=== PATIENT | male | born 1945 | race Caucasian/White ===

== ENCOUNTER → 2023-12-28 08:02 | Outpatient (REF) | payer MEDICARE, OTHER, SELFPAY ==
--- NOTE | 2023-12-28 08:52 | PTCARENOTE ---
Pt here for Echo/Bubble study. Bubble Study completed per protocol with aseptic technique. Right antecubital IV site utilized, inserted first attempt, rapid blood return. Pt tolerated procedure well, offers no complaints. IV D/C ed [id number], site
clear, no redness, no edema. No change in status.
== END ==
LOC: RCS 08:02
PROVIDERS: ATTENDING PHYSICIAN Internal Medicine Cardiovascular Disease; FAMILY PHYSICIAN Family Medicine
DX: I48.19 Other persistent atrial fibrillation (principal); I50.30 Unspecified diastolic (congestive) heart failure
CPT/HCPCS: 93308; 93321; 93325

== ENCOUNTER 2024-01-15 07:15 | Day surgery (SDC) | payer MEDICARE, OTHER, SELFPAY ==
--- NOTE | 2024-01-22 11:44 | ITS.CL.CARDI ---
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
Cardioversion
Procedure Report:
Date of Procedure: 01/15/24
Procedure: JOSE- guided Cardioversion
Indication: Symptomatic atrial fibrillation
Performing Physician: Keli Mandel DO [facility]
Technique: The patient was brought to the holding area. Signed informed consent was obtained. A time out was called and performed. The patient was anesthetized by the anesthesia service. Anticoagulation status was reviewed and appropriate.
Transesophageal echocardiogram performed without complication; no left atrial appendage thrombus. R2 pads were placed anteriorly and posteriorly. A 200 J synchronized biphasic shock restored normal sinus rhythm without significant bradycardia. There
were no complications.
Conclusion: Uncomplicated cardioversion from atrial fibrillation to sinus rhythm.
Recommendation: Routine post cardioversion care. 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
== END 2024-01-15 09:26 | disposition home or self-care (01) ==
LOC: CATH 07:15
PROVIDERS: ATTENDING PHYSICIAN Internal Medicine Cardiovascular Disease; FAMILY PHYSICIAN Family Medicine; OTHER PHYSICIAN Internal Medicine Cardiovascular Disease
DX: I48.19 Other persistent atrial fibrillation (principal); I11.0 Hypertensive heart disease with heart failure; Z79.01 Long term (current) use of anticoagulants; I50.30 Unspecified diastolic (congestive) heart failure; I34.0 Nonrheumatic mitral (valve) insufficiency; I45.10 Unspecified right bundle-branch block
CPT/HCPCS: 93312; 93320; 93325; 92960; 93005

== ENCOUNTER → 2024-06-20 08:50 | Outpatient (REF) | payer MEDICARE, OTHER, SELFPAY ==
[2024-06-20 10:32] LABS: Hematocrit 39.1 % (39.0-52.0); Hemoglobin 14.3 g/dL (13.0-18.0); Mean Corp Hgb Conc. 36.6 g/dL (33.0-37.0); Mean Corpuscular Volume 95.8 fL (80.0-94.0); Mean Platelet Volume 12.5 fL (7.4-10.4); Platelet Count 151 10^3/uL (130-400); Red Blood Cell Count 4.08 10^6/uL (4.70-6.10); Red Cell Dist. Width 11.4 % (11.5-14.5); White Blood Cell Count 6.3 10^3/uL (4.8-10.8)
[2024-06-20 11:28] LABS: Blood Urea Nitrogen 14 mg/dl (9-20); Carbon Dioxide 29 mmol/L (22-30); Chloride 93 mmol/L (98-107); Glucose 90 mg/dl (70-99); Potassium 4.8 mmol/L (3.5-5.1); Sodium 127 mmol/L (135-145); eGFR > 60.00
== END ==
LOC: SDSPAT 08:50
PROVIDERS: ATTENDING PHYSICIAN Surgery; FAMILY PHYSICIAN Family Medicine; OTHER PHYSICIAN Internal Medicine Cardiovascular Disease
DX: Z01.818 Encounter for other preprocedural examination (principal)
CPT/HCPCS: 36415; 80048; 85027

== ENCOUNTER → 2024-06-29 06:27 | Day surgery (SDC) | payer MEDICARE, OTHER, SELFPAY ==
--- NOTE | 2024-06-23 14:16 | PTCARENOTE ---
Patients 06/20 pretty Monk @ Dr. Simon office and Dr. Argueta notified- no additional interventions indicated
[2024-06-29] MEDS: TYLENOL 1000 MG PO (14:14)
[2024-06-29] MEDS: NORMOSOL-R 1000 IV (14:14)
[2024-06-29] MEDS: ZESTRIL 20 MG PO (14:36)
[2024-06-29] MEDS: DILAUDID 0.25 MG IV (19:03)
== END | disposition home or self-care (01) ==
LOC: SDS 06:27
PROVIDERS: ATTENDING PHYSICIAN Surgery; FAMILY PHYSICIAN Family Medicine
DX: K40.90 Unilateral inguinal hernia, without obstruction or gangrene, not specified as recurrent (principal)
CPT/HCPCS: 49650; C1781

== ENCOUNTER → 2024-07-13 15:05 | Outpatient (REF) | payer MEDICARE, OTHER, SELFPAY ==
[2024-07-13 16:44] LABS: NT-proBNP 2580 pg/ml
[2024-07-13 16:52] LABS: ALT (SGPT) 16 U/L (0-50); AST (SGOT) 28 U/L (17-59); Albumin 3.9 g/dl (3.5-5.0); Alkaline Phosphatase 71 U/L (38-126); Blood Urea Nitrogen 13 mg/dl (9-20); Calcium 8.9 mg/dl (8.4-10.2); Carbon Dioxide 30 mmol/L (22-30); Chloride 93 mmol/L (98-107); Glucose 87 mg/dl (70-99); Potassium 4.6 mmol/L (3.5-5.1); Sodium 132 mmol/L (135-145); Total Bilirubin 0.7 mg/dl (0.2-1.3); Total Protein 6.3 g/dl (6.3-8.2); eGFR > 60.00
[2024-07-13 17:00] LABS: Free T4 0.71 ng/dl (0.78-2.19)
[2024-07-13 17:15] LABS: TSH 2.01 uIU/ml (0.47-4.68)
== END ==
LOC: REG 15:05
PROVIDERS: ATTENDING PHYSICIAN Internal Medicine Cardiovascular Disease; FAMILY PHYSICIAN Family Medicine
DX: I48.19 Other persistent atrial fibrillation (principal); I50.30 Unspecified diastolic (congestive) heart failure
CPT/HCPCS: 36415; 80053; 83880; 84439; 84443

== ENCOUNTER 2024-07-18 03:28 | Emergency (ER) | payer MEDICARE, OTHER, SELFPAY ==
[2024-07-18 03:30] VITALS: BP 170/116
[2024-07-18 03:56] LABS: Urine Albumin 3+ (Neg - Trace); Urine Bilirubin Negative (Negative); Urine Character Bloody (Clear); Urine Color Red; Urine Glucose Negative (Negative); Urine Ketone Negative (Negative); Urine Leukocyte 2+ (Negative); Urine Nitrite Negative (Negative); Urine Occult Blood 4+ (Negative); Urine Urobilinogen Negative (Neg - 1+)
[2024-07-18 04:05] LABS: Urine Red Blood Cell >100 /HPF (0-2)
--- NOTE | 2024-07-18 04:27 | ED.GENMED ---
Addendum entered and electronically signed by Melody Craven PA-C 07/21/24 09:27:
07/21/24: Patient discharged on doxycycline. Urine culture growing >100,000 E.coli that is resistant to tetracycline. Patient called and notified of result. Script for cefdinir sent to pharmacy based on sensitivities.
Original Note:
History of Present Illness
General
Chief Complaint: Male Genito-Urinary Symptoms
Source: patient and previous hospital records (Recent left inguinal hernia repair June 29, 2024)
Exam Limitations: none
Time Seen by Provider: 07/18/24 04:11
Nursing documentation reviewed up to this point in time: agreed with
History of Present Illness
History of Present Illness:
This is a 79-year-old gentleman who has history of PAF chronically maintained on Eliquis, history of BPH, prior history of UTIs with last occurring perhaps 6 months ago.
He underwent laparoscopic left inguinal hernia repair June 29. Has been feeling well postoperatively although did note moderate periumbilical lower abdominal wall ecchymosis postoperatively which has been slowly resolving/improving.
This evening however he developed UTI symptoms, urinary frequency, urgency, dysuria that has progressed throughout the evening with onset of gross hematuria earlier this morning prompting ED visit.
He states if it was not for the hematuria he would have waited until the morning and contacted his PCP Dr. Brown but with worsening symptoms and onset of hematuria he came to the ED.
Current symptoms feel very similar to previous UTI symptoms that occurred perhaps 6 months ago.
He denies abdominal pain, no difficulty voiding nor hesitancy. He denies back pain or flank pain, no fever no chills, no nausea nor vomiting, no diarrhea or constipation.
Currently wearing a Holter monitor due to intermittent A-fib. He denies palpitations, no dizziness nor lightheadedness, no chest pain or shortness of breath.
Past History
Past History
ED Past Medical History: Arrthythmia (PAF), GERD, HTN, Psychiatric and Other (BPH, UTIs)
ED Past Surgical History: Orthopedic (Right knee arthroscopy) and Other (Hernia repair)
Social History
Tobacco: Non-smoker
Alcohol: Occasional
Personal:
Living: with family
Employment: Retired
Family History
Family History: Negative Diabetes
Phy Exam
Physical Exam
Physical Exam:
GENERAL: Alert , in no apparent distress. 79-year-old gentleman appears his stated age, bright and alert, pleasant, appears in no acute distress.
EYE: anicteric
NECK: Supple, nontender, no meningismus, no significant adenopathy.
ENT: oral mucosa is moist. No rhinorrhea.
CARDIAC: Irregularly irregular at a rate of 60-70, no murmur.
LUNGS: Clear breath sounds bilaterally, no acute respiratory distress, no wheezes/rales/rhonchi
ABDOMEN: Soft, nondistended, without focal tenderness, no r/g, no cvat. normoactive BS. There is a large dark purple ecchymotic patch across the lower abdomen. No palpable tenderness. Bladder is not palpably distended.
NEUROLOGICAL: Alert and oriented x3, no focal neuro deficits. Gait is steady.
SKIN: Warm and dry, normal color, skin intact. No rash.
MUSCULOSKELETAL: No C/C/E. peripheral pulses are full and equal b/l. No palpable tenderness.
PSYCH: Normal and appropriate interaction.
Course
Orders/Labs/Results
Orders:
Orders
07/18/24 03:47
Urinalysis Reflex To Culture Urgent
Date Specimen was Collected: 07/18/24
Time Specimen was Collected: 03:42
Urine Microscopic Reflex Cult Urgent
Urine Culture Urgent
MARA Source: U
Specimen Description:
Date Specimen was Collected: 07/18/24
Time Specimen was Collected: 03:42
07/18/24 03:59
Bladder Scan- Treatment ONCE
07/18/24 04:26
Doxycycline [Vibramycin] 100 mg PO NOW STA
Phenazopyridine HCl [Pyridium] 200 mg PO NOW STA
Abnormal Lab Results
07/18/24
03:47
Ur Occult Blood Reflex 4+ A
(Negative)
Leukocyte Esterase Rfl 2+ A
(Negative)
Urine RBC >100 A /HPF
(0-2)
Urine Albumin (Reflex) 3+ A
(Neg - Trace)
Vital Signs
Initial and Last Documented VS:
Initial Vital Signs
Temp Pulse Resp BP Pulse Ox
98.7 F 74 24 170/116 98
07/18/24 03:30 07/18/24 03:30 07/18/24 03:30 07/18/24 03:30 07/18/24 03:30
Last Documented Vital Signs
Temp Pulse Resp BP Pulse Ox
98.7 F 76 21 170/116 98
07/18/24 03:30 07/18/24 04:15 07/18/24 04:15 07/18/24 03:30 07/18/24 03:30
MDM/Problems Addressed
Differential Diagnosis Includes:
Patient presents with UTI symptoms, gross hematuria concerning for acute hemorrhagic cystitis.
No associated back pain or flank pain to suggest ureteric stone/hydronephrosis.
Abdomen is soft and nontender, nothing to suggest bladder outlet obstruction but will check bladder scan for completeness sake.
Patient has history of PAF, has Holter monitor in place and monitor does show A-fib with controlled ventricular response. He remains asymptomatic.
Noted to have dark purple resolving ecchymotic patch anterior lower abdomen with well-healed laparoscopic surgical sites.
He is hemodynamically stable, has had no symptoms of acute blood loss anemia.
Significant hypertension noted however significant hypertension noted during most recent visit June 29 for hernia repair. And similarly elevated blood pressures noted June 2023.
I suspect an element of white-coat syndrome. Patient states his blood pressure is much better controlled at home.
Will treat with a course of doxycycline for UTI and add a short course of Pyridium for UTI symptom control.
Discussed importance of remaining well-hydrated on a daily basis.
Prompt follow-up with primary care physician for recheck.
Return precautions discussed.
Chronic conditions affecting care: Arrhythmia (PAF-chronically maintained on Eliquis) and Previous abdomnial surgery
*Pulse Oximetry
Patient hypoxic: no
*Log Buyer Interpretation
Rate: normal
Interpretation: abnormal
Rhythm: a-fib
*Critical Care Note
Total Time (30-74mins, 75-104mins- exclusive of procedures): Not Applicable
ED Attending Note
-
Portions of this chart may have been created with voice recognition software.� Occasional wrong word or��sound alike� substitutions may have occurred due to the inherent limitations of voice recognition software.
Discharge Plan
Departure
Patient Disposition: Home (Routine Discharge)
Date of Disposition: 07/18/24
Time of Disposition: 04:34
Patient with high blood pressure during this ER visit?: No
Discharge Problem:
Acute hemorrhagic cystitis, White coat syndrome with diagnosis of hypertension
Instructions: Urinary Tract Infection - Men
Prescriptions:
New
doxycycline monohydrate 100 mg capsule
100 mg PO BID Qty: 20 1RF
phenazopyridine [Pyridium] 200 mg tablet
200 mg PO TID PRN (Reason: UTI symptoms) 3 Days Qty: 9 0RF
No Action
esomeprazole magnesium [Nexium] 40 MG capsule,delayed release(DR/EC)
20 mg PO DAILY
lisinopril 20 mg Tablet
20 mg PO DAILY
sildenafil 100 mg Tablet
50 - 100 mg PO DAILY PRN (Reason: ED)
jcploegtkpih-tbfsmqsu-kqtvti Tablet
1 tab PO DAILY
glucosamine EDq-hyi-hpngaxukzq 375-250-300 mg Tablet
1 tab PO DAILY
carvedilol 6.25 mg Tablet
6.25 mg PO BID
alprazolam 0.25 mg Tablet
0.25 mg PO HS PRN (Reason: anxiety)
furosemide [Lasix] 20 mg Tablet
20 mg PO DAILY
Eliquis 5 mg Tablet
5 mg PO BID
acetaminophen 325 mg tablet
650 mg PO Q4HPRN PRN (Reason: mild pain) Qty: 1 0RF
ibuprofen 200 mg tablet
400 - 600 mg PO Q6HPRN PRN (Reason: moderate pain) Qty: 1 0RF
oxycodone 5 mg tablet
5 mg PO Q4HPRN PRN (Reason: breakthrough/severe pain) Qty: 10 0RF
Referrals:
Vincenzo Parra MD [Family Provider] - Call in 1-3 days for appt
Interventions
Interventions:
*Risk Screen - Suicide Last Done: 07/18/24 03:30
*General Assessment Last Done: 07/18/24 04:20
*Neglect/Abuse Screening Last Done: 07/18/24 03:30
ED- Fall Risk Assessment Last Done: 07/18/24 04:20
ED-Male Genitourinary Assessment Last Done: 07/18/24 04:20
Discharge Date and Time
Print Language: SERBIAN
[2024-07-18 04:36] VITALS: BP 157/110
[2024-07-18 04:50] VITALS: BP 157/110
[2024-07-18] MEDS: Pyridium 200 MG PO (04:51)
[2024-07-18] MEDS: VIBRAMYCIN 100 MG PO (04:51)
== END 2024-07-18 05:01 | disposition home or self-care (01) ==
LOC: EMR 03:28
PROVIDERS: EMERGENCY PHYSICIAN Emergency Medicine; FAMILY PHYSICIAN Family Medicine
DX: N30.01 Acute cystitis with hematuria (principal); I10 Essential (primary) hypertension; I48.0 Paroxysmal atrial fibrillation; N40.0 Benign prostatic hyperplasia without lower urinary tract symptoms; Z79.01 Long term (current) use of anticoagulants
CPT/HCPCS: 99283; 81003; 81015; 87086; 87088; 87186

== ENCOUNTER → 2024-07-25 09:37 | Outpatient (REF) | payer MEDICARE, OTHER, SELFPAY ==
[2024-07-25 11:03] LABS: Blood Urea Nitrogen 14 mg/dl (9-20); Calcium 9.5 mg/dl (8.4-10.2); Carbon Dioxide 30 mmol/L (22-30); Chloride 95 mmol/L (98-107); Glucose 95 mg/dl (70-99); Potassium 4.9 mmol/L (3.5-5.1); Sodium 136 mmol/L (135-145); eGFR > 60.00
[2024-07-25 11:10] LABS: NT-proBNP 1940 pg/ml
== END ==
LOC: REG 09:37
PROVIDERS: ATTENDING PHYSICIAN Internal Medicine Cardiovascular Disease; FAMILY PHYSICIAN Family Medicine; REFERRING PHYSICIAN Internal Medicine Cardiovascular Disease
DX: I10 Essential (primary) hypertension (principal); I48.91 Unspecified atrial fibrillation; I50.30 Unspecified diastolic (congestive) heart failure
CPT/HCPCS: 36415; 80048; 83880

== ENCOUNTER 2024-09-05 09:53 | Day surgery (SDC) | payer MEDICARE, OTHER, SELFPAY ==
[2024-08-30 12:41] VITALS: BMI 31.3
[2024-09-05] VITALS (14 sets, daily range): BP systolic 100–199; BP diastolic 67–112
[2024-09-05 13:46] LABS: ACT-LR - POC 380 Seconds (116-155)
[2024-09-05 14:02] LABS: ACT-LR - POC 353 Seconds (116-155)
--- NOTE | 2024-09-05 15:51 | ITS.CL.ABL ---
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
Ablation
Procedure Report:
ELECTROPHYSIOLOGIC STUDY AND POSSIBLE ABLATION
DATE: September 05, 2024
Primary Care Provider: Dr. Vincenzo Brown
Primary Vp Mobile Products: Dr Judit Potter
INDICATION:
Symptomatic Atrial Fibrillation.
Persistent
HISTORY: See H and P.
Symptomatic AF, poorly controlled with attempted medical therapy.
He has been referred from Dr Judit Potter for electrophysiologic consultation regarding recurrent symptomatic atrial arrhythmias, both atrial fibrillation as well as atrial tachycardia/atypical atrial flutter associated with heart failure with
preserved ejection fraction.
Of note, he is also known to have moderate to severe mitral regurgitation with severely enlarged left atrium.
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
[id number] score of 4 (CHF, HTN, Age) and maintained on Eliquis.
HAS-BLED: 1
Age
CHADSVASc:
CHF, NYHA Class 2, HFpEF
HTN
Age
PRESENTING RHYTHM: AF
HISTORY: See H and P.
Symptomatic AF, poorly controlled with attempted medical therapy.
ANTICOAGULATION: apixaban
'TIME-OUT': called and confirmed.
SEDATION/ANESTHESIA: provided via the anesthesia department using general anesthesia.
PROCEDURE:
Ultrasound Guidance performed by dc was utilized for femoral venous Vascular Access b/l.
A decapolar CS catheter was placed within the CS for mapping and pacing.
The intracardiac ultrasound catheter was positioned in the RA for continuous intracardiac ultrasound imaging.
Heparin bolus and infusion to target ACT at 300 -350 seconds was administered. Transseptal puncture was performed. This entailed advancing a sheath with dilator into the superior vena cava and withdrawing both (monitoring intracardiac ultrasound,
fluoroscopy and tip pressure) with the tip oriented toward the atrial septum. The fossa ovalis was engaged (indicated by sudden displacement of the sheath tip as well as tenting of the fossa seen on intracardiac ultrasound).
The My[employer] transseptal system was used. Left atrial catheter position was confirmed by echocardiographic imaging and fluoroscopy followed by RF delivery using the SinglePlatform system resulting in successful LA access with pressure monitoring
demonstrating LA pressure waveforms (LA mean pressure 14 mm Hg). The sheath was advanced over the dilator and positioned in the left atrium.
The Martin Grid multipolar mapping catheter was initially positioned through the transseptal sheath for high density mapping.
Geometry and voltage mapping was performed using the Martin multipolar grid catheter. Ensite-X was utilized for three-dimensional electroanatomical mapping.
A 3-D map was created using Ensite-X in Voxel mode. A 3-D reconstructed CT image was compared to the 3-D Navex map to assist in anatomic evaluation, mapping and ablation.
The Tiinkk catheter and system was used for cardiac ablation. Catheter positioning was guided and confirmed using both I.C.E. and fluoroscopy. There is marked patchy high-frequency fractionation of the posterior wall of the left atrium.
PV isolation approach was used to electrically isolate each PV ostia (LSPV, LIPV, RSPV, RIPV).
Additional energy applications/additional ablation set was required to accomplish wide area circumferential ablation around each of the pulmonary vein sets and additionally ablation to accomplish LA posterior wall ablation.
Remapping with the Martin multipolar grid catheter found that all PVPs were eliminated at each vein demonstrating entrance block. Also pacing from the multipolar mapping catheter around the the circumference of the ostia was performed at 10 ma and
2.0 msec output to assess for exit block. This demonstrated electrical isolation at each of the pulmonary vein ostia (LSPV, LIPV, RSPV, RIPV). There is also entrance and exit block at the LA posterior wall.
Programmed electrostimulation failed to induce any sustained arrhythmias.
I.C.E. :
Pre-Ablation Post-Ablation
LVEF: 55 % 55 %
WMA: none none
Pericardial effusion: trace posterior trace posterior
COMPLICATIONS:
none
SUMMARY:
- Mapping and ablation to isolate the PVs
- Additional AF ablation set after PVI (WACA and LA posterior wall ablation).
- 3-D Electroanatomical Mapping
- Intracardiac Ultrasound
Post ablation, I discussed today's findings and results with the patient's , Liz.
RECOMMENDATIONS:
- Observe in monitored bed.
- Maintain oral anticoagulation.
- Continue current diuretic dosing
- Office visit with me in 3 months.
- Continue cardiovascular care with Dr Judit Potter
Copy to:
Dr. Vincenzo Brown
Dr Judit Potter
[2024-09-05] MEDS: TYLENOL 650 MG PO (16:44)
[2024-09-05] MEDS: ANESTHETIC LOZENGE 1 LOZENGE PO (16:44)
--- NOTE | 2024-09-05 18:34 | W.PN.UPDATE ---
Update Note
Progress Note Update
Pt seen post PFA. Right groin without ht/bleeding, oob ambulating, urinating without difficulty. Post EKG NSR w/1st deg AVB, RBBB 50-70s, no acute changes. Resume eliquis tonight, continue other meds as before. Followup at [facility] as scheduled. Home
today if groin site/tele remain stable.
== END 2024-09-05 19:05 | disposition home or self-care (01) ==
LOC: CATH 09:53
PROVIDERS: ATTENDING PHYSICIAN Internal Medicine Cardiovascular Disease; FAMILY PHYSICIAN Family Medicine; OTHER PHYSICIAN Internal Medicine Cardiovascular Disease
DX: I48.0 Paroxysmal atrial fibrillation (principal); I11.0 Hypertensive heart disease with heart failure; R53.83 Other fatigue; I47.19 Other supraventricular tachycardia; I50.32 Chronic diastolic (congestive) heart failure; N40.0 Benign prostatic hyperplasia without lower urinary tract symptoms; F41.9 Anxiety disorder, unspecified; I27.20 Pulmonary hypertension, unspecified; M19.90 Unspecified osteoarthritis, unspecified site; I45.10 Unspecified right bundle-branch block; K21.9 Gastro-esophageal reflux disease without esophagitis; Z79.899 Other long term (current) drug therapy; Z79.01 Long term (current) use of anticoagulants; I48.4 Atypical atrial flutter; I34.0 Nonrheumatic mitral (valve) insufficiency
CPT/HCPCS: C1732; C1759; C1892; C1894; 85347; 86900; 86901; 93005; 93656; 93657; C1730; C1733; C1766

== ENCOUNTER → 2024-10-05 10:54 | Outpatient (REF) | payer MEDICARE, OTHER, SELFPAY ==
[2024-10-05 11:31] LABS: Urine Albumin Negative (Neg - Trace); Urine Bilirubin Negative (Negative); Urine Character Clear (Clear); Urine Color Yellow; Urine Glucose Negative (Negative); Urine Ketone Negative (Negative); Urine Leukocyte Negative (Negative); Urine Nitrite Negative (Negative); Urine Occult Blood Negative (Negative); Urine Urobilinogen Negative (Neg - 1+)
== END ==
LOC: RAD 10:54
PROVIDERS: ATTENDING PHYSICIAN Specialist; FAMILY PHYSICIAN Family Medicine
DX: N30.20 Other chronic cystitis without hematuria (principal)
CPT/HCPCS: 74176; 81003; 87086

== ENCOUNTER 2024-10-28 09:35 | Emergency (ER) | payer MEDICARE, OTHER, SELFPAY ==
[2024-10-28 09:37] VITALS: BP 166/98
[2024-10-28 10:05] VITALS: BMI 29.4
--- NOTE | 2024-10-28 10:51 | ED.GENMED ---
History of Present Illness
<Tana Dennis MD, Resident - Last Filed: 10/28/24 14:23>
General
Chief Complaint: Musculo-Skeletal Complaint
Source: patient
Time Seen by Provider: 10/28/24 09:55
History of Present Illness
History of Present Illness:
This is a 79 year old male patient with Afib on Eliquis, GERD and HTN who presented to the ED with concerns of back pain. He states that he started to have right sided lower back pain since last that progressively started to get worse. He
describes it as a dull ache that radiates down to right thigh. He is not able to properly bear weight without pain in leg. He denies any history of falls or trauma. He states that he went to his orthopedic and has an MRI back pending at the end of
this month but was unable to tolerate the pain which had prompted him to arrive to the ER. His orthopedic had started him on a medrol dose shannen and his PCP had given him tramal. He had started the steroids on Thursday and the Tramadol yesterday and
today (only 2 doses), both of which had not provided him any relief.
Past History
<Tana Dennis MD, Resident - Last Filed: 10/28/24 14:23>
Past History
ED Past Medical History: Arrthythmia (PAF), GERD, HTN, Psychiatric and Other (BPH, UTIs)
ED Past Surgical History: Orthopedic (Right knee arthroscopy) and Other (Hernia repair)
Social History
Tobacco: Non-smoker
Alcohol: Occasional
Personal:
Living: with family
Employment: Retired
Family History
Family History: Negative Diabetes
Review of Systems
<Tana Dennis MD, Resident - Last Filed: 10/28/24 14:23>
Review of Systems
Constitutional: Denies fever or chills
Cardiac: Denies chest pain
ABD/GI: Denies abdominal pain
Musculoskeletal: Reports back pain
Neurological: Denies headache
Phy Exam
<Tana Dennis MD, Resident - Last Filed: 10/28/24 14:23>
General Physical Exam
General Presentation: well appearing and no apparent distress
Cardiovascular Exam
Cardiovascular Exam: regular rate/rhythm and no murmur
Heart Sounds: normal
Pulmonary Exam
Pulmonary Exam: lungs clear, no respiratory distress and no crackles
Gastrointestinal Exam
Gastrointestinal Exam: non tender, soft and non distended
Neurological Exam
Neurological Exam: oriented x3
Musculoskeletal Exam
Musculoskeletal Exam: other (positive right straight leg test)
Skin Exam
Skin Exam: warm/dry
Psychiatric Exam
Psychiatric Exam: normal mood/affect
Course
<Tana Dennis MD, Resident - Last Filed: 10/28/24 14:23>
Orders/Labs/Results
Orders:
Orders
10/28/24 11:02
Oxycodone [Roxicodone] 10 mg PO NOW STA
10/28/24 11:03
Acetaminophen [Tylenol] 1,000 mg PO NOW STA
Vital Signs
Initial and Last Documented VS:
Initial Vital Signs
Temp Pulse Resp BP Pulse Ox
98.3 F 62 16 166/98 98
10/28/24 09:37 10/28/24 09:37 10/28/24 09:37 10/28/24 09:37 10/28/24 09:37
Last Documented Vital Signs
Temp Pulse Resp BP Pulse Ox
98.3 F 62 16 159/106 97
10/28/24 09:37 10/28/24 09:37 10/28/24 09:37 10/28/24 11:31 10/28/24 11:45
<Mila Braswell MD - Last Filed: 10/28/24 12:57>
Orders/Labs/Results
Orders:
Orders
10/28/24 11:02
Oxycodone [Roxicodone] 10 mg PO NOW STA
10/28/24 11:03
Acetaminophen [Tylenol] 1,000 mg PO NOW STA
Vital Signs
Initial and Last Documented VS:
Initial Vital Signs
Temp Pulse Resp BP Pulse Ox
98.3 F 62 16 166/98 98
10/28/24 09:37 10/28/24 09:37 10/28/24 09:37 10/28/24 09:37 10/28/24 09:37
Last Documented Vital Signs
Temp Pulse Resp BP Pulse Ox
98.3 F 62 16 159/106 97
10/28/24 09:37 10/28/24 09:37 10/28/24 09:37 10/28/24 11:31 10/28/24 11:45
<Tana Dennis MD, Resident - Last Filed: 10/28/24 14:23>
*Critical Care Note
Total Time (30-74mins, 75-104mins- exclusive of procedures): Not Applicable
<Tana Dennis MD, Resident - Last Filed: 10/28/24 14:23>
Update Note
Update Note:
Patient afebrile with stables vitals on exam. Positive right straight leg test. Pain control with oxycodone and patient started to feel improvement with pain. He is stable and can be discharged with pain medication to allow him to get MRI back at
the end of month and follow up with orthopedics for further care (he has already seen for this issue).
ED Attending Note
<Tana Dennis MD, Resident - Last Filed: 10/28/24 14:23>
-
Portions of this chart may have been created with voice recognition software.� Occasional wrong word or��sound alike� substitutions may have occurred due to the inherent limitations of voice recognition software.
<Mila Braswell MD - Last Filed: 10/28/24 12:57>
ED Attending Note
Patient seen and examined by attending physician: Yes
I performed a history and physical exam of patient and discussed management with resident, I reviewed resident's note and agree with documented findings and plan of care.: Yes
ED Attending Note:
Patient shows no sign of cauda equina. He is neurovascularly intact. Patient appears nontoxic.
Discharge Plan
Departure
Patient Disposition: Home (Routine Discharge)
Date of Disposition: 10/28/24
Time of Disposition: 12:54
Patient with high blood pressure during this ER visit?: Yes
Condition: Good
Covid-19: Not Applicable
Discharge Problem:
Low back pain radiating to right leg
Prescriptions:
New
oxycodone 5 mg tablet
5 - 10 mg PO Q8H PRN (Reason: Pain) Qty: 10 0RF
No Action
esomeprazole magnesium [Nexium] 40 MG capsule,delayed release(DR/EC)
20 mg PO DAILY
sildenafil 100 mg Tablet
50 - 100 mg PO DAILY PRN (Reason: ED)
eryqokeevsbn-awkvnoln-jjkarp Tablet
1 tab PO DAILY
carvedilol 6.25 mg Tablet
6.25 mg PO BID
alprazolam 0.25 mg Tablet
0.25 mg PO HS PRN (Reason: anxiety)
furosemide [Lasix] 20 mg Tablet
20 mg PO SUTUTHSA
Eliquis 5 mg Tablet
5 mg PO BID
acetaminophen 325 mg tablet
650 mg PO Q4HPRN PRN (Reason: mild pain) Qty: 1 0RF
ibuprofen 200 mg tablet
400 - 600 mg PO Q6HPRN PRN (Reason: moderate pain) Qty: 1 0RF
oxycodone 5 mg tablet
5 mg PO Q4HPRN PRN (Reason: breakthrough/severe pain) Qty: 10 0RF
lisinopril 40 mg Tablet
40 mg PO DAILY
[facility] 750 mg-100 mg- 1.65 mg-108 mg Tablet
1 tab PO DAILY
furosemide [Lasix] 40 mg Tablet
40 mg PO MOWEFR
Referrals:
Ravi Craft MD [Family Provider] -
Activity Restrictions/Additional Instructions:
If experiencing any symptoms such as worsening lower back pain, weakness or numbness in lower extremities please return to the ER. Follow up with orthopedics and pending MRI back outpatient. Do not take the tramadol within 8 hours of taking the
oxycodone!!!
Interventions
Interventions:
*Risk Screen - Suicide Last Done: 10/28/24 09:37
*General Assessment Last Done: 10/28/24 09:37
*Neglect/Abuse Screening Last Done: 10/28/24 09:37
ED- Fall Risk Assessment Last Done: 10/28/24 10:05
*ED COVID-19 Vaccine History Last Done: 10/28/24 10:05
*Nursing Disposition Last Done: 10/28/24 13:43
ED-Musculoskeletal Assessment Last Done: 10/28/24 10:13
Discharge Date and Time
Discharge Date/Time: 10/28/24 13:44
Print Language: [email or web address]
[2024-10-28] MEDS: TYLENOL 1000 MG PO (11:29)
[2024-10-28] MEDS: ROXICODONE 10 MG PO (11:29)
[2024-10-28 11:31] VITALS: BP 159/106
== END 2024-10-28 13:44 | disposition home or self-care (01) ==
LOC: EMR 09:35
PROVIDERS: EMERGENCY PHYSICIAN Emergency Medicine; FAMILY PHYSICIAN Psychiatry & Neurology Neurology
DX: M54.50 Low back pain, unspecified (principal); I10 Essential (primary) hypertension; I48.0 Paroxysmal atrial fibrillation; K21.9 Gastro-esophageal reflux disease without esophagitis; Z79.01 Long term (current) use of anticoagulants; N40.0 Benign prostatic hyperplasia without lower urinary tract symptoms
CPT/HCPCS: 99283

== ENCOUNTER → 2024-11-01 08:55 | Outpatient (REF) | payer MEDICARE, OTHER, SELFPAY ==
[2024-11-01 10:05] LABS: % Basophils 0.3 % (0-2); % Eosinophils 1.9 % (0-6); % Immature Granulocytes 0.5 % (0-0.5); % Lymphocytes 19.1 % (20.5-51.1); % Monocytes 9.4 % (1.7-9.3); % Neutrophils 68.8 % (42.2-75.2); Absolute Eosinophils 0.2 10^3/uL (0-0.7); Absolute Lymphocytes 1.7 10^3/uL (1.2-3.4); Absolute Monocytes 0.8 10^3/uL (0.1-0.6); Absolute Neutrophils 6.1 10^3/uL (1.4-6.5); Hematocrit 43.3 % (39.0-52.0); Hemoglobin 15.3 g/dL (13.0-18.0); Mean Corp Hgb Conc. 35.3 g/dL (33.0-37.0); Mean Corpuscular Hgb 34.1 pg (27.0-31.0); Mean Corpuscular Volume 96.4 fL (80.0-94.0); Mean Platelet Volume 12.1 fL (7.4-10.4); Nucleated Red Blood Cells % 0 % (-); Platelet Count 198 10^3/uL (130-400); Red Blood Cell Count 4.49 10^6/uL (4.70-6.10); Red Cell Dist. Width 11.9 % (11.5-14.5); White Blood Cell Count 8.8 10^3/uL (4.8-10.8)
[2024-11-01 13:24] LABS: ALT (SGPT) 20 U/L (0-50); AST (SGOT) 25 U/L (17-59); Albumin 4.3 g/dl (3.5-5.0); Alkaline Phosphatase 66 U/L (38-126); Blood Urea Nitrogen 19 mg/dl (9-20); Calcium 9.2 mg/dl (8.4-10.2); Carbon Dioxide 32 mmol/L (22-30); Chloride 92 mmol/L (98-107); Glucose 97 mg/dl (70-99); HDL Cholesterol 54 mg/dl; LDL Cholesterol, Calculated 124 mg/dl; Sodium 132 mmol/L (135-145); Total Bilirubin 0.9 mg/dl (0.2-1.3); Total Cholesterol 207 mg/dl (50-199); Total Protein 7.1 g/dl (6.3-8.2); Triglyceride 146 mg/dl (10-149); Very Low Density Lipoprotein 29 mg/dl (0-30); eGFR > 60.00
== END ==
LOC: REG 08:55
PROVIDERS: ATTENDING PHYSICIAN Family Medicine
DX: C44.90 Unspecified malignant neoplasm of skin, unspecified (principal); Z98.890 Other specified postprocedural states; Z87.19 Personal history of other diseases of the digestive system; I10 Essential (primary) hypertension; I48.91 Unspecified atrial fibrillation
CPT/HCPCS: 36415; 80053; 80061; 85025

== ENCOUNTER → 2025-02-28 11:22 | Outpatient (REF) | payer MEDICARE, OTHER, SELFPAY ==
[2025-02-28 12:11] LABS: % Basophils 0.4 % (0-2); % Eosinophils 1.2 % (0-6); % Immature Granulocytes 0.2 % (0-0.5); % Lymphocytes 23.3 % (20.5-51.1); % Neutrophils 63.9 % (42.2-75.2); Absolute Eosinophils 0.1 10^3/uL (0-0.7); Absolute Lymphocytes 1.9 10^3/uL (1.2-3.4); Absolute Monocytes 0.9 10^3/uL (0.1-0.6); Absolute Neutrophils 5.3 10^3/uL (1.4-6.5); Hematocrit 42.5 % (39.0-52.0); Mean Corp Hgb Conc. 35.3 g/dL (33.0-37.0); Mean Corpuscular Hgb 34.6 pg (27.0-31.0); Mean Corpuscular Volume 98.2 fL (80.0-94.0); Mean Platelet Volume 11.6 fL (7.4-10.4); Nucleated Red Blood Cells % 0 % (-); Platelet Count 179 10^3/uL (130-400); Red Blood Cell Count 4.33 10^6/uL (4.70-6.10); Red Cell Dist. Width 11.7 % (11.5-14.5); White Blood Cell Count 8.3 10^3/uL (4.8-10.8)
[2025-02-28 14:05] LABS: Blood Urea Nitrogen 21 mg/dl (9-20); Calcium 9.4 mg/dl (8.4-10.2); Carbon Dioxide 28 mmol/L (22-30); Chloride 101 mmol/L (98-107); Glucose 73 mg/dl (70-99); Potassium 5.4 mmol/L (3.5-5.1); Sodium 138 mmol/L (135-145); eGFR > 60.00
== END ==
LOC: REG 11:22
PROVIDERS: ATTENDING PHYSICIAN Orthopaedic Surgery; FAMILY PHYSICIAN Family Medicine
DX: Z01.818 Encounter for other preprocedural examination (principal)
CPT/HCPCS: 36415; 80048; 85025

== ENCOUNTER → 2025-03-07 11:09 | Outpatient (REF) | payer MEDICARE, OTHER, SELFPAY ==
[2025-03-07 18:38] LABS: Urine Albumin Negative (Neg - Trace); Urine Bilirubin Negative (Negative); Urine Character Clear (Clear); Urine Color Yellow; Urine Glucose Negative (Negative); Urine Ketone Negative (Negative); Urine Leukocyte Negative (Negative); Urine Nitrite Negative (Negative); Urine Occult Blood Negative (Negative); Urine Specific Gravity 1.015 (<1.030); Urine Urobilinogen Negative (Neg - 1+)
== END ==
LOC: CLAB 11:09
PROVIDERS: ATTENDING PHYSICIAN Specialist
DX: N30.21 Other chronic cystitis with hematuria (principal)
CPT/HCPCS: 81003; 87086

== ENCOUNTER 2025-03-31 08:16 | Outpatient (RCR) | payer MEDICARE, OTHER, SELFPAY | END 2025-04-05 07:34 | disposition home or self-care (01) | LOC: RPT 08:16 | PROVIDERS: ATTENDING PHYSICIAN Orthopaedic Surgery; FAMILY PHYSICIAN Family Medicine | DX: Z47.1 Aftercare following joint replacement surgery (principal); M17.12 Unilateral primary osteoarthritis, left knee; Z73.6 Limitation of activities due to disability; R26.89 Other abnormalities of gait and mobility; G89.29 Other chronic pain; Z96.652 Presence of left artificial knee joint | CPT/HCPCS: 97110; 97161; 97535 ==

== ENCOUNTER 2025-04-01 06:08 | Inpatient (IN) | payer MEDICARE, OTHER, SELFPAY ==
[2025-03-31 23:18] VITALS: BP 135/79
[2025-04-01] VITALS (14 sets, daily range): BP systolic 106–155; BP diastolic 64–127; BMI 30.7
[2025-04-01 00:11] LABS: % Basophils 0.1 % (0-2); % Immature Granulocytes 0.5 % (0-0.5); % Neutrophils 79.4 % (42.2-75.2); Absolute Immature Granulocytes 0.1 10^3/uL (0-0.05); Absolute Lymphocytes 1.2 10^3/uL (1.2-3.4); Absolute Monocytes 1.4 10^3/uL (0.1-0.6); Absolute Neutrophils 10.3 10^3/uL (1.4-6.5); Hematocrit 30.9 % (39.0-52.0); Mean Corp Hgb Conc. 35.6 g/dL (33.0-37.0); Mean Corpuscular Hgb 33.8 pg (27.0-31.0); Mean Corpuscular Volume 95.1 fL (80.0-94.0); Mean Platelet Volume 12.5 fL (7.4-10.4); Nucleated Red Blood Cells % 0 % (-); Platelet Count 161 10^3/uL (130-400); Red Blood Cell Count 3.25 10^6/uL (4.70-6.10); Red Cell Dist. Width 11.9 % (11.5-14.5)
[2025-04-01 00:37] LABS: ALT (SGPT) 22 U/L (0-50); AST (SGOT) 26 U/L (17-59); Alkaline Phosphatase 52 U/L (38-126); Blood Urea Nitrogen 33 mg/dl (9-20); Calcium 8.8 mg/dl (8.4-10.2); Carbon Dioxide 24 mmol/L (22-30); Chloride 99 mmol/L (98-107); Estimated Creatinine Clearance 66 ml/min; Glucose 109 mg/dl (70-99); Potassium 4.8 mmol/L (3.5-5.1); Sodium 130 mmol/L (135-145); Total Bilirubin 0.9 mg/dl (0.2-1.3); Total Protein 6.4 g/dl (6.3-8.2); eGFR > 60.00
[2025-04-01 00:38] LABS: Troponin I < 0.012 ng/ml
[2025-04-01 03:28] LABS: NT-proBNP 1730 pg/ml; Troponin I 0.037 ng/ml
--- NOTE | 2025-04-01 03:43 | ED.GENMED ---
History of Present Illness
General
Chief Complaint: Chest Pain
Source: patient and spouse
Time Seen by Provider: 04/01/25 03:42
History of Present Illness
History of Present Illness:
This patient is a 80-year-old male presents emergency department status post knee replacement performed here at [place] on Thursday. He has been recovering well. Tonight he was going upstairs to go to bed and he developed an episode of dyspnea
associated with chest 'tightness' described as 'pain whenever I would breathe'. He still had symptoms on his way to the emergency department but upon arrival he has been symptom-free. He denies fever, chills, nausea, vomiting, diaphoresis,
dizziness. Of note, patient typically takes Eliquis given his history of A-fib. He discontinued it prior to surgery, took a half dose on Thursday, and a full dose on and Thursday. Patient denies history of DVT.
Past History
Past History
ED Past Medical History: Arrthythmia (PAF), GERD, HTN, Psychiatric and Other (BPH, UTIs)
ED Past Surgical History: Orthopedic (Right knee arthroscopy) and Other (Hernia repair)
Social History
Tobacco: Non-smoker
Alcohol: Occasional
Drug: None
Personal:
Living: with family
Employment: Retired
Family History
Family History: Negative Diabetes
Phy Exam
Physical Exam
Physical Exam:
GENERAL: Alert , in no apparent distress, nontoxic, extremely well-appearing
EYE: pupils equal and reactive
NECK: Supple, no significant adenopathy.
ENT: o/p clr, mmm.
CARDIAC: Regular rate and rhythm .
LUNGS: Clear breath sounds bilaterally, no acute respiratory distress, no wheezes/rales/rhonchi
ABDOMEN: Soft, without focal tenderness, no r/g, no cvat
NEUROLOGICAL: Alert and oriented, no focal neuro deficits
SKIN: Warm and dry, skin intact.
MUSCULOSKELETAL: Slight bilateral lower extremity edema, well perfused. Left knee with limited range of motion given postoperative, dressing clean and dry
PSYCH: Normal and appropriate interaction.
Scores
Heart Score for Chest Pain Patients
STEMI patient?: Not applicable
Course
Orders/Labs/Results
Orders:
Orders
03/31/25 23:12
EKG [Electrocardiogram (*1)] Urgent
Reason for Study: Chest Pain
EKG- Treatment ONCE
03/31/25 23:31
Electrocardiogram (*1) Urgent
Reason for Study: Chest Pain
Cardiac Monitoring- Treatment ONCE
EKG- Treatment ONCE
IV Insert/Care/Rem.- Treatment PRN
O2 Therapy [RESP] Urgent
Titrate/Wean O2 to maintain O2 sat greater than (%): 90
Special Instructions: Maintain sats >/=90%
Pulse Ox/spot Check [RESP] Urgent
Quantity: 1
Special Instructions: ON ROOM AIR
03/31/25 23:58
Complete Blood Count/With Diff Urgent
Comprehensive Metabolic Panel Urgent
Troponin I Urgent
04/01/25 01:29
CXR2 [CR Chest - 2 Views ] Urgent
Comment:
Reason For Exam: cp
04/01/25 02:49
EKG [Electrocardiogram (*1)] Urgent
Reason for Study: Chest Pain
EKG- Treatment ONCE
04/01/25 02:54
NT-proBNP Urgent
Troponin I Urgent
04/01/25 03:49
CT Chest PE Study Urgent
Comment: episode of sob and chest pain at home
Reason For Exam: hx total knee replacement,
04/01/25 04:55
Aspirin 325 mg PO NOW STA
04/01/25 05:48
Admit/Transfer Patient As Directed
Co-Sign Provider:
Level of Care: Inpatient admission
Assign to:: Telemetry
Physician / Group: Fredo
Diagnosis: ACS
Reason for Telemetry: Chest Pain syndromes
Date to Stop Telemetry: 04/03/25
Time to Stop Telemetry: 11:00
Reason for Hospitalization: ACS
Expected length of stay greater than two midnights?: Yes
ELOS- Estimated Length of Stay in days: 2
I certify the patient meets the requirements for IP care: Yes
PRN Pain Medication Management As Directed
May give lesser potent ordered pain med per pt: Yes
preference::
Protocol:: Medication orders for pain may be administered in a
manner that supports deferring to patient preference
when the pt is:
- Requesting an ordered lesser potent pain medication.
Least to most potent pain medications are defined
as: acetaminophen < NSAID < tramadol < opioids
(morphine, oxycodone, hydromorphone).
- Requesting a lesser dose of the same medication IF
ORDERED.
- Requesting a less intrusive route of administration
if both routes are prescribed by the provider (PO <
IV).
04/01/25 05:49
Code Status As Directed
Resuscitation Status: Full Code
04/01/25 06:53
Acetaminophen [Tylenol] 650 mg PO Q4HPRN PRN
Alprazolam [Xanax] 0.25 mg PO HS PRN
Morphine Sulfate 2 mg IV Q4HPRN PRN
04/01/25 06:53
CARDIOLOGY CONSULT Routine
Consulting Provider: Stas Oconnor
Was physician already notified: No
Reason for consult: Chest Pain
Consult Notification Routine
Specialty to Notify: Cardiology
Date consulting provider notified: 04/01/25
Time consulting provider notified: 08:09
Notified:: Provider
Comment: Sche[place]
Activity As Directed
Activity Level: Ambulate
With Assistance
EKG with chest pain [ECG as needed] As Directed
ECG as needed for:: Chest Pain
I/O [Intake/ Output] As Directed
Frequency: Per unit guidelines
Vital Signs As Directed
Frequency: Per unit guidelines
Weight As Directed
Frequency: Daily
Oxygen Therapy [O2 Therapy] [RESP] Routine
Titrate/Wean O2 to maintain O2 sat greater than (%): 94
PT Consult [Pt Eval And Treat] Routine
Activity Level: Ambulate
With Assistance
04/01/25 07:22
Tramadol HCl [Ultram] 25 mg PO Q6H PRN
04/01/25 08:00
Apixaban [Eliquis] 5 mg PO BID
Carvedilol [Coreg] 6.25 mg PO BID
Furosemide [Lasix] 20 mg PO DAILY
Lisinopril [Zestril] 40 mg PO DAILY
Pantoprazole [Protonix] 40 mg PO DAILY
Tamsulosin [Flomax] 0.4 mg PO DAILY
04/01/25 09:49
Troponin I Q6H
04/01/25 17:36
Troponin I Q6H
04/02/25 06:00
EKG [Electrocardiogram (*1)] IN AM
Reason for Study: Chest Pain
Basic Metabolic Panel IN AM
Cardiovascular Evaluation IN AM
Complete Blood Count/No Diff IN AM
04/02/25 08:00
Aspirin Chewable [Low Strength Aspirin] 81 mg PO DAILY
04/03/25 11:00
DC Protocol for Telemetry ONCE
Abnormal Lab Results
03/31/25 04/01/25
23:58 02:54
WBC 13.0 H 10^3/uL
(4.8-10.8)
RBC 3.25 L 10^6/uL
(4.70-6.10)
Hgb 11.0 L g/dL
(13.0-18.0)
Hct 30.9 L %
(39.0-52.0)
MCV 95.1 H fL
(80.0-94.0)
MCH 33.8 H pg
(27.0-31.0)
MPV 12.5 H fL
(7.4-10.4)
Abs Immat Gran (auto) 0.1 H 10^3/uL
(0-0.05)
Absolute Neuts (auto) 10.3 H 10^3/uL
(1.4-6.5)
Absolute Monos (auto) 1.4 H 10^3/uL
(0.1-0.6)
Neutrophils % 79.4 H %
(42.2-75.2)
Lymphocytes % 9.0 L %
(20.5-51.1)
Monocytes % 11.0 H %
(1.7-9.3)
Sodium 130 L mmol/L
(135-145)
BUN 33 H mg/dl
(9-20)
Glucose 109 H mg/dl
(70-99)
Troponin I 0.037 H* D ng/ml
03/31/25 23:58
03/31/25 23:58
Vital Signs
Initial and Last Documented VS:
Initial Vital Signs
Temp Pulse Resp BP Pulse Ox
97.9 F 73 24 135/79 98
03/31/25 23:18 03/31/25 23:18 03/31/25 23:18 03/31/25 23:18 03/31/25 23:18
Last Documented Vital Signs
Temp Pulse Resp BP Pulse Ox
97.4 F 71 18 130/85 99
04/01/25 15:42 04/01/25 15:42 04/01/25 15:42 04/01/25 15:42 04/01/25 15:42
*Critical Care Note
Total Time (30-74mins, 75-104mins- exclusive of procedures): Not Applicable
Update Note
Update Note:
Patient presents to the Emergency Department with ___chest pain and shortness of breath
Number and Complexity of Problems Addressed at the Encounter
� Chronic conditions affecting care:
� Acute Exacerbation and/or Progression of Chronic Illness:
� Differential Diagnosis includes: But not limited to deconditioning, PE, ACS, pneumothorax, pleurisy, etc. etc.
Amount and/or Complexity of Data to be Reviewed and Analyzed
� I performed an independent evaluation of and my interpretation is:
EKG: Read by me, normal sinus rhythm with occasional PVCs, nonspecific T wave flattening
CT: Vision no pulmonary is embolism no definitive aortic dissection or aneurysm mild cardiomegaly and CAD. Lungs clear aside from dependent atelectasis. Benign liver cyst small hiatal hernia
Xrays:
Laboratory Studies: Mild leukocytosis, mild anemia, hyponatremia which is similar to 2023
Other:
� Review of other/old records reveals:
� Clinical information was obtained by an independent historian:
� Prescriptions/Medications Considered but not given:
� Further testing considered but not performed:
Risk of Complications and/or Morbidity or Mortality of Patient Management
� Social determinants of health affecting care:
� Discussion with other providers (PCP, Hospitalists, Consultants, etc):
� Escalation of care including admission/observation vs risk of discharge considered: Initial troponin normal, repeat troponin elevated at 0.037. Patient without chest pain or other symptoms, and repeat ECG without acute
ischemic changes at this time. PE is high on the differential, CAT scan pending.
4:54 AM fortunately no PE noted. However, patient noted to have a abnormal troponin on second draw. He will be admitted for further testing and monitoring. Patient already on anticoagulation. No chest pain at this time. TT to Dr Stevens for
admission.
ED Attending Note
-
Portions of this chart may have been created with voice recognition software.� Occasional wrong word or��sound alike� substitutions may have occurred due to the inherent limitations of voice recognition software.
Discharge Plan
Departure
Patient Disposition: Admit
Date of Disposition: 04/01/25
Time of Disposition: 04:55
Admit to: Telemetry
Admit to doctor: fredo
Presentation/result/management discussed w/ accepting MD/DO: Hospitalist
Discharge Problem:
Chest pain
Interventions
Interventions:
*Risk Screen - Suicide Last Done: 03/31/25 23:18
*General Assessment Last Done: 03/31/25 23:18
*Neglect/Abuse Screening Last Done: 03/31/25 23:18
*ED- Fall Risk Assessment Last Done: 04/01/25 00:14
*ED COVID-19 Vaccine History Last Done: 04/01/25 00:14
*Nursing Disposition Last Done: 04/01/25 08:06
ED- Cardiac Assessment Last Done: 04/01/25 03:15
Discharge Date and Time
Discharge Date/Time: 04/01/25 07:50
[2025-04-01] MEDS: ASPIRIN 325 MG PO (05:18)
--- NOTE | 2025-04-01 05:51 | HPS.HSE ---
Family Physician
-
Family Physician: Vincenzo Parra
Chief Complaint
-
Chest Pain
History of Present Illness
Patient is a 80y M with PMH significant for A-Fib, hypertension and recent L TKA who presents to ED complaining of chest pain. Patient states that he was climbing the stairs to bed this evening when he developed substernal chest pain / pressure.
He lie down in bed to rest; however, his symptoms did not improve / resolve. He denies any associated diaphoresis, SOB, N/V, etc. He denies any prior history of similar pain / symptoms.
Patient presented to the ED for further evaluation.
Patient states that his pain fully resolved about 15 minutes after arrival in the ED. He has remained pain-free since that time.
Patient is s/p L TKA on Thursday. He has been doing very well in regards to pain control / mobility at home.
No complaints of significant knee pain, bleeding, etc.
Medical History
Past Medical History
Past Medical History: Reports Other
Additional Past Medical History:
Hypertension
Paroxysmal A-Fib / Flutter
GERD
BPH
Past Surgical History: Reports Other
Additional Past Surgical History:
Left TKA (03/28/25)
T&A
Bilateral Inguinal Hernia Repairs
Left Shoulder Surgery
PVI Ablation
Social History
Tobacco: Non-smoker
Alcohol: Occasional
Drug: None
Family History
Family History: Other (Mother: ALS)
Allergies / Home Medications
Allergies reflects when Allergies were last updated in [facility].
Home Medications with original date entered in [facility]
Allergy/Medication List:
Allergies
Allergy/AdvReac Type Severity Reaction Status Date / Time
No Known Allergies Allergy Verified 04/01/25 00:13
Home Medications
esomeprazole magnesium 40 mg capsule,delayed release (Nexium) 20 mg PO DAILY 10/03/12
mghormqlftho-vjjkskhd-mnlvhs tablet 1 tab PO DAILY 07/07/23
sildenafil 100 mg tablet 50 - 100 mg PO DAILY PRN ED 07/07/23
alprazolam 0.25 mg tablet 0.25 mg PO HS PRN anxiety 01/15/24
apixaban 5 mg tablet (Eliquis) 5 mg PO BID 01/15/24
carvedilol 6.25 mg tablet 6.25 mg PO BID 01/15/24
furosemide 20 mg tablet (Lasix) 20 mg PO DAILY 01/15/24
acetaminophen 325 mg tablet 650 mg (2 x 325 mg) PO Q4HPRN PRN mild pain #1 tab 06/29/24
lisinopril 40 mg tablet 40 mg PO DAILY 08/25/24
methenamine hippurate 1 gram tablet 1 g PO BID 04/01/25
tamsulosin 0.4 mg capsule 0.4 mg PO DAILY 04/01/25
tramadol 25 mg tablet 25 mg PO Q6H PRN pain 04/01/25
Review of Systems
-
History Source: Patient
A 12 point ROS was completed and negative except as noted: Yes
Constitutional: Denies Fever or Chills
Respiratory: Denies Cough or Trouble Breathing
Cardiac: Reports Chest Pain; Denies Palpitations
Abdomen/GI: Denies Abdominal Pain, Nausea, Vomiting or Diarrhea
: Denies Dysuria or Frequency
Musculoskeletal: Reports Joint Pain; Denies Edema
Neurological: Denies Dizzy or Headache
Psych: Denies Depression or Anxiety
Physical Exam
Vital Signs
Vital Signs
Temp Pulse Resp BP Pulse Ox
97.9 F 75 18 127/91 99
03/31/25 23:18 04/01/25 05:20 04/01/25 00:11 04/01/25 05:00 04/01/25 05:20
Physical Exam
General: Other (80y M in no acute distress.)
HEENT: Moist mucous membranes
Respiratory: Clear; No Wheezes, Rales or Rhonchi
Cardiac: S1/S2 and Regular Rhythm; No Murmur
GI: Soft, Non Tender, Non Distended and Normal Bowel Sounds
Musculoskeletal: No Clubbing, No Cyanosis and Other (L knee dressing in place. Surrounding ecchymosis / mild edema - expected post-op appearance. No erythema, increased warmth, etc.)
Neuro: AO x 3
Laboratory Results
-
03/31/25 23:58
03/31/25 23:58
Laboratory Results
Total Bilirubin 0.9 mg/dl (0.2-1.3) 03/31/25 23:58
AST 26 U/L (17-59) 03/31/25 23:58
ALT 22 U/L (0-50) 03/31/25 23:58
Alkaline Phosphatase 52 U/L (38-126) 03/31/25 23:58
Troponin I 0.037 ng/ml H* D 04/01/25 02:54
Impression/Plan
-
A/P: Patient is a 80y M with PMH significant for hypertension and paroxysmal A-Fib who presented to ED complaining of chest pain this evening.
Chest Pain / ACS
- Admit for further evaluation and treatment.
- EKG without evident ischemia. Non-specific T wave changes in lateral leads actually appear improved from prior.
- Initial troponin undetectable; however, second set elevated to 0.037.
- Pain free at present.
- Continue home Eliquis for now. ASA added.
- Continue to follow troponin to peak.
- Continue ASA daily.
- Cardiology evaluation for additional recommendations.
- Monitor for any new / recurrent pain.
Paroxysmal A-Fib / Flutter
- s/p prior ablation.
- Monitor on telemetry.
- Continue Eliquis for stroke risk reduction.
s/p L TKA 03/28/25
- Stable. Pain well-controlled. Good mobility s/p surgery.
- Continue pain control as needed.
- Continue ROM exercises / PT during acute stay.
Benign Hypertension
- Stable. Continue usual outpatient medications.
BPH
- Stable. Continue tamsulosin.
- Bladder scan protocol.
DVT Prophylaxis: On Eliquis
Code Status: Full
[2025-04-01] MEDS: ELIQUIS 5 MG PO (08:46)
[2025-04-01] MEDS: COREG 6.25 MG PO ×2 (08:46→20:21)
[2025-04-01] MEDS: LASIX 20 MG PO (08:47)
[2025-04-01] MEDS: ZESTRIL 40 MG PO (08:47)
[2025-04-01] MEDS: PROTONIX 40 MG PO (08:47)
[2025-04-01] MEDS: FLOMAX 0.4 MG PO (08:47)
--- NOTE | 2025-04-01 08:54 | CON.CAR ---
Addendum entered and electronically signed by Keli Mandel DO 04/02/25 00:30:
I saw and examined the patient.
The Supervisor Molding's note was reviewed and I agree with the note.
Comment: Patient was seen and examined with cardiac nurse practitioner and agree with note and plan as outlined. Patient's at bedside. 79-year-old male with history of atrial fibrillation/atypical flutter and PAT on chronic Eliquis
anticoagulation status post PVI 09/05/2024, heart failure preserved EF, moderate to severe mitral regurgitation hypertension and BPH with no known coronary artery disease. He follows with Dr. Waldemar Potter with plan for watchman for excessive
bleeding when he cuts himself (No history of GI bleed or transfusion dependent anemia; no prior hematologic workup) and remapping and ablation for his symptomatic atrial arrhythmias which are scheduled concomitantly for May 2025. He recently
underwent left total knee arthroplasty on 03/28/2025. He presented to the ED early this morning 04/01/2025 due to substernal chest pain/tightness that developed after he walked SLOWLY up a flight of steps. There was no radiation of the pain and no
associated symptoms. He laid down to rest and symptoms did not improve. He presented to the ED for further evaluation. Pain resolved 15 minutes after arriving to ED;He denies chest pain recurrence. No recent ischemic evaluation
ED workup:
Troponin less than 0.012��0.037
EKG: Atrial flutter 3-1 conduction, right bundle branch block
proBNP 1730
Hemoglobin 11.0 (was 15 02/28/2025), BUN/creatinine 33/1.0, NA 130, K4.8
Chest x-ray: Mild cardiomegaly lungs clear
Chest CT: No evidence of PE, no acute findings, mild cardiomegaly
Plan:
CP/Elevated troponin consistent with non-STEMI
-Currently chest pain-free and hemodynamically stable
-CTA noting moderate coronary calcification; Negative for PE
-Peak troponin 0.068
-Started on aspirin
-Stop Eliquis and start IV heparin without a bolus
-Check lipid profile; Will start atorvastatin 20 mg daily
-Discussed ischemic evaluation with a coronary angiogram. Procedure details, risks of benefits reviewed. He is agreeable to proceed. Will plan for left heart catheterization on Thursday
History of atypical atrial flutter/atrial tachycardia/A-fib currently in rate controlled atrial flutter
-Heart rates controlled on carvedilol 6.25 mg twice daily
-Will hold Eliquis for anticipated left heart catheterization 04/03/2025
History of mitral regurgitation
- JOSE 01/2024 showed moderate MR, normal LV/RV size and function
- Clinically no signs of heart failure
- Repeat echo on 04/03/2025
Status post recent left total knee replacement 03/28/2025
-Continue postop supportive care
-Anemia admission secondary to postop blood loss. No active bleeding
Original Note:
Consultation
Consultation Request
Date/Time Consultation Requested: 04/01/2025, 0653
Date/Time Consultation Performed: 04/01/2025, 0855
Requesting Provider: Dr. Stevens
Performing Provider: YAZ Flores for Dr. Mandel
Reason for Consultation: Chest pain
Medical History
-
Chief Complaint: Chest pain
History of Present Illness:
79-year-old male with history of atrial fibrillation, status post PVI 09/05/2024, atrial tachycardia, atypical atrial flutter, heart failure preserved EF, moderate to severe mitral regurgitation, right bundle branch block, and most recently left
total knee arthroplasty on 03/28/2025. He presented to the ED early this morning 04/01/2025 due to substernal chest pain/tightness that developed after he walked up a flight of steps. There was no radiation of the pain and no associated symptoms.
He laid down to rest and symptoms did not improve. He presented to the ED for further evaluation. Pain resolved 15 minutes after arriving to ED and has not reoccurred.
ED workup:
Troponin less than 0.012��0.037
EKG: Atrial flutter 3-1 conduction, right bundle branch block
proBNP 1730
Hemoglobin 11.0 (was 15 02/28/2025), BUN/creatinine 33/1.0, NA 130, K4.8
Chest x-ray: Mild cardiomegaly lungs clear
Chest CT: No evidence of PE, no acute findings, mild cardiomegaly
He was seen by Dr. Waldemar Potter on 03/16/2025 and was in recurrent atrial tachycardia/atypical atrial flutter with symptoms of fatigue. At that time also reported excessive bleeding from frequent cuts, scrapes on his skin and requested watchman
implantation. It was decided to proceed with watchman and remapping and ablation for his symptomatic atrial arrhythmias which are scheduled concomitantly for May 2025.
Past medical history:
Atypical atrial flutter
Atrial tachycardia
Atrial fibrillation
-Status post JOSE cardioversion 01/2024
- Status post PVI 09/05/2024
-Noted to have recurrent atypical atrial flutter/atrial tachycardia at office visit 03/16/2025 and is scheduled for repeat ablation and Watchman in May [address] Potter
Frequent bleeding-cuts, scrapes on oral anticoagulation
Right bundle branch block
Left total knee replacement 03/28/2025
GERD
BPH
Basal cell eyelid cancer
Tinnitus
Colon polyps
Actinic keratosis
Past Medical History
Past Medical History: Other (As above)
Past Surgical History: Appendectomy and Other (Right knee arthroscopy and meniscus repair, left total knee replacement 03/28/2025, robotic left inguinal hernia repair with mesh 06/2024, right eyelid surgery 12/2023, right L4-L5 procedure, 10/2024)
Social History
Tobacco: Non-Smoker
Family History
Family History: Reviewed & Not Pertinent
Allergies / Home Medications
Allergy/AdvReac Type Severity Reaction Status Date / Time
No Known Allergies Allergy Verified 04/01/25 00:13
�Medication �Instructions �Recorded �Confirmed �Type
esomeprazole magnesium 40 mg 20 mg PO DAILY 10/03/12 04/01/25 History
capsule,delayed release (Nexium)
xfnqqzlhepdh-xicyabun-mqsppy tablet 1 tab PO DAILY 07/07/23 04/01/25 History
sildenafil 100 mg tablet 50 - 100 mg PO DAILY PRN ED 07/07/23 04/01/25 History
alprazolam 0.25 mg tablet 0.25 mg PO HS PRN anxiety 01/15/24 04/01/25 History
apixaban 5 mg tablet (Eliquis) 5 mg PO BID 01/15/24 04/01/25 History
carvedilol 6.25 mg tablet 6.25 mg PO BID 01/15/24 04/01/25 History
furosemide 20 mg tablet (Lasix) 20 mg PO DAILY 01/15/24 04/01/25 History
acetaminophen 325 mg tablet 650 mg (2 x 325 mg) PO Q4HPRN PRN 06/29/24 04/01/25 Rx
mild pain #1 tab
lisinopril 40 mg tablet 40 mg PO DAILY 08/25/24 04/01/25 History
methenamine hippurate 1 gram tablet 1 g PO BID 04/01/25 04/01/25 History
tamsulosin 0.4 mg capsule 0.4 mg PO DAILY 04/01/25 04/01/25 History
tramadol 25 mg tablet 25 mg PO Q6H PRN pain 04/01/25 04/01/25 History
Review of Systems
-
History Source: Patient
All other systems: Negative unless noted
Physical Exam
Vital Signs
Temp Pulse Resp BP Pulse Ox
97.5 F 72 18 155/96 98
04/01/25 08:09 04/01/25 08:09 04/01/25 08:09 04/01/25 08:09 04/01/25 08:09
Lab Results
03/31/25 23:58
03/31/25 23:58
Troponin I 0.037 ng/ml H* D 04/01/25 02:54
Hef-J-Inguceutzvt Pept 1730 pg/ml 04/01/25 02:54
GEN: No distress, awake, Ox3
HEENT: supple, anicteric, mmm
LUNGS: CTA, no wheezes/rales
CV: Reg, S1/S2, 2/6 syst murmur apex
ABD: soft, BS+, NT/ND
EXT: L knee incision covered with dressing, no edema
NEURO: Gross non-focal
SKIN: No rash
Impression / Plan
-
PCP: Vincenzo Parra
Primary varnish melter: Malcolm potter MD
Impression:
Chest pain
Mildly elevated troponin
Atrial flutter
Atrial tachycardia
Atrial fibrillation
- Status post PVI 09/05/2024
-Noted to have recurrent atypical atrial flutter/atrial tachycardia at office visit 03/16/2025 and is scheduled for repeat ablation and Watchman in May [address] Potter
Frequent bleeding-cuts, scrapes on oral anticoagulation
Right bundle branch block
Left total knee replacement 03/28/2025
Previous cardiovascular testing:
Echocardiogram 12/28/2023: Normal LV size and function, LVEF 60 to 65%, moderate to severe MR, mild TR, PAP 35 to 40 mmHg, mild PI, negative bubble study
JOSE 01/15/2024: Normal LV/RV size and function, LVEF 55%, mitral annular dilatation with severe LA dilatation, moderate MR, no COLEEN a thrombus, mild TR
Plan:
79-year-old male with history of atrial fibrillation, status post PVI 09/05/2024, atrial tachycardia, atypical atrial flutter, heart failure preserved EF, moderate to severe mitral regurgitation, right bundle branch block, and most recently left
total knee arthroplasty on 03/28/2025. He presented to the ED early this morning 04/01/2025 due to substernal chest pain/tightness that developed after he walked up a flight of steps. Pain resolved 15 minutes after arriving to ED and has not
reoccurred. CTA negative for PE. Troponin mildly elevated and trending up current peak 0.037. EKG with atrial flutter and right bundle branch block, similar to last office EKG 03/16/2025
Chest pain/elevated troponin:
- Trend to peak
-Patient currently asymptomatic
-Started on aspirin
-CTA negative for PE
-I do not see that he has had an ischemic workup in past
- If recurrent symptoms start heparin drip and plan for cath on Thursday
-If troponin downtrending and no recurrent symptoms consider outpatient nuclear stress test
-Check echo
History of atypical atrial flutter/atrial tachycardia/A-fib
-Had PVI 08/2024 for A-fib.
-Found to be in atrial tachycardia at 03/16/2025 office visit and is scheduled for repeat ablation as well as Watchman for May [address] Potter
-EKG today 04/01/2025: Atrial flutter 3-1 conduction with right bundle branch block, heart rate 69 bpm
-Heart rates controlled on carvedilol 6.25 mg twice daily
- Continue Eliquis 5 mg twice daily. Med was held for 2 days prior to knee surgery then restarted for 2 days at half dose and now back on usual dose of 5 mg twice daily
History of mitral regurgitation
- JOSE 01/2024 showed moderate MR, normal LV/RV size and function
- Repeat echo
Data Reviewed
-
EKG: Tracing Personally Visualized and interpreted
Labs: Labs Reviewed by me
[2025-04-01 10:28] LABS: Troponin I 0.068 ng/ml
--- NOTE | 2025-04-01 13:16 | CM ---
CM met w/ patient and spouse bedside, initial assessment completed. Patient is a 80y M with PMH significant for A-Fib, hypertension and recent L TKA who presents to ED complaining of chest pain.
Patient resides w/ spouse in a 2ST[facility]- 1 step to enter. Patient prev independent, recent knee surgery, currently using RW for support. Independent w/ ADLs. No SNF hx reported. Recent w/ [facility], not current. Due to start OP therapy at [facility] on Thursday.
Address, point of contact and insurance verified
PCP: Vincenzo Par[facility] ordered, attempted to see today, will re-attempt
Plan: CM will cont to follow for d/c planning
[2025-04-01 18:12] LABS: Troponin I 0.044 ng/ml
[2025-04-01 20:36] LABS: Hematocrit 30.9 % (39.0-52.0); Hemoglobin 11.2 g/dL (13.0-18.0); Mean Corp Hgb Conc. 36.2 g/dL (33.0-37.0); Mean Corpuscular Volume 93.9 fL (80.0-94.0); Mean Platelet Volume 12.2 fL (7.4-10.4); Platelet Count 173 10^3/uL (130-400); Red Blood Cell Count 3.29 10^6/uL (4.70-6.10); White Blood Cell Count 14.4 10^3/uL (4.8-10.8)
[2025-04-01 20:47] LABS: APTT 29.3 Sec (23.4-35.0)
[2025-04-01] MEDS: HEPARIN 25000 UNITS/250 ML IV (21:08)
[2025-04-02] VITALS (7 sets, daily range): BP systolic 102–149; BP diastolic 63–95; PULSE 50–64; O2SAT 97
[2025-04-02] MEDS: MORPHINE SULFATE 2 MG IV ×2 (00:14→04:32)
[2025-04-02] MEDS: ULTRAM 25 MG PO (02:57)
[2025-04-02 03:20] LABS: Hematocrit 31.7 % (39.0-52.0); Hemoglobin 11.5 g/dL (13.0-18.0); Mean Corp Hgb Conc. 36.3 g/dL (33.0-37.0); Mean Corpuscular Hgb 34.6 pg (27.0-31.0); Mean Corpuscular Volume 95.5 fL (80.0-94.0); Mean Platelet Volume 12.6 fL (7.4-10.4); Platelet Count 168 10^3/uL (130-400); Red Blood Cell Count 3.32 10^6/uL (4.70-6.10); White Blood Cell Count 13.5 10^3/uL (4.8-10.8)
[2025-04-02 03:29] LABS: APTT 68.2 Sec (23.4-35.0)
[2025-04-02 04:10] LABS: Blood Urea Nitrogen 29 mg/dl (9-20); Calcium 8.5 mg/dl (8.4-10.2); Carbon Dioxide 26 mmol/L (22-30); Chloride 101 mmol/L (98-107); Estimated Creatinine Clearance 82 ml/min; Glucose 97 mg/dl (70-99); HDL Cholesterol 47 mg/dl; LDL Cholesterol, Calculated 78 mg/dl; Potassium 4.4 mmol/L (3.5-5.1); Sodium 130 mmol/L (135-145); Total Cholesterol 146 mg/dl (50-199); Triglyceride 109 mg/dl (10-149); Very Low Density Lipoprotein 21 mg/dl (0-30); eGFR > 60.00
[2025-04-02] MEDS: COREG 6.25 MG PO (08:43)
[2025-04-02] MEDS: FLOMAX 0.4 MG PO (08:43)
[2025-04-02] MEDS: LOW STRENGTH ASPIRIN 81 MG PO (08:43)
[2025-04-02] MEDS: PROTONIX 40 MG PO (08:43)
[2025-04-02] MEDS: ZESTRIL 40 MG PO (08:43)
[2025-04-02] MEDS: LASIX 20 MG PO (08:43)
[2025-04-02] MEDS: TYLENOL 650 MG PO (08:46)
[2025-04-02 09:41] LABS: APTT 39.8 Sec (23.4-35.0)
[2025-04-02] MEDS: ROXICODONE 5 MG PO (10:51)
[2025-04-02] MEDS: MIRALAX 17 GRAMS PO (10:51)
--- NOTE | 2025-04-02 11:12 | PTCARENOTE ---
Patient HR decreased to 30's while resting. patient asymptomatic. MD Crawford and MD Mandel notified. new orders placed. will continue to monitor.
--- NOTE | 2025-04-02 12:16 | W.PN.HOSP.TC ---
Today's Communication/Plan
-
for [facility] tomorrow
maintain on heparin drip
increas pain med
Assessment / Plan
Assessment / Plan
Chest Pain
Troponin elevation
R/o new ACS
- EKG without evident ischemia. Non-specific T wave changes in lateral leads actually appear improved from prior.
- Troponin remains marginally elevated, max of 0.068
- Patient has been started on heparin drip, Eliquis on hold
- cardiology planning to take patient to left heart catheterization tomorrow
Paroxysmal A-Fib / Flutter
- s/p prior ablation.
- Monitor on telemetry.
- Continue Eliquis for stroke risk reduction.
s/p L TKA 03/28/25
- Stable. Pain well-controlled. Good mobility s/p surgery.
- Patient has significant ecchymosis/swelling of left lower extremity. Low concern for clot as patient compliant to DOAC
- Increasing pain medication as patient having worsening pain
Benign Hypertension
- Stable. Continue usual outpatient medications.
BPH
- Stable. Continue tamsulosin.
- Bladder scan protocol.
Hyponatremia
- Secondary to pain related to increased ADH
- continue monitoring
DVT Prophylaxis: Heparin drip
Code Status: Full
Total time spent ; 51 mins
Anticipated Discharge: 24 - 48 hours
Subjective/Interval History
-
Date of Service: April 02, 2025
Denies having any chest pain
Have left knee joint pain
Significant left leg swelling and ecchymosis visible
Objective Data
-
Labs:
Laboratory Results
04/02/25 04/02/25 04/02/25
02:59 03:07 09:21
WBC 13.5 H
Hgb 11.5 L
Hct 31.7 L
Plt Count 168
APTT 68.2 H 39.8 H
Sodium 130 L
Potassium 4.4
Chloride 101
Carbon Dioxide 26
BUN 29 H
Creatinine 0.8
Glucose 97
Calcium 8.5
04/02/25
16:00
WBC
Hgb
Hct
Plt Count
APTT Pending
Sodium
Potassium
Chloride
Carbon Dioxide
BUN
Creatinine
Glucose
Calcium
Vital Signs:
Vital Signs
Temp Pulse Resp BP Pulse Ox
97.4 F 47 18 102/63 96
04/02/25 11:00 04/02/25 11:00 04/02/25 11:00 04/02/25 11:00 04/02/25 11:00
I&O
04/01/25 04/02/25 04/03/25
06:59 06:59 06:59
Intake Total 824 / 824
Balance 824 / 824
Review of Systems
-
Respiratory: Reports No Symptoms
Cardiac: Reports No Symptoms
Abdomen/GI: Reports No Symptoms
Physical Exam
-
General: No Apparent Distress and Comfortable
HEENT: Negative Oxygen
Respiratory: Clear to Auscultation
Cardiac: Regular Rhythm and S1/S2; Negative Murmur or Rub
GI: Soft, Nontender, Nondistended and Normal Bowel Sounds
Musculoskeletal: Edema, Left Lower Extrem and Other (Left knee dressing in place , left leg echymosis)
Neuro: Awake, Alert, Oriented, No Motor Deficits and Nonfocal/Grossly Intact
Psych: Calm
--- NOTE | 2025-04-02 15:55 | W.PN.CARDCBS ---
Today's Communication / Plan
-
Plan for left heart catheterization 04/03/2025
Repeat echocardiogram
Impression / Plan
-
PCP: Vincenzo Parra
Primary security researcher: Malcolm sethi MD
Impression:
Chest pain
Mildly elevated troponin
Atrial flutter
Atrial tachycardia
Atrial fibrillation
- Status post PVI 09/05/2024
-Noted to have recurrent atypical atrial flutter/atrial tachycardia at office visit 03/16/2025 and is scheduled for repeat ablation and Watchman in May [address] Sethi
Frequent bleeding-cuts, scrapes on oral anticoagulation
Right bundle branch block
Left total knee replacement 03/28/2025
Previous cardiovascular testing:
Echocardiogram 12/28/2023: Normal LV size and function, LVEF 60 to 65%, moderate to severe MR, mild TR, PAP 35 to 40 mmHg, mild PI, negative bubble study
JOSE 01/15/2024: Normal LV/RV size and function, LVEF 55%, mitral annular dilatation with severe LA dilatation, moderate MR, no COLEEN a thrombus, mild TR
Plan:
CP/Elevated troponin consistent with non-STEMI
-Patient had recurrent chest pain to a lesser extent while walking with PT in the [place] earlier today
-Currently chest pain-free
-CTA noting moderate coronary calcification; Negative for PE
-Peak troponin 0.068
-Started on aspirin
-Eliquis discontinued 04/01/2025 after a.m. dose
-Some increased bruising without hematoma of left leg status post recent total knee replacement. Hemoglobin is stable. Will stop IV heparin unless symptoms recur.
-Lipid profile 04/02/2025: Total cholesterol 146, triglycerides 109, LDL 78, HDL 47
-Patient started on atorvastatin 20 mg this admission
-Discussed ischemic evaluation with a coronary angiogram. Procedure details, risks of benefits reviewed. He is agreeable to proceed. Will plan for left heart catheterization on Thursday
History of atypical atrial flutter/atrial tachycardia/A-fib currently in rate controlled atrial flutter
-Lower blood pressure trends and some bradycardia noted on telemetry. Will reduce carvedilol to 3.125 mg twice daily
-Will hold Eliquis for anticipated left heart catheterization 04/03/2025
-scheduled for repeat ablation and Watchman in May [address] Sethi
History of mitral regurgitation
- JOSE 01/2024 showed moderate MR, normal LV/RV size and function
- Clinically no signs of heart failure
- Repeat echo on 04/03/2025
Status post recent left total knee replacement 03/28/2025
-Continue postop supportive care
-Anemia admission secondary to postop blood loss. Hemoglobin stable on IV heparin; No active bleeding
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
Subjective
Date of Service: April 02, 2025
Patient seen and examined. States he had an episode of chest pain which was less severe than admission while working with physical therapy. Will hold off any further physical therapy pending cardiac catheterization planned tomorrow. Currently
chest pain-free.
Objective
Labs:
04/02/25 03:07
04/02/25 03:07
Labs
Hgb 11.5 g/dL (13.0-18.0) L 04/02/25 03:07
Hct 31.7 % (39.0-52.0) L 04/02/25 03:07
Plt Count 168 10^3/uL (130-400) 04/02/25 03:07
APTT 39.8 Sec (23.4-35.0) H 04/02/25 09:21
Sodium 130 mmol/L (135-145) L 04/02/25 03:07
Potassium 4.4 mmol/L (3.5-5.1) 04/02/25 03:07
BUN 29 mg/dl (9-20) H 04/02/25 03:07
Creatinine 0.8 mg/dL (0.7-1.3) 04/02/25 03:07
Glucose 97 mg/dl (70-99) 04/02/25 03:07
Troponins
03/31/25 04/01/25 04/01/25
23:58 02:54 09:49
Troponin I < 0.012 0.037 H* D 0.068 H* D
04/01/25
17:36
Troponin I 0.044 H* D
Vital Signs and I&O:
Vital Signs
Temp Pulse Resp BP Pulse Ox
97.4 F 47 18 102/63 96
04/02/25 11:00 04/02/25 11:00 04/02/25 11:00 04/02/25 11:00 04/02/25 11:00
Vital Signs
Temp Pulse Resp BP Pulse Ox
97.4 F 47 18 102/63 96
04/02/25 11:00 04/02/25 11:00 04/02/25 11:00 04/02/25 11:00 04/02/25 11:00
Intake & Output
03/31/25 04/01/25 04/02/25 04/03/25
06:59 06:59 06:59 06:59
Intake Total 824 / 824
Balance 824 / 824
Physical Exam
Physical Exam
GEN: No distress, awake, Ox3
HEENT: supple, anicteric, mmm
LUNGS: CTA, no wheezes/rales
CV: Reg, S1/S2, 2/6 syst murmur apex
ABD: soft, BS+, NT/ND
EXT: Status post left total knee replacement with soft bruising along thigh and calf. ++ Edema.
NEURO: Gross non-focal
[2025-04-02] MEDS: DULCOLAX 10 MG PO (16:36)
[2025-04-02] MEDS: ROXICODONE 10 MG PO ×2 (16:36→23:44)
[2025-04-02] MEDS: COREG 3.125 MG PO (20:24)
[2025-04-02] MEDS: MELATONIN 5 MG PO (22:32)
[2025-04-03] VITALS (13 sets, daily range): BP systolic 92–133; BP diastolic 57–84; BMI 29.2
[2025-04-03] MEDS: ROXICODONE 5 MG PO (06:18)
[2025-04-03] MEDS: PROTONIX 40 MG PO (07:50)
[2025-04-03] MEDS: LOW STRENGTH ASPIRIN 81 MG PO (07:51)
[2025-04-03] MEDS: FLOMAX 0.4 MG PO (07:51)
[2025-04-03] MEDS: COREG 3.125 MG PO ×2 (07:51→20:17)
[2025-04-03] MEDS: LASIX 20 MG PO (07:52)
[2025-04-03] MEDS: ZESTRIL 40 MG PO (07:52)
[2025-04-03] MEDS: MIRALAX PO (07:53)
--- NOTE | 2025-04-03 08:37 | W.PN.HOSP.TC ---
Today's Communication/Plan
-
Cardiac cath. Orthopedic eval
Assessment / Plan
Assessment / Plan
Physical exam:
General: Acutely ill
HEENT: Normocephalic, Atraumatic and Moist Mucous Membranes
Respiratory: Clear to Auscultation; Negative Wheezes, Rales or Rhonchi
Cardiac: Regular Rhythm and S1/S2, systolic murmur
GI: Soft, Nontender and Nondistended
Musculoskeletal: Incision left knee. Edema present. Small amount of bleeding on the left knee incision and ecchymosis. No Clubbing, No Cyanosis.
Neuro: Awake, Alert and Oriented
Psych: Calm
A/P:
NSTEMI:
-Heparin drip on hold
-Eliquis on hold
-Plan for cardiac cath today
-On aspirin, beta-blockers, and statin.
-Discussed with at bedside
Left total knee replacement with bleeding at the surgical site (L TKA on 03/28):
-Orthopedic consult for evaluation of surgical site-discussed with Ortho today
-Anticoagulation on hold but will need to be resumed after procedures are done.
-Continue to monitor hemoglobin
-Continue pain control and bowel regimen
Acute blood loss anemia
- Hemoglobin 9.8 from 11.5 yesterday
- Continue to monitor hemoglobin
Leukocytosis
- Likely reactive
Hyperlipidemia
- Started on atorvastatin 20 mg p.o. every evening during this hospital stay
- LDL 78
Chronic HFpEF
-Continue diuresis, Lasix 20 mg p.o. daily
-Continue JEANETTE inhibitor and beta-blockers
Paroxysmal A-Fib / Flutter
- s/p prior ablation.
- Monitor on telemetry.
- Will resume Eliquis for stroke risk reduction when feasible.
Benign Hypertension
- On lisinopril 40 mg p.o. daily and carvedilol 3.125 mg twice a day
BPH
- On tamsulosin 0.4 mg daily.
- Bladder scan protocol.
Hyponatremia
-Worsening today, 127- from 130 yesterday
- [place] to be secondary to pain related to increased ADH
- continue monitoring
- Check urine osmolarity and urine sodium
DVT Prophylaxis: SCDs
Code Status: Full
Total time spent on today's encounter was 52 minutes which included time spent in counseling the patient/family regarding diagnosis and treatment plan as listed above, goals of care, and symptom management. Case was discussed with nursing staff,
specialists, and care coordinators/case management. All labs and imaging personally reviewed by me. Remainder the time spent in detailed review of previous records, lab data, imaging, and other medical provider documentation.
Anticipated Discharge: 24 - 48 hours
Subjective/Interval History
-
Date of Service: April 03, 2025
Patient still having chest discomfort on and off especially on minimal exertion even walking to the bathroom. Patient also having some bleeding from left total knee replacement surgical site and he hit the knee with the toilet today.
Objective Data
-
Labs:
Laboratory Results
04/02/25 04/03/25
16:00 07:38
WBC Pending
Hgb Pending
Hct Pending
Plt Count Pending
APTT Cancelled
Sodium Pending
Potassium Pending
Chloride Pending
Carbon Dioxide Pending
BUN Pending
Creatinine Pending
Glucose Pending
Calcium Pending
Vital Signs:
Vital Signs
Temp Pulse Resp BP Pulse Ox
97.8 F 71 16 131/80 98
04/03/25 08:00 04/03/25 08:00 04/03/25 08:00 04/03/25 08:00 04/03/25 08:00
I&O
04/02/25 04/03/25 04/04/25
06:59 06:59 06:59
Intake Total 824 / 824 1200 / 1200
Balance 824 / 824 1200 / 1200
[2025-04-03 09:21] LABS: Hematocrit 27.6 % (39.0-52.0); Hemoglobin 9.8 g/dL (13.0-18.0); Mean Corp Hgb Conc. 35.5 g/dL (33.0-37.0); Mean Corpuscular Hgb 34.3 pg (27.0-31.0); Mean Corpuscular Volume 96.5 fL (80.0-94.0); Mean Platelet Volume 12.4 fL (7.4-10.4); Platelet Count 150 10^3/uL (130-400); Red Blood Cell Count 2.86 10^6/uL (4.70-6.10); Red Cell Dist. Width 11.9 % (11.5-14.5); White Blood Cell Count 11.3 10^3/uL (4.8-10.8)
[2025-04-03 09:36] LABS: Blood Urea Nitrogen 23 mg/dl (9-20); Calcium 8.4 mg/dl (8.4-10.2); Carbon Dioxide 28 mmol/L (22-30); Chloride 95 mmol/L (98-107); Estimated Creatinine Clearance 64 ml/min; Glucose 93 mg/dl (70-99); Potassium 4.9 mmol/L (3.5-5.1); Sodium 127 mmol/L (135-145); eGFR > 60.00
--- NOTE | 2025-04-03 11:24 | PTCARENOTE ---
Patient ambulated to bathroom and hit his L knee on the toilet. Incision to L knee bleeding through original dressing. pressure applied. MD Kapoor notified of change. MD will assess pt at bedside. will continue to monitor.
--- NOTE | 2025-04-03 12:45 | W.PN.UPDATE ---
Addendum entered and electronically signed by Edd Lerma MD 04/03/25 19:43:
Patient seen and examined. In good spirits. Agree with below.
Original Note:
Update Note
Progress Note Update
Mr. Turner underwent a left total knee arthroplasty last week with Dr. Lerma. Unfortunately, he developed chest pain a few days ago which prompted him to present to ED. He is scheduled for a cardiac cath today. He has been on heparin since
being admitted to the hospital. He reports after he was started on heparin, he noticed increased bruising and swelling throughout his left leg. He then developed bleeding out of his surgical dressing. His dressing was removed today. There was an
area of broken blistering just superolateral to the proximal aspect of his incision. There was some clotted blood about this area. His incision looks fantastic and is well approximated with juan diego. His incision is clean and dry. The blistered area
was cleaned with sterile saline, and his incision was cleaned with betadine. I applied a tegaderm to the blistered area, and ABDs to his incision and covered everything with an JEANETTE wrap. This may be changed or reinforced as needed. Please reach out
with any additional orthopedic questions or concerns.
--- NOTE | 2025-04-03 13:55 | CM ---
Chart reviewed. Care ongoing at this time.
Left heart catheterization today
Therapy rec HH at d/c
Plan: Home when stable. Will discuss home care w/ patient prior to d/c
[2025-04-03 15:18] LABS: Osmolality Urine 430 mOsm/kg (300-900)
[2025-04-03 15:35] LABS: Urine Sodium 77 mmol/L (30-90)
--- NOTE | 2025-04-03 17:05 | CONSULT.CT ---
Consultation
-
Date/Time Consultation Requested: 04/03 1642
Date/Time Consultation Performed: 04/03 1800
Requesting Provider: Zahida MUKHERJEE
Performing Provider: Eligio MUKHERJEE
Reason for Consultation: CABG eval
Patient History
Physicians
Family Physician: Vincenzo Parra
Outpatient Conference Assistant: Malcolm Potter MD
Inpatient Conference Assistant: Malcolm Potter MD
History of Present Illness
79-year-old male with history of atrial fibrillation, status post PVI 09/05/2024, atrial tachycardia, atypical atrial flutter, heart failure preserved EF, moderate to severe mitral regurgitation, right bundle branch block, and most recently left
total knee arthroplasty on 03/28/2025. He presented to the [facility] ER on 04/01/2025 due to substernal chest pain/tightness that developed after he walked up a flight of steps. He was found to have elevated troponins and was started a heparin infusion.
[facility] reveal MVD and CT surgery was consulted for surgical evaluation.
Of note, patient was scheduled for a PVI and watchman for excessive bleeding in May of 2025.
Past Medical History
Past Medical History: Other
Hypertension
Paroxysmal A-Fib / Flutter on eliquis
GERD
BPH
Past Surgical History
Past Surgical History: Other
(Right knee arthroscopy and meniscus repair, left total knee replacement 03/28/2025, robotic left inguinal hernia repair with mesh 06/2024, right eyelid surgery 12/2023, right L4-L5 procedure, 10/2024)
Dental History
Last visit 2 months ago
Family History
Mother: Cause of (ALS)
Father: Cause of (PNA)
Family Medical History: Other (Son- HOCM)
Social History
Alcohol: Occasional
Drug: None
Tobacco: Non-Smoker
Personal:
Living: With Family
Allergies
Allergy/AdvReac Type Severity Reaction Status Date / Time
No Known Allergies Allergy Verified 04/01/25 00:13
Home Medications
�Medication �Instructions �Recorded �Confirmed �Type
esomeprazole magnesium 40 mg 20 mg PO DAILY GERD 10/03/12 04/01/25 History
capsule,delayed release (Nexium)
puymzeufrmqa-enaxtubs-sakshh tablet 1 tab PO DAILY Supplement 07/07/23 04/01/25 History
sildenafil 100 mg tablet 50 - 100 mg PO DAILY PRN ED 07/07/23 04/01/25 History
alprazolam 0.25 mg tablet 0.25 mg PO HS PRN anxiety 01/15/24 04/01/25 History
apixaban 5 mg tablet (Eliquis) 5 mg PO BID Blood Clot 01/15/24 04/01/25 History
Prevention/Tx
carvedilol 6.25 mg tablet 6.25 mg PO BID Blood Pressure 01/15/24 04/01/25 History
furosemide 20 mg tablet (Lasix) 20 mg PO DAILY Fluid 01/15/24 04/01/25 History
Retention/Swelling
acetaminophen 325 mg tablet 650 mg (2 x 325 mg) PO Q4HPRN PRN 06/29/24 04/01/25 Rx
mild pain #1 tab
lisinopril 40 mg tablet 40 mg PO DAILY Blood Pressure 08/25/24 04/01/25 History
methenamine hippurate 1 gram tablet 1 g PO BID ANTI INFECTIVE 04/01/25 04/01/25 History
tamsulosin 0.4 mg capsule 0.4 mg PO DAILY Urinary Issue 04/01/25 04/01/25 History
tramadol 25 mg tablet 25 mg PO Q6H PRN pain 04/01/25 04/01/25 History
Review of Systems
-
History Source: Patient
General: Reports No Symptoms
HEENT: Reports No Symptoms
Respiratory: Reports SOB
Cardiac: Reports Chest Pain and Known Vascular Disease
Abdomen/GI: Reports Reflux
: Reports No Symptoms
Musculoskeletal: Reports No Symptoms
Skin: Reports No Symptoms
Neurological: Reports No Symptoms
Vascular: Reports No Symptoms
Physical Exam
Vital Signs
Temp 97.6 F 04/03/25 15:00
Temp route: Oral 04/03/25 15:00
Pulse 69 04/03/25 15:00
Rhythm: Normal sinus rhythm 04/03/25 08:00
With- Atrial flutter 04/03/25 08:00
Resp Rate 16 04/03/25 15:00
Blood pressure 133/76 04/03/25 15:00
Blood pressure extremity used: Right upper arm 04/03/25 15:00
Position: Lying 04/03/25 15:00
MAP (cuff-Berta Monitor) 113 04/01/25 06:00
SaO2 99 04/03/25 15:00
Oxygen Mode of Delivery Room air 04/03/25 15:00
Pulse Ox at Rest 97 04/02/25 10:47
Can the patient verbally communicate their pain? Yes 04/03/25 08:00
Pain scale rating: Asleep 04/03/25 07:18
Actual Weight 87.09 kg 04/03/25 06:00
Body Mass Index (BMI) 29.2 04/03/25 06:00
Supine- Blood Pressure 122/73 04/02/25 10:47
Supine- Pulse 64 04/02/25 10:47
Standing- Pulse 50 04/02/25 10:47
Heart rate after activity 69 04/02/25 10:47
Blood pressure after activity 117/95 04/02/25 10:47
Oxygen Saturation with Activity 98 04/02/25 10:47
Labs
04/03/25 07:38
04/03/25 07:38
APTT Cancelled 04/02/25 16:00
Troponin I 0.044 ng/ml H* D 04/01/25 17:36
Hom-B-Gpuugpnvvre Pept 1730 pg/ml 04/01/25 02:54
Exam
General: Well Developed, Well Nourished and No Apparent Distress
HEENT: Normocephalic
Respiratory: Clear
Cardiac: S1/S2, Irregular Rhythm and Murmur
GI: Soft, Non Tender and Non Distended
Rectal: Deferred by Provider
Skin: Warm and Dry
Neuro: AO x 3
Extremities: Pulses (+2)
Lymph: No Lymphadenopathy
Psych: Calm
Assessment / Plan
-
80 y/o male with PMHx listed above presented with CP and LHC for MVD. CT surgery was consulted for surgical evaluation.
#CAD
#Mitral regurgitation
#Afib
-Patient's case will be discussed with attending physician. Further details regarding surgical timing intervention will be determined after attending physicians full evaluation
-Routine preoperative cardiothoracic surgery orders will be initiated.
-STS risk stratification score will be calculated after preoperative testing is complete
-Continue heparin gtt per cardiology
- Last dose eliquis on 04/01
- Repeat TTE tomorrow
--- NOTE | 2025-04-03 17:13 | ITS.CL.CATH ---
Extra Gang Supervisor - Catheterization
Cardiac Catheterization
Procedure Report:
LEFT HEART CATHETERIZATION
Date of Procedure: April 03, 2025
Referring: Dr. Keli Mandel
PROCEDURES:
1. Left heart catheterization with coronary and single-plane left ventriculography
INDICATION: This is a 79-year-old gentleman with a prior history of atrial fibrillation and atypical flutter on chronic Eliquis therapy. He has a history of pulmonary vein isolation in August 2024. He also has a history of moderate to severe
mitral regurgitation and hypertension. He had elective left total knee replacement on 03/28/2025. He presented to [facility] emergency department on 04/01/2025 for evaluation of substernal chest pressure that developed after he slowly
walked up a flight of stairs. There was no radiation of the pain. His symptoms resolved approximately 15 minutes after arriving to the emergency department and his troponin became mildly elevated at 0.068 ng/mL. He is now referred for coronary
angiography.
Of note, the patient was scheduled for repeat PVI and possible Watchman in the next several weeks.
ACCESS: Right radial artery, 6 Armenian sheath
HEMODYNAMICS : (mmHg)
AO (s/d) : 100/58
LV (s/d) : 103/5
LVEDP : 10
CORONARY FINDINGS
DOMINANCE: Right
LEFT MAIN: Short and unobstructed
LEFT ANTERIOR DESCENDING: The LAD arises normally from the left main and has a hazy ostial 60% stenosis. There is a 95% stenosis in the mid LAD just beyond the first diagonal branch/first septal school custodian and a 60% mid LAD. The mid to distal LAD
has minor irregularities but no focal obstructive stenosis. The apical LAD has a smooth 60% stenosis. The LAD gives rise to a single diagonal branch that has a 50% ostial stenosis and 80% stenosis in the mid vessel which bifurcates just beyond the
segment into 2 small daughter branches.
CIRCUMFLEX: The circumflex is a moderate caliber nondominant vessel with a 90% proximal stenosis and a long 80% mid stenosis extending into the only sizable obtuse marginal branch
RIGHT CORONARY ARTERY: The right coronary artery is a dominant vessel with diffuse minor luminal irregularities to 30% over its course but no focal obstructive stenosis. The PDA is patent. The posterolateral branch is patent.
VENTRICULOGRAPHY: Left ventriculography is performed in VALERIO projection. The digital single-plane left ventricular ejection fraction is visually estimated at 50-55% with anterolateral hypokinesis. There is +2 mitral regurgitation.
SEDATION: 32 minutes of procedural sedation was utilized. An independent medical reception specialist was present to assist with and help manage the patient's level of consciousness and physiologic status.
RADIATION SUMMARY: Fluoro Time (min): 3.4, Dose (mGy): 541, DAP (Gy.cm2) : 39 point
Closure Device: TR band
CONCLUSIONS
1. Multivessel coronary artery disease including hazy stenosis in the proximal LAD with 95% mid LAD stenosis and multisegment high-grade atherosclerotic disease in the mid circumflex
2. Preserved LV systolic function with an estimated ejection fraction of 50-55% with anterolateral hypokinesis. There is 2+ mitral regurgitation.
3. Recent left total knee arthroplasty
RECOMMENDATIONS
1. Will consult CT surgery given the extent of coronary disease in the LAD and circumflex. Would consider maze and left atrial appendage closure at the time of bypass surgery if appropriate.
2. Resume heparin
Copy to: Dr. Malcolm Potter
[2025-04-03] MEDS: LIPITOR 80 MG PO (17:51)
[2025-04-03] MEDS: DULCOLAX 10 MG PO (19:12)
[2025-04-03] MEDS: MIRALAX 17 GRAMS PO (19:12)
[2025-04-03] MEDS: MELATONIN 5 MG PO (21:42)
[2025-04-03 22:27] LABS: Glucose - Point of Care 128 mg/dl (70-99)
--- NOTE | 2025-04-03 22:33 | W.PN.UPDATE ---
Addendum entered and electronically signed by YAZ Anaya 04/04/25 06:27:
around 4 am patient is symptomatic hypotension/ positive orthostatic vital while moving from lying to sitting position. Laying bp 107/88 hr 78, sitting is 75/52 and started to be lightheaded and dizzy as earlier. Bs 126. Denies sob or chest pain,
will give another 250cc of NSS at low rate as was effective earlier with the symptoms.
Original Note:
Update Note
Progress Note Update
BULK STATION AGENT
Patient is leaning in the bathroom and not answering the staff. Patient was taken back to bed and start to respond again once was taken to bed
BP is 97/57, hr in 80s afebrile and spo2 90s% RA. BS 128. Denies sob, chest pain, dizziness, blurred vision. EKG and stat labs done.
Per chart review bp dropped after patient received carvedilol dose.
will give one time IVF NSS 250cc rate 60cc/hr, continue tele services and will add orthostatic vital signs q shift.
[2025-04-03 22:53] LABS: Hematocrit 27.2 % (39.0-52.0); Hemoglobin 10.2 g/dL (13.0-18.0); Mean Corp Hgb Conc. 37.5 g/dL (33.0-37.0); Mean Corpuscular Hgb 34.6 pg (27.0-31.0); Mean Corpuscular Volume 92.2 fL (80.0-94.0); Mean Platelet Volume 12.1 fL (7.4-10.4); Platelet Count 185 10^3/uL (130-400); Red Blood Cell Count 2.95 10^6/uL (4.70-6.10); Red Cell Dist. Width 11.9 % (11.5-14.5); White Blood Cell Count 14.2 10^3/uL (4.8-10.8)
[2025-04-03] MEDS: NSS 250 IV (22:58)
[2025-04-03 23:02] LABS: APTT 32.3 Sec (23.4-35.0); INR 1.12
[2025-04-03 23:14] LABS: Troponin I 0.031 ng/ml
[2025-04-03 23:40] LABS: Blood Urea Nitrogen 25 mg/dl (9-20); Calcium 8.4 mg/dl (8.4-10.2); Carbon Dioxide 29 mmol/L (22-30); Chloride 93 mmol/L (98-107); Estimated Creatinine Clearance 53 ml/min; Glucose 117 mg/dl (70-99); Magnesium 1.8 mg/dl (1.6-2.3); Potassium 4.1 mmol/L (3.5-5.1); Sodium 124 mmol/L (135-145); eGFR > 60.00
[2025-04-04] VITALS (9 sets, daily range): BP systolic 67–139; BP diastolic 43–88; PULSE 71–78
--- NOTE | 2025-04-04 00:06 | PTCARENOTE ---
Rapid called on patient due to patient leaning in bathroom. Patient awake but not responding to questions and staring. Rapid response called. Patient assist in the bed where patient became responsive again. Labs assessed and 250 NSS ordered and
given. Bed alarm applied to bed and patient reminded to ring for assist.
--- NOTE | 2025-04-04 00:09 | PTCARENOTE ---
While caring for patient, plastic container containing 3 and 1/2 white pills was found on table at bedside. Patient states they are xanax. Patient states last time he took one was 04/02. Medication counted with patient and patient and RN signed med
list both verifying that 3 1/2 tabs were being sent to pharmacy. Medication walked to pharmacy and hand delivered to pharmacist by RN.
[2025-04-04] MEDS: HEPARIN 25000 UNITS/250 ML IV ×2 (01:42→22:30)
[2025-04-04 04:25] LABS: Glucose - Point of Care 126 mg/dl (70-99)
[2025-04-04] MEDS: NSS 250 IV (04:31)
[2025-04-04 07:46] LABS: Hematocrit 26.7 % (39.0-52.0); Hemoglobin 9.8 g/dL (13.0-18.0); Mean Corp Hgb Conc. 36.7 g/dL (33.0-37.0); Mean Corpuscular Hgb 34.6 pg (27.0-31.0); Mean Corpuscular Volume 94.3 fL (80.0-94.0); Platelet Count 176 10^3/uL (130-400); Red Blood Cell Count 2.83 10^6/uL (4.70-6.10); Red Cell Dist. Width 11.9 % (11.5-14.5); White Blood Cell Count 14.3 10^3/uL (4.8-10.8)
[2025-04-04 07:50] LABS: APTT 81.1 Sec (23.4-35.0); INR 1.25; PT 16.3 Sec (11.4-14.6)
[2025-04-04 07:52] LABS: APTT 81.2 Sec (23.4-35.0)
[2025-04-04] MEDS: FLOMAX 0.4 MG PO (08:16)
[2025-04-04] MEDS: PROTONIX 40 MG PO (08:16)
[2025-04-04] MEDS: COREG 3.125 MG PO ×2 (08:17→20:46)
[2025-04-04] MEDS: LOW STRENGTH ASPIRIN 81 MG PO (08:17)
[2025-04-04] MEDS: ZESTRIL 40 MG PO (08:17)
[2025-04-04] MEDS: MIRALAX PO (08:17)
[2025-04-04] MEDS: LASIX 20 MG PO (08:17)
[2025-04-04 08:56] LABS: ALT (SGPT) 22 U/L (0-50); AST (SGOT) 20 U/L (17-59); Albumin 3.5 g/dl (3.5-5.0); Alkaline Phosphatase 58 U/L (38-126); Blood Urea Nitrogen 24 mg/dl (9-20); Calcium 8.4 mg/dl (8.4-10.2); Carbon Dioxide 29 mmol/L (22-30); Chloride 95 mmol/L (98-107); Direct Bilirubin 0.4 mg/dl (0.0-0.4); Estimated Creatinine Clearance 64 ml/min; Glucose 111 mg/dl (70-99); Potassium 4.3 mmol/L (3.5-5.1); Sodium 127 mmol/L (135-145); Total Bilirubin 2.1 mg/dl (0.2-1.3); Total Protein 5.9 g/dl (6.3-8.2); eGFR > 60.00
[2025-04-04 09:07] LABS: Glycohemoglobin (HgbA1c) 5.3 % (4.0-5.6)
--- NOTE | 2025-04-04 09:20 | PN.CDI ---
CDI
- -
CDI:
Physician Documentation Request
Admit Date: 04/01/25 06:08
Dear Doctor Emelia,
Please review the following and provide your response in the progress notes.
Clinical Indicators:
PN, 04/03
#Hyponatremia
#...-Worsening today, 127- from 130 yesterday
#...- [place] to be secondary to pain related to increased ADH
Laboratory Tests
03/31/25 04/02/25 04/03/25
23:58 03:07 07:38
Sodium 130 L 130 L 127 L
04/03/25 04/04/25
23:11 07:23
Sodium 124 L 127 L
Based on the above and your clinical assessment, please clarify in the progress notes, the appropriate diagnosis, if significant, that supports the above abnormalities and additional evaluation, monitoring and/or treatment rendered:
Inappropriate secretion of ADH secondary to pain
Hyponatremia only
Other(please specify)
Use of terms such as suspected, likely, concern for, or probable (associated with a specific diagnosis that is being evaluated, monitored, or treated as if it exists) are acceptable and can be coded in the inpatient setting, when documented at the
time of discharge.
Thank you,
Sandra Diego RN BSN CCDS
CDI Specialist
Please contact via tiger text
Please use your independent medical judgment in providing your response.
--- NOTE | 2025-04-04 09:29 | PN.CDI ---
CDI
- -
CDI:
Physician Documentation Request
Admit Date: 04/01/25 06:08
Dear Doctor Emelia,
Please review the following and provide your response in the progress notes.
Clinical Indicators:
Laboratory Tests
03/31/25 04/04/25
23:58 07:23
Total Bilirubin 0.9 2.1 H
Based on the above and your clinical assessment, please clarify in the progress notes, the appropriate diagnosis, if significant, that supports the above abnormalities and additional evaluation, monitoring and/or treatment rendered:
Elevated total bilirubin
Abnormal lab value, clinically insignificant
Other(please specify)
Use of terms such as suspected, likely, concern for, or probable (associated with a specific diagnosis that is being evaluated, monitored, or treated as if it exists) are acceptable and can be coded in the inpatient setting, when documented at the
time of discharge.
Thank you,
Sandra Diego RN BSN CCDS
CDI Specialist
Please contact via tiger text
Please use your independent medical judgment in providing your response.
--- NOTE | 2025-04-04 10:41 | W.PN.CARDCBS ---
Addendum entered and electronically signed by Brian Hdz MD 04/04/25 12:04:
I saw and examined the patient.
The [employer] DEPARTMENT or PA's note was reviewed and I agree with the note.
Comment: General: Well developed, well nourished in NAD.
Neck: Supple, no JVD, HJR, carotids +2 B/L, no bruits bilaterally.
Heart: Non displaced PMI, RRR, no murmurs, No S3, S4, no rubs.
Lungs: Clear to auscultation bilaterally, no wheeze, rhonchi, rubs bilaterally,
normal expiratory phase.
Extremities: No clubbing, cyanosis or edema bilaterally.
Neuro: Grossly nonfocal, awake, alert and oriented x3.
Await CT surgery consultation for CABG. Ejection fraction normal on echocardiogram. MR appears moderate and has improved compared to echocardiogram in December 2023 which was moderate to severe MR. Continue IV heparin.
Original Note:
Today's Communication / Plan
-
CT surgery consultation for CABG, possible maze and left atrial clip
Continue IV heparin
Now on high intensity statin
Impression / Plan
-
PCP: Vincenzo Parra
Primary manager convention: Malcolm potter MD
Impression:
Chest pain
Mildly elevated troponin
Atrial flutter
Atrial tachycardia
Atrial fibrillation
- Status post PVI 09/05/2024
-Noted to have recurrent atypical atrial flutter/atrial tachycardia at office visit 03/16/2025 and is scheduled for repeat ablation and Watchman in May [address] Potter
Frequent bleeding-cuts, scrapes on oral anticoagulation
Right bundle branch block
Left total knee replacement 03/28/2025
Previous cardiovascular testing:
Echocardiogram 12/28/2023: Normal LV size and function, LVEF 60 to 65%, moderate to severe MR, mild TR, PAP 35 to 40 mmHg, mild PI, negative bubble study
JOSE 01/15/2024: Normal LV/RV size and function, LVEF 55%, mitral annular dilatation with severe LA dilatation, moderate MR, no COLEEN a thrombus, mild TR
Echo 04/03/2025: Pending
Cardiac catheterization 04/03/2025: LM. Patent. LAD: Hazy ostial 60% stenosis, 95% mid stenosis just beyond first diagonal followed by additional 60% mid stenosis. Apical 60% stenosis. Diagonal 50% ostial stenosis and 80% mid stenosis. Left
circumflex. Proximal 90% stenosis, long 80% mid stenosis. RCA: Diffuse minor LI up to 30% throughout vessel. PDA and posterior lateral branch are patent. LVG 50 to 55% with anterolateral hypokinesis. +2 MR.
Plan:
CP/Elevated troponin consistent with non-STEMI
-Peak troponin 0.068
-Cardiac cath 04/03/2025 demonstrated multivessel coronary artery disease including hazy stenosis in the proximal LAD with 95% mid LAD stenosis and multisegment high-grade atherosclerotic disease in the mid circumflex. Preserved LV systolic function
with EF 50-55% with anterolateral hypokinesis. There is 2+ mitral regurgitation.
-CT surgery consult has been placed. Consider CABG plus maze and left atrial appendage closure if appropriate
-Continue aspirin.
-Continue IV heparin with discontinuation of Eliquis last dose 04/01/2025 in am as patient currently undergoing evaluation for CABG
-Some increased bruising without hematoma of left leg status post recent total knee replacement. Hemoglobin relatively stable at 9.8. Was 11.0 on admission
-Lipid profile prestatin 04/02/2025: Total cholesterol 146, triglycerides 109, LDL 78, HDL 47. Started on high intensity atorvastatin 80 mg this admission
History of atypical atrial flutter/atrial tachycardia/A-fib currently in rate controlled atrial flutter
-Lower blood pressure trends and some bradycardia noted on telemetry. Carvedilol reduced to 3.125 mg twice a day 04/02/2025 with improvement of heart rate and blood pressure
-Consider maze and left atrial appendage closure at time of CABG
History of mitral regurgitation
- JOSE 01/2024 showed moderate MR, normal LV/RV size and function.
-+2 MR noted on left ventriculogram at time of catheterization
-Echo 04/03/2025 pending
- Clinically no signs of heart failure
Status post recent left total knee replacement 03/28/2025
-Continue postop supportive care
-Anemia this admission secondary to postop blood loss. Hemoglobin stable on IV heparin; No active bleeding
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
Subjective
Date of Service: April 04, 2025
Patient seen and examined. Resting comfortably in bed. Denies further chest pain or SOB
Objective
Labs:
04/04/25 07:23
04/04/25 07:23
Labs
Hgb 9.8 g/dL (13.0-18.0) L 04/04/25 07:23
Hct 26.7 % (39.0-52.0) L 04/04/25 07:23
Plt Count 176 10^3/uL (130-400) 04/04/25 07:23
PT 16.3 Sec (11.4-14.6) H 04/04/25 07:23
INR 1.25 04/04/25 07:23
APTT 81.1 Sec (23.4-35.0) H 04/04/25 07:23
APTT 81.2 Sec (23.4-35.0) H 04/04/25 07:23
Sodium 127 mmol/L (135-145) L 04/04/25 07:23
Potassium 4.3 mmol/L (3.5-5.1) 04/04/25 07:23
BUN 24 mg/dl (9-20) H 04/04/25 07:23
Creatinine 0.9 mg/dL (0.7-1.3) 04/04/25 07:23
Glucose 111 mg/dl (70-99) H 04/04/25 07:23
Troponins
04/01/25 04/03/25
17:36 22:35
Troponin I 0.044 H* D 0.031
Vital Signs and I&O:
Vital Signs
Temp Pulse Resp BP Pulse Ox
97.8 F 71 18 120/67 93
04/04/25 07:00 04/04/25 07:00 04/04/25 07:00 04/04/25 07:00 04/04/25 07:00
Vital Signs
Temp Pulse Resp BP Pulse Ox
97.8 F 71 18 120/67 93
04/04/25 07:00 04/04/25 07:00 04/04/25 07:00 04/04/25 07:00 04/04/25 07:00
Intake & Output
04/02/25 04/03/25 04/04/25 04/05/25
06:59 06:59 06:59 06:59
Intake Total 824 / 824 1200 / 1200 1395 / 1395
Output Total 200 / 200
Balance 824 / 824 1200 / 1200 1195 / 1195
Physical Exam
Physical Exam
GEN: No distress, awake, Ox3.
HEENT: supple, anicteric, mmm
LUNGS: CTA, no wheezes/rales
CV: Reg, S1/S2, 1/6 apical murmur, no rub or gallop
ABD: soft, BS+, NT/ND
EXT: No edema, clubbing or cyanosis on right. Left leg with moderate ecchymosis from thigh to calf. Slight ooze from incision from knee replacement, trace RLE edema
Right radial cath site C/D/I with slight ecchymosis, no hematoma. +2 radial/ulnar pulse
NEURO: Gross non-focal
SKIN: No rash, warm, dry, pink
--- NOTE | 2025-04-04 12:58 | W.PN.HOSP.TC ---
Addendum entered and electronically signed by Anish Kapoor MD 04/04/25 13:53:
Elevated total bilirubin, clinically insignificant
Hyponatremia-Syndrome of inappropriate ADH exacerbated by pain
Original Note:
Today's Communication/Plan
-
Continue heparin drip. Cardiothoracic surgery evaluation.
Assessment / Plan
Assessment / Plan
Physical exam:
General: Acutely ill
HEENT: Normocephalic, Atraumatic and Moist Mucous Membranes
Respiratory: Clear to Auscultation; Negative Wheezes, Rales or Rhonchi
Cardiac: Regular Rhythm and S1/S2, systolic murmur
GI: Soft, Nontender and Nondistended
Musculoskeletal: Incision left knee. Edema present. Small amount of bleeding on the left knee incision and ecchymosis. No Clubbing, No Cyanosis.
Neuro: Awake, Alert and Oriented
Psych: Calm
Echocardiogram:
Normal left ventricular chamber size. Normal left ventricular systolic
function. Left ventricular ejection fraction is 55-60% by visual/volumetric
assessment. Normal regional wall motion. Mild concentric left ventricular
hypertrophy. Normal diastolic function.
Posterior mitral annular calcification. Mitral valve opens normally. Moderate
mitral regurgitation.
Indexed LA volume is severely abnormal (> 48 mL/m2).
Since echocardiogram 12/28/2023 which was reviewed, MR has improved from
moderate-severe to moderate.
Cardiac cath:
1. Multivessel coronary artery disease including hazy stenosis in the proximal LAD with 95% mid LAD stenosis and multisegment high-grade atherosclerotic disease in the mid circumflex
2. Preserved LV systolic function with an estimated ejection fraction of 50-55% with anterolateral hypokinesis. There is 2+ mitral regurgitation.
3. Recent left total knee arthroplasty
A/P:
NSTEMI:
-Heparin drip restarted
-Eliquis on hold
- Status post cardiac cath on 04/03.
-Plan for CT surgery eval for CABG
-On aspirin, beta-blockers, and statin.
-Discussed with at bedside yesterday
Left total knee replacement with bleeding at the surgical site (L TKA on 03/28):
-Orthopedic consult appreciated
-Continue pain control and bowel regimen
Acute blood loss anemia
- Hemoglobin 9.8 today
- Continue to monitor hemoglobin
Leukocytosis
- Likely reactive
Hyperlipidemia
- Started on atorvastatin 20 mg p.o. every evening during this hospital stay and then increased to 80 mg p.o. daily
- LDL 78
Chronic HFpEF
-Continue diuresis, Lasix 20 mg p.o. daily
-Continue JEANETTE inhibitor and beta-blockers
Paroxysmal A-Fib / Flutter
- s/p prior ablation.
- Monitor on telemetry.
- On heparin drip
- On beta-maddy
Benign Hypertension
- On lisinopril 40 mg p.o. daily and carvedilol 3.125 mg twice a day
BPH
- On tamsulosin 0.4 mg daily.
- Bladder scan protocol.
Hyponatremia
- Sodium 127 today
-Continue fluid restriction
-Urine sodium and urine osmolarity elevated both consistent with SIADH physiology.
- continue monitoring
DVT Prophylaxis: SCDs
Code Status: Full
Total time spent on today's encounter was 52 minutes which included time spent in counseling the patient/family regarding diagnosis and treatment plan as listed above, goals of care, and symptom management. Case was discussed with nursing staff,
specialists, and care coordinators/case management. All labs and imaging personally reviewed by me. Remainder the time spent in detailed review of previous records, lab data, imaging, and other medical provider documentation.
Anticipated Discharge: > 48 hours
Subjective/Interval History
-
Date of Service: April 04, 2025
Notice events overnight with orthostasis. Patient feels better today. No chest pain or shortness of breath at rest.
Objective Data
-
Labs:
Laboratory Results
04/04/25 04/04/25 04/04/25
07:23 07:23 16:00
WBC 14.3 H
Hgb 9.8 L
Hct 26.7 L
Plt Count 176
PT 16.3 H
INR 1.25
APTT 81.2 H 81.1 H Pending
Sodium 127 L
Potassium 4.3
Chloride 95 L
Carbon Dioxide 29
BUN 24 H
Creatinine 0.9
Glucose 111 H
Calcium 8.4
Total Bilirubin 2.1 H
AST 20
ALT 22
Alkaline Phosphatase 58
Vital Signs:
Vital Signs
Temp Pulse Resp BP Pulse Ox
98.2 F 72 18 103/64 99
04/04/25 11:00 04/04/25 11:00 04/04/25 11:00 04/04/25 11:00 04/04/25 11:00
I&O
04/03/25 04/04/25 04/05/25
06:59 06:59 06:59
Intake Total 1200 / 1200 1395 / 1395
Output Total 200 / 200
Balance 1200 / 1200 1195 / 1195
[2025-04-04 16:29] LABS: APTT 93.5 Sec (23.4-35.0)
[2025-04-04] MEDS: LIPITOR 80 MG PO (16:55)
--- NOTE | 2025-04-04 18:07 | PTCARENOTE ---
Received patient from , scheduled for CVOR later this week. Patient transferred to the bed and placed on telemetry, remains in SR with 1st degree HB. IV heparin infusing at 1000 units/hr, patient denies any chest pain or sob. Patient feels like he
needs to move his bowels, has been orthostatic when standing and was placed on the bedpan. in visiting, call russo in reach.
[2025-04-04] MEDS: MELATONIN 5 MG PO (22:29)
[2025-04-04] MEDS: TYLENOL 650 MG PO (23:42)
[2025-04-05] VITALS (10 sets, daily range): BP systolic 96–123; BP diastolic 55–84; PULSE 67–80; O2SAT 98; BMI 28.7
--- NOTE | 2025-04-05 00:46 | PTCARENOTE ---
Assumed care of the pt @ 1900. Pt is AAOx3 SR with 1st degree AVB and PVC's VSS denies cp Heparin gtt infusing @ 1000 unit/ HR. Call russo within reach. Bedrest tonight using urinal Lucila color. Tylenol given for left knee pain.
[2025-04-05] MEDS: TYLENOL 650 MG PO ×2 (03:57→09:18)
[2025-04-05 04:33] LABS: Hematocrit 24.3 % (39.0-52.0); Mean Corpuscular Volume 94.6 fL (80.0-94.0); Mean Platelet Volume 11.7 fL (7.4-10.4); Platelet Count 179 10^3/uL (130-400); Red Blood Cell Count 2.57 10^6/uL (4.70-6.10); Red Cell Dist. Width 12.2 % (11.5-14.5)
[2025-04-05 04:45] LABS: APTT 122.6 Sec (23.4-35.0)
[2025-04-05 05:05] LABS: Blood Urea Nitrogen 23 mg/dl (9-20); Calcium 8.1 mg/dl (8.4-10.2); Carbon Dioxide 27 mmol/L (22-30); Chloride 96 mmol/L (98-107); Estimated Creatinine Clearance 64 ml/min; Glucose 106 mg/dl (70-99); Potassium 4.4 mmol/L (3.5-5.1); Sodium 126 mmol/L (135-145); eGFR > 60.00
--- NOTE | 2025-04-05 08:03 | W.PN.HOSP.TC ---
Addendum entered and electronically signed by Anish Kapoor MD 04/05/25 15:10:
Also check cortisol and TSH in a.m.
Original Note:
Today's Communication/Plan
-
Heparin drip. Adjust antihypertensives. CT surgery eval.
Assessment / Plan
Assessment / Plan
Physical exam:
General: Acutely ill
HEENT: Normocephalic, Atraumatic and Moist Mucous Membranes
Respiratory: Clear to Auscultation; Negative Wheezes, Rales or Rhonchi
Cardiac: Regular Rhythm and S1/S2, systolic murmur
GI: Soft, Nontender and Nondistended
Musculoskeletal: Postop findings of left total knee replacement. No Clubbing, No Cyanosis.
Neuro: Awake, Alert and Oriented, no gross neurological deficit
Psych: Calm
Echocardiogram:
Normal left ventricular chamber size. Normal left ventricular systolic
function. Left ventricular ejection fraction is 55-60% by visual/volumetric
assessment. Normal regional wall motion. Mild concentric left ventricular
hypertrophy. Normal diastolic function.
Posterior mitral annular calcification. Mitral valve opens normally. Moderate
mitral regurgitation.
Indexed LA volume is severely abnormal (> 48 mL/m2).
Since echocardiogram 12/28/2023 which was reviewed, MR has improved from
moderate-severe to moderate.
Cardiac cath:
1. Multivessel coronary artery disease including hazy stenosis in the proximal LAD with 95% mid LAD stenosis and multisegment high-grade atherosclerotic disease in the mid circumflex
2. Preserved LV systolic function with an estimated ejection fraction of 50-55% with anterolateral hypokinesis. There is 2+ mitral regurgitation.
3. Recent left total knee arthroplasty
A/P:
Acute NSTEMI:
On heparin drip
On aspirin, beta-blockers, and statin
Cardiology consult and follow-up appreciated
CT surgery evaluation pending for evaluation for CABG in light of multivessel coronary artery disease
Discussed with at bedside today
Orthostatic hypotension:
Holding all antihypertensives and diuretics by cardiology
Continue to monitor orthostatic
Might need to consider midodrine if not improvement
Hyponatremia-Syndrome of inappropriate ADH exacerbated by pain and probable hypervolemia component:
Sodium 126 today
Continue fluid restriction-50 ounces a day
Add salt tablets 1 g twice a day
Urine sodium and urine osmolarity elevated both consistent with SIADH physiology.
Continue monitoring
Left total knee replacement with bleeding at the surgical site (L TKA on 03/28):
Orthopedic consult appreciated
Continue pain control and bowel regimen
Acute blood loss anemia:
Hemoglobin 9 today
Continue to monitor hemoglobin
Leukocytosis:
Likely reactive
Hyperlipidemia:
Started on atorvastatin 20 mg p.o. every evening during this hospital stay and then increased to 80 mg p.o. daily
LDL 78
Chronic HFpEF:
Diuresis currently on hold
GDMT on hold including EJANETTE inhibitor and beta-blockers
Paroxysmal A-Fib / Flutter:
S/P prior ablation.
Monitor on telemetry.
On heparin drip
Beta-maddy on hold
Benign Hypertension:
All antihypertensives on hold due to orthostatic hypotension
BPH:
Will hold tamsulosin 0.4 mg due to orthostatic hypotension
Continue bladder scan protocol.
Anxiety:
On benzodiazepines as needed
Elevated total bilirubin, clinically insignificant
DVT Prophylaxis:
On heparin drip
Code Status:
Full code
Total time spent on today's encounter was 52 minutes which included time spent in counseling the patient/family regarding diagnosis and treatment plan as listed above, goals of care, and symptom management. Case was discussed with nursing staff,
specialists, and care coordinators/case management. All labs and imaging personally reviewed by me. Remainder the time spent in detailed review of previous records, lab data, imaging, and other medical provider documentation.
Anticipated Discharge: > 48 hours
Subjective/Interval History
-
Date of Service: April 05, 2025
Patient denies any chest pain or shortness of breath at rest. Patient orthostatic with minimal exertion. Afebrile
Objective Data
-
Labs:
Laboratory Results
04/05/25 04/05/25
04:18 12:00
WBC 12.0 H
Hgb 9.0 L
Hct 24.3 L
Plt Count 179
APTT 122.6 H Pending
Sodium 126 L
Potassium 4.4
Chloride 96 L
Carbon Dioxide 27
BUN 23 H
Creatinine 0.9
Glucose 106 H
Calcium 8.1 L
Vital Signs:
Vital Signs
Temp Pulse Resp BP Pulse Ox
98.7 F 75 16 96/63 100
04/05/25 04:20 04/05/25 07:30 04/05/25 04:20 04/05/25 04:28 04/05/25 04:25
I&O
04/04/25 04/05/25 04/06/25
06:59 06:59 06:59
Intake Total 1395 / 1395 2720 / 2720
Output Total 200 / 200 770 / 770
Balance 1195 / 1195 1950 / 1950
[2025-04-05] MEDS: MIRALAX 17 GRAMS PO (09:18)
[2025-04-05] MEDS: ZESTRIL 40 MG PO (09:18)
[2025-04-05] MEDS: LOW STRENGTH ASPIRIN 81 MG PO (09:18)
[2025-04-05] MEDS: PROTONIX 40 MG PO (09:18)
[2025-04-05] MEDS: COREG 3.125 MG PO (09:19)
[2025-04-05] MEDS: FLOMAX 0.4 MG PO (09:19)
[2025-04-05] MEDS: LASIX 20 MG PO (09:19)
--- NOTE | 2025-04-05 09:23 | W.PN.CARDCBS ---
Addendum entered and electronically signed by Judit Sethi MD 04/05/25 10:53:
I saw and examined the patient.
The Network Developer's note was reviewed and I agree with the note.
Comment: General: Well developed, well nourished in NAD.
Heart: Irregularly irregular with 2/6 apical holosystolic murmur
Lungs: Decreased breath sounds at bases
Neuro: Grossly nonfocal, awake, alert and oriented x3.
Patient well-known to me with atrial fibrillation and history of heart failure with preserved ejection fraction in the setting of atrial fibrillation. Status post PVI 09/05/2024 with recurrent left atrial tachycardia and recent sensitivity to
Eliquis for which she was undergoing watchman assessment. He has had no symptoms of angina until recent orthopedic surgery and starting to ambulate up stairs at home. At this time he developed substernal chest discomfort that was not remitting and
he came to the emergency department. Non-Q wave myocardial infarction peak troponin 0.068. EKG was not acute. He underwent cardiac catheterization which revealed multivessel coronary disease. Left ventricular ejection fraction is normal however
moderate mitral regurgitation with history of moderate to severe mitral regurgitation noted. His blood pressure has also been low since orthopedic surgery.And has been having some issues with orthostatic symptoms.
I did discuss surgical planning with CT surgery.
Plan at this time:
- Multivessel coronary artery disease CT surgery evaluating for CABG. He does have moderate, at times moderate to severe mitral regurgitation they will also assess.
- Outpatient sensitivity to anticoagulation with frequent bleeding, cuts and scrapes and was being assessed for watchman. At the time CT surgery if able would recommend left atrial appendage clip.
- Risk factor modification for coronary artery disease. Guideline directed medical therapy post non-Q wave myocardial infarction.
- Continue rate control of left atrial tachycardia. Status post PVI noted. Anticoagulation with heparin for now.
- Orthostatic hypotension noted. Hold lisinopril. Hold carvedilol unless needed for rate control. Caution with changing position. PT to see patient.
- Continue to follow with orthopedic surgery status post total knee replacement.
I reviewed echocardiogram. I reviewed labs. I did review telemetry in addition with rate controlled atrial tachycardia.
Echocardiogram 04/04/2025: Normal left ventricular chamber size. LVEF 55-60%. Mild LVH. Posterior mitral annular calcification. Mitral valve opens normally. Moderate
mitral regurgitation.
Original Note:
Today's Communication / Plan
-
CT surgical evaluation underway - ? consideration for intervention of mitral valve
Chest pain-free on aspirin, IV heparin, Lipitor, Coreg
Continue p.o. Lasix
Likely hold lisinopril in a.m.
Eventual restart DOAC postsurgically
Impression / Plan
-
PCP: Vincenzo Parra
Primary threat analyst: Malcolm sethi MD
Impression:
Chest pain
NSTEMI
Multivessel CAD
Atrial flutter
Atrial tachycardia
Atrial fibrillation
- Status post PVI 09/05/2024
-Noted to have recurrent atypical atrial flutter/atrial tachycardia at office visit 03/16/2025 and is scheduled for repeat ablation and Watchman in May [address] Sethi
Frequent bleeding-cuts, scrapes on oral anticoagulation
Right bundle branch block
Left total knee replacement 03/28/2025
Previous cardiovascular testing:
Echocardiogram 12/28/2023: Normal LV size and function, LVEF 60 to 65%, moderate to severe MR, mild TR, PAP 35 to 40 mmHg, mild PI, negative bubble study
JOSE 01/15/2024: Normal LV/RV size and function, LVEF 55%, mitral annular dilatation with severe LA dilatation, moderate MR, no COLEEN a thrombus, mild TR
Echo 04/03/2025: Pending
Cardiac catheterization 04/03/2025: LM. Patent. LAD: Hazy ostial 60% stenosis, 95% mid stenosis just beyond first diagonal followed by additional 60% mid stenosis. Apical 60% stenosis. Diagonal 50% ostial stenosis and 80% mid stenosis. Left
circumflex. Proximal 90% stenosis, long 80% mid stenosis. RCA: Diffuse minor LI up to 30% throughout vessel. PDA and posterior lateral branch are patent. LVG 50 to 55% with anterolateral hypokinesis. +2 MR.
Plan:
- He presented with chest pain and ruled in for NSTEMI
- Peak troponin 0.068
- Cardiac cath 04/03 with MV CAD including hazy stenosis in the proximal LAD with 95% mid LAD stenosis and multisegment high-grade atherosclerotic disease in the mid circumflex. Preserved LV systolic function with EF 50-55% with anterolateral
hypokinesis. There is 2+ mitral regurgitation. MR by echo is felt to be moderate�moderate to severe. JOSE 01/2024 showed moderate MR
- CT surgery eval underway. will need to evaluate MR to determine if intervention will be required at time of CABG/clip/MAZE
- chest pain free
- Continue aspirin, IV heparin. last dose of eliquis was 04/01. he was being considered for watchman as OP so should have COLEEN clip.
- Some increased bruising without hematoma of left leg status post recent total knee replacement. Hemoglobin is downtrending, 9.0 on 04/05.
- Lipid profile prestatin 04/02/2025: Total cholesterol 146, triglycerides 109, LDL 78, HDL 47. Started on high intensity atorvastatin 80 mg this admission
- currently in rate controlled aflutter with occasional PVCs on review of tele overnight. continue coreg 3.125mg BID
- LVEDP by cath was 10. continue po lasix 20mg daily. Cr stable at 0.9.
- continue supportive post op care s/p L TKA 03/28.
- d/w CT surgery
Progress Note - Mild Disabilities Teacher
Subjective
Date of Service: April 05, 2025
No issues overnight
Objective
Labs:
04/05/25 04:18
04/05/25 04:18
Labs
Hgb 9.0 g/dL (13.0-18.0) L 04/05/25 04:18
Hct 24.3 % (39.0-52.0) L 04/05/25 04:18
Plt Count 179 10^3/uL (130-400) 04/05/25 04:18
PT 16.3 Sec (11.4-14.6) H 04/04/25 07:23
INR 1.25 04/04/25 07:23
APTT 122.6 Sec (23.4-35.0) H 04/05/25 04:18
Sodium 126 mmol/L (135-145) L 04/05/25 04:18
Potassium 4.4 mmol/L (3.5-5.1) 04/05/25 04:18
BUN 23 mg/dl (9-20) H 04/05/25 04:18
Creatinine 0.9 mg/dL (0.7-1.3) 04/05/25 04:18
Glucose 106 mg/dl (70-99) H 04/05/25 04:18
Troponins
04/03/25
22:35
Troponin I 0.031
Vital Signs and I&O:
Vital Signs
Temp Pulse Resp BP Pulse Ox
97.7 F 77 16 102/55 98
04/05/25 08:06 04/05/25 09:18 04/05/25 08:06 04/05/25 09:18 04/05/25 08:06
Vital Signs
Temp Pulse Resp BP Pulse Ox
97.7 F 77 16 102/55 98
04/05/25 08:06 04/05/25 09:18 04/05/25 08:06 04/05/25 09:18 04/05/25 08:06
Intake & Output
04/03/25 04/04/25 04/05/25 04/06/25
07:59 07:59 07:59 07:59
Intake Total 1200 / 1200 1395 / 1395 2720 / 2720
Output Total 200 / 200 770 / 770
Balance 1200 / 1200 1195 / 1195 1950 / 1950
Physical Exam
Physical Exam
GEN: No distress, awake, alert, oriented x3
HEENT: supple, anicteric, mmm, EOMI
LUNGS: CTA bilaterally, no wheezes/rales
CV: Irreg, S1/S2, 1/6 murmur
ABD: soft, BS+, NT/ND
EXT: No cyanosis, clubbing. trace edema of bilateral lower extremity
NEURO: Gross non-focal
SKIN: Warm, pink, dry. No rash
--- NOTE | 2025-04-05 11:12 | PTCARENOTE ---
Pt is AOx3, complains of pain in left knee, given PRN tylenol as ordered. Pt on bedrest, will work with PT later today. Heparin gtt infusing per protocol. SR w/ HB on tele monitor, VSS. Call russo within reach.
--- NOTE | 2025-04-05 13:42 | CM ---
CM following for DC planning needs.
Met w/ patient and spouse at bedside.
Reviewed initial assessment w/ patient/ spouse. Pt. resides w/ spouse in a private, 2 ST w/ 1 [place]. Functionally, prior to knee surgery on 03/28, patient was indep. w/ ADLs, mobility without the use of any assisted device. [facility] but had already graduated to outpatient PT [facility] . Pt. was ambulating with SPC, RW post surgery.
Pt. is hopeful to undergo CT Surgery while hospitalized.
We discussed role of CM and I agreed to follow up with patient w/ pre-admission teaching + DC planning needs.
Will follow.
[2025-04-05 14:31] LABS: APTT 85.8 Sec (23.4-35.0)
[2025-04-05] MEDS: SODIUM CHLORIDE 1 GRAM PO ×2 (15:20→20:05)
[2025-04-05] MEDS: LIPITOR 80 MG PO (17:16)
--- NOTE | 2025-04-05 18:17 | W.PN.UPDATE ---
Addendum entered and electronically signed by Osman Stokes MD 04/07/25 06:11:
CARDIAC SURGERY ATTENDING:
It was my pleasure to meet with Mr. Buster Palmer and his family at bedside yesterday afternoon. I have reviewed his medical history and all available preoperative studies. I believe the patient will benefit from surgical coronary
revascularization with planned JEFFREY to LAD and greater saphenous vein to the OM. I will offer concurrent repeat ablation and exclusion of his left atrial appendage. In terms of the patient's mitral valve pathology, there is some question of the
severity of this disease. 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 Further assessment with intraoperative JOSE will be required to determine if mitral valve intervention is warranted. As noted below, the
addition of mitral valve intervention will have to be carefully considered given the escalated mortality risk associated. I also have some minor concerns about his postoperative recovery given his ambulatory issues stemming from his recent left
knee procedure. Will have to be very mindful of PT post this procedure.
I had a greater than 60-minute conversation with Mr. Palmer and his family. We reviewed his pathology, discussed the proposed operative inventions, reviewed the periprocedural risks (including, but not limited to, , stroke, [place], arrhythmia,
PPM requirement, RICKY/F, PNA, bleeding, and infection), discussed expected in-hospital postprocedural course, and reviewed the expected outpatient recovery. All questions were answered to the best of my abilities. The patient is agreeable to
proceed. We will plan for operative intervention on 04/07/2025.
Thank you.
Osman Stokes MD
[phone]
Addendum entered and electronically signed by YAZ King 04/06/25 08:09:
Procedure Type:�Isolated CABG
Perioperative Outcome Estimate %
Operative Mortality 3.7%
Morbidity & Mortality 12.8%
Stroke 0.915%
Renal Failure 3.19%
Reoperation 3.1%
Prolonged Ventilation 6.97%
Deep Sternal Wound Infection 0.151%
Long Hospital Stay (>14 days) 10.2%
Short Hospital Stay (<6 days)* 19%
Clinical Summary
Planned Surgery: Isolated CABG, Urgent, First cardiovascular surgery
Demographics: 80 year old, White, male, 87kg, 173cm, BMI: 29.1 kg/m�
Lab Values: Creatinine: 0.9 mg/dL, Hematocrit: 24%, WBC Count: 11 10�/�L, Platelet Count: 222192 cells/�L
Substance Abuse: Never smoker, Alcohol use: <=1 drink/week
Risk Factors / Comorbidities: Hypertension
Cardiac Status: Ejection Fraction = 55%
Coronary Artery Disease: 3 vessels diseased, Proximal LAD Stenosis >=70%, Non-ST Elevation KY, [place]: 1 to 7 Days
Valve Disease: Trivial/Trace AR, Moderate MR, Trivial/Trace TR
Arrhythmia: Recent A-fib, Paroxysmal
Original Note:
Update Note
Progress Note Update
Patient tentatively planned for Cardiac Surgery with Dr. Stokes on Thursday04/06/25. Ongoing pre-operative work-up being obtained.
STS Risk:
Procedure Type:�CABG + MVr
Perioperative Outcome Estimate %
Operative Mortality 8.68%
Morbidity & Mortality 28%
Stroke 2.83%
Renal Failure 8.13%
Reoperation 6.7%
Prolonged Ventilation 16.6%
Deep Sternal Wound Infection 0.282%
Long Hospital Stay (>14 days) 18.5%
Short Hospital Stay (<6 days)* 7.84%
Clinical Summary
Planned Surgery: CABG + MVr, Urgent, First cardiovascular surgery
Demographics: 80 year old, male, 85.6kg, 173cm, BMI: 28.6 kg/m�
Lab Values: Creatinine: 0.9 mg/dL, Hematocrit: 26.7%, WBC Count: 14.3 10�/�L, Platelet Count: 986602 cells/�L
Substance Abuse: Never smoker, Alcohol use: <=1 drink/week
Risk Factors / Comorbidities: Hypertension
Cardiac Status: Ejection Fraction = 55%
Coronary Artery Disease: 3 vessels diseased, Non-ST Elevation [place], [place]: 1 to 7 Days
Valve Disease: Moderate MR, Mild TR
Arrhythmia: Recent A-fib, Paroxysmal
[2025-04-05] MEDS: DULCOLAX 10 MG PO (20:05)
[2025-04-05 21:52] LABS: APTT 80.7 Sec (23.4-35.0)
[2025-04-05] MEDS: XANAX 0.25 MG PO (22:12)
[2025-04-05] MEDS: MELATONIN 5 MG PO (22:12)
--- NOTE | 2025-04-05 23:56 | PTCARENOTE ---
Assumed care of the pt @ 1900. Pt is AAOx3 at bedside. SR with 1st degree on the monitor Hep gtt infusing @ 900 units/HR. Denies CP. POC discussed with pt and including pre op instructions. Pt verbalized understanding. Call russo within
reach.
[2025-04-06] VITALS (12 sets, daily range): BP systolic 73–138; BP diastolic 51–90; PULSE 68–79; BMI 29.1
[2025-04-06] MEDS: HEPARIN 25000 UNITS/250 ML IV (01:05)
[2025-04-06] MEDS: TYLENOL 650 MG PO ×3 (03:03→19:44)
[2025-04-06 04:22] LABS: Hemoglobin 8.8 g/dL (13.0-18.0); Mean Corp Hgb Conc. 36.7 g/dL (33.0-37.0); Mean Corpuscular Hgb 35.3 pg (27.0-31.0); Mean Corpuscular Volume 96.4 fL (80.0-94.0); Mean Platelet Volume 11.7 fL (7.4-10.4); Platelet Count 182 10^3/uL (130-400); Red Blood Cell Count 2.49 10^6/uL (4.70-6.10); Red Cell Dist. Width 12.7 % (11.5-14.5)
[2025-04-06 04:31] LABS: APTT 74.5 Sec (23.4-35.0)
[2025-04-06 04:38] LABS: Blood Urea Nitrogen 20 mg/dl (9-20); Calcium 8.3 mg/dl (8.4-10.2); Carbon Dioxide 26 mmol/L (22-30); Chloride 97 mmol/L (98-107); Estimated Creatinine Clearance 64 ml/min; Glucose 111 mg/dl (70-99); Potassium 4.2 mmol/L (3.5-5.1); Sodium 126 mmol/L (135-145); eGFR > 60.00
[2025-04-06 05:07] LABS: Cortisol, Random 14.7 ug/dl
--- NOTE | 2025-04-06 08:49 | W.PN.HOSP.TC ---
Today's Communication/Plan
-
3% saline
Assessment / Plan
Assessment / Plan
Physical exam:
General: Acutely ill
HEENT: Normocephalic, Atraumatic and Moist Mucous Membranes
Respiratory: Clear to Auscultation; Negative Wheezes, Rales or Rhonchi
Cardiac: Regular Rhythm and S1/S2, systolic murmur
GI: Soft, Nontender and Nondistended
Musculoskeletal: Postop findings of left total knee replacement. No Clubbing, No Cyanosis.
Neuro: Awake, Alert and Oriented, no gross neurological deficit
Psych: Calm
Echocardiogram:
Normal left ventricular chamber size. Normal left ventricular systolic
function. Left ventricular ejection fraction is 55-60% by visual/volumetric
assessment. Normal regional wall motion. Mild concentric left ventricular
hypertrophy. Normal diastolic function.
Posterior mitral annular calcification. Mitral valve opens normally. Moderate
mitral regurgitation.
Indexed LA volume is severely abnormal (> 48 mL/m2).
Since echocardiogram 12/28/2023 which was reviewed, MR has improved from
moderate-severe to moderate.
Cardiac cath:
1. Multivessel coronary artery disease including hazy stenosis in the proximal LAD with 95% mid LAD stenosis and multisegment high-grade atherosclerotic disease in the mid circumflex
2. Preserved LV systolic function with an estimated ejection fraction of 50-55% with anterolateral hypokinesis. There is 2+ mitral regurgitation.
3. Recent left total knee arthroplasty
A/P:
Acute NSTEMI:
On heparin drip
On aspirin, beta-blockers, and statin
Cardiology consult and follow-up appreciated
CT surgery evaluation pending for evaluation for CABG in light of multivessel coronary artery disease
Discussed with at bedside today
Orthostatic hypotension:
Holding all antihypertensives and diuretics by cardiology
Continue to monitor orthostatic
Might need to consider midodrine if not improvement
Hyponatremia-Syndrome of inappropriate ADH exacerbated by pain and probable hypervolemia component:
Sodium 126 today
Continue fluid restriction-50 ounces a day
Continue salt tablets 1 g twice a day
Urine sodium and urine osmolarity elevated both consistent with SIADH physiology.
Continue monitoring
Cardiology consulted nephrology today
Planning possible 3% saline and continue with fluid restriction and salt tablets
Left total knee replacement with bleeding at the surgical site (L TKA on 03/28):
Orthopedic consult appreciated
Continue pain control and bowel regimen
Acute blood loss anemia:
Hemoglobin 9 today
Continue to monitor hemoglobin
Leukocytosis:
Likely reactive
Hyperlipidemia:
Started on atorvastatin 20 mg p.o. every evening during this hospital stay and then increased to 80 mg p.o. daily
LDL 78
Chronic HFpEF:
Diuresis currently on hold
GDMT on hold including JEANETET inhibitor and beta-blockers
Paroxysmal A-Fib / Flutter:
S/P prior ablation.
Monitor on telemetry.
On heparin drip
Beta-maddy on hold
Benign Hypertension:
All antihypertensives on hold due to orthostatic hypotension
BPH:
Will hold tamsulosin 0.4 mg due to orthostatic hypotension
Continue bladder scan protocol.
Anxiety:
On benzodiazepines as needed
Elevated total bilirubin, clinically insignificant
DVT Prophylaxis:
On heparin drip
Code Status:
Full code
Total time spent on today's encounter was 52 minutes which included time spent in counseling the patient/family regarding diagnosis and treatment plan as listed above, goals of care, and symptom management. Case was discussed with nursing staff,
specialists, and care coordinators/case management. All labs and imaging personally reviewed by me. Remainder the time spent in detailed review of previous records, lab data, imaging, and other medical provider documentation.
Anticipated Discharge: 24 - 48 hours
Subjective/Interval History
-
Date of Service: April 06, 2025
Patient denies chest pain or shortness of breath at rest. Afebrile
Objective Data
-
Labs:
Laboratory Results
04/05/25 04/06/25
21:31 04:09
WBC 11.0 H
Hgb 8.8 L
Hct 24.0 L
Plt Count 182
APTT 80.7 H 74.5 H
Sodium 126 L
Potassium 4.2
Chloride 97 L
Carbon Dioxide 26
BUN 20
Creatinine 0.9
Glucose 111 H
Calcium 8.3 L
Vital Signs:
Vital Signs
Temp Pulse Resp BP Pulse Ox
97.7 F 74 20 124/90 94
04/06/25 07:04 04/06/25 08:15 04/06/25 07:04 04/06/25 07:03 04/06/25 07:04
I&O
04/05/25 04/06/25 04/07/25
06:59 06:59 06:59
Intake Total 2720 / 2720 120 / 120
Output Total 770 / 770 700 / 700
Balance 1950 / 1950 -580 / -580
[2025-04-06] MEDS: LOW STRENGTH ASPIRIN 81 MG PO (09:11)
[2025-04-06] MEDS: PROTONIX 40 MG PO (09:11)
[2025-04-06] MEDS: SODIUM CHLORIDE 1 GRAM PO ×2 (09:11→19:30)
[2025-04-06] MEDS: MIRALAX 17 GRAMS PO (09:12)
--- NOTE | 2025-04-06 09:51 | W.PN.CARDCBS ---
Addendum entered and electronically signed by Tremaine Nolan DO 04/06/25 16:25:
I saw and examined the patient.
The [employer]'s note was reviewed and I agree with the note.
Comment:
Plan:
Continue IV heparin anticoagulation
Reviewed his cardiac catheterization. CT surgical evaluation ongoing. Patient is for CABG plus or minus mitral valve surgery tomorrow.
Continue aspirin
Nephrology consulted for evaluation of hyponatremia.
Started on high intensity statin therapy this admission LDL 78 with goal less than 70.
Appreciate orthopedic input. Patient will need PT postoperatively status post left knee surgery March 28
Original Note:
Today's Communication / Plan
-
nephrology evaluation for hypoNa
holding lasix
follow ortho VS
CABG +/- MVR in AM
continue asa, IV heparin
Impression / Plan
-
PCP: Vincenzo Parra
Primary whizzer operator: Malcolm Potter MD
Impression:
Chest pain
NSTEMI
Multivessel CAD
Atrial flutter
Atrial tachycardia
Atrial fibrillation
- Status post PVI 09/05/2024
-Noted to have recurrent atypical atrial flutter/atrial tachycardia at office visit 03/16/2025 and is scheduled for repeat ablation and Watchman in May [address] Potter
Frequent bleeding-cuts, scrapes on oral anticoagulation
Right bundle branch block
Left total knee replacement 03/28/2025
Previous cardiovascular testing:
Echocardiogram 12/28/2023: Normal LV size and function, LVEF 60 to 65%, moderate to severe MR, mild TR, PAP 35 to 40 mmHg, mild PI, negative bubble study
JOSE 01/15/2024: Normal LV/RV size and function, LVEF 55%, mitral annular dilatation with severe LA dilatation, moderate MR, no COLEEN a thrombus, mild TR
Echo 04/03/2025: Pending
Cardiac catheterization 04/03/2025: LM. Patent. LAD: Hazy ostial 60% stenosis, 95% mid stenosis just beyond first diagonal followed by additional 60% mid stenosis. Apical 60% stenosis. Diagonal 50% ostial stenosis and 80% mid stenosis. Left
circumflex. Proximal 90% stenosis, long 80% mid stenosis. RCA: Diffuse minor LI up to 30% throughout vessel. PDA and posterior lateral branch are patent. LVG 50 to 55% with anterolateral hypokinesis. +2 MR.
Plan:
- He presented with chest pain and ruled in for NSTEMI
- Peak troponin 0.068
- Cardiac cath 04/03 with MV CAD including hazy stenosis in the proximal LAD with 95% mid LAD stenosis and multisegment high-grade atherosclerotic disease in the mid circumflex. Preserved LV systolic function with EF 50-55% with anterolateral
hypokinesis. There is 2+ mitral regurgitation. MR by echo is felt to be moderate�moderate to severe. JOSE 01/2024 showed moderate MR
- CT surgery eval underway. will need to evaluate MR to determine if intervention will be required at time of CABG/clip/MAZE
- remains chest pain free
- Continue aspirin, IV heparin. last dose of eliquis was 04/01. he was being considered for watchman as OP so should have COLEEN clip.
- Some increased bruising without hematoma of left leg status post recent total knee replacement. Hemoglobin is downtrending, 8.8 on 04/06. was seen by ortho this admission and incision felt to be stable.
- Lipid profile prestatin 04/02/2025: Total cholesterol 146, triglycerides 109, LDL 78, HDL 47. Started on high intensity atorvastatin 80 mg this admission
- currently in rate controlled aflutter with occasional PVCs on review of tele overnight. continue coreg 3.125mg BID
- he is noted to be orthostatic with drop in SBP into 70s with standing this AM. LVEDP by cath was 10 on 04/03. holding lasix at this time. compression stocking to RLE. didi wrap already in place to L knee.
- sodium low at 126. nephrology consulted for optimization preoperatively
- continue supportive post op care s/p L TKA 03/28.
- will need PT post op
- d/w CT surgery. d/w nursing
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
Subjective
Date of Service: April 06, 2025
denies CP, SOB, palpitations. reports lightheadedness, dizziness with standing
Objective
Labs:
04/06/25 04:09
04/06/25 04:09
Labs
Hgb 8.8 g/dL (13.0-18.0) L 04/06/25 04:09
Hct 24.0 % (39.0-52.0) L 04/06/25 04:09
Plt Count 182 10^3/uL (130-400) 04/06/25 04:09
PT 16.3 Sec (11.4-14.6) H 04/04/25 07:23
INR 1.25 04/04/25 07:23
APTT 74.5 Sec (23.4-35.0) H 04/06/25 04:09
Sodium 126 mmol/L (135-145) L 04/06/25 04:09
Potassium 4.2 mmol/L (3.5-5.1) 04/06/25 04:09
BUN 20 mg/dl (9-20) 04/06/25 04:09
Creatinine 0.9 mg/dL (0.7-1.3) 04/06/25 04:09
Glucose 111 mg/dl (70-99) H 04/06/25 04:09
Troponins
04/03/25
22:35
Troponin I 0.031
Vital Signs and I&O:
Vital Signs
Temp Pulse Resp BP Pulse Ox
97.7 F 74 20 124/90 94
04/06/25 07:04 04/06/25 08:15 04/06/25 07:04 04/06/25 07:03 04/06/25 09:06
Vital Signs
Temp Pulse Resp BP Pulse Ox
97.7 F 74 20 124/90 94
04/06/25 07:04 04/06/25 08:15 04/06/25 07:04 04/06/25 07:03 04/06/25 09:06
Intake & Output
04/04/25 04/05/25 04/06/25 04/07/25
07:59 07:59 07:59 07:59
Intake Total 1395 / 1395 2720 / 2720 120 / 120
Output Total 200 / 200 770 / 770 700 / 700 175 / 175
Balance 1195 / 1195 1950 / 1950 -580 / -580 -175 / -175
Physical Exam
Physical Exam
GEN: No distress, awake, alert, oriented x3
HEENT: supple, anicteric, mmm, EOMI
LUNGS: CTA bilaterally, no wheezes/rales
CV: Irreg, S1/S2, 1/6 murmur
ABD: soft, BS+, NT/ND
EXT: No cyanosis, clubbing. trace edema of bilateral lower extremity
NEURO: Gross non-focal
SKIN: Warm, pink, dry. No rash
--- NOTE | 2025-04-06 10:23 | W.CON.NEPH ---
Consultation
-
Date/Time Consultation Requested: 04/06/25 9 AM
Date/Time Consultation Performed: 04/06/25 10 AM
Requesting Provider: Dr. Nolan
Performing Provider: Dr. Vivas
Reason for Consultation: Hyponatremia
Medical History
-
Chief Complaint: Chest pain
History of Present Illness:
This is a 80-year-old gentleman who has atrial fibrillation on Eliquis therapy, hypertension on a multidrug regimen which is typically well-controlled, BPH on Flomax therapy also well-controlled. He had undergone left knee replacement on March 28,
2024 at an outpatient surgical facility. He states that he had no issues with the surgery and had postoperative pain which was controlled with tramadol. He had done well until the Thursday after surgery when he developed chest pain after walking up
steps. The pain persisted and he came to the emergency room for evaluation. During his hospitalization he underwent cardiac catheterization which had shown multivessel disease as well as his known moderate severe mitral digitation. He was
evaluated by CT surgery and the plan was for bypass grafting tomorrow. Of note his sodium at the time of admission had dropped as low as 124 and is now 126. It appears that just prior to his knee replacement therapy his sodium level was 138, but
towards the end of 2023 there were slightly lower readings in the low 130s. He denies any excessive pain, use of NSAIDs, nor does he have any history of anxiety or depression being treated. In the last several days he has noted to be orthostatic.
Past Medical History
Atypical atrial flutter
Atrial tachycardia
Atrial fibrillation
Status post JOSE cardioversion 01/2024
Status post PVI 09/05/2024
Noted to have recurrent atypical atrial flutter/atrial tachycardia at office visit 03/16/2025 and is scheduled for repeat ablation and Watchman in May [address] Potter
Right bundle branch block
Left total knee replacement 03/28/2025
GERD
BPH
Basal cell eyelid cancer
Tinnitus
Colon polyps
Actinic keratosis
Social History
Tobacco: Non-Smoker
Alcohol: Occasional
Family History
Family History: Not Pertinent
Allergies / Home Medications
Allergy/AdvReac Type Severity Reaction Status Date / Time
No Known Allergies Allergy Verified 04/01/25 00:13
�Medication �Instructions �Recorded �Confirmed �Type
esomeprazole magnesium 40 mg 20 mg PO DAILY GERD 10/03/12 04/01/25 History
capsule,delayed release (Nexium)
meiplyzyodis-ynkydzpj-pjiedz tablet 1 tab PO DAILY Supplement 07/07/23 04/01/25 History
sildenafil 100 mg tablet 50 - 100 mg PO DAILY PRN ED 07/07/23 04/01/25 History
alprazolam 0.25 mg tablet 0.25 mg PO HS PRN anxiety 01/15/24 04/01/25 History
apixaban 5 mg tablet (Eliquis) 5 mg PO BID Blood Clot 01/15/24 04/01/25 History
Prevention/Tx
carvedilol 6.25 mg tablet 6.25 mg PO BID Blood Pressure 01/15/24 04/01/25 History
furosemide 20 mg tablet (Lasix) 20 mg PO DAILY Fluid 01/15/24 04/01/25 History
Retention/Swelling
acetaminophen 325 mg tablet 650 mg (2 x 325 mg) PO Q4HPRN PRN 06/29/24 04/01/25 Rx
mild pain #1 tab
lisinopril 40 mg tablet 40 mg PO DAILY Blood Pressure 08/25/24 04/01/25 History
methenamine hippurate 1 gram tablet 1 g PO BID ANTI INFECTIVE 04/01/25 04/01/25 History
tamsulosin 0.4 mg capsule 0.4 mg PO DAILY Urinary Issue 04/01/25 04/01/25 History
tramadol 25 mg tablet 25 mg PO Q6H PRN pain 04/01/25 04/01/25 History
Review of Systems
-
No chest pain or shortness of breath, +orthostasis
All other systems: Negative unless noted
Physical Exam
Vital Signs
Vital Signs
Temp Pulse Resp BP Pulse Ox
97.7 F 74 20 124/90 94
04/06/25 07:04 04/06/25 08:15 04/06/25 07:04 04/06/25 07:03 04/06/25 09:06
Lab Results
WBC 11.0 10^3/uL (4.8-10.8) H 04/06/25 04:09
RBC 2.49 10^6/uL (4.70-6.10) L 04/06/25 04:09
Hgb 8.8 g/dL (13.0-18.0) L 04/06/25 04:09
Hct 24.0 % (39.0-52.0) L 04/06/25 04:09
Plt Count 182 10^3/uL (130-400) 04/06/25 04:09
Sodium 126 mmol/L (135-145) L 04/06/25 04:09
Potassium 4.2 mmol/L (3.5-5.1) 04/06/25 04:09
Chloride 97 mmol/L (98-107) L 04/06/25 04:09
Carbon Dioxide 26 mmol/L (22-30) 04/06/25 04:09
BUN 20 mg/dl (9-20) 04/06/25 04:09
Creatinine 0.9 mg/dL (0.7-1.3) 04/06/25 04:09
eGFR > 60.00 04/06/25 04:09
Glucose 111 mg/dl (70-99) H 04/06/25 04:09
Calcium 8.3 mg/dl (8.4-10.2) L 04/06/25 04:09
Sod-G-Jtufpfvzazo Pept 1730 pg/ml 04/01/25 02:54
Albumin 3.5 g/dl (3.5-5.0) 04/04/25 07:23
Laboratory Tests
11/01/24 02/28/25 04/03/25
09:19 11:45 15:01
Sodium 132 L 138
TSH (Reflex)
Random Cortisol
Urine Osmolality 430
Urine Sodium 77
04/03/25 04/06/25
23:11 04:09
Sodium 124 L
TSH (Reflex) 2.70
Random Cortisol 14.7
Urine Osmolality
Urine Sodium
CT chest PE protocol 04/01/2025
IMPRESSION:
1. No evidence of pulmonary embolism.
2. No acute findings in the chest.
3. Mild cardiomegaly.
Cardiac catheterization 04/03/2025 multivessel coronary disease, EF 50%, 2+ mitral digitation
Physical Exam
Patient is awake alert oriented and in no distress. Mood and affect were pleasant, insight and judgment were good. Pupils are equal round and reactive to light, extraocular movements are intact, sclera were anicteric. Hearing was normal, ears and
nose are intact. Oropharynx was clear. Neck was supple with trachea midline and no thyromegaly. Heart was regular rate and rhythm without rubs. Lower extremities without edema. Lungs were clear to auscultation bilaterally and with normal
excursion. Abdomen was soft, nontender, with normal active bowel sounds, and no hepatosplenomegaly. Skin was without rash and with normal turgor.
Data Reviewed
-
Medical Tests (Nuc Med, Echo etc): Report Reviewed by me (Echocardiogram 04/04/2025 ejection fraction 55% concentric LVH, moderate MR)
Labs: Labs Reviewed by me
Old Records: Reviewed
Assessment/Plan
-
Assessment
Multivessel coronary disease
Non-ST elevation MA
Atrial fibrillation
Right bundle branch block
Left knee replacement 03/28/2025
Hyponatremia new
Orthostatic hypotension
Plan
Thyroid and cortisol levels were acceptable
Hypertonic saline
May continue salt tablets
Serial BMP
Holding BP meds
Holding Lasix
Reduce fluid restriction to 40 ounces
[2025-04-06] MEDS: SODIUM CHLORIDE 3% 250 IV (11:45)
--- NOTE | 2025-04-06 11:50 | CM ---
CM following for DC planning needs.
Met w/ patient, spouse at bedside to complete pre-op teaching.
Reviewed initial assessment. Pt. resides w/ spouse in a private, 2STH w/ 1 CYNTHIA. Functionally, patient is indep. w/ ADLs, mobility without the use of any assisted device.
Of note, patient had recent L TKA. He was participating in therapy @ outpatient PT on [address].
Reviewed pre and post op routines.
Reviewed post op MD appointments, Cardiac Rehab + visit from CT Transitional Care RN.
Reviewed post op restrictions to include lifting, driving, flying and sternal precautions.
Goal is to return to home w/ CT Transitional Care RN. We did discuss alternative plan for rehab but patient wants home if able.
Concern is that patient was receiving outpatient PT for knee; can he return to this soon after? Encouraged him to speak with CT Team.
CM to follow.
[2025-04-06 17:01] LABS: Blood Urea Nitrogen 17 mg/dl (9-20); Calcium 8.2 mg/dl (8.4-10.2); Carbon Dioxide 24 mmol/L (22-30); Glucose 100 mg/dl (70-99); Potassium 4.4 mmol/L (3.5-5.1); Sodium 129 mmol/L (135-145)
[2025-04-06 17:09] LABS: Estimated Creatinine Clearance 72 ml/min; eGFR > 60.00
[2025-04-06 17:18] LABS: Chloride 100 mmol/L (98-107)
[2025-04-06] MEDS: LIPITOR 80 MG PO (18:31)
--- NOTE | 2025-04-06 19:45 | PTCARENOTE ---
Pt on bedrest today due to orthostatic vital signs. Pt given tylenol once for left knee discomfort as well as ice packs with good relief. Pt remains on heparin infusion which is therapeutic, 3% saline infusion also infusing without problem.
Telemetry shows sinus rhythm with first degree AV block and occasional PVC's. Plan for CVOR prep tonight, NPO after mn.
[2025-04-06] MEDS: MELATONIN 5 MG PO (22:13)
[2025-04-06] MEDS: XANAX 0.25 MG PO (22:13)
--- NOTE | 2025-04-06 23:42 | PTCARENOTE ---
Assumed care of pt at 23:00. Pt AAO*3, VSS, and SR on TELE monitor. Pt reports mild L knee discomfort but denies any pain medication or ice at current time. 1st CVOR prep complete(CHG bath, Bed change, chest/groin/leg hair clipped). Heparin
infusing as ordered. TAISHA Stapleton notified. See MAR and flowchart for full pt care and assessment.
[2025-04-07] VITALS (20 sets, daily range): BP systolic 84–142; BP diastolic 64–96; BMI 28.9
[2025-04-07] MEDS: TYLENOL 650 MG PO (01:27)
[2025-04-07 04:20] LABS: Hematocrit 25.4 % (39.0-52.0); Hemoglobin 9.1 g/dL (13.0-18.0); Mean Corp Hgb Conc. 35.8 g/dL (33.0-37.0); Mean Corpuscular Hgb 34.9 pg (27.0-31.0); Mean Corpuscular Volume 97.3 fL (80.0-94.0); Mean Platelet Volume 11.4 fL (7.4-10.4); Platelet Count 187 10^3/uL (130-400); Red Blood Cell Count 2.61 10^6/uL (4.70-6.10); Red Cell Dist. Width 13.3 % (11.5-14.5); White Blood Cell Count 10.1 10^3/uL (4.8-10.8)
[2025-04-07 04:26] LABS: APTT 65.1 Sec (23.4-35.0)
[2025-04-07 04:34] LABS: Blood Urea Nitrogen 16 mg/dl (9-20); Calcium 8.6 mg/dl (8.4-10.2); Carbon Dioxide 26 mmol/L (22-30); Chloride 102 mmol/L (98-107); Estimated Creatinine Clearance 72 ml/min; Glucose 107 mg/dl (70-99); Potassium 4.4 mmol/L (3.5-5.1); Sodium 131 mmol/L (135-145); eGFR > 60.00
[2025-04-07] MEDS: MAGNESIUM OXIDE 500 MG PO (05:58)
[2025-04-07] MEDS: BACTROBAN 2% OINTMENT 1 APPLIC NASAL ×2 (05:58→19:34)
[2025-04-07] MEDS: PROTONIX 40 MG PO (05:58)
[2025-04-07] MEDS: LOPRESSOR 25 MG PO (05:58)
--- NOTE | 2025-04-07 06:11 | PTCARENOTE ---
2nd CHG bath complete. CHP wipes complete after. New bed and linens. Pt remains NPO however rec'd 6AM meds as ordered. Plan of care ongoing.
--- NOTE | 2025-04-07 06:11 | W.CVOR.SURPR ---
CVOR Surgeon Immed Pre Op
-
I have examined this patient prior to performance of the scheduled procedure.
The patient's condition is unchanged from the time of the dictated/written History and
Physical and the patient is able to undergo the scheduled procedure.
[2025-04-07 07:36] LABS: ACT+ - POC 129 Seconds (82-134)
[2025-04-07 07:43] LABS: Urine Albumin 1+ (Neg - Trace); Urine Bilirubin Negative (Negative); Urine Character Clear (Clear); Urine Color Yellow; Urine Glucose Negative (Negative); Urine Ketone Negative (Negative); Urine Leukocyte Negative (Negative); Urine Nitrite Negative (Negative); Urine Occult Blood Negative (Negative); Urine Urobilinogen 3+ (Neg - 1+)
[2025-04-07 08:59] LABS: Urine Urothelial Cell 0-2 /LPF (FEW)
[2025-04-07 09:00] LABS: Urine Bacteria Few (Negative); Urine White Cell 0-2 /HPF (0-5)
[2025-04-07 09:24] LABS: ACT+ - POC 465 Seconds (82-134)
--- NOTE | 2025-04-07 09:25 | CM ---
CM following for DC planning needs.
Pt. in OR today for CT Surgery. Pt. resides w/ spouse in a private 2 STH w/ 1 CYNTHIA. Pt. is functionally indep. at baseline w/ ADLs, mobility without the use of any assisted device.
DC plan is anticipated for home w/ CT Transitional Care RN.
CM to follow.
[2025-04-07 09:28] LABS: B.E. - POC 0.7 mmol/L; Glucose - POC 102 mg/dl (70-99); HCO3 - POC 25 mmol/L (21-28); Hematocrit - POC 21 % PCV (42-52); Hemodilution- POC No; Hemoglobin Calculated - POC 7.2; Ionized Calcium - POC 1.16 mmol/L (1.15-1.33); Lactate - POC 0.48 mmol/L (0.36-0.75); O2 Saturation %Calculated-POC 99.9 % (94-98); PCO2 - POC 40 mmHg (35-48); PO2 - POC 266 mmHg (83-108); Potassium - POC 3.7 mmol/L (3.5-5.1); Sodium - POC 132 mmol/L (136-145); Specimen Type - POC Arterial; pH - POC 7.41 (7.35-7.45)
[2025-04-07 09:34] LABS: ACT+ - POC 543 Seconds (82-134)
[2025-04-07 09:53] LABS: B.E. - POC -3.2 mmol/L; Glucose - POC 126 mg/dl (70-99); HCO3 - POC 22 mmol/L (21-28); Hematocrit - POC 19 % PCV (42-52); Hemodilution- POC No; Hemoglobin Calculated - POC 6.4; Ionized Calcium - POC 1.03 mmol/L (1.15-1.33); Lactate - POC 0.35 mmol/L (0.36-0.75); O2 Saturation %Calculated-POC 99.9 % (94-98); PCO2 - POC 36 mmHg (35-48); PO2 - POC 306 mmHg (83-108); Potassium - POC 3.9 mmol/L (3.5-5.1); Sodium - POC 133 mmol/L (136-145); Specimen Type - POC Arterial; pH - POC 7.39 (7.35-7.45)
[2025-04-07 10:03] LABS: ACT+ - POC 560 Seconds (82-134)
[2025-04-07 10:38] LABS: ACT+ - POC 546 Seconds (82-134)
[2025-04-07 10:53] LABS: B.E. - POC 2.2 mmol/L; Glucose - POC 138 mg/dl (70-99); HCO3 - POC 27 mmol/L (21-28); Hematocrit - POC 25 % PCV (42-52); Hemodilution- POC Yes; Hemoglobin Calculated - POC 8.5; Ionized Calcium - POC 1.05 mmol/L (1.15-1.33); Lactate - POC < 0.30 mmol/L (0.36-0.75); PCO2 - POC 41 mmHg (35-48); PO2 - POC 461 mmHg (83-108); Sodium - POC 134 mmol/L (136-145); Specimen Type - POC Arterial; pH - POC 7.43 (7.35-7.45)
[2025-04-07 11:04] LABS: ACT+ - POC 489 Seconds (82-134)
[2025-04-07] MEDS: MIRALAX PO (11:08)
[2025-04-07] MEDS: LOW STRENGTH ASPIRIN PO (11:08)
[2025-04-07] MEDS: PROTONIX PO (11:09)
[2025-04-07] MEDS: SODIUM CHLORIDE PO (11:09)
[2025-04-07 11:37] LABS: ACT+ - POC 526 Seconds (82-134)
[2025-04-07 12:14] LABS: ACT+ - POC 493 Seconds (82-134)
[2025-04-07 13:00] LABS: B.E. - POC 3.3 mmol/L; Glucose - POC 134 mg/dl (70-99); HCO3 - POC 30 mmol/L (21-28); Hematocrit - POC 23 % PCV (42-52); Hemodilution- POC Yes; Hemoglobin Calculated - POC 7.9; Ionized Calcium - POC 1.08 mmol/L (1.15-1.33); Lactate - POC < 0.30 mmol/L (0.36-0.75); O2 Saturation %Calculated-POC 99.9 % (94-98); PCO2 - POC 58 mmHg (35-48); PO2 - POC 383 mmHg (83-108); Potassium - POC 4.8 mmol/L (3.5-5.1); Sodium - POC 135 mmol/L (136-145); Specimen Type - POC Arterial; pH - POC 7.32 (7.35-7.45)
[2025-04-07 13:00] LABS: B.E. - POC 2.2 mmol/L; Glucose - POC 148 mg/dl (70-99); HCO3 - POC 30 mmol/L (21-28); Hematocrit - POC 24 % PCV (42-52); Hemodilution- POC Yes; Ionized Calcium - POC 1.11 mmol/L (1.15-1.33); Lactate - POC < 0.30 mmol/L (0.36-0.75); O2 Saturation %Calculated-POC 99.9 % (94-98); PCO2 - POC 66 mmHg (35-48); PO2 - POC 317 mmHg (83-108); Potassium - POC 5.2 mmol/L (3.5-5.1); Sodium - POC 136 mmol/L (136-145); Specimen Type - POC Arterial; pH - POC 7.27 (7.35-7.45)
[2025-04-07 13:11] LABS: ACT+ - POC 173 Seconds (82-134)
[2025-04-07 13:23] LABS: ACT+ - POC 148 Seconds (82-134)
[2025-04-07 13:37] LABS: ACT+ - POC 129 Seconds (82-134)
--- NOTE | 2025-04-07 13:54 | CON.INTV ---
Consultation
Consultation Request
Date/Time Consultation Requested: 04/07/2025
Date/Time Consultation Performed: 04/07/2025
Requesting Provider: Osman Stokes
Performing Provider: Casimiro Melo
Reason for Consultation: CABG
Medical History
-
Chief Complaint: Chest pain
History of Present Illness:
Patient is a 80-year-old gentleman with history of A-fib on anticoagulation with Eliquis as well as recent left knee replacement in early January 2025 who presented to the hospital with chest pain. Patient had a CT PE protocol performed in the
emergency room and it was negative for any pulmonary embolism. Patient was noted to have elevated troponin and was diagnosed with non-ST elevation OK he was admitted to the hospitalist service and cardiology evaluated the patient. Subsequently
echo was unremarkable however cardiac catheterization showed multivessel disease. CT surgery was then consulted and patient was taken to coronary artery bypass graft today. Postsurgery, he was admitted to CVICU and director child abuse therapy service was
consulted for further input. 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
Past Medical History
Past Medical History: Reports Other
Additional Past Medical History:
Hypertension
Paroxysmal A-Fib / Flutter
GERD
BPH
Past Surgical History: Reports Other
Additional Past Surgical History:
Left TKA (03/28/25)
T&A
Bilateral Inguinal Hernia Repairs
Left Shoulder Surgery
PVI Ablation
Social History
Tobacco: Non-smoker
Alcohol: Occasional
Drug: None
Family History
Family History: Other (Mother: ALS)
Allergies / Home Medications
Allergies
Allergy/AdvReac Type Severity Reaction Status Date / Time
No Known Allergies Allergy Verified 04/01/25 00:13
Home Medications
�Medication �Instructions �Recorded �Confirmed �Last Taken �Type
esomeprazole magnesium 40 mg 20 mg PO DAILY GERD 10/03/12 04/01/25 09/05/24 08:30 History
capsule,delayed release (Nexium)
lvvlccddwibn-atrrajmw-rqtjug tablet 1 tab PO DAILY Supplement 07/07/23 04/01/25 09/05/24 08:30 History
sildenafil 100 mg tablet 50 - 100 mg PO DAILY PRN ED 07/07/23 04/01/25 09/02/24 22:30 History
alprazolam 0.25 mg tablet 0.25 mg PO HS PRN anxiety 01/15/24 04/01/25 09/03/24 20:00 History
apixaban 5 mg tablet (Eliquis) 5 mg PO BID Blood Clot 01/15/24 04/01/25 09/04/24 17:00 History
Prevention/Tx
carvedilol 6.25 mg tablet 6.25 mg PO BID Blood Pressure 01/15/24 04/01/25 09/04/24 17:00 History
furosemide 20 mg tablet (Lasix) 20 mg PO DAILY Fluid 01/15/24 04/01/25 09/05/24 08:30 History
Retention/Swelling
acetaminophen 325 mg tablet 650 mg (2 x 325 mg) PO Q4HPRN PRN 06/29/24 04/01/25 Unknown Rx
mild pain #1 tab
lisinopril 40 mg tablet 40 mg PO DAILY Blood Pressure 08/25/24 04/01/25 09/04/24 08:30 History
methenamine hippurate 1 gram tablet 1 g PO BID ANTI INFECTIVE 04/01/25 04/01/25 Unknown History
tamsulosin 0.4 mg capsule 0.4 mg PO DAILY Urinary Issue 04/01/25 04/01/25 Unknown History
tramadol 25 mg tablet 25 mg PO Q6H PRN pain 04/01/25 04/01/25 Unknown History
Review of Systems
-
Unable to Obtain full review of systems at this time due to: Patient Intubation
Vitals / Labs / Diagnostic Testing
Vital Signs
Temp Pulse Resp BP Pulse Ox
98.1 F 72 16 142/87 99
04/07/25 03:54 04/07/25 06:00 04/07/25 03:54 04/07/25 06:00 04/07/25 03:54
Laboratory Results
04/07/25
03:52
APTT 65.1 H
Diagnostic Testing:
Physical Exam
-
HEENT: Normocephalic
Cardiovascular: S1/S2
Respiratory: Non-Labored Respirations
GI: Non Distended
Neurology: Other (Sedated and intubated)
Skin: Warm
General: Comfortable
Assessment
-
S/p CABG x 2, left atrial appendage exclusion, mitral valve repair, POD #0
Titrate off pressors per protocol, on Levophed @4, Milrinone @ 0.25. MAP 69. PA 28/13 (20), CVP 9
ECHO reviewed with normal function
Management of chest tubes per primary service
Intubated/sedated, initiate SAT when able. Precedex @ 0.5
Pain control
RASS goal of 0 to -1
Intubated for procedure, SBT trial when patient able to spontaneously breath
Current vent settings: SIMV 550/14/40%/5
ABG(s) reviewed: 7.42, 34, 178
CXR with no obvious opacities/infiltrates, low lung volumes, ETT in good position, lines/tubes in place
Extubate per protocol
Maintain supplement oxygen as needed
No prior history of pulmonary disease
Can add nebulizers if needed
Aspiration precautions
Encouraged incentive spirometry, OOB/ambulation/early mobility
Advance diet as tolerated following extubation
GI prophylaxis if indicated for mechanical ventilation >48 hours
Monitor critical I/O's
Blancas/chest tube output
Received PRBC intra-op as well as Platelets
Trend CBC for now
Can transfuse if indicated for Hb <7, plt <50 in surgical patients
DVT prophylaxis including SCDs
Insulin protocol initiated and ongoing
Transition to SQ/off as indicated per team
Critical Care time 62 mins -- The patient is admitted for acute critical illness for the treatment of vital organ failure and/or prevention of further life-threatening conditions. Total care includes time spent in review of history, physical exam,
medications, hemodynamic/ventilator parameters, laboratory data, imaging and discussion with house staff, pharmacy, respiratory therapy, route vending machine servicer, and nursing.
Data:
ECHO 03/2025: Normal left ventricular chamber size. Normal left ventricular systolic
function. Left ventricular ejection fraction is 55-60% by visual/volumetric
assessment. Normal regional wall motion. Mild concentric left ventricular
hypertrophy. Normal diastolic function.
Posterior mitral annular calcification. Mitral valve opens normally. Moderate
mitral regurgitation.
Indexed LA volume is severely abnormal (> 48 mL/m2).
Since echocardiogram 12/28/2023 which was reviewed, MR has improved from
moderate-severe to moderate.
Cardiac Cath 03/2025: 1. Multivessel coronary artery disease including hazy stenosis in the proximal LAD with 95% mid LAD stenosis and multisegment high-grade atherosclerotic disease in the mid circumflex
2. Preserved LV systolic function with an estimated ejection fraction of 50-55% with anterolateral hypokinesis. There is 2+ mitral regurgitation.
3. Recent left total knee arthroplasty
CT Chest 03/2025: 1. No evidence of pulmonary embolism.
2. No acute findings in the chest.
3. Mild cardiomegaly.
Cardioversion 01/2024. A fib > NSR
Ablation for A Fib 08/2024
--- NOTE | 2025-04-07 13:57 | W.IMMPOSTOP ---
Addendum entered and electronically signed by Osman Stokes MD 04/07/25 15:23:
[id number]
Original Note:
Surgical Immed Post Op Note
-
CARDIAC SURGERY OPERATIVE NOTE:
Preoperative Dx:
2V CAD w/ mild NSTEMI
Atrial flutter/tachycardia s/p prior PVI 09/05/24
Scheduled for repeat ablation & watchman in May 2025
RBBB
Hx of frequent bleeding on oral anticoagulation
L TKA 03/28/2025
Preoperative anemia (Hgb 7.2)
Postoperative Dx:
Same
Procedures:
1) Median sternotomy
2) Takedown of JEFFREY (narrow pedicle)
3) Endoscopic harvest/prep of RLE GSV
4) Encompass MAZE procedure
5) CABG x 2 (JEFFREY to LAD, GSV to OM)
6) ELAA (50mm AtriClip)
7) MVRp (30mm Rodríguez 5200 Annuloplasty Ring)
Surgeon:
Osman Stokes M.D.
Stretcher Leveler Operator:
Alfonzo MckenzieARadha
Anesthesia:
Meir Renae M.D. and Maren Elizalde C.R.N.A.
Perfusion:
Chery Cortes C.C.P.; CPB: 150min, XC: 130min
Findings:
JEFFREY was healthy conduit w/ very brisk blood flow; ELD 3.5mm
GSV was healthy conduit w/ ELD 2.5mm
LAD was visible on the epicardial surface, it was profoundly calcified throughout the majority of its length. Anastomosis performed in distal 1/3 'apical' segment. ELD 2.5mm
OM was visible on the epicardial surface, scattered calcifications, fragile swan. ELD 2.5mm
COLEEN was of windsock morphology w/ large base - good visual result of exclusion at base w/ 50mm AtriClip - confirmed w/ JOSE
MV was normal in appearance w/ dilated LA and MV annulus c/w secondary MR. On preoperative JOSE assessment MR was graded as omlydmmc-bq-ufztva under GA. MV repaired w/ Rodríguez Physio II ring secured w/ 14 sutures/CorKnots
Pt. w/ pulmonary HTN and systemic hypotension transiently after separation from CPB - responsive to pharmacologic therapy w/o need for reinstitution of CPB - pulmonary HTN resolved, BP improved.
Post-JOSE: LVEF 45-50%, RV normal, lroty-ao-pzjf TR, well-seated MV ring, trace MR, mean gradient 2mmHg
Implants:
Rodrí[employer], M30 Model 5200 Physio II ring; SN: [id number]
AtriCure AtriClip [id number], Lot: [id number]
Epicardial bi-polar wire x 1 (sutured)
CT x 4 (B/L pleural, inferior mediastinal, superior mediastinal)
Sternal wires x 10
Transfusions:
3U PRBC
1pk PLTs
Complications:
Transient pulmonary HTN/systemic hypotension of unclear etiology shortly after separation from CPB - responsive to pharmacologic resuscitation w/o need for return to CPB - resolved
Minor medical coagulopathy
Condition:
89 A-fib; 101/69; 36/20; CVP 14; 97%
GTTS: levophed 8, milrinone 0.25, dobutamine 2, precedex 0.5, insulin 1
Stable/guarded to CVICU
CT placed to suction at 1350hrs = scant output since (<10mL in each) @ 1420hrs
[2025-04-07 14:00] LABS: B.E. - POC 0.1 mmol/L; Glucose - POC 150 mg/dl (70-99); HCO3 - POC 25 mmol/L (21-28); Hematocrit - POC 23 % PCV (42-52); Hemodilution- POC Yes; Hemoglobin Calculated - POC 7.9; Ionized Calcium - POC 1.16 mmol/L (1.15-1.33); Lactate - POC < 0.30 mmol/L (0.36-0.75); PCO2 - POC 43 mmHg (35-48); PO2 - POC 556 mmHg (83-108); Potassium - POC 4.4 mmol/L (3.5-5.1); Sodium - POC 136 mmol/L (136-145); Specimen Type - POC Arterial; pH - POC 7.38 (7.35-7.45)
[2025-04-07 14:00] LABS: B.E. - POC 0.9 mmol/L; Glucose - POC 137 mg/dl (70-99); HCO3 - POC 26 mmol/L (21-28); Hematocrit - POC 23 % PCV (42-52); Hemodilution- POC Yes; Hemoglobin Calculated - POC 7.7; Ionized Calcium - POC 1.03 mmol/L (1.15-1.33); Lactate - POC < 0.30 mmol/L (0.36-0.75); PCO2 - POC 44 mmHg (35-48); PO2 - POC 480 mmHg (83-108); Potassium - POC 5.2 mmol/L (3.5-5.1); Sodium - POC 137 mmol/L (136-145); Specimen Type - POC Arterial; pH - POC 7.38 (7.35-7.45)
--- NOTE | 2025-04-07 14:20 | PTCARENOTE ---
Received patient from OR at 1420. Pt intubated and sedated. POX 100% on SIMV 40% 14 550 5. Pt not breathing over the vent. 8.0 ETT 24cm at the lip. Bilateral anterior lungs audible. RAAS -5. PERRLA 3mm brisk. Afib on tele with PACs and PVCs with
rates 100s-120s. BP supported with levophed gtt. CI 2.45 PA pressures 30s/10s. CVP 14. Bilateral radial pulses palpable. Bilateral DP pulses present via doppler. +1 edema to left lower extremity. Epicardial v-wire to back up . Unable to test
stimulation threshold due to high HR. Mediastinal chest tubes x2 y-sited to 1 atrium to -20cm suction draining red fluid. Right & Left pleural chest tubes y-sited to 1 atrium to -20cm suction draining red fluid. No air leaks, tidaling, crepitus
noted. Abdomen soft, round, obese. Hypoactive BS. Blancas catheter intact draining adequate amounts of clear yellow urine. Sternal incision covered with Antibacterial dressing, drainage, CT MARKETING BUSINESS ANALYST aware. CT covered, CDI. Right groin puncture site
approximated with skin glue, FRANCISCO. Right SVG harvest site approximated with skin glue, JEANETTE intact. Left leg wrapped with JEANETTE. Right IJ cordis intact with swan floated to 45cm. Left radial sailaja intact. All lines flushed, leveled, zeroed. Right
forearm 22g PIV intact. Gtts on arrival: Levo @8mcg/min, Milrinone 0.25mcg/kg/min, Dobutamine 2mcg/kg/min, Precedex 0.5mcg/kg/hr, KVO, insulin per critical care glycemic protocol. Post op EKG, labs, and CXR completed. See MAR for medication
administration. See worklist for complete nursing assessment.
--- NOTE | 2025-04-07 14:30 | PTCARENOTE ---
1unit Platelet infusing. See [place] sheet.
[2025-04-07 14:35] LABS: Glucose - Point of Care 161 mg/dl (70-99)
[2025-04-07 14:43] LABS: B.E. -2.1 mmol/L; HCO3 22.1 mmol/L (21-28); O2 Saturation % 99.6 % (94-98); PCO2 34 mmHg (35-48); PO2 178 mmHg (83-108); Potassium 4.5 mMOL/L (3.5-5.1); Sodium 130 mMOL/L (136-145); pH 7.42 (7.35-7.45)
[2025-04-07 14:53] LABS: Hematocrit 20.6 % (39.0-52.0); Hemoglobin 7.5 g/dL (13.0-18.0); Platelet Count 151 10^3/uL (130-400)
[2025-04-07 15:02] LABS: Blood Urea Nitrogen 14 mg/dl (9-20); Estimated Creatinine Clearance 83 ml/min; Glucose 144 mg/dl (70-99); Magnesium 2.7 mg/dl (1.6-2.3)
[2025-04-07] MEDS: ANCEF 10 IV ×2 (15:05)
[2025-04-07 15:06] LABS: APTT 38.5 Sec (23.4-35.0)
[2025-04-07] MEDS: CALCIUM GLUCONATE 100 IV (15:06)
[2025-04-07] MEDS: TYLENOL PO (15:06)
[2025-04-07] MEDS: PACERONE PO ×2 (15:06→23:17)
[2025-04-07] MEDS: NSS 500 IV (15:06)
[2025-04-07] MEDS: NEURONTIN PO (15:06)
--- NOTE | 2025-04-07 15:14 | W.PN.CARDCBS ---
Addendum entered and electronically signed by Edwin Mcintyre MD 04/07/25 16:08:
Attending addendum: Patient seen and examined. PA note reviewed and findings independently confirmed by me. Post OP CABG JJ-LAD, SVG-OM nad MV repair with ring as well as COLEEN clip. He remains intubated. Hgb low planning additional
transfusion. Remains in AT. Will continue to follow
Original Note:
Today's Communication / Plan
-
continue post op care
follow hgb
follow rhythm, appears to be in atach. consider for IV amiodarone
wean pressors as able
Impression / Plan
-
PCP: Vincenzo Parra
Primary bolt man: Malcolm Potter MD
Impression:
Chest pain
NSTEMI
Multivessel CAD s/p CABG x2 JEFFREY to LAD, GSV to OM, MV repair with Rodríguez annuloplasty ring, MAZE, COLEEN clip 04/07/25
Atrial flutter
Atrial tachycardia
Atrial fibrillation
- Status post PVI 09/05/2024
-Noted to have recurrent atypical atrial flutter/atrial tachycardia at office visit 03/16/2025 and is scheduled for repeat ablation and Watchman in May [address] Potter
Frequent bleeding-cuts, scrapes on oral anticoagulation
Right bundle branch block
Left total knee replacement 03/28/2025
Echocardiogram 12/28/2023: Normal LV size and function, LVEF 60 to 65%, moderate to severe MR, mild TR, PAP 35 to 40 mmHg, mild PI, negative bubble study
JOSE 01/15/2024: Normal LV/RV size and function, LVEF 55%, mitral annular dilatation with severe LA dilatation, moderate MR, no COLEEN a thrombus, mild TR
Echo 04/04/2025: EF 55 to 60%, normal regional wall motion, mild concentric LVH, posterior MAC, moderate MR
Cardiac catheterization 04/03/2025: LM. Patent. LAD: Hazy ostial 60% stenosis, 95% mid stenosis just beyond first diagonal followed by additional 60% mid stenosis. Apical 60% stenosis. Diagonal 50% ostial stenosis and 80% mid stenosis. Left
circumflex. Proximal 90% stenosis, long 80% mid stenosis. RCA: Diffuse minor LI up to 30% throughout vessel. PDA and posterior lateral branch are patent. LVG 50 to 55% with anterolateral hypokinesis. +2 MR.
Plan:
- He presented with chest pain and ruled in for NSTEMI. Peak troponin 0.068. Cardiac cath 04/03 with MV CAD including hazy stenosis in the proximal LAD with 95% mid LAD stenosis and multisegment high-grade atherosclerotic disease in the mid
circumflex. Preserved LV systolic function with EF 50-55% with anterolateral hypokinesis. There is 2+ mitral regurgitation. MR by echo is felt to be moderate�moderate to severe. JOSE 01/2024 showed moderate MR
-s/p CABG x2 JEFFREY to LAD, GSV to OM, MV repair with Rodríguez annuloplasty ring, MAZE, COLEEN clip 04/07/25
-by post op JOSE EF 45-50% with trivial residual MR
-intubated, sedated
-on levo@5, dobut@2, milrinone @0.25, insulin@3.5. wean as able. CI 2.45.
-received 3 U PRBCs, 2 plts. follow H&H, plts, hgb at 14:26 7.5, repeating in 30 minutes.
-appears to be in atrial tachycardia by review of post op EKG. follow rhythm. was in aflutter preop and has history of afib as well. consider for IV amiodarone. eventual resume OAC when ok per surgery (was on eliquis preop)
-continue lipitor
-he is s/p L TKA 03/28/25. continue post op care. will need PT post op
-preop he was noted to have some orthostasis, follow postoperatively
-hyponatremia being managed per nephrology
-d/w nursing
Progress Note - Shop Mechanic
Subjective
Date of Service: April 07, 2025
Intubated, sedated
Objective
Labs:
04/07/25 14:26
Labs
Hgb 7.5 g/dL (13.0-18.0) L 04/07/25 14:26
Hct 20.6 % (39.0-52.0) L* 04/07/25 14:26
Plt Count 151 10^3/uL (130-400) 04/07/25 14:26
PT 21.0 Sec (11.4-14.6) H 04/07/25 14:26
INR 1.80 04/07/25 14:26
APTT 38.5 Sec (23.4-35.0) H 04/07/25 14:26
Sodium 131 mmol/L (135-145) L 04/07/25 03:52
Potassium 4.4 mmol/L (3.5-5.1) 04/07/25 03:52
BUN 14 mg/dl (9-20) 04/07/25 14:26
Creatinine 0.7 mg/dL (0.7-1.3) 04/07/25 14:26
Glucose 144 mg/dl (70-99) H 04/07/25 14:26
Vital Signs and I&O:
Vital Signs
Temp Pulse Resp BP Pulse Ox
95.4 F L 106 14 107/66 100
04/07/25 15:00 04/07/25 15:05 04/07/25 15:00 04/07/25 15:00 04/07/25 15:05
Vital Signs
Temp Pulse Resp BP Pulse Ox
95.4 F L 106 14 107/66 100
04/07/25 15:00 04/07/25 15:05 04/07/25 15:00 04/07/25 15:00 04/07/25 15:05
Intake & Output
04/05/25 04/06/25 04/07/25 04/08/25
07:59 07:59 07:59 07:59
Intake Total 2720 / 2720 120 / 120 348 / 348 170.8 / 170.8
Output Total 770 / 770 700 / 700 675 / 675 220 / 220
Balance 1950 / 1949 -580 / -580 -327 / -327 -49.2 / -49.2
Physical Exam
Physical Exam
GEN: No distress, intubated, sedated. on castillo hugger
HEENT: supple, anicteric, mmm
LUNGS: CTA B/L, no wheezes/rales
CV: Irreg, S1/S2, no murmur
ABD: soft, NT/ND
EXT: No cyanosis, clubbing, edema. L toes cold
NEURO: sedated
SKIN: Warm, pink, dry. No rash. Sternotomy dressing intact, small amount of blood on dressing. CTs in place
[2025-04-07] MEDS: ZOFRAN 4 MG IV (15:20)
[2025-04-07] MEDS: DILAUDID 0.5 MG IV (15:22)
--- NOTE | 2025-04-07 15:30 | PTCARENOTE ---
Pt awakens spontaneously. Opens eyes, shakes head yes/no, squeezes hands, wiggles toes on command. Shook head 'yes' to pain and nausea, see MAR.
[2025-04-07 15:54] LABS: Glucose - Point of Care 171 mg/dl (70-99)
--- NOTE | 2025-04-07 16:00 | PTCARENOTE ---
CT PE TEACHER notified of Critical Hematocrit and CI 1.97. Orders for 1u PRBC, infusing with blood warmer.
[2025-04-07 16:09] LABS: Hematocrit 19.9 % (39.0-52.0); Hemoglobin 7.3 g/dL (13.0-18.0); Platelet Count 162 10^3/uL (130-400)
--- NOTE | 2025-04-07 16:48 | W.PN.UPDATE ---
Update Note
Progress Note Update
U.O.:� 700 mL
Blood:� 3u pRBC's, 1 Plt
Wires:�v-wires
Inotropes:� Milrinone (0.25), Dobutamine (2)
Pressors:� Levophed (8)
Sedatives:� Precedex (0.5)
�
NEURO: sedate don XXX, pupils +Xmm B/L
RESP: #8OT @XXcm> 500/60%/14/5. Lungs clear B/L. 2 mediastinal (XXcc on arrival) and R/L pleural (XXcc on arrival) chest tubes to -20cm suction. Sanguineous drainage
CV: RRR +S1, S2, no S3, no�rub, no murmur. Aquacel Ag to median sternotomy. RIJ w/[place] locked @ 45 cm. PA 35/18; CVP 14; C.O 5.28/CI 2.64
ABD: round, soft, no BS
EXT: trace edema, +1/4 DP pulses B/L, no femoral bruit, RLE JEANETTE wrap intact; L radial A-line intact; LLE jeanette wrap intact - ecchymotic
: Blancas with clear yellow urine
�
A/P: POD #0 s/p CAB x 2 (JJ - LAD, SVG - OM) with MVr, MAZE, and COLEEN clip
JOSE: EF�55-60%, mild LVH, severely dilated LA
#NSTEMI
- wean vent and extubate
- insulin infusion for 24-hours (A1C 5.3%)
- resume ASA/Plavix
�
# acute surgical blood loss anemia-expected
- 3 upRBC's and 1-pack platelet intra-op
- 1 u pRBC's and 1-pack plt post-op
- con't trend CBC
�
A-Flutter/A-Fib:
- s/p PVI 08/2024
- A-tach post-operative
- eventual resumption of DOAC when appropriate
�# Hyponatremia
- Nephrology consulted, rec's appreciated.
- Fluid restriction of 40 oz daily.
- Salt tablets pre-op, holding.
- Hypertonic Saline pre-op, now discontinued.
- Goal Na 130, Na 131 post-op.
#s/p L TKR (03/28/25)
- PT consulted
# Hyperlipidemia
- resume�statin
--- NOTE | 2025-04-07 17:05 | PTCARENOTE ---
CT FRUIT SHIPPER notified of CI.
[2025-04-07 17:15] LABS: Glucose - Point of Care 132 mg/dl (70-99)
--- NOTE | 2025-04-07 17:25 | PTCARENOTE ---
Pt drowsy, but will awaken to voice, initiates breaths over vent. RT at bedside to place pt on cpap trial. POX 99%. Pt tolerating.
--- NOTE | 2025-04-07 17:45 | PTCARENOTE ---
Pt bathed with CHG wipes. Turned from side to side and repositioned in bed. No significant dumps from chest tubes, pt tolerated.
[2025-04-07] MEDS: LIPITOR PO (18:00)
[2025-04-07 18:11] LABS: Glucose - Point of Care 139 mg/dl (70-99)
[2025-04-07 18:14] LABS: B.E. -1.8 mmol/L; HCO3 23.1 mmol/L (21-28); Ionized Calcium 1.23 mMOL/L (1.15-1.33); O2 Saturation % 99.6 % (94-98); PCO2 39 mmHg (35-48); PO2 142 mmHg (83-108); Potassium 4.3 mMOL/L (3.5-5.1); pH 7.38 (7.35-7.45)
[2025-04-07 18:15] LABS: O2 Therapy cpap 40%
[2025-04-07 18:18] LABS: Hematocrit 24.3 % (39.0-52.0); Platelet Count 167 10^3/uL (130-400)
--- NOTE | 2025-04-07 18:20 | PTCARENOTE ---
Pt extubated to 6L NC. Pt tolerated. Oriented x4. POX 99%. Resting at this time. Family notified.
[2025-04-07] MEDS: LEVOPHED 250 IV (18:22)
[2025-04-07 19:19] LABS: Glucose - Point of Care 116 mg/dl (70-99)
--- NOTE | 2025-04-07 19:30 | PTCARENOTE ---
assumed care of pt from previous RN. pt A&Ox4, bedrest s/p CVOR. R IJ cordis w/ swan floated to 45cm. L radial a-line. all lines leveled, zeroed, flushed. A fib on tele-monitor. temp epicardial v-wires connected to pulse generator w/ backup settings
VVI 50/19/2. CTx4 (mediastinal x2, R & L pleural) to -20cm wall suction, draining sanguineous drainage. abd s/n, hypoactive BS. no c/o N/V. lanier catheter draining zoila colored urine. all surgical sites stable. PIV intact. see worklist for
complete nursing assessment, interventions, gtt titrations, VS, and I&Os.
[2025-04-07] MEDS: ANCEF 5 IV (19:34)
[2025-04-07] MEDS: LOW STRENGTH ASPIRIN 81 MG PO (19:35)
[2025-04-07] MEDS: SENOKOT-S PO (19:35)
[2025-04-07 21:15] LABS: Glucose - Point of Care 119 mg/dl (70-99)
--- NOTE | 2025-04-07 22:18 | PTCARENOTE ---
1 U PRBCs infusing as ordered. see pink sheet for details.
[2025-04-07 23:09] LABS: Glucose - Point of Care 122 mg/dl (70-99)
[2025-04-07] MEDS: TYLENOL 1000 MG PO (23:17)
[2025-04-07] MEDS: NEURONTIN 100 MG PO (23:17)
[2025-04-08] VITALS (29 sets, daily range): BP systolic 84–124; BP diastolic 52–70; PULSE 93; BMI 30.2
--- NOTE | 2025-04-08 00:12 | W.PN.CT ---
Addendum entered and electronically signed by Osman Stokes MD 04/08/25 09:42:
I saw and examined the patient.
The PA's note was reviewed and I agree with the note.
Comment:
Weaned off levophed. Milrinone @ 0.125, Dobutamine 2.5.
AF
Maintain CTs today
Wean dobutamine to OFF today - maintain milrinone today - plan to hopefully wean tomorrow
Maintain SGC, lanier
Diuresis
OOB/IS
Hgb 8.8 - follow
Creat 0.8
Original Note:
Today's Communication / Plan
-
Plan:
-No major issues overnight. Hemodynamically and neurologically intact
-Successfully extubated @ 1820 on 04/07/25
-Weaned off Levophed off this AM @ 0100. Dobutamine @ 2.5 mcg/kg/min, Milrinone decreased to 0.125 last night, and on insulin gtt per protocol
-Rhythm is NSR with PVC's @ 70-80 bpm. Has temporary V wire at backup of 45 bpm MA 10
-Last CI 2.36, MVO2 68.3%, PAP 36/12, u/o since OR 630 mL
-Monitor chest tube output: 2med 130/340. R/L pleurals 125/285. CXR this AM looks good without ptx, small left atelectasis/effusion on my review, f/u official report
-Placed Amiodarone and BB on hold on both Milrinone and Dobutamine gtts
-Will eventually resume Eliquis for a-fib/flutter hx S/P MAZE
-Cont. current meds (ASA, Lipitor, Flomax, Protonix)
-Will d/c insulin gtt later today per protocol
-Keep swan and a-line while on Dobutamine and Milrinone
-Will keep lanier another day for accurate I/O's
-Maintain temporary V wire, will cut before d/c home
-Will wean inotropes as tolerated
-Encourage use of IS
-Wean off of O2 as tolerated
-OOB into chair
Assessment / Plan
-
Assessment:
-S/P Median sternotomy/ CABG x 2 (JEFFREY to LAD, GSV to OM)/ Endoscopic harvest/prep of RLE GSV/ MV Repair (30mm Rodríguez 5200 Annuloplasty Ring)/ [facility] MAZE procedure/ELAA (50mm AtriClip), by Dr. Stokes, 04/07/24, pod#1
-2V CAD w/ mild NSTEMI
-[place]
-Atrial flutter/tachycardia s/p prior PVI 09/05/24 (on Eliquis @ home)
-LVEF 55-60% preop; 45-50% postop
-Chronic diastolic CHF
-Scheduled for repeat ablation & watchman in May 2025
-RBBB
-Hx of frequent bleeding on oral anticoagulation
-Preoperative anemia (Hgb 7.2)
-Preoperative hyponatremia
-HTN
-HLD
-BPH
-GERD
-L TKA 03/28/2025
-S/P R knee arthroscopy and meniscus repair
-S/P lumbar laminectomy (L4/L5), 10/2024
-S/p Left inguinal herniorrhaphy, 06/2024
-S/P S/p right eyelid surgery, 12/2023
-Acute postop blood loss anemia on preop anemia (received 2u PRBC's intraop and 2u postop)
-Acute intraop coagulopathy (received 1 {5pk) plts intraop and 1 {5pk} plts postop)
-Acute postop atelectasis
-Acute intraop pulmonary hypertension
-Acute postop cardiogenic shock
-Acute postop hypovolemia with subsequent hypervolemia
-Acute postop hyponatremia, 134
Discussed patient care with: Cardiology, Nursing, Respiratory Therapy, Pharmacy and Care Team
Subjective
Procedure
S/P Median sternotomy/ CABG x 2 (JEFFREY to LAD, GSV to OM)/ Endoscopic harvest/prep of RLE GSV/ MV Repair (30mm Rodríguez 5200 Annuloplasty Ring)/ [facility] MAZE procedure/ELAA (50mm AtriClip), by Dr. Stokes, 04/07/24
-
Date of Service: April 08, 2025
Pt c/o incisional pain, otherwise feels well
Objective Data
-
PT 21.0 Sec (11.4-14.6) H 04/07/25 14:26
INR 1.80 04/07/25 14:26
APTT 38.5 Sec (23.4-35.0) H 04/07/25 14:26
Vital Signs
Vital Signs
Temp Pulse Resp BP Pulse Ox
98 F 78 11 98/65 100
04/08/25 00:00 04/08/25 00:10 04/08/25 00:10 04/08/25 00:00 04/08/25 00:10
CT Intake/Output/Weight
04/07/25 04/07/25 04/08/25
06:59 18:59 06:59
Intake Total 1280.5 / 1951.325 670.825 / 1951.325
Output Total 300 / 675 620 / 980 360 / 980
Balance -300 / -327 660.5 / 971.325 310.825 / 971.325
SaO2: 99 (2L)
Physical Exam
-
General: Awake, Oriented and AOx3
Cardiovascular: Regular rate & rhythm, No Murmurs and Rub
Respiratory: Decreased Breath Sounds (at bases, otherwise clear)
Sternum: Stable
Incision: Clean, Dry, Intact and Dressing Intact
Extremities: Other (+trace edema)
Data Reviewed
-
Lab Results: Results Reviewed
Medications: Active Meds Reviewed
Chest X-Ray: Report Reviewed and Image Reviewed
ECG: Report Reviewed and Image Reviewed
[2025-04-08 00:14] LABS: Glucose - Point of Care 101 mg/dl (70-99)
--- NOTE | 2025-04-08 00:15 | PTCARENOTE ---
assessment remains unchanged. CT output WNL. temp epicardial pacer settings tested due to inappropriate pacing. rate set per CT TAISHA Morrison.
[2025-04-08] MEDS: CALCIUM GLUCONATE 130 MG IV (00:18)
[2025-04-08 01:08] LABS: Glucose - Point of Care 90 mg/dl (70-99)
[2025-04-08 02:07] LABS: Glucose - Point of Care 90 mg/dl (70-99)
[2025-04-08] MEDS: ROXICODONE 5 MG PO ×2 (02:16→21:31)
[2025-04-08 03:13] LABS: Glucose - Point of Care 95 mg/dl (70-99)
[2025-04-08 03:25] LABS: Mixed Venous O2 Saturation 68.3 %
[2025-04-08 03:28] LABS: Hematocrit 23.7 % (39.0-52.0); Hemoglobin 8.8 g/dL (13.0-18.0); Mean Corp Hgb Conc. 37.1 g/dL (33.0-37.0); Mean Corpuscular Hgb 33.5 pg (27.0-31.0); Mean Corpuscular Volume 90.1 fL (80.0-94.0); Platelet Count 139 10^3/uL (130-400); Red Blood Cell Count 2.63 10^6/uL (4.70-6.10); Red Cell Dist. Width 14.8 % (11.5-14.5)
[2025-04-08 03:34] LABS: Blood Urea Nitrogen 16 mg/dl (9-20); Calcium 8.9 mg/dl (8.4-10.2); Carbon Dioxide 24 mmol/L (22-30); Chloride 106 mmol/L (98-107); Estimated Creatinine Clearance 72 ml/min; Glucose 91 mg/dl (70-99); Magnesium 2.3 mg/dl (1.6-2.3); Potassium 4.5 mmol/L (3.5-5.1); Sodium 133 mmol/L (135-145); eGFR > 60.00
[2025-04-08 03:35] LABS: INR 1.42; PT 17.6 Sec (11.4-14.6)
--- NOTE | 2025-04-08 04:00 | PTCARENOTE ---
no acute changes. VSS. AM labs collected and sent. CT drainage WNL.
[2025-04-08] MEDS: ANCEF 5 IV ×2 (04:54→11:28)
[2025-04-08] MEDS: FLEXERIL 5 MG PO ×2 (04:54→18:13)
[2025-04-08] MEDS: ROXICODONE 2.5 MG PO ×2 (04:55→09:59)
[2025-04-08 05:02] LABS: Glucose - Point of Care 93 mg/dl (70-99)
[2025-04-08] MEDS: PRIMACOR 20 MG 100 IV (05:04)
[2025-04-08] MEDS: TYLENOL 1000 MG PO ×3 (05:59→21:25)
[2025-04-08 07:07] LABS: Glucose - Point of Care 94 mg/dl (70-99)
--- NOTE | 2025-04-08 07:48 | W.PN.ANS.POP ---
Anesthesia Post Operative
- Anesthesia Post Op Note
Vital Signs Stable-See Nursing Note: Yes
Airway Patent: Yes
Adequate Pain Control: Yes
Change in Mental Status: No
Current Postoperative Nausea & Vomiting: No
Anesthesia Complications: No
General Anesthetic Recall: No
Unplanned Admission: No
Post Op Hydration Adequate: Yes
--- NOTE | 2025-04-08 08:06 | W.PN.CARDCBS ---
Today's Communication / Plan
-
Continue postop care
Impression / Plan
-
.
PCP: Vincenzo Parra
Primary boot and saddle repair person: Malcolm Potter MD
Impression:
Chest pain
NSTEMI
Multivessel CAD s/p CABG x2 JEFFREY to LAD, GSV to OM, MV repair with Rodríguez annuloplasty ring, MAZE, COLEEN clip 04/07/25
Atrial flutter
Atrial tachycardia
Atrial fibrillation
- Status post PVI 09/05/2024
-Noted to have recurrent atypical atrial flutter/atrial tachycardia at office visit 03/16/2025 and is scheduled for repeat ablation and Watchman in May [address] Potter
Frequent bleeding-cuts, scrapes on oral anticoagulation
Right bundle branch block
Left total knee replacement 03/28/2025
Echocardiogram 12/28/2023: Normal LV size and function, LVEF 60 to 65%, moderate to severe MR, mild TR, PAP 35 to 40 mmHg, mild PI, negative bubble study
JOSE 01/15/2024: Normal LV/RV size and function, LVEF 55%, mitral annular dilatation with severe LA dilatation, moderate MR, no COLEEN a thrombus, mild TR
Echo 04/04/2025: EF 55 to 60%, normal regional wall motion, mild concentric LVH, posterior MAC, moderate MR
Cardiac catheterization 04/03/2025: LM. Patent. LAD: Hazy ostial 60% stenosis, 95% mid stenosis just beyond first diagonal followed by additional 60% mid stenosis. Apical 60% stenosis. Diagonal 50% ostial stenosis and 80% mid stenosis. Left
circumflex. Proximal 90% stenosis, long 80% mid stenosis. RCA: Diffuse minor LI up to 30% throughout vessel. PDA and posterior lateral branch are patent. LVG 50 to 55% with anterolateral hypokinesis. +2 MR.
Plan:
HPI: He presented with chest pain and ruled in for NSTEMI. Peak troponin 0.068. Cardiac cath 04/03 with MV CAD including hazy stenosis in the proximal LAD with 95% mid LAD stenosis and multisegment high-grade atherosclerotic disease in the mid
circumflex. Preserved LV systolic function with EF 50-55% with anterolateral hypokinesis. There is 2+ mitral regurgitation. MR by echo is felt to be moderate�moderate to severe. JOSE 01/2024 showed moderate MR
-s/p CABG x2 JEFFREY to LAD, GSV to OM, MV repair with Rodríguez annuloplasty ring, MAZE, COLEEN clip 04/07/25
Post op JOSE EF 45-50% with trivial residual MR
Continue postop care. CT care per CT surgery.
Off Levophed, continue to wean drips as able.
Received 3 U PRBCs, 2 plts, H/H remains stable, hemoglobin 8.8 on April 08, 2025.
EKG April 08, 2025 showed sinus rhythm with PACs, right bundle-branch block. Some atrial tachycardia postop. He has a history of a flutter/A-fib.
Consider amiodarone. Eventual resume anticoagulation once okay with surgery. He was on Eliquis preop.
Continue Lipitor for hyperlipidemia.
He is status post left TKA March 28, 2025. Continue postop care. Will need PT postop and close Ortho follow-up
Hyponatremia management as per nephrology.
Progress Note - Barrel Bridge Assembler
Subjective
Date of Service: April 08, 2025
Patient seen and examined. No chest pain or shortness of breath
Objective
Labs:
04/08/25 03:07
04/08/25 03:07
Labs
Hgb 8.8 g/dL (13.0-18.0) L 04/08/25 03:07
Hct 23.7 % (39.0-52.0) L 04/08/25 03:07
Plt Count 139 10^3/uL (130-400) 04/08/25 03:07
PT 17.6 Sec (11.4-14.6) H 04/08/25 03:07
INR 1.42 04/08/25 03:07
APTT 38.5 Sec (23.4-35.0) H 04/07/25 14:26
Sodium 133 mmol/L (135-145) L 04/08/25 03:07
Potassium 4.5 mmol/L (3.5-5.1) 04/08/25 03:07
BUN 16 mg/dl (9-20) 04/08/25 03:07
Creatinine 0.8 mg/dL (0.7-1.3) 04/08/25 03:07
Glucose 91 mg/dl (70-99) 04/08/25 03:07
Vital Signs and I&O:
Vital Signs
Temp Pulse Resp BP Pulse Ox
97.8 F 72 15 101/61 96
04/08/25 07:00 04/08/25 07:00 04/08/25 07:00 04/08/25 07:00 04/08/25 07:00
Vital Signs
Temp Pulse Resp BP Pulse Ox
97.8 F 72 15 101/61 96
04/08/25 07:00 04/08/25 07:00 04/08/25 07:00 04/08/25 07:00 04/08/25 07:00
Intake & Output
04/06/25 04/07/25 04/08/25 04/09/25
06:59 06:59 06:59 06:59
Intake Total 120 / 120 348 / 348 2198.325 / 2229.025 30.7 / 30.7
Output Total 700 / 700 675 / 675 1255 / 1275
Balance -580 / -580 -327 / -327 943.325 / 954.025 10.7 / 10.7
Physical Exam
Physical Exam
General: No acute distress, AAOX3
Neck: Negative JVD
Heart: Regular, Negative S3 positive S1/S2, Negative S4, No murmur
Lungs: CTA b/l, negative wheezes/rales/rhonchi
Thorax: Chest tubes in place
Abd: Positive BS, NT/ND, neg rebound/rigidity/guarding
Ext: Negative cyanosis/clubbing/edema
Neuro: nonfocal
[2025-04-08] MEDS: BACTROBAN 2% OINTMENT 1 APPLIC NASAL ×2 (08:38→19:47)
[2025-04-08] MEDS: PLAVIX 75 MG PO (08:38)
[2025-04-08] MEDS: MIRALAX 17 GRAMS PO (08:38)
[2025-04-08] MEDS: LASIX 40 MG IV (08:38)
[2025-04-08] MEDS: MAGNESIUM OXIDE 500 MG PO ×2 (08:39→19:48)
[2025-04-08] MEDS: LOW STRENGTH ASPIRIN 81 MG PO (08:39)
[2025-04-08] MEDS: NEURONTIN 100 MG PO ×3 (08:39→21:25)
[2025-04-08] MEDS: FLOMAX 0.4 MG PO (08:39)
[2025-04-08] MEDS: PROTONIX 40 MG PO (08:39)
[2025-04-08] MEDS: FEOSOL 325 MG PO (08:40)
[2025-04-08] MEDS: SENOKOT-S 1 TABLET PO ×2 (08:40→19:48)
[2025-04-08] MEDS: VITAMIN C 500 MG PO (08:40)
[2025-04-08 08:57] LABS: Glucose - Point of Care 94 mg/dl (70-99)
--- NOTE | 2025-04-08 08:58 | PTCARENOTE ---
Patient received from loading machine operator resting in bed, sleepy but arousable and appropriate, states pain controlled at this time. Hemodynamics stable. RIJ Cordis/[place] catheter, L radial arterial lines - leveled, flushed, and calibrated w/good
waveforms returned. Epicardial V-wire to pulse generator set to back up rate w/no spikes noted. Blancas catheter to gravity. Mediastinal chest tubes x 2, L and R pleural chest tubes, to separate pleurevacs set to -20cm suction, no air leaks or
crepitus. All procedural sites stable. Patient updated to plan of care for the day, in agreement. See work list for full assessment, interventions performed, and intravenous infusion rates and titrations.
[2025-04-08] MEDS: NSS 500 IV (10:00)
[2025-04-08 10:08] LABS: Glucose - Point of Care 87 mg/dl (70-99)
[2025-04-08 11:13] LABS: Glucose - Point of Care 81 mg/dl (70-99)
--- NOTE | 2025-04-08 12:08 | PTCARENOTE ---
VS reassessed, stable. Patient remains oob in chair, perusing menu for lunch. Family at bedside.
[2025-04-08 12:18] LABS: Mixed Venous O2 Saturation 52.7 %
--- NOTE | 2025-04-08 12:28 | W.PN.INTV ---
Today's Communication / Plan
Recommendations
- Wean Milrinone as tolerated
- Incentive spirometry
- Lasix as blood pressure allows
Assessment
-
Patient is a 80-year-old gentleman with history of A-fib on anticoagulation with Eliquis as well as recent left knee replacement in early January 2025 who presented to the hospital with chest pain. Patient had a CT PE protocol performed in the
emergency room and it was negative for any pulmonary embolism. Patient was noted to have elevated troponin and was diagnosed with non-ST elevation [place] he was admitted to the hospitalist service and cardiology evaluated the patient. Subsequently
echo was unremarkable however cardiac catheterization showed multivessel disease. CT surgery was then consulted and patient was taken to coronary artery bypass graft today. Postsurgery, he was admitted to CVICU and bean snapper service was
consulted for further input. 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
S/p CABG x 2, left atrial appendage exclusion, mitral valve repair, POD #1
Titrate off pressors per protocol, off Levophed now, Milrinone @ 0.125. MAP 64. PA 42/18 (25), CVP 11
ECHO reviewed with normal function
Management of chest tubes per primary service
Extubated 91% on RA now
CXR with no obvious opacities/infiltrates, low lung volumes, ETT in good position, lines/tubes in place
Maintain supplement oxygen as needed
No prior history of pulmonary disease
Can add nebulizers if needed
Aspiration precautions
Encouraged incentive spirometry, OOB/ambulation/early mobility
Advance diet as tolerated following extubation
GI prophylaxis if indicated for mechanical ventilation >48 hours
Monitor critical I/O's
Blancas/chest tube output
Received PRBC intra-op as well as Platelets
Trend CBC for now
Can transfuse if indicated for Hb <7, plt <50 in surgical patients
DVT prophylaxis including SCDs
Insulin protocol initiated and ongoing
Transition to SQ/off as indicated per team
Critical Care time 42 mins -- The patient is admitted for acute critical illness for the treatment of vital organ failure and/or prevention of further life-threatening conditions. Total care includes time spent in review of history, physical exam,
medications, hemodynamic/ventilator parameters, laboratory data, imaging and discussion with house staff, pharmacy, respiratory therapy, senior principal architect, and nursing.
Data:
ECHO 03/2025: Normal left ventricular chamber size. Normal left ventricular systolic
function. Left ventricular ejection fraction is 55-60% by visual/volumetric
assessment. Normal regional wall motion. Mild concentric left ventricular
hypertrophy. Normal diastolic function.
Posterior mitral annular calcification. Mitral valve opens normally. Moderate
mitral regurgitation.
Indexed LA volume is severely abnormal (> 48 mL/m2).
Since echocardiogram 12/28/2023 which was reviewed, MR has improved from
moderate-severe to moderate.
Cardiac Cath 03/2025: 1. Multivessel coronary artery disease including hazy stenosis in the proximal LAD with 95% mid LAD stenosis and multisegment high-grade atherosclerotic disease in the mid circumflex
2. Preserved LV systolic function with an estimated ejection fraction of 50-55% with anterolateral hypokinesis. There is 2+ mitral regurgitation.
3. Recent left total knee arthroplasty
CT Chest 03/2025: 1. No evidence of pulmonary embolism.
2. No acute findings in the chest.
3. Mild cardiomegaly.
Cardioversion 01/2024. A fib > NSR
Ablation for A Fib 08/2024
Subjective Dataa
Subjective Data
Date of Service:
Date of Service: April 08, 2025
Subjective:
Comfortably sitting in chair, no acute distress.
Review of Systems
Genitourinary: Other (No new symptoms reported. )
Objective Data
Data Reviewed
Vital Signs / I&O / Oxygen:
Vital Signs
Temp Pulse Resp BP Pulse Ox
98.2 F 75 20 88/58 97
04/08/25 12:00 04/08/25 12:00 04/08/25 12:00 04/08/25 12:00 04/08/25 12:00
Intake and Output
04/07/25 04/08/25 04/09/25
06:59 06:59 06:59
Intake Total 348 / 348 2198.325 / 2229.025 401.8 / 401.8
Output Total 675 / 675 1255 / 1275 650 / 650
Balance -327 / -327 943.325 / 954.025 -248.2 / -248.2
SaO2 [CPAP/PSV] 99
SaO2 [SIMV] 100
SaO2 97
Nasal Cannula flow liters per 2
minute
Physical Exam
General: Comfortable
HEENT: Normocephalic
Cardiovascular: S1-S2 and Peripheral Edema
Respiratory: Clear and Non-Labored Respirations
GI: Soft and Non Distended
Neurology: Awake, Alert and Oriented
Skin: Warm and Dry
Labs/Micro/Reports
Lab Data
04/08/25 03:07
04/08/25 03:07
Laboratory Results
04/07/25 04/07/25 04/08/25
14:26 18:08 03:07
PT 21.0 H 17.6 H
INR 1.80 1.42
APTT 38.5 H
pH 7.42 7.38
pCO2 34 L 39
pO2 178 H 142 H
HCO3 22.1 23.1
O2 Delivery Level cpap 40%
--- NOTE | 2025-04-08 14:01 | W.PN.NEPH.PH ---
Addendum entered and electronically signed by Katerine Ch MD 04/08/25 14:15:
maintain off salt tab
Original Note:
Today's Communication / Plan
-
follow labs
Assessment/Plan
-
Assessment
Multivessel coronary disease
Non-ST elevation [place]
Atrial fibrillation
Right bundle branch block
Left knee replacement 03/28/2025
Hyponatremia new
Orthostatic hypotension
Plan
s/p CABGx2 and MV repair on 04/07
sodium better at 133
encourage solute intake
If sodium decreases further may need FR , cont lasix
high ADH state -multifactorial
Thyroid and cortisol levels were acceptable
const post op supportive care per surg
will s/o, call with ?s
-
-
Date of Service: April 08, 2025
CC / HPI / ROS
-
Chief Complaint:
hyponatremia
History of Present Illness:
sodium better at 133,
s/p CABG and MV repair on 04/07
on pressors currently , dobutamine
s/p PRBC pos top, hb 8.8
Review of Systems:
pain controlled
no sob at rest
CT in place
Labs
-
Labs:
WBC 22.0 10^3/uL (4.8-10.8) H 04/08/25 03:07
RBC 2.63 10^6/uL (4.70-6.10) L 04/08/25 03:07
Hgb 8.8 g/dL (13.0-18.0) L 04/08/25 03:07
Hct 23.7 % (39.0-52.0) L 04/08/25 03:07
Plt Count 139 10^3/uL (130-400) 04/08/25 03:07
Sodium 133 mmol/L (135-145) L 04/08/25 03:07
Potassium 4.5 mmol/L (3.5-5.1) 04/08/25 03:07
Chloride 106 mmol/L (98-107) 04/08/25 03:07
Carbon Dioxide 24 mmol/L (22-30) 04/08/25 03:07
BUN 16 mg/dl (9-20) 04/08/25 03:07
Creatinine 0.8 mg/dL (0.7-1.3) 04/08/25 03:07
eGFR > 60.00 04/08/25 03:07
Glucose 91 mg/dl (70-99) 04/08/25 03:07
Calcium 8.9 mg/dl (8.4-10.2) 04/08/25 03:07
Rpr-V-Ronazzvhqqa Pept 1730 pg/ml 04/01/25 02:54
Albumin 3.5 g/dl (3.5-5.0) 04/04/25 07:23
Physical Exam
-
Vital Signs:
Vital Signs
Temp Pulse Resp BP Pulse Ox
97.9 F 86 12 90/60 97
04/08/25 13:00 04/08/25 13:15 04/08/25 13:15 04/08/25 13:03 04/08/25 12:00
Cardiovascular:: Regular rate and rhythm
Lung Excursion:: Normal (decreased)
Abdomen:: Nontender and Soft
Extremity Edema:: +2: Right: and +3: Left:
Blancas Catheter: Yes
[2025-04-08 14:19] LABS: Glucose - Point of Care 78 mg/dl (70-99)
[2025-04-08 14:19] LABS: Glucose - Point of Care 110 mg/dl (70-99)
[2025-04-08 14:19] LABS: Glucose - Point of Care 106 mg/dl (70-99)
[2025-04-08] MEDS: LIPITOR 80 MG PO (17:59)
--- NOTE | 2025-04-08 20:00 | PTCARENOTE ---
assumed care of pt from previous RN. pt A&Ox4, resting in chair at time of assessment. SR w/ 1st degree AVB w/ frequent PACs and PVCs. temp epicardial v-wires insulated. POX 93% on RA. CTx4 (mediastinal x2, R & L pleural) to -20cm wall suction,
draining sanguineous drainage. abd s/n, hypoactive BS. pt confirms passing gas. lanier catheter draining zoila colored urine. all surgical sites stable, CDI. R IJ cordis w/ swan floated to 45cm. L radial a-line. all lines leveled, zeroed, flushed.
PIV intact. pt assisted back to bed by 3 RNs. pt placed on 2 L NC, POX 98% on 2 L O2. see worklist for complete nursing assessment, interventions, gtt titrations, VS, and I&Os.
[2025-04-09] VITALS (35 sets, daily range): BP systolic 85–130; BP diastolic 53–85; PULSE 65; O2SAT 97; BMI 31.0
--- NOTE | 2025-04-09 | PTCARENOTE ---
assessment remains unchanged. VSS. CT drainage WNL. U/O <0.5ml/kg/h. CT PA aware. pt c/o anxiety, CT PA to order xanax.
[2025-04-09] MEDS: XANAX 0.25 MG PO ×2 (00:16→21:55)
--- NOTE | 2025-04-09 03:45 | W.PN.CT ---
Addendum entered and electronically signed by Osman Stokes MD 04/09/25 09:14:
I saw and examined the patient.
The PA's note was reviewed and I agree with the note.
Comment:
Wean dobutamine today
Remove CTs
OOB/IS/ambulate
D/C SGC and A-line once stable OFF dobutamine
Original Note:
Today's Communication / Plan
-
Plan:
-No major issues overnight. Hemodynamically and neurologically intact
-On Dobutamine @ 2 mcg/kg/min, Milrinone was weaned off yesterday 04/08
-Rhythm appears to be fluctuating between rate controlled a-fib and NSR with 1st deg HB with PAC's. Has temporary V wire at backup of 45 bpm MA 10
-Last CI 2.10, MVO2 57.7 %, PAP 43/12. 24hdrs u/o 900 mL
-Monitor chest tube output: 2med 30/30. R/L pleurals 55/55. CXR this AM looks good without ptx, small left atelectasis/effusion on my review, f/u official report
-Placed Amiodarone and BB while on Dobutamine gtt
-Will eventually resume Eliquis for a-fib/flutter hx S/P MAZE
-Cont. current meds (ASA, Lipitor, Flomax, Protonix)
-Keep swan and a-line while on Dobutamine
-Will keep lanier another day for accurate I/O's
-Monitor hyponatremia, 127, was 133 yesterday. Cont. diuresis, fluid restriction
-Monitor h/h 8.2/23.4. Left knee noted to be ecchymotic with some swelling
-Maintain temporary V wire (will cut before d/c home)
-Will wean inotropes as tolerated
-Encourage use of IS
-Wean off of O2 as tolerated
-OOB into chair/PT-OT
Assessment / Plan
-
Assessment:
-S/P Median sternotomy/ CABG x 2 (JEFFREY to LAD, GSV to OM)/ Endoscopic harvest/prep of RLE GSV/ MV Repair (30mm Rodríguez 5200 Annuloplasty Ring)/ [facility] MAZE procedure/ELAA (50mm AtriClip), by Dr. Stokes, 04/07/24, pod#2
-2V CAD w/ mild NSTEMI
-[place]
-Atrial flutter/tachycardia s/p prior PVI 09/05/24 (on Eliquis @ home)
-LVEF 55-60% preop; 45-50% postop
-Chronic diastolic CHF
-Scheduled for repeat ablation & watchman in May 2025
-RBBB
-Hx of frequent bleeding on oral anticoagulation
-Preoperative anemia (Hgb 7.2)
-Preoperative hyponatremia
-HTN
-HLD
-BPH
-GERD
-L TKA 03/28/2025
-S/P R knee arthroscopy and meniscus repair
-S/P lumbar laminectomy (L4/L5), 10/2024
-S/p Left inguinal herniorrhaphy, 06/2024
-S/P S/p right eyelid surgery, 12/2023
-Acute postop blood loss anemia on preop anemia (received 2u PRBC's intraop and 2u postop)
-Acute intraop coagulopathy (received 1 {5pk) plts intraop and 1 {5pk} plts postop)
-Acute postop atelectasis
-Acute intraop pulmonary hypertension
-Acute postop cardiogenic shock
-Acute postop hypovolemia with subsequent hypervolemia
-Acute postop hyponatremia, 127
Discussed patient care with: Cardiology, Nursing, Respiratory Therapy, Pharmacy and Care Team
Subjective
Procedure
S/P Median sternotomy/ CABG x 2 (JEFFREY to LAD, GSV to OM)/ Endoscopic harvest/prep of RLE GSV/ MV Repair (30mm Rodríguez 5200 Annuloplasty Ring)/ [facility] MAZE procedure/ELAA (50mm AtriClip), by Dr. Stokes, 04/07/24
-
Date of Service: April 09, 2025
Pt c/o mild incisional pain, otherwise feels well
Objective Data
-
PT 17.6 Sec (11.4-14.6) H 04/08/25 03:07
INR 1.42 04/08/25 03:07
APTT 38.5 Sec (23.4-35.0) H 04/07/25 14:26
Vital Signs
Vital Signs
Temp Pulse Resp BP Pulse Ox
98 F 66 18 102/66 99
04/09/25 02:00 04/09/25 02:00 04/09/25 02:00 04/09/25 02:00 04/09/25 02:00
CT Intake/Output/Weight
04/08/25 04/08/25 04/09/25
06:59 18:59 06:59
Intake Total 917.825 / 2229.025 604.6 / 811.0 206.4 / 811.0
Output Total 635 / 1275 915 / 1180 265 / 1180
Balance 282.825 / 954.025 -310.4 / -369.0 -58.6 / -369.0
SaO2: 99 (2L)
Physical Exam
-
General: Awake, Oriented and AOx3
Cardiovascular: Irregular rate & rhythm, No Murmurs and No Gallop
Respiratory: Decreased Breath Sounds
Sternum: Stable
Incision: Clean, Dry, Intact and Dressing Intact
Extremities: No Edema
Data Reviewed
-
Lab Results: Results Reviewed
Medications: Active Meds Reviewed
Chest X-Ray: Report Reviewed and Image Reviewed
ECG: Report Reviewed and Image Reviewed
[2025-04-09] MEDS: DOBUTREX 500 MG 250 IV (04:22)
[2025-04-09] MEDS: TYLENOL 1000 MG PO ×3 (04:23→21:55)
--- NOTE | 2025-04-09 04:30 | PTCARENOTE ---
no acute changes. AM labs collected and sent.
[2025-04-09 04:39] LABS: Mixed Venous O2 Saturation 57.7 %
[2025-04-09 04:42] LABS: Ionized Calcium 1.18 mMOL/L (1.15-1.33)
[2025-04-09 04:54] LABS: Hematocrit 23.4 % (39.0-52.0); Hemoglobin 8.2 g/dL (13.0-18.0); Mean Corpuscular Hgb 32.5 pg (27.0-31.0); Mean Corpuscular Volume 92.9 fL (80.0-94.0); Mean Platelet Volume 11.5 fL (7.4-10.4); Platelet Count 120 10^3/uL (130-400); Red Blood Cell Count 2.52 10^6/uL (4.70-6.10); Red Cell Dist. Width 15.6 % (11.5-14.5); White Blood Cell Count 20.4 10^3/uL (4.8-10.8)
[2025-04-09 05:15] LABS: Blood Urea Nitrogen 23 mg/dl (9-20); Calcium 8.1 mg/dl (8.4-10.2); Carbon Dioxide 24 mmol/L (22-30); Chloride 101 mmol/L (98-107); Estimated Creatinine Clearance 82 ml/min; Glucose 115 mg/dl (70-99); Magnesium 2.1 mg/dl (1.6-2.3); Potassium 4.6 mmol/L (3.5-5.1); Sodium 127 mmol/L (135-145); eGFR > 60.00
--- NOTE | 2025-04-09 08:46 | PTCARENOTE ---
Patient received from shift supervisor in bed. Assisted oob to chair, VSS. RIJ Cordis/Afton-Karlos catheter, L radial arterial lines present - leveled, flushed, and calibrated w/good waveforms returned. Epicardial V-wire, insulated to chest. L and R pleural
chest tubes, mediastinal chest tubes x 2 - both sets Y-connected to separate atriums, to -20cm suction, no air leaks or crepitus noted. Blancas catheter to gravity. All procedural sites stable. L leg +1 edema, ecchymotic d/t recent TKR. Dobutamine
infusing as ordered, see intervention for rates and titrations. See work list for full assessment and interventions performed.
[2025-04-09] MEDS: VITAMIN C 500 MG PO (08:58)
[2025-04-09] MEDS: FEOSOL 325 MG PO (08:58)
[2025-04-09] MEDS: NEURONTIN 100 MG PO ×3 (08:58→21:55)
[2025-04-09] MEDS: LOW STRENGTH ASPIRIN 81 MG PO (08:58)
[2025-04-09] MEDS: MAGNESIUM OXIDE 500 MG PO ×2 (08:59→19:53)
[2025-04-09] MEDS: PROTONIX 40 MG PO (08:59)
[2025-04-09] MEDS: FLOMAX 0.4 MG PO (08:59)
[2025-04-09] MEDS: SENOKOT-S 1 TABLET PO ×2 (08:59→19:53)
[2025-04-09] MEDS: PLAVIX 75 MG PO (08:59)
[2025-04-09] MEDS: BACTROBAN 2% OINTMENT 1 APPLIC NASAL ×2 (09:00→19:53)
[2025-04-09] MEDS: FLEXERIL 5 MG PO (09:34)
[2025-04-09] MEDS: MIRALAX PO (09:55)
--- NOTE | 2025-04-09 10:12 | W.PN.CARDCBS ---
Today's Communication / Plan
-
Continue postop care. CT care per CT surgery; to be removed April 09
Dobutamine being weaned off.
H/H stable. Hb 8.2 on April 09
Received 3 U PRBCs, 2 plts, H/H remains stable, hemoglobin 8.8 on April 08
Cont DAPT with NSTEMI
Back in aFib.
Would resume amiodarone.
He has a history of a flutter/A-fib.
Eventual resume anticoagulation once okay with surgery. He was on Eliquis preop. Currently on DAPT
Continue Lipitor for hyperlipidemia.
He is status post left TKA March 28, 2025. Continue postop care. Will need PT postop and close Ortho follow-up
Impression / Plan
-
.
PCP: Vincenzo Parra
Primary arch pad cementer: Malcolm Potter MD
Impression:
Chest pain
NSTEMI
Multivessel CAD s/p CABG x2 JEFFREY to LAD, GSV to OM, MV repair with Rodríguez annuloplasty ring, MAZE, COLEEN clip 04/07/25
Atrial flutter
Atrial tachycardia
Atrial fibrillation
- Status post PVI 09/05/2024
-Noted to have recurrent atypical atrial flutter/atrial tachycardia at office visit 03/16/2025 and is scheduled for repeat ablation and Watchman in May [address] Potter
Frequent bleeding-cuts, scrapes on oral anticoagulation
Right bundle branch block
Left total knee replacement 03/28/2025
Echocardiogram 12/28/2023: Normal LV size and function, LVEF 60 to 65%, moderate to severe MR, mild TR, PAP 35 to 40 mmHg, mild PI, negative bubble study
JOSE 01/15/2024: Normal LV/RV size and function, LVEF 55%, mitral annular dilatation with severe LA dilatation, moderate MR, no COLEEN a thrombus, mild TR
Echo 04/04/2025: EF 55 to 60%, normal regional wall motion, mild concentric LVH, posterior MAC, moderate MR
Cardiac catheterization 04/03/2025: LM. Patent. LAD: Hazy ostial 60% stenosis, 95% mid stenosis just beyond first diagonal followed by additional 60% mid stenosis. Apical 60% stenosis. Diagonal 50% ostial stenosis and 80% mid stenosis. Left
circumflex. Proximal 90% stenosis, long 80% mid stenosis. RCA: Diffuse minor LI up to 30% throughout vessel. PDA and posterior lateral branch are patent. LVG 50 to 55% with anterolateral hypokinesis. +2 MR.
Plan:
HPI: He presented with chest pain and ruled in for NSTEMI. Peak troponin 0.068. Cardiac cath 04/03 with MV CAD including hazy stenosis in the proximal LAD with 95% mid LAD stenosis and multisegment high-grade atherosclerotic disease in the mid
circumflex. Preserved LV systolic function with EF 50-55% with anterolateral hypokinesis. There is 2+ mitral regurgitation. MR by echo is felt to be moderate�moderate to severe. JOSE 01/2024 showed moderate MR
-s/p CABG x2 JEFFREY to LAD, GSV to OM, MV repair with Rodríguez annuloplasty ring, MAZE, COLEEN clip 04/07/25
Post op JOSE EF 45-50% with trivial residual MR
Continue postop care. CT care per CT surgery; to be removed April 09
Dobutamine being weaned off.
H/H stable. Hb 8.2 on April 09
Received 3 U PRBCs, 2 plts, H/H remains stable, hemoglobin 8.8 on April 08
Cont DAPT with NSTEMI
Back in aFib.
Would resume amiodarone.
He has a history of a flutter/A-fib.
Eventual resume anticoagulation once okay with surgery. He was on Eliquis preop. Currently on DAPT
Continue Lipitor for hyperlipidemia.
He is status post left TKA March 28, 2025. Continue postop care. Will need PT postop and close Ortho follow-up
Hyponatremia management as per nephrology.
Discussed with nursing
Progress Note - Director Client Services
Subjective
Date of Service: April 09, 2025
Pt seen and examined. Complaints of fatigue. No chest pain or shortness of breath.
Objective
Labs:
04/09/25 04:30
04/09/25 04:30
Labs
Hgb 8.2 g/dL (13.0-18.0) L 04/09/25 04:30
Hct 23.4 % (39.0-52.0) L 04/09/25 04:30
Plt Count 120 10^3/uL (130-400) L 04/09/25 04:30
PT 17.6 Sec (11.4-14.6) H 04/08/25 03:07
INR 1.42 04/08/25 03:07
APTT 38.5 Sec (23.4-35.0) H 04/07/25 14:26
Sodium 127 mmol/L (135-145) L 04/09/25 04:30
Potassium 4.6 mmol/L (3.5-5.1) 04/09/25 04:30
BUN 23 mg/dl (9-20) H 04/09/25 04:30
Creatinine 0.8 mg/dL (0.7-1.3) 04/09/25 04:30
Glucose 115 mg/dl (70-99) H 04/09/25 04:30
Vital Signs and I&O:
Vital Signs
Temp Pulse Resp BP Pulse Ox
98 F 78 20 107/69 97
04/09/25 08:00 04/09/25 09:30 04/09/25 09:30 04/09/25 09:00 04/09/25 08:10
Vital Signs
Temp Pulse Resp BP Pulse Ox
98 F 78 20 107/69 97
04/09/25 08:00 04/09/25 09:30 04/09/25 09:30 04/09/25 09:00 04/09/25 08:10
Intake & Output
04/07/25 04/08/25 04/09/25 04/10/25
06:59 06:59 06:59 06:59
Intake Total 348 / 348 2198.325 / 2229.025 941.8 / 967.0 335.6 / 335.6
Output Total 675 / 675 1255 / 1275 1295 / 1400 170 / 170
Balance -327 / -327 943.325 / 954.025 -353.2 / -433.0 165.6 / 165.6
Physical Exam
Physical Exam
General: No acute distress, AAOX3
Neck: Negative JVD
Heart: irregularly irregular, Negative S3 positive S1/S2, Negative S4, No murmur
Lungs: CTA b/l, negative wheezes/rales/rhonchi
Abd: Positive BS, NT/ND, neg rebound/rigidity/guarding
Ext: Negative cyanosis/clubbing/edema
Neuro: nonfocal
--- NOTE | 2025-04-09 11:16 | PTCARENOTE ---
Patient assisted back to bed. Chest tubes x 4 d/c'd as ordered by this RN and RN assist. Patient tolerated well, resting comfortably.
[2025-04-09] MEDS: LASIX 40 MG IV (11:51)
[2025-04-09] MEDS: NSS 500 IV (11:52)
[2025-04-09] MEDS: ANESTHETIC LOZENGE 1 LOZENGE PO (12:01)
--- NOTE | 2025-04-09 12:09 | PTCARENOTE ---
VS obtained, assessment stable. Patient resting comfortably.
--- NOTE | 2025-04-09 12:45 | W.PN.INTV ---
Today's Communication / Plan
Recommendations
- Monitor off pressors
- Diurese as tolerated
- Archeology Faculty Member service will sign off once transferred out of ICU
Assessment
-
Patient is a 80-year-old gentleman with history of A-fib on anticoagulation with Eliquis as well as recent left knee replacement in early January 2025 who presented to the hospital with chest pain. Patient had a CT PE protocol performed in the
emergency room and it was negative for any pulmonary embolism. Patient was noted to have elevated troponin and was diagnosed with non-ST elevation [place] he was admitted to the hospitalist service and cardiology evaluated the patient. Subsequently
echo was unremarkable however cardiac catheterization showed multivessel disease. CT surgery was then consulted and patient was taken to coronary artery bypass graft today. Postsurgery, he was admitted to CVICU and substation supervisor service was
consulted for further input. 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
S/p CABG x 2, left atrial appendage exclusion, mitral valve repair, POD #2
Titrate off pressors per protocol, off all infusions. MAP 83. PA 59/23 (32), CVP 15
ECHO reviewed with normal function
Management of chest tubes per primary service
Extubated 95% on RA now
CXR with no obvious opacities/infiltrates, low lung volumes, ETT in good position, lines/tubes in place
Maintain supplement oxygen as needed
No prior history of pulmonary disease
Can add nebulizers if needed
Aspiration precautions
Encouraged incentive spirometry, OOB/ambulation/early mobility
Advance diet as tolerated following extubation
GI prophylaxis if indicated for mechanical ventilation >48 hours
Monitor critical I/O's
Blancas/chest tube output
Received PRBC intra-op as well as Platelets
Trend CBC for now
Can transfuse if indicated for Hb <7, plt <50 in surgical patients
DVT prophylaxis including SCDs
Insulin protocol initiated and ongoing
Transition to SQ/off as indicated per team
Critical Care time 38 mins -- The patient is admitted for acute critical illness for the treatment of vital organ failure and/or prevention of further life-threatening conditions. Total care includes time spent in review of history, physical exam,
medications, hemodynamic/ventilator parameters, laboratory data, imaging and discussion with house staff, pharmacy, respiratory therapy, portfolio administrator, and nursing.
Data:
ECHO 03/2025: Normal left ventricular chamber size. Normal left ventricular systolic
function. Left ventricular ejection fraction is 55-60% by visual/volumetric
assessment. Normal regional wall motion. Mild concentric left ventricular
hypertrophy. Normal diastolic function.
Posterior mitral annular calcification. Mitral valve opens normally. Moderate
mitral regurgitation.
Indexed LA volume is severely abnormal (> 48 mL/m2).
Since echocardiogram 12/28/2023 which was reviewed, MR has improved from
moderate-severe to moderate.
Cardiac Cath 03/2025: 1. Multivessel coronary artery disease including hazy stenosis in the proximal LAD with 95% mid LAD stenosis and multisegment high-grade atherosclerotic disease in the mid circumflex
2. Preserved LV systolic function with an estimated ejection fraction of 50-55% with anterolateral hypokinesis. There is 2+ mitral regurgitation.
3. Recent left total knee arthroplasty
CT Chest 03/2025: 1. No evidence of pulmonary embolism.
2. No acute findings in the chest.
3. Mild cardiomegaly.
Cardioversion 01/2024. A fib > NSR
Ablation for A Fib 08/2024
Subjective Dataa
Subjective Data
Date of Service:
Date of Service: April 09, 2025
Subjective:
Patient comfortably sitting in bed, no acute distress
Review of Systems
Genitourinary: Other (No new complaints reported)
Objective Data
Data Reviewed
Vital Signs / I&O / Oxygen:
Vital Signs
Temp Pulse Resp BP Pulse Ox
98.6 F 59 19 107/65 99
04/09/25 12:00 04/09/25 12:00 04/09/25 12:00 04/09/25 12:00 04/09/25 12:00
Intake and Output
04/08/25 04/09/25 04/10/25
06:59 06:59 06:59
Intake Total 2198.325 / 2229.025 941.8 / 967.0 400.8 / 400.8
Output Total 1255 / 1275 1295 / 1400 205 / 205
Balance 943.325 / 954.025 -353.2 / -433.0 195.8 / 195.8
SaO2 [CPAP/PSV] 99
SaO2 [SIMV] 100
SaO2 99
Nasal Cannula flow liters per 2
minute
Physical Exam
General: Comfortable
HEENT: Normocephalic
Cardiovascular: S1-S2 and Peripheral Edema
Respiratory: Clear and Non-Labored Respirations
GI: Soft and Non Distended
Neurology: Awake, Alert and Oriented
Skin: Warm and Dry
Labs/Micro/Reports
Lab Data
04/09/25 04:30
04/09/25 04:30
[2025-04-09 15:19] LABS: Mixed Venous O2 Saturation 49.4 %
--- NOTE | 2025-04-09 17:47 | W.PN.UPDATE ---
Update Note
Progress Note Update
Dobutamine weaned off approximately 1100, repeat CI 1.88/MVO2 49% @ 1515 (off Dobutamine). Dr. Stokes notified and Dobutamine resumed @ 1mcg. CI improved to 2.17.
[2025-04-09] MEDS: LIPITOR 80 MG PO (18:01)
--- NOTE | 2025-04-09 20:00 | PTCARENOTE ---
assumed care of pt from previous RN. pt A&Ox4, resting in chair at time of assessment. R IJ cordis w/ swan floated to 45cm. all lines leveled, zeroed, flushed. SR w/ 1st degree AVB, frequent PACs and PVCs. temp epicardial v-wires insulated. POX 95%
on RA. abd s/n, +BS. lanier catheter draining clear, yellow colored urine. all surgical sites stable, CDI. PIV intact. pt assisted back to bed after assessment by 3 RNs. see worklist for complete nursing assessment, interventions, VS, and I&Os.
[2025-04-09] MEDS: CALCIUM GLUCONATE 130 MG IV (20:35)
[2025-04-10] VITALS (39 sets, daily range): BP systolic 105–146; BP diastolic 62–98; PULSE 63–80; BMI 31.2
--- NOTE | 2025-04-10 00:15 | PTCARENOTE ---
assessment remains unchanged. VSS. U/O <0.5ml/kg/h. CT PA aware.
--- NOTE | 2025-04-10 03:35 | PTCARENOTE ---
no acute changes. VSS. U/O <0.5ml/kg/h. CT PA aware.
[2025-04-10 03:40] LABS: Mixed Venous O2 Saturation 53.8 %
--- NOTE | 2025-04-10 03:41 | W.PN.CT ---
Addendum entered and electronically signed by Osman Stokes MD 04/10/25 09:19:
I saw and examined the patient.
The PA's note was reviewed and I agree with the note.
Comment:
Wean dobutamine to 0.5 and hold
D/C SGC
D/C A-line
Transfuse 1U PRBC for Hgb 8.2
Creat 0.7 - D/C lanier
OOB/IS/ambulate
Original Note:
Today's Communication / Plan
-
Plan:
-No major issues overnight. Hemodynamically and neurologically intact
-Dobutamine wean from 2 mcg/kg/min to 1 mcg/kg/min. Milrinone was weaned off on 04/08
-Rhythm appears to be fluctuating between rate controlled a-fib and NSR with 1st deg HB with PAC's/PVC's. Has temporary V wire at backup of 45 bpm MA 10
-Last CI 2.25, MVO2 53.8 %, PAP 59/19. 24hdrs u/o 1190 mL
-Placed Amiodarone and BB while on Dobutamine gtt
-Will eventually resume Eliquis for a-fib/flutter hx S/P MAZE
-Cont. current meds (ASA, Lipitor, Flomax, Protonix)
-Keep swan and a-line while on Dobutamine
-Will keep lanier another day for accurate I/O's
-Monitor hyponatremia, 127, was 133 yesterday. Cont. diuresis, fluid restriction
-Monitor h/h 8.2/23.2, plts 107. Left knee noted to be ecchymotic with some swelling. Consider 1u PRBC with Lasix (c/o lightheadedness/dizziness)
-Will wean Dobutamine as tolerated, 1u PRBC should help with weaning off Dobutamine
-Maintain temporary V wire (will cut before d/c home)
-Encourage use of IS
-OOB into chair/PT-OT
Assessment / Plan
-
Assessment:
-S/P Median sternotomy/ CABG x 2 (JEFFREY to LAD, GSV to OM)/ Endoscopic harvest/prep of RLE GSV/ MV Repair (30mm Rodríguez 5200 Annuloplasty Ring)/ [facility] MAZE procedure/ELAA (50mm AtriClip), by Dr. Stokes, 04/07/24, pod#3
-2V CAD w/ mild NSTEMI
-USA
-Atrial flutter/tachycardia s/p prior PVI 09/05/24 (on Eliquis @ home)
-LVEF 55-60% preop; 45-50% postop
-Chronic diastolic CHF
-Scheduled for repeat ablation & watchman in May 2025
-RBBB
-Hx of frequent bleeding on oral anticoagulation
-Preoperative anemia (Hgb 7.2)
-Preoperative hyponatremia
-HTN
-HLD
-BPH
-GERD
-S/P L TKA 03/28/2025
-S/P R knee arthroscopy and meniscus repair
-S/P lumbar laminectomy (L4/L5), 10/2024
-S/p Left inguinal herniorrhaphy, 06/2024
-S/P S/p right eyelid surgery, 12/2023
-Acute postop blood loss anemia on preop anemia (received 2u PRBC's intraop and 2u postop)
-Acute intraop coagulopathy (received 1 {5pk) plts intraop and 1 {5pk} plts postop)
-Acute postop atelectasis
-Acute intraop pulmonary hypertension
-Acute postop cardiogenic shock
-Acute postop hypovolemia with subsequent hypervolemia
-Acute postop hyponatremia, 127
Discussed patient care with: Cardiology, Nursing, Respiratory Therapy, Pharmacy and Care Team
Subjective
Procedure
S/P Median sternotomy/ CABG x 2 (JEFFREY to LAD, GSV to OM)/ Endoscopic harvest/prep of RLE GSV/ MV Repair (30mm Rodríguez 5200 Annuloplasty Ring)/ [facility] MAZE procedure/ELAA (50mm AtriClip), by Dr. Stokes, 04/07/24
-
Date of Service: April 10, 2025
c/o mild incisional pain and some lightheadedness/dizziness
Objective Data
-
PT 17.6 Sec (11.4-14.6) H 04/08/25 03:07
INR 1.42 04/08/25 03:07
APTT 38.5 Sec (23.4-35.0) H 04/07/25 14:26
Vital Signs
Vital Signs
Temp Pulse Resp BP Pulse Ox
98.1 F 64 18 123/82 94
04/10/25 03:00 04/10/25 03:35 04/10/25 03:35 04/10/25 03:00 04/10/25 03:00
CT Intake/Output/Weight
04/09/25 04/09/25 04/10/25
06:59 18:59 06:59
Intake Total 337.2 / 967.0 848.6 / 1272.0 423.4 / 1272.0
Output Total 380 / 1400 925 / 1205 280 / 1205
Balance -42.8 / -433.0 -76.4 / 67.0 143.4 / 67.0
SaO2: 94 (RA)
Physical Exam
-
General: Awake, Oriented and AOx3
Cardiovascular: Irregular rate & rhythm, No Murmurs, No Rub and No Gallop
Respiratory: Decreased Breath Sounds (at bases, otherwise clear )
Sternum: Stable
Incision: Clean, Dry, Intact and Dressing Intact
Extremities: Other (Left knee is edematous with ecchymosis )
Data Reviewed
-
Lab Results: Results Reviewed
Medications: Active Meds Reviewed
Chest X-Ray: Report Reviewed and Image Reviewed
ECG: Report Reviewed and Image Reviewed
[2025-04-10 03:50] LABS: Hematocrit 23.2 % (39.0-52.0); Hemoglobin 8.2 g/dL (13.0-18.0); Mean Corp Hgb Conc. 35.3 g/dL (33.0-37.0); Mean Corpuscular Hgb 33.5 pg (27.0-31.0); Mean Corpuscular Volume 94.7 fL (80.0-94.0); Mean Platelet Volume 11.2 fL (7.4-10.4); Platelet Count 107 10^3/uL (130-400); Red Blood Cell Count 2.45 10^6/uL (4.70-6.10); White Blood Cell Count 17.4 10^3/uL (4.8-10.8)
[2025-04-10 04:07] LABS: Blood Urea Nitrogen 21 mg/dl (9-20); Calcium 7.9 mg/dl (8.4-10.2); Carbon Dioxide 25 mmol/L (22-30); Chloride 101 mmol/L (98-107); Estimated Creatinine Clearance 94 ml/min; Glucose 122 mg/dl (70-99); Magnesium 1.9 mg/dl (1.6-2.3); Potassium 4.3 mmol/L (3.5-5.1); Sodium 126 mmol/L (135-145); eGFR > 60.00
[2025-04-10] MEDS: TYLENOL 1000 MG PO ×3 (05:59→22:01)
[2025-04-10] MEDS: BACTROBAN 2% OINTMENT 1 APPLIC NASAL ×2 (09:00→19:44)
[2025-04-10] MEDS: PROTONIX 40 MG PO (09:00)
[2025-04-10] MEDS: LOW STRENGTH ASPIRIN 81 MG PO (09:00)
[2025-04-10] MEDS: NEURONTIN 100 MG PO ×3 (09:00→22:01)
[2025-04-10] MEDS: MAGNESIUM OXIDE 500 MG PO ×2 (09:00→19:44)
[2025-04-10] MEDS: SENOKOT-S 1 TABLET PO ×2 (09:00→19:44)
[2025-04-10] MEDS: VITAMIN C 500 MG PO (09:00)
[2025-04-10] MEDS: FEOSOL 325 MG PO (09:00)
[2025-04-10] MEDS: PLAVIX 75 MG PO (09:00)
--- NOTE | 2025-04-10 09:00 | PTCARENOTE ---
Patient received from shift superintendent resting oob in chair, dozing but arousable and appropriate. Afib via cm, SaO2 @ 98% on RA. RIJ Cordis/Trinity-Karlos catheter present - leveled, flushed, and calibrated w/good waveforms returned. Epicardial V-wire,
insulated. Blancas catheter to gravity. All procedural sites stable. Dobutamine infusing as ordered. See work list for full assessment and interventions performed.
[2025-04-10] MEDS: LASIX 40 MG IV (09:01)
[2025-04-10] MEDS: MIRALAX 17 GRAMS PO (09:01)
[2025-04-10] MEDS: FLOMAX 0.4 MG PO (09:06)
--- NOTE | 2025-04-10 11:46 | W.PN.NEPH.PH ---
Today's Communication / Plan
-
samsca, cont lasix
Assessment/Plan
-
Assessment
Multivessel coronary disease
Non-ST elevation [place]
Atrial fibrillation
Right bundle branch block
Left knee replacement 03/28/2025
Hyponatremia new
Orthostatic hypotension
Plan
s/p CABGx2 and MV repair on 04/07
sodium down to 126
cont lasix and FR
high ADH state -multifactorial , will give samsca today
Thyroid and cortisol levels were acceptable
cont supportive care per primary
-
-
Date of Service: April 10, 2025
CC / HPI / ROS
-
Chief Complaint:
hyponatremia
History of Present Illness:
sodium down to 126
s/p CABG and MV repair on 04/07
Bp stable off pressors
hb stable at 8.2
wt is up
Review of Systems:
pain controlled
no sob at rest
no fever
Labs
-
Labs:
WBC 17.4 10^3/uL (4.8-10.8) H 04/10/25 03:30
RBC 2.45 10^6/uL (4.70-6.10) L 04/10/25 03:30
Hgb 8.2 g/dL (13.0-18.0) L 04/10/25 03:30
Hct 23.2 % (39.0-52.0) L 04/10/25 03:30
Plt Count 107 10^3/uL (130-400) L 04/10/25 03:30
Sodium 126 mmol/L (135-145) L 04/10/25 03:30
Potassium 4.3 mmol/L (3.5-5.1) 04/10/25 03:30
Chloride 101 mmol/L (98-107) 04/10/25 03:30
Carbon Dioxide 25 mmol/L (22-30) 04/10/25 03:30
BUN 21 mg/dl (9-20) H 04/10/25 03:30
Creatinine 0.7 mg/dL (0.7-1.3) 04/10/25 03:30
eGFR > 60.00 04/10/25 03:30
Glucose 122 mg/dl (70-99) H 04/10/25 03:30
Calcium 7.9 mg/dl (8.4-10.2) L 04/10/25 03:30
Cdp-T-Ievqzednedx Pept 1730 pg/ml 04/01/25 02:54
Albumin 3.5 g/dl (3.5-5.0) 04/04/25 07:23
Physical Exam
-
Vital Signs:
Vital Signs
Temp Pulse Resp BP Pulse Ox
98.5 F 66 16 113/75 98
04/10/25 10:00 04/10/25 11:00 04/10/25 11:00 04/10/25 11:00 04/10/25 09:26
Cardiovascular:: Regular rate and rhythm
Lung Excursion:: Normal (decreased BS)
Abdomen:: Nontender and Soft
Extremity Edema:: +2: Left: and None: Right:
Blancas Catheter: Yes
--- NOTE | 2025-04-10 12:30 | PTCARENOTE ---
VS obtained, assessment stable. Blancas catheter d/c'd as ordered, patient tolerated well. at bedside for visit. Assisted back oob to chair w/utilization of rolling walker.
[2025-04-10] MEDS: NSS IV (12:46)
--- NOTE | 2025-04-10 13:08 | W.PN.INTV ---
Today's Communication / Plan
Recommendations
- Continue to wean dobutamine as tolerated
- Continue diuresis, labs in a.m.
Assessment
-
Patient is a 80-year-old gentleman with history of A-fib on anticoagulation with Eliquis as well as recent left knee replacement in early January 2025 who presented to the hospital with chest pain. Patient had a CT PE protocol performed in the
emergency room and it was negative for any pulmonary embolism. Patient was noted to have elevated troponin and was diagnosed with non-ST elevation [place] he was admitted to the hospitalist service and cardiology evaluated the patient. Subsequently
echo was unremarkable however cardiac catheterization showed multivessel disease. CT surgery was then consulted and patient was taken to coronary artery bypass graft today. Postsurgery, he was admitted to CVICU and talent acquisition coordinator service was
consulted for further input. 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
S/p CABG x 2, left atrial appendage exclusion, mitral valve repair, POD #3
Titrate off pressors per protocol, currently on dobutamine at 0.5. MAP is 78, PA pressure 45 x 13 with a mean of 23. Saturating mid 90s on room air.
ECHO reviewed with normal function
Management of chest tubes per primary service
Extubated 95% on RA now
CXR with no obvious opacities/infiltrates, low lung volumes, ETT in good position, lines/tubes in place
Maintain supplement oxygen as needed
No prior history of pulmonary disease
Can add nebulizers if needed
Aspiration precautions
Encouraged incentive spirometry, OOB/ambulation/early mobility
Advance diet as tolerated following extubation
GI prophylaxis if indicated for mechanical ventilation >48 hours
Monitor critical I/O's
Mild hyponatremia, related to volume overload, continue diuresis as tolerated. Nephrology service on case.
Blancas/chest tube output
Received PRBC intra-op as well as Platelets
Trend CBC for now
Can transfuse if indicated for Hb <7, plt <50 in surgical patients
DVT prophylaxis including SCDs
Insulin infusion completed, off insulin drip now.
Other medical diagnoses:
- Paroxysmal A Fib. PO Amiodarone. Metoprolol on hold
- HLD. Statins
- CAD s/p CABG, aspirin, Plavix, Lipitor. Metoprolol is on hold considering patient is on dobutamine.
Critical Care time 38 mins -- The patient is admitted for acute critical illness for the treatment of vital organ failure and/or prevention of further life-threatening conditions. Total care includes time spent in review of history, physical exam,
medications, hemodynamic/ventilator parameters, laboratory data, imaging and discussion with house staff, pharmacy, respiratory therapy, resident care aid, and nursing.
Data:
ECHO 03/2025: Normal left ventricular chamber size. Normal left ventricular systolic
function. Left ventricular ejection fraction is 55-60% by visual/volumetric
assessment. Normal regional wall motion. Mild concentric left ventricular
hypertrophy. Normal diastolic function.
Posterior mitral annular calcification. Mitral valve opens normally. Moderate
mitral regurgitation.
Indexed LA volume is severely abnormal (> 48 mL/m2).
Since echocardiogram 12/28/2023 which was reviewed, MR has improved from
moderate-severe to moderate.
Cardiac Cath 03/2025: 1. Multivessel coronary artery disease including hazy stenosis in the proximal LAD with 95% mid LAD stenosis and multisegment high-grade atherosclerotic disease in the mid circumflex
2. Preserved LV systolic function with an estimated ejection fraction of 50-55% with anterolateral hypokinesis. There is 2+ mitral regurgitation.
3. Recent left total knee arthroplasty
CT Chest 03/2025: 1. No evidence of pulmonary embolism.
2. No acute findings in the chest.
3. Mild cardiomegaly.
Cardioversion 01/2024. A fib > NSR
Ablation for A Fib 08/2024
Subjective Dataa
Subjective Data
Date of Service:
Date of Service: April 10, 2025
Subjective:
Patient comfortably sitting in chair, in no acute distress.
Review of Systems
Genitourinary: Other (All 14 systems reviewed and negative except as stated above in the history of present illness.)
Objective Data
Data Reviewed
Vital Signs / I&O / Oxygen:
Vital Signs
Temp Pulse Resp BP Pulse Ox
98.1 F 64 18 109/66 96
04/10/25 12:12 04/10/25 12:12 04/10/25 12:12 04/10/25 12:00 04/10/25 12:12
Intake and Output
04/09/25 04/10/25 04/11/25
06:59 06:59 06:59
Intake Total 941.8 / 967.0 1369.8 / 1392.4 391.7 / 391.7
Output Total 1295 / 1400 1280 / 1305 1205 / 1205
Balance -353.2 / -433.0 89.8 / 87.4 -813.3 / -813.3
SaO2 [CPAP/PSV] 99
SaO2 [SIMV] 100
SaO2 96
Nasal Cannula flow liters per 2
minute
Physical Exam
General: Comfortable
HEENT: Normocephalic
Cardiovascular: S1-S2 and Peripheral Edema (Improving)
Respiratory: Clear and Non-Labored Respirations
GI: Soft and Non Distended
Neurology: Awake, Alert and Oriented
Skin: Warm and Dry
Labs/Micro/Reports
Lab Data
04/10/25 03:30
04/10/25 03:30
[2025-04-10] MEDS: SAMSCA 15 MG PO (13:49)
[2025-04-10] MEDS: FLEXERIL 5 MG PO (15:49)
[2025-04-10] MEDS: LIPITOR 80 MG PO (17:58)
--- NOTE | 2025-04-10 20:00 | PTCARENOTE ---
assumed care of pt from previous RN. pt A&Ox4, resting in chair at time of assessment. A fib vs SR w/ 1st degree AVB, frequent PACs and PVCs. temp epicardial v-wires insulated. POX 96% on RA. abd s/n, +BS. voiding clear, yellow colored urine. all
surgical sites stable, CDI. R IJ Cordis. PIV intact. pt assisted back to bed w/ RW and 2 RNs. see worklist for complete nursing assessment, interventions, VS, and I&Os.
[2025-04-10] MEDS: XANAX 0.25 MG PO (22:01)
[2025-04-11] VITALS (17 sets, daily range): BP systolic 101–167; BP diastolic 74–112; PULSE 72–76; O2SAT 94–97; BMI 29.7
--- NOTE | 2025-04-11 | PTCARENOTE ---
assessment remains unchanged. VSS.
--- NOTE | 2025-04-11 03:48 | W.PN.CT ---
Today's Communication / Plan
-
Plan:
-No major issues overnight. Hemodynamically and neurologically intact
-Dobutamine wean from 1 mcg/kg/min to 0.5 mcg/kg/min. Milrinone was weaned off on 04/08
-Rhythm appears to be fluctuating between rate controlled a-fib and NSR with 1st deg HB with PAC's/PVC's. Has temporary V wire at backup of 45 bpm MA 10
-Vancleve, a-line and lanier removed yesterday 04/10
-MVO2 5.7%, 24hdrs u/o 4030mL
-Will consider d/c of Dobutamine and cordis today
-Placed Amiodarone and BB on hold while on Dobutamine gtt, should be able to resume today
-Will eventually resume Eliquis for a-fib/flutter hx S/P MAZE
-Cont. current meds (ASA, Lipitor, Flomax, Protonix)
-Monitor hyponatremia, 133, was 126 yesterday. Cont. diuresis, fluid restriction. Received Samsca per renal yesterday 04/10
-Received 1u PRBC yesterday 04/10 for h/h 8.2/23.2. H/h is 10.4/29.4 today, plts 131, up from 107 yesterday. Left knee noted to be ecchymotic with some swelling
-Will reach out to orthopedic surgery to evaluate left knee and remove juan diego
-Maintain temporary V wire (will cut before d/c home)
-F/U 2-view cxr
-Encourage use of IS
-OOB into chair/Ambulate/PT-OT
Assessment / Plan
-
Assessment:
-S/P Median sternotomy/ CABG x 2 (JEFFREY to LAD, GSV to OM)/ Endoscopic harvest/prep of RLE GSV/ MV Repair (30mm Rodríguez 5200 Annuloplasty Ring)/ [facility] MAZE procedure/ELAA (50mm AtriClip), by Dr. Stokes, 04/07/24, pod#4
-2V CAD w/ mild NSTEMI
-USA
-Atrial flutter/tachycardia s/p prior PVI 09/05/24 (on Eliquis @ home)
-LVEF 55-60% preop; 45-50% postop
-Chronic diastolic CHF
-Scheduled for repeat ablation & watchman in May 2025
-RBBB
-Hx of frequent bleeding on oral anticoagulation
-Preoperative anemia (Hgb 7.2)
-Preoperative hyponatremia
-HTN
-HLD
-BPH
-GERD
-S/P L TKA 03/28/2025
-S/P R knee arthroscopy and meniscus repair
-S/P lumbar laminectomy (L4/L5), 10/2024
-S/p Left inguinal herniorrhaphy, 06/2024
-S/P S/p right eyelid surgery, 12/2023
-Acute postop blood loss anemia on preop anemia (received 2u PRBC's intraop and 2u postop)
-Acute intraop coagulopathy (received 1 {5pk) plts intraop and 1 {5pk} plts postop)
-Acute postop atelectasis
-Acute intraop pulmonary hypertension
-Acute postop cardiogenic shock
-Acute postop hypovolemia with subsequent hypervolemia
-Acute postop hyponatremia, 127
Discussed patient care with: Cardiology, Nursing, Respiratory Therapy, Pharmacy and Care Team
Subjective
Procedure
S/P Median sternotomy/ CABG x 2 (JEFFREY to LAD, GSV to OM)/ Endoscopic harvest/prep of RLE GSV/ MV Repair (30mm Rodríguez 5200 Annuloplasty Ring)/ Encompass MAZE procedure/ELAA (50mm AtriClip), by Dr. Stokes, 04/07/24
-
Date of Service: April 11, 2025
Pt c/o mild incisional pain, otherwise feels well
Objective Data
-
PT 17.6 Sec (11.4-14.6) H 04/08/25 03:07
INR 1.42 04/08/25 03:07
APTT 38.5 Sec (23.4-35.0) H 04/07/25 14:26
Vital Signs
Vital Signs
Temp Pulse Resp BP Pulse Ox
98 F 78 14 154/91 97
04/11/25 00:00 04/11/25 03:00 04/11/25 02:00 04/11/25 03:00 04/11/25 02:00
CT Intake/Output/Weight
04/10/25 04/10/25 04/11/25
06:59 18:59 06:59
Intake Total 521.2 / 1392.4 966.9 / 1068.6 101.7 / 1068.6
Output Total 355 / 1305 1630 / 3730 2100 / 3730
Balance 166.2 / 87.4 -663.1 / -2661.4 -1998.3 / -2661.4
SaO2: 97 (RA)
Physical Exam
-
General: Awake, Oriented and AOx3
Cardiovascular: Irregular rate & rhythm, No Murmurs and No Rub
Respiratory: Decreased Breath Sounds (at bases, otherwise clear)
Sternum: Stable
Incision: Clean, Dry, Intact and Dressing Intact
Extremities: Other (+trace edema)
Data Reviewed
-
Lab Results: Results Reviewed
Medications: Active Meds Reviewed
Chest X-Ray: Report Reviewed and Image Reviewed
ECG: Report Reviewed and Image Reviewed
--- NOTE | 2025-04-11 04:00 | PTCARENOTE ---
no acute changes. VSS. U/O >0.5ml/kg/h. AM labs collected and sent. EKG completed.
[2025-04-11 04:06] LABS: Mixed Venous O2 Saturation 56.7 %
[2025-04-11 04:09] LABS: Ionized Calcium 1.19 mMOL/L (1.15-1.33)
[2025-04-11 04:14] LABS: Hematocrit 29.4 % (39.0-52.0); Hemoglobin 10.4 g/dL (13.0-18.0); Mean Corp Hgb Conc. 35.4 g/dL (33.0-37.0); Mean Corpuscular Hgb 33.9 pg (27.0-31.0); Mean Corpuscular Volume 95.8 fL (80.0-94.0); Mean Platelet Volume 11.1 fL (7.4-10.4); Platelet Count 131 10^3/uL (130-400); Red Blood Cell Count 3.07 10^6/uL (4.70-6.10); Red Cell Dist. Width 17.4 % (11.5-14.5); White Blood Cell Count 14.3 10^3/uL (4.8-10.8)
[2025-04-11 04:38] LABS: Blood Urea Nitrogen 18 mg/dl (9-20); Calcium 8.3 mg/dl (8.4-10.2); Carbon Dioxide 29 mmol/L (22-30); Chloride 104 mmol/L (98-107); Estimated Creatinine Clearance 95 ml/min; Glucose 102 mg/dl (70-99); Magnesium 2.2 mg/dl (1.6-2.3); Potassium 4.5 mmol/L (3.5-5.1); Sodium 133 mmol/L (135-145); eGFR > 60.00
[2025-04-11] MEDS: TYLENOL 1000 MG PO ×3 (06:23→21:45)
--- NOTE | 2025-04-11 08:28 | W.PN.INTV ---
Today's Communication / Plan
Recommendations
Continue lasix
Trend UOP
Pain control
Encourage IS
Patient has been downgraded to CVICU�telemetry status. No additional recommendations at this time. Habitat Conservation Planner/Pulmonary service will now sign off. Please reconsult if there are any additional questions/concerns, or if patient's respiratory
status deteriorates.
Assessment
-
Patient is a 80-year-old gentleman with history of A-fib on anticoagulation with Eliquis as well as recent left knee replacement in early January 2025 who presented to the hospital with chest pain. Patient had a CT PE protocol performed in the
emergency room and it was negative for any pulmonary embolism. Patient was noted to have elevated troponin and was diagnosed with non-ST elevation [place] he was admitted to the hospitalist service and cardiology evaluated the patient. Subsequently
echo was unremarkable however cardiac catheterization showed multivessel disease. CT surgery was then consulted and patient was taken to coronary artery bypass graft today. Postsurgery, he was admitted to CVICU and check totaler service was
consulted for further input. 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
S/p CABG x 2, left atrial appendage exclusion, mitral valve repair, POD #4
Weaned off dobutamine drip this morning.
Keep MAP>65
Goal SaO2>90-94%
ECHO reviewed with normal function with LVEF 66% with mild concentric LVH and normal RV size/function
Management of chest tubes per primary service
No prior history of pulmonary disease
Can add nebulizers if needed
Aspiration precautions
Encouraged incentive spirometry, OOB/ambulation/early mobility
Continue cholesterol-lowering diet
Monitor critical I/O
Mild hyponatremia, related to volume overload, continue diuresis as tolerated. Nephrology service on case.
Received PRBC intra-op as well as Platelets
Last received a unit of PRBCs yesterday
Trend CBC for now
Can transfuse if indicated for Hb <7-8, plt <50 in surgical patients
DVT prophylaxis including SCDs
Insulin infusion completed, off insulin drip now.
Other medical diagnoses:
- Paroxysmal A Fib. PO Amiodarone. Metoprolol on hold
- HLD. Statins
- CAD s/p CABG, aspirin, Plavix, Lipitor. Metoprolol is on hold considering patient is on dobutamine.
Patient has been downgraded to CVICU�telemetry status. No additional recommendations at this time. Habitat Conservation Planner/Pulmonary service will now sign off. Thank you for allowing us to be involved in the care of this patient. Please reconsult if there
are any additional questions/concerns, or if patient's respiratory status deteriorates.
Data:
ECHO 03/2025: Normal left ventricular chamber size. Normal left ventricular systolic
function. Left ventricular ejection fraction is 55-60% by visual/volumetric
assessment. Normal regional wall motion. Mild concentric left ventricular
hypertrophy. Normal diastolic function.
Posterior mitral annular calcification. Mitral valve opens normally. Moderate
mitral regurgitation.
Indexed LA volume is severely abnormal (> 48 mL/m2).
Since echocardiogram 12/28/2023 which was reviewed, MR has improved from
moderate-severe to moderate.
Cardiac Cath 03/2025: 1. Multivessel coronary artery disease including hazy stenosis in the proximal LAD with 95% mid LAD stenosis and multisegment high-grade atherosclerotic disease in the mid circumflex
2. Preserved LV systolic function with an estimated ejection fraction of 50-55% with anterolateral hypokinesis. There is 2+ mitral regurgitation.
3. Recent left total knee arthroplasty
CT Chest 03/2025: 1. No evidence of pulmonary embolism.
2. No acute findings in the chest.
3. Mild cardiomegaly.
Cardioversion 01/2024. A fib > NSR
Ablation for A Fib 08/2024
Total time spent today was 57 minutes for this encounter. Time includes reviewing laboratory test/imaging results, reviewing pertinent medical records, obtaining and reviewing medical history, performing an appropriate exam, ordering medications,
tests and procedures. Time also includes documentation of this encounter, coordinating patient care and communicating with other healthcare professionals. Total time does not include separately billed tests performed on this date of service.
Subjective Dataa
Subjective Data
Date of Service:
Date of Service: April 11, 2025
Chief Complaint: Habitat Conservation Planner Follow Up
Subjective:
Patient seen and evaluated today at bedside. He denies chest pain or SOB. Currently on room air breathing comfortably. Heart rate 88. Off dobutamine since this morning. Denies CLARK, nausea, fevers or chills.
Review of Systems
General: Other (Negative unless mentioned above)
Objective Data
Data Reviewed
Vital Signs / I&O / Oxygen:
Vital Signs
Temp Pulse Resp BP Pulse Ox
97.9 F 70 16 166/89 98
04/11/25 09:00 04/11/25 09:13 04/11/25 09:00 04/11/25 09:13 04/11/25 09:00
Intake and Output
04/10/25 04/11/25 04/12/25
06:59 06:59 06:59
Intake Total 1369.8 / 1392.4 1102.5 / 1102.5
Output Total 1280 / 1305 4230 / 4230
Balance 89.8 / 87.4 -3127.5 / -3127.5
SaO2 [CPAP/PSV] 99
SaO2 [SIMV] 100
SaO2 98
Nasal Cannula flow liters per 2
minute
Physical Exam
General: Respiratory Distress (negative), Comfortable, Chills (negative) and Sweats (negative)
HEENT: Normocephalic and Anicteric
Cardiovascular: S1-S2 and Peripheral Edema (+1 lower extremity pitting edema bilaterally)
Respiratory: Clear, Wheeze (negative), Crackles (negative), Rhonchi (negative), Non-Labored Respirations and Stridor (negative)
GI: Soft, Non Distended, Non Tender and Normal Bowel Sounds
Neurology: Awake, Alert, Oriented and Tremors (negative)
Skin: Warm, Dry, Cyanosis (negative) and Jaundice (negative)
Labs/Micro/Reports
Lab Data
04/11/25 03:59
04/11/25 03:59
[2025-04-11] MEDS: PROTONIX 40 MG PO (08:57)
[2025-04-11] MEDS: FLOMAX 0.4 MG PO (08:57)
[2025-04-11] MEDS: NEURONTIN 100 MG PO ×3 (08:57→21:45)
[2025-04-11] MEDS: MAGNESIUM OXIDE 500 MG PO ×2 (08:57→20:03)
[2025-04-11] MEDS: PLAVIX 75 MG PO (08:57)
[2025-04-11] MEDS: LOW STRENGTH ASPIRIN 81 MG PO (08:57)
[2025-04-11] MEDS: VITAMIN C 500 MG PO (08:57)
[2025-04-11] MEDS: SENOKOT-S 1 TABLET PO ×2 (08:57→20:04)
[2025-04-11] MEDS: FEOSOL 325 MG PO (08:57)
[2025-04-11] MEDS: BACTROBAN 2% OINTMENT 1 APPLIC NASAL (08:58)
[2025-04-11] MEDS: LASIX 40 MG IV (08:58)
--- NOTE | 2025-04-11 09:02 | W.PN.CARDCBS ---
Today's Communication / Plan
-
Cont post op care
Eventually resume amiodarone and Eliquis
Impression / Plan
-
.
PCP: Vincenzo Parra
Primary tar distributor operator: Malcolm Potter MD
Impression:
Chest pain
NSTEMI
Multivessel CAD s/p CABG x2 JEFFREY to LAD, GSV to OM, MV repair with Rodríguez annuloplasty ring, MAZE, COLEEN clip 04/07/25
Atrial flutter
Atrial tachycardia
Atrial fibrillation
- Status post PVI 09/05/2024
-Noted to have recurrent atypical atrial flutter/atrial tachycardia at office visit 03/16/2025 and is scheduled for repeat ablation and Watchman in May [address] Potter
Frequent bleeding-cuts, scrapes on oral anticoagulation
Right bundle branch block
Left total knee replacement 03/28/2025
Echocardiogram 12/28/2023: Normal LV size and function, LVEF 60 to 65%, moderate to severe MR, mild TR, PAP 35 to 40 mmHg, mild PI, negative bubble study
JOSE 01/15/2024: Normal LV/RV size and function, LVEF 55%, mitral annular dilatation with severe LA dilatation, moderate MR, no COLEEN a thrombus, mild TR
Echo 04/04/2025: EF 55 to 60%, normal regional wall motion, mild concentric LVH, posterior MAC, moderate MR
Cardiac catheterization 04/03/2025: LM. Patent. LAD: Hazy ostial 60% stenosis, 95% mid stenosis just beyond first diagonal followed by additional 60% mid stenosis. Apical 60% stenosis. Diagonal 50% ostial stenosis and 80% mid stenosis. Left
circumflex. Proximal 90% stenosis, long 80% mid stenosis. RCA: Diffuse minor LI up to 30% throughout vessel. PDA and posterior lateral branch are patent. LVG 50 to 55% with anterolateral hypokinesis. +2 MR.
Plan:
HPI: He presented with chest pain and ruled in for NSTEMI. Peak troponin 0.068. Cardiac cath 04/03 with MV CAD including hazy stenosis in the proximal LAD with 95% mid LAD stenosis and multisegment high-grade atherosclerotic disease in the mid
circumflex. Preserved LV systolic function with EF 50-55% with anterolateral hypokinesis. There is 2+ mitral regurgitation. MR by echo is felt to be moderate�moderate to severe. JOSE 01/2024 showed moderate MR
-s/p CABG x2 JEFFREY to LAD, GSV to OM, MV repair with Rodríguez annuloplasty ring, MAZE, COLEEN clip 04/07/25
Post op JOSE EF 45-50% with trivial residual MR
Continue postop care. CT care per CT surgery; to be removed April 09
off drips
H/H improved after transfusion on April 10 10.4, Hb 8.2 on April 09
Cont DAPT with NSTEMI
Back in aFib.
Would resume amiodarone.
He has a history of a flutter/A-fib.
Eventual resume anticoagulation once okay with surgery. He was on Eliquis preop. Currently on DAPT
Continue Lipitor for hyperlipidemia.
He is status post left TKA March 28, 2025. Continue postop care. Will need PT postop and close Ortho follow-up
Hyponatremia management as per nephrology.
Discussed with CT surgery
Progress Note - Technical Specialist Cytogenetics
Subjective
Date of Service: April 11, 2025
Pt seen and examined. Complaints. No chest pain or shortness of breath.
Objective
Labs:
04/11/25 03:59
04/11/25 03:59
Labs
Hgb 10.4 g/dL (13.0-18.0) L D 04/11/25 03:59
Hct 29.4 % (39.0-52.0) L 04/11/25 03:59
Plt Count 131 10^3/uL (130-400) D 04/11/25 03:59
PT 17.6 Sec (11.4-14.6) H 04/08/25 03:07
INR 1.42 04/08/25 03:07
APTT 38.5 Sec (23.4-35.0) H 04/07/25 14:26
Sodium 133 mmol/L (135-145) L 04/11/25 03:59
Potassium 4.5 mmol/L (3.5-5.1) 04/11/25 03:59
BUN 18 mg/dl (9-20) 04/11/25 03:59
Creatinine 0.7 mg/dL (0.7-1.3) 04/11/25 03:59
Glucose 102 mg/dl (70-99) H 04/11/25 03:59
Vital Signs and I&O:
Vital Signs
Temp Pulse Resp BP Pulse Ox
97.7 F 90 18 157/99 97
04/11/25 04:00 04/11/25 07:00 04/11/25 06:00 04/11/25 07:00 04/11/25 04:00
Vital Signs
Temp Pulse Resp BP Pulse Ox
97.7 F 90 18 157/99 97
04/11/25 04:00 04/11/25 07:00 04/11/25 06:00 04/11/25 07:00 04/11/25 04:00
Intake & Output
04/09/25 04/10/25 04/11/25 04/12/25
06:59 06:59 06:59 06:59
Intake Total 941.8 / 967.0 1369.8 / 1392.4 1102.5 / 1102.5
Output Total 1295 / 1400 1280 / 1305 4230 / 4230
Balance -353.2 / -433.0 89.8 / 87.4 -3127.5 / -3127.5
Physical Exam
Physical Exam
General: No acute distress, AAOX3
Neck: Negative JVD
Heart: Regular, Negative S3 positive S1/S2, Negative S4, No murmur
Lungs: CTA b/l, negative wheezes/rales/rhonchi
Abd: Positive BS, NT/ND, neg rebound/rigidity/guarding
Ext: Negative cyanosis/clubbing/edema
Neuro: nonfocal
[2025-04-11] MEDS: MIRALAX PO (09:03)
--- NOTE | 2025-04-11 09:46 | PTCARENOTE ---
assumed care of pt from previous shift RN, sinus rhythm on tele w + ectopy, VSS, + peripheral pulses +1 edema to left lower, trace to right lower. Lungs diminished, pox 98% on RA. +bs, tolerating PO intake, voids spontaneously. Surgical sites
stable, ecchymosis to left lower. Cordis and PIV flush easily. Plan of care reviewed w the pt and questions encouraged.
--- NOTE | 2025-04-11 11:45 | W.PN.NEPH.PH ---
Today's Communication / Plan
-
Continue fluid restriction
Lasix as needed
Assessment/Plan
-
Assessment
Multivessel coronary disease
Non-ST elevation [place]
Atrial fibrillation
Right bundle branch block
Left knee replacement 03/28/2025
Hyponatremia new
Orthostatic hypotension
Plan
s/p CABGx2 and MV repair on 04/07
sodium improved to 130 status post Samsca 04/10
cont lasix and FR
Weight is down close to baseline EDW which appears to be 86 kg
Current weight 88 kg
-
-
Date of Service: April 11, 2025
CC / HPI / ROS
-
Chief Complaint:
hyponatremia
History of Present Illness:
sodium improved to 130
s/p CABG and MV repair on 04/07
Bp stable off pressors
wt is up
Review of Systems:
pain controlled
no sob at rest
no fever
Labs
-
Labs:
WBC 14.3 10^3/uL (4.8-10.8) H 04/11/25 03:59
RBC 3.07 10^6/uL (4.70-6.10) L 04/11/25 03:59
Hgb 10.4 g/dL (13.0-18.0) L D 04/11/25 03:59
Hct 29.4 % (39.0-52.0) L 04/11/25 03:59
Plt Count 131 10^3/uL (130-400) D 04/11/25 03:59
Sodium 133 mmol/L (135-145) L 04/11/25 03:59
Potassium 4.5 mmol/L (3.5-5.1) 04/11/25 03:59
Chloride 104 mmol/L (98-107) 04/11/25 03:59
Carbon Dioxide 29 mmol/L (22-30) 04/11/25 03:59
BUN 18 mg/dl (9-20) 04/11/25 03:59
Creatinine 0.7 mg/dL (0.7-1.3) 04/11/25 03:59
eGFR > 60.00 04/11/25 03:59
Glucose 102 mg/dl (70-99) H 04/11/25 03:59
Calcium 8.3 mg/dl (8.4-10.2) L 04/11/25 03:59
Vwe-D-Mqionzqhrvi Pept 1730 pg/ml 04/01/25 02:54
Albumin 3.5 g/dl (3.5-5.0) 04/04/25 07:23
Physical Exam
-
Vital Signs:
Vital Signs
Temp Pulse Resp BP Pulse Ox
97.9 F 70 16 166/89 98
04/11/25 09:00 04/11/25 09:13 04/11/25 09:00 04/11/25 09:13 04/11/25 11:07
Cardiovascular:: Regular rate and rhythm
Respiratory:: Bilateral: CTA
Lung Excursion:: Normal (decreased BS)
Abdomen:: Nontender and Soft
Extremity Edema:: +2: Left: and None: Right:
Blancas Catheter: No
--- NOTE | 2025-04-11 13:03 | PTCARENOTE ---
VSS, echo completed.
--- NOTE | 2025-04-11 13:09 | CARDSERVLU ---
Echocardiogram with Lumason completed after protocol screening completed. Allergies verified.
Patent IV site: _r forearm___
IV site flushed with 0.9% NaCl pre and post administration.
Diluted bolus method utilized to enhance visualization of ventricular swan.
Total volume given: __3__ mL
Patient tolerated all procedures well without complications.
--- NOTE | 2025-04-11 14:05 | CM ---
Chart reviewed. Patient lying in bed at bedside. Patient is independent of ADLS, lives with his in a [address], 1 [facility], recently had knee surgery and was ambulating with a RW and also has a SPC. PT recommending Acute Rehab. Patient and his
agree. Patient and his would like to go to [place]. Referral sent. Plan is for the patient to go to [place] when medically stable. CM to follow
[2025-04-11] MEDS: NSS IV (15:21)
--- NOTE | 2025-04-11 15:26 | PTCARENOTE ---
pt assisted from bed to chair without incident.
[2025-04-11] MEDS: LIPITOR 80 MG PO (18:00)
--- NOTE | 2025-04-11 20:00 | PTCARENOTE ---
Received pt from [facility]. pt resting in chair, complains of 3/10 back pain, see MAR. pt is AAOx4. Afib on monitor. VSS. heart sounds audible, radial and DP pulses palpable, +2 left IZAIAH, trace anasarca, temp epicardial V-wires insulated. lung sounds
diminished throughout, spo2 97% on RA. +BS x4 quadrants, abdomen soft, non tender, LBM 04/11. pt voiding clear yellow urine without difficulty. surgical sites maintained. PIV maintained. pt cleaned with CHG wipe, new gown and tele leads provided. pt
assisted back to bed, rolling walker used. call russo within reach. will continue to monitor.
[2025-04-11] MEDS: FLEXERIL 5 MG PO (20:03)
[2025-04-11] MEDS: XANAX 0.25 MG PO (21:46)
[2025-04-11] MEDS: PACERONE 200 MG PO (21:57)
--- NOTE | 2025-04-11 23:43 | PTCARENOTE ---
Pt assessment unchanged. pt converted from Afib to NSR. VSS. pt resting comfortably in bed. call russo within reach. will continue to monitor.
[2025-04-12] VITALS (10 sets, daily range): BP systolic 95–151; BP diastolic 70–121; PULSE 78; O2SAT 95; BMI 30.3
[2025-04-12] MEDS: ROXICODONE 2.5 MG PO (01:56)
[2025-04-12 02:35] LABS: Hematocrit 29.1 % (39.0-52.0); Mean Corp Hgb Conc. 34.4 g/dL (33.0-37.0); Mean Corpuscular Hgb 33.2 pg (27.0-31.0); Mean Corpuscular Volume 96.7 fL (80.0-94.0); Platelet Count 150 10^3/uL (130-400); Red Blood Cell Count 3.01 10^6/uL (4.70-6.10); Red Cell Dist. Width 17.5 % (11.5-14.5); White Blood Cell Count 12.6 10^3/uL (4.8-10.8)
[2025-04-12 02:59] LABS: Blood Urea Nitrogen 18 mg/dl (9-20); Calcium 8.1 mg/dl (8.4-10.2); Carbon Dioxide 25 mmol/L (22-30); Chloride 104 mmol/L (98-107); Estimated Creatinine Clearance 83 ml/min; Glucose 96 mg/dl (70-99); Magnesium 2.1 mg/dl (1.6-2.3); Potassium 4.4 mmol/L (3.5-5.1); Sodium 133 mmol/L (135-145); eGFR > 60.00
--- NOTE | 2025-04-12 04:00 | PTCARENOTE ---
Pt assessment unchanged. NSR with 1st degree AVB confirmed on EKG. labs drawn and sent. call russo within reach. will continue to monitor.
--- NOTE | 2025-04-12 04:13 | W.PN.CT ---
Today's Communication / Plan
-
Plan:
-No major issues overnight. Hemodynamically and neurologically intact
-Off all drips. Weaned off Dobutamine yesterday 04/11. Milrinone was weaned off on 04/08
-Rhythm appears to be fluctuating between rate controlled a-fib and NSR with 1st deg HB with PAC's/PVC's. Has temporary V wire at backup of 45 bpm MA 10
-Adin, a-line and yannick removed 04/10
-24hrs u/o 1925mL
-Will resume Amiodarone and BB
-Will eventually resume Eliquis for a-fib/flutter hx, S/P MAZE
-Cont. current meds (ASA, Lipitor, Flomax, Protonix)
-Monitor hyponatremia, 133, was 133 yesterday. Cont. diuresis, fluid restriction. Received Samsca per Nephrology on 04/10
-H/H stable @ 09/13.1, plts 150. Left knee noted to be ecchymotic with some swelling
-Will reach out to orthopedic surgery to evaluate left knee and remove juan diego
-Maintain temporary V wire (will cut before d/c home)
-F/U 2-view cxr
-Encourage use of IS
-OOB into chair/Ambulate/PT-OT
-Physiatry to evaluate for Ball placement
-Acute rehab placement in 1-2 days
Assessment / Plan
-
Assessment:
-S/P Median sternotomy/ CABG x 2 (JEFFREY to LAD, GSV to OM)/ Endoscopic harvest/prep of RLE GSV/ MV Repair (30mm Rodríguez 5200 Annuloplasty Ring)/ [facility]compass MAZE procedure/ELAA (50mm AtriClip), by Dr. Stokes, 04/07/24, pod#5
-2V CAD w/ mild NSTEMI
-[place]
-Atrial flutter/tachycardia s/p prior PVI 09/05/24 (on Eliquis @ home)
-LVEF 55-60% preop; 45-50% postop
-Chronic diastolic CHF
-Scheduled for repeat ablation & watchman in May 2025
-RBBB
-Hx of frequent bleeding on oral anticoagulation
-Preoperative anemia (Hgb 7.2)
-Preoperative hyponatremia
-HTN
-HLD
-BPH
-GERD
-S/P L TKA 03/28/2025
-S/P R knee arthroscopy and meniscus repair
-S/P lumbar laminectomy (L4/L5), 10/2024
-S/p Left inguinal herniorrhaphy, 06/2024
-S/P S/p right eyelid surgery, 12/2023
-Acute postop blood loss anemia on preop anemia (received 2u PRBC's intraop and 2u postop)
-Acute intraop coagulopathy/ postop thrombocytopenia (received 1 {5pk) plts intraop and 1 {5pk} plts postop)
-Acute postop atelectasis
-Acute intraop pulmonary hypertension
-Acute postop cardiogenic shock
-Acute postop hypovolemia with subsequent hypervolemia
-Acute postop hyponatremia, 127
Discussed patient care with: Cardiology, Nursing, Respiratory Therapy, Pharmacy and Care Team
Subjective
Procedure
S/P Median sternotomy/ CABG x 2 (JEFFREY to LAD, GSV to OM)/ Endoscopic harvest/prep of RLE GSV/ MV Repair (30mm Rodríguez 5200 Annuloplasty Ring)/ Encompass MAZE procedure/ELAA (50mm AtriClip), by Dr. Stokes, 04/07/24
-
Date of Service: April 12, 2025
Pt c/o mild incisional pain, otherwise feels well
Objective Data
-
Lab Results
04/12/25 01:45
04/12/25 01:45
PT 17.6 Sec (11.4-14.6) H 04/08/25 03:07
INR 1.42 04/08/25 03:07
APTT 38.5 Sec (23.4-35.0) H 04/07/25 14:26
Vital Signs
Vital Signs
Temp Pulse Resp BP Pulse Ox
97.8 F 87 18 123/75 96
04/12/25 03:57 04/11/25 23:36 04/12/25 03:57 04/11/25 23:36 04/12/25 03:57
CT Intake/Output/Weight
04/11/25 04/11/25 04/12/25
06:59 18:59 06:59
Intake Total 135.6 / 1102.5 340 / 340
Output Total 2600 / 4230 1375 / 1675 300 / 1675
Balance -2464.4 / -3127.5 -1035 / -1335 -300 / -1335
SaO2: 96 (RA)
Physical Exam
-
General: Awake, Oriented and AOx3
Cardiovascular: Irregular rate & rhythm, No Murmurs, No Rub and No Gallop
Respiratory: Decreased Breath Sounds (at bases, otherwise clear)
Sternum: Stable
Incision: Clean, Dry, Intact and Dressing Intact
Extremities: Edema +1
Data Reviewed
-
Lab Results: Results Reviewed
Medications: Active Meds Reviewed
Chest X-Ray: Report Reviewed and Image Reviewed
ECG: Report Reviewed and Image Reviewed
[2025-04-12] MEDS: CALCIUM GLUCONATE 100 IV (04:36)
[2025-04-12] MEDS: TYLENOL 1000 MG PO ×3 (05:36→21:54)
--- NOTE | 2025-04-12 07:30 | PTCARENOTE ---
Assumed care of patient from night manager RN, AAO x 3. Sitting up in the chair. SR on monitor. Epicardial wire insulated. Room air 95%. Abdomen soft and non tender. Voiding independently. Lt leg with plus 2 edema, general anasarca noted at
plus 1. Pulses palpable. Plan for day discussed.
[2025-04-12] MEDS: LASIX 60 MG PO ×2 (07:50→16:11)
[2025-04-12] MEDS: PACERONE 200 MG PO ×3 (07:50→21:54)
[2025-04-12] MEDS: MAGNESIUM OXIDE 500 MG PO ×2 (07:50→19:59)
[2025-04-12] MEDS: PROTONIX 40 MG PO (07:50)
[2025-04-12] MEDS: MIRALAX PO (07:51)
[2025-04-12] MEDS: FEOSOL 325 MG PO (07:51)
[2025-04-12] MEDS: VITAMIN C 500 MG PO (07:51)
[2025-04-12] MEDS: SENOKOT-S 1 TABLET PO ×2 (07:51→19:59)
[2025-04-12] MEDS: NEURONTIN 100 MG PO ×3 (07:51→21:54)
[2025-04-12] MEDS: COREG 3.125 MG PO ×2 (07:51→20:39)
[2025-04-12] MEDS: FLOMAX 0.4 MG PO (07:51)
[2025-04-12] MEDS: LOW STRENGTH ASPIRIN 81 MG PO (07:51)
[2025-04-12] MEDS: PLAVIX 75 MG PO (07:52)
--- NOTE | 2025-04-12 10:39 | W.PN.NEPH.PH ---
Today's Communication / Plan
-
cont lasix, extra dose if needed
follow labs and maintain FR
Assessment/Plan
-
Assessment
Multivessel coronary disease
Non-ST elevation [place]
Atrial fibrillation
Right bundle branch block
Left knee replacement 03/28/2025
Hyponatremia new
Orthostatic hypotension
Plan
s/p CABGx2 and MV repair on 04/07
sodium improved to 133 status post Samsca 04/10
cont lasix and FR as wt is up still from baseline EDW which appears to be 86 kg
Bp stable
rehab eval
follow labs
-
-
Date of Service: April 12, 2025
CC / HPI / ROS
-
Chief Complaint:
hyponatremia
History of Present Illness:
sodium improved to 133
s/p CABG and MV repair on 04/07
Bp stable off pressors
wt is up
Review of Systems:
pain controlled
no sob at rest
no fever
Labs
-
Labs:
WBC 12.6 10^3/uL (4.8-10.8) H 04/12/25 01:45
RBC 3.01 10^6/uL (4.70-6.10) L 04/12/25 01:45
Hgb 10.0 g/dL (13.0-18.0) L 04/12/25 01:45
Hct 29.1 % (39.0-52.0) L 04/12/25 01:45
Plt Count 150 10^3/uL (130-400) 04/12/25 01:45
Sodium 133 mmol/L (135-145) L 04/12/25 01:45
Potassium 4.4 mmol/L (3.5-5.1) 04/12/25 01:45
Chloride 104 mmol/L (98-107) 04/12/25 01:45
Carbon Dioxide 25 mmol/L (22-30) 04/12/25 01:45
BUN 18 mg/dl (9-20) 04/12/25 01:45
Creatinine 0.7 mg/dL (0.7-1.3) 04/12/25 01:45
eGFR > 60.00 04/12/25 01:45
Glucose 96 mg/dl (70-99) 04/12/25 01:45
Calcium 8.1 mg/dl (8.4-10.2) L 04/12/25 01:45
Zpc-O-Hhryvphqykj Pept 1730 pg/ml 04/01/25 02:54
Albumin 3.5 g/dl (3.5-5.0) 04/04/25 07:23
Physical Exam
-
Vital Signs:
Vital Signs
Temp Pulse Resp BP Pulse Ox
97.6 F 87 16 146/98 96
04/12/25 08:00 04/12/25 09:00 04/12/25 08:00 04/12/25 07:36 04/12/25 09:14
Cardiovascular:: Regular rate and rhythm
Respiratory:: Bilateral: CTA
Lung Excursion:: Normal (decreased BS)
Abdomen:: Nontender and Soft
Extremity Edema:: +2: Left: and None: Right:
Blancas Catheter: No
[2025-04-12] MEDS: NSS IV (11:42)
--- NOTE | 2025-04-12 11:43 | PTCARENOTE ---
Ambulated with PT. Voiding w/o issue. VSS. Assessment unchanged from prior.
[2025-04-12] MEDS: FLEXERIL 5 MG PO (11:56)
--- NOTE | 2025-04-12 15:57 | CM ---
Chart reviewed. Patient is independent of ADLS, lives with his in a [address], [facility], ambulates with a RW. Patient recently had a L TKA on 03/28. PT evaluation recommending Acute Rehab. Referral sent to [facility]. Plan is for the patient to go to
Acute Rehab when medically stable. CM to follow
--- NOTE | 2025-04-12 16:02 | DOWNTIME ---
There was a [employer] Client Seismology Technical Officer Downtime on 04/12/2025 from 1230 to 04/12/2025 at 1550. Downtime documentation of patient's care, including medication administrations, has been reconciled in the electronic record per guidelines. Refer to the
patient's paper chart under the miscellaneous tab to see printed paper medication records and downtime forms.
--- NOTE | 2025-04-12 16:05 | PTCARENOTE ---
Ambulated in hallway with RN. Denies pain. VSS. Assessment otherwise unchanged from prior.
--- NOTE | 2025-04-12 16:45 | W.PN.CARDCBS ---
Addendum entered and electronically signed by Tremaine Nolan DO 04/12/25 21:33:
I saw and examined the patient.
The Boat Rental Clerk's note was reviewed and I agree with the note.
Comment:
Plan:
Cont post op care
Transtioned to Eliquis, cont ASA. Plavix was stopped
Cont amiodarone and beta maddy
Plan is for rehab on d/c
Original Note:
Today's Communication / Plan
-
continue post op care
stop plavix, transition to eliquis. continue asa.
diuresis per nephrology
follow rhythm on amio/BB
plan for acute rehab on DC
Impression / Plan
-
.
PCP: Vincenzo Parra
Primary drafter marine: Malcolm Potter MD
Impression:
Chest pain
NSTEMI
Multivessel CAD s/p CABG x2 JEFFREY to LAD, GSV to OM, MV repair with Rodríguez annuloplasty ring, MAZE, COLEEN clip 04/07/25
Atrial flutter
Atrial tachycardia
Atrial fibrillation
- Status post PVI 09/05/2024
-Noted to have recurrent atypical atrial flutter/atrial tachycardia at office visit 03/16/2025 and is scheduled for repeat ablation and Watchman in May [address] Potter
Frequent bleeding-cuts, scrapes on oral anticoagulation
Right bundle branch block
Left total knee replacement 03/28/2025
Echocardiogram 12/28/2023: Normal LV size and function, LVEF 60 to 65%, moderate to severe MR, mild TR, PAP 35 to 40 mmHg, mild PI, negative bubble study
JOSE 01/15/2024: Normal LV/RV size and function, LVEF 55%, mitral annular dilatation with severe LA dilatation, moderate MR, no COLEEN a thrombus, mild TR
Echo 04/04/2025: EF 55 to 60%, normal regional wall motion, mild concentric LVH, posterior MAC, moderate MR
Cardiac catheterization 04/03/2025: LM. Patent. LAD: Hazy ostial 60% stenosis, 95% mid stenosis just beyond first diagonal followed by additional 60% mid stenosis. Apical 60% stenosis. Diagonal 50% ostial stenosis and 80% mid stenosis. Left
circumflex. Proximal 90% stenosis, long 80% mid stenosis. RCA: Diffuse minor LI up to 30% throughout vessel. PDA and posterior lateral branch are patent. LVG 50 to 55% with anterolateral hypokinesis. +2 MR.
Plan:
-He presented with chest pain and ruled in for NSTEMI. Peak troponin 0.068. Cardiac cath 04/03 with MV CAD including hazy stenosis in the proximal LAD with 95% mid LAD stenosis and multisegment high-grade atherosclerotic disease in the mid
circumflex. Preserved LV systolic function with EF 50-55% with anterolateral hypokinesis. There is 2+ mitral regurgitation. MR by echo is felt to be moderate�moderate to severe. JOSE 01/2024 showed moderate MR
-s/p CABG x2 JEFFREY to LAD, GSV to OM, MV repair with Rodríguez annuloplasty ring, MAZE, COLEEN clip 04/07/25
-Post op JOSE EF 45-50% with trivial residual MR
-has been weaned off milrinone 04/08 and dobutamine 04/11
-s/p L TKA 03/28/25. LLE with significant ecchymoses. juan diego still in place. ortho to evaluate.
-he has received 6 U PRBCs, 2 plts. hgb 10, plts 150K. was on asa, plavix post op due to NSTEMI presentation however being transitioned to asa, eliquis tonight per CT surgery as also with PAF.
-appears to be in SR with 1st degree av block on review of tele overnight. one 4 beat run of possible junctional rhythm earlier today however no recurrence. continue amio, coreg
-continue po lasix 60mg BID. sodium level stable at 133. nephrology following. Cr stable at 0.7
-Continue Lipitor for hyperlipidemia
-continue post op care, PT/OT, OOB/IS. suspect will need acute rehab upon DC
-OP cardiac follow up has been arranged
Progress Note - Splitting Machine Tender
Subjective
Date of Service: April 12, 2025
resting comfortably
Objective
Labs:
04/12/25 01:45
04/12/25 01:45
Labs
Hgb 10.0 g/dL (13.0-18.0) L 04/12/25 01:45
Hct 29.1 % (39.0-52.0) L 04/12/25 01:45
Plt Count 150 10^3/uL (130-400) 04/12/25 01:45
PT 17.6 Sec (11.4-14.6) H 04/08/25 03:07
INR 1.42 04/08/25 03:07
APTT 38.5 Sec (23.4-35.0) H 04/07/25 14:26
Sodium 133 mmol/L (135-145) L 04/12/25 01:45
Potassium 4.4 mmol/L (3.5-5.1) 04/12/25 01:45
BUN 18 mg/dl (9-20) 04/12/25 01:45
Creatinine 0.7 mg/dL (0.7-1.3) 04/12/25 01:45
Glucose 96 mg/dl (70-99) 04/12/25 01:45
Vital Signs and I&O:
Vital Signs
Temp Pulse Resp BP Pulse Ox
97.8 F 84 16 151/94 96
04/12/25 16:04 04/12/25 12:00 04/12/25 16:04 04/12/25 11:32 04/12/25 16:04
Vital Signs
Temp Pulse Resp BP Pulse Ox
97.8 F 84 16 151/94 96
04/12/25 16:04 04/12/25 12:00 04/12/25 16:04 04/12/25 11:32 04/12/25 16:04
Intake & Output
04/10/25 04/11/25 04/12/25 04/13/25
07:59 07:59 07:59 07:59
Intake Total 1367.2 / 1409.8 1079.9 / 1079.9 340 / 580 600 / 600
Output Total 1200 / 1230 4205 / 4205 2049 / 2049 950 / 950
Balance 167.2 / 179.8 -3125.1 / -3125.1 -1710 / -1470 -350 / -350
Physical Exam
Physical Exam
GEN: No distress, resting comfortably
HEENT: supple, mmm
LUNGS: no audible wheezes
CV: Reg rhythm on tele
EXT: No cyanosis, clubbing. 2+ edema of LLE, 1+ edema of RLE.
NEURO: Gross non-focal
SKIN: Warm, pink, dry. No rash. LLE with significant ecchymoses from thigh to ankle. juan diego of L knee in place
[2025-04-12] MEDS: LIPITOR 80 MG PO (18:18)
--- NOTE | 2025-04-12 20:00 | PTCARENOTE ---
Received pt from [facility]. pt resting in chair, denies pain. pt is AAOx4. NSR 1st degree AVB on monitor. VSS. heart sounds audible, radial and DP pulses palpable, +2 left IZAIAH, trace anasarca, temp epicardial V-wires insulated. lung sounds diminished
throughout, spo2 94% on RA. +BS x4 quadrants, abdomen soft, non tender, LBM 04/11. pt voiding clear yellow urine without difficulty. surgical sites maintained. PIV maintained. pt cleaned with CHG wipe, new gown and tele leads provided. call russo
within reach. will continue to monitor.
[2025-04-12] MEDS: ELIQUIS PO ×2 (20:02→20:04)
[2025-04-12] MEDS: ELIQUIS 5 MG PO (20:23)
[2025-04-12] MEDS: XANAX 0.25 MG PO (21:54)
[2025-04-13] VITALS (8 sets, daily range): BP systolic 108–148; BP diastolic 65–97; PULSE 70; O2SAT 92
--- NOTE | 2025-04-13 | PTCARENOTE ---
Pt asessment unchanged. NSR with 1st degree AVB on monitor. VSS. pt resting comfortably in bed. calll russo within reach. will continue to monitor.
[2025-04-13] MEDS: FLEXERIL 5 MG PO ×2 (02:28→15:52)
[2025-04-13 03:51] LABS: Hematocrit 29.9 % (39.0-52.0); Hemoglobin 10.2 g/dL (13.0-18.0); Mean Corp Hgb Conc. 34.1 g/dL (33.0-37.0); Mean Corpuscular Hgb 33.4 pg (27.0-31.0); Mean Platelet Volume 10.9 fL (7.4-10.4); Platelet Count 165 10^3/uL (130-400); Red Blood Cell Count 3.05 10^6/uL (4.70-6.10); Red Cell Dist. Width 17.4 % (11.5-14.5); White Blood Cell Count 11.5 10^3/uL (4.8-10.8)
--- NOTE | 2025-04-13 04:00 | PTCARENOTE ---
Pt assessment unchanged. labs drawn and sent. will continue to monitor.
[2025-04-13 04:06] LABS: Blood Urea Nitrogen 19 mg/dl (9-20); Carbon Dioxide 27 mmol/L (22-30); Chloride 102 mmol/L (98-107); Estimated Creatinine Clearance 82 ml/min; Glucose 104 mg/dl (70-99); Magnesium 2.1 mg/dl (1.6-2.3); Potassium 4.5 mmol/L (3.5-5.1); Sodium 131 mmol/L (135-145); eGFR > 60.00
[2025-04-13] MEDS: TYLENOL 1000 MG PO ×3 (04:23→22:04)
--- NOTE | 2025-04-13 06:07 | W.PN.CT ---
Today's Communication / Plan
-
-pod #6
-no issues overnight. Hemodynamically and neurologically intact
-in a-fib 50s-60s- Eliquis started on 04/12 pm. Plavix stopped. Currently, on ASA and Eliquis. Appreciate Cardiology input
-sodium improved to 133 on . Na 131 today. Status post Samsca 04/10. Appreciate Nephrology input
-small b/l pleural effusions- follow
-on Lasix 60 po bid (UO 775/2375 in 12/24 hrs) and 48 oz FR as wt is up (90 kg on 04/12) from baseline EDW, which appears to be 86 kg. Continue diuresis (Cr stable 0.7)
-off all drips. Weaned off Dobutamine 04/11. Milrinone was weaned off on 04/08
-appreciate Dr. Lerma's input re: recent L TKR - juan diego to be removed during follow-up at [facility]
-maintain temporary V wire (will cut before d/c to Rehab)
-Physiatry to evaluate for Ball placement. Appreciate CM input
-continue PT/OT
-acute rehab placement soon
Assessment / Plan
-
Assessment:
-S/P Median sternotomy/ CABG x 2 (JEFFREY to LAD, GSV to OM)/ Endoscopic harvest/prep of RLE GSV/ MV Repair (30mm Rodríguez 5200 Annuloplasty Ring)/ [facility] MAZE procedure/ELAA (50mm AtriClip), by Dr. Stokes, 04/07/24, pod#6
-2V CAD w/ mild NSTEMI
-[place]
-Atrial flutter/tachycardia s/p prior PVI 09/05/24 (on Eliquis @ home)
-LVEF 55-60% preop; 45-50% postop
-Chronic diastolic CHF
-Scheduled for repeat ablation & watchman in May 2025
-RBBB
-Hx of frequent bleeding on oral anticoagulation
-Preoperative anemia (Hgb 7.2)
-Preoperative hyponatremia
-HTN
-HLD
-BPH
-GERD
-S/P L TKA 03/28/2025
-S/P R knee arthroscopy and meniscus repair
-S/P lumbar laminectomy (L4/L5), 10/2024
-S/p Left inguinal herniorrhaphy, 06/2024
-S/P S/p right eyelid surgery, 12/2023
-Acute postop blood loss anemia on preop anemia (received 2u PRBC's intraop and 2u postop)
-Acute intraop coagulopathy/ postop thrombocytopenia (received 1 {5pk) plts intraop and 1 {5pk} plts postop)
-Acute postop atelectasis, small b/l pleural effusions
-Acute intraop pulmonary hypertension
-Acute postop cardiogenic shock
-Acute postop hypovolemia with subsequent hypervolemia
-Acute postop hyponatremia, 127
Discussed patient care with: Nursing and Care Team
Subjective
Procedure
S/P Median sternotomy/ CABG x 2 (JEFFREY to LAD, GSV to OM)/ Endoscopic harvest/prep of RLE GSV/ MV Repair (30mm Rodríguez 5200 Annuloplasty Ring)/ [facility] MAZE procedure/ELAA (50mm AtriClip), by Dr. Stokes, 04/07/24
-
Date of Service: April 13, 2025
Objective Data
-
PT 17.6 Sec (11.4-14.6) H 04/08/25 03:07
INR 1.42 04/08/25 03:07
APTT 38.5 Sec (23.4-35.0) H 04/07/25 14:26
Vital Signs
Vital Signs
Temp Pulse Resp BP Pulse Ox
97.9 F 67 18 107/80 94
04/12/25 23:54 04/12/25 23:00 04/12/25 23:54 04/12/25 20:00 04/12/25 23:54
CT Intake/Output/Weight
04/12/25 04/12/25 04/13/25
06:59 18:59 06:59
Intake Total 600 / 600
Output Total 675 / 0 1600 / 2150 550 / 2150
Balance -675 / -1710 -1000 / -1550 -550 / -1550
SaO2: 94
Physical Exam
-
General: Awake, Oriented and AOx3
Cardiovascular: Irregular rate & rhythm, No Murmurs, No Rub and No Gallop
Respiratory: Decreased Breath Sounds (at bases, otherwise clear)
Sternum: Stable
Incision: Clean, Dry, Intact and Dressing Intact
Abdomen: soft, nontender, nondistended, + bowel sounds, + BMs
Extremities: Edema +1 on L (s/p L TKR). No edema on R
Data Reviewed
-
Lab Results: Results Reviewed
Medications: Active Meds Reviewed
Chest X-Ray: Report Reviewed and Image Reviewed
ECG: Report Reviewed and Image Reviewed
[2025-04-13] MEDS: NEURONTIN 100 MG PO ×3 (08:11→22:04)
[2025-04-13] MEDS: SENOKOT-S 1 TABLET PO ×2 (08:11→20:02)
[2025-04-13] MEDS: ELIQUIS 5 MG PO ×2 (08:12→20:02)
[2025-04-13] MEDS: FLOMAX 0.4 MG PO (08:12)
[2025-04-13] MEDS: FEOSOL 325 MG PO (08:12)
[2025-04-13] MEDS: LOW STRENGTH ASPIRIN 81 MG PO (08:12)
[2025-04-13] MEDS: VITAMIN C 500 MG PO (08:12)
[2025-04-13] MEDS: LASIX 60 MG PO ×2 (08:12→15:51)
[2025-04-13] MEDS: PROTONIX 40 MG PO (08:12)
[2025-04-13] MEDS: MAGNESIUM OXIDE 500 MG PO ×2 (08:13→20:02)
--- NOTE | 2025-04-13 08:15 | PTCARENOTE ---
pt received from previous RN, oriented, OOB in chair. SB/SR w/ 1st degree AVB/BBB and occasional PVCs, HR 50-60s. V wires insulated. SBP 110s. palpable pulses, trace generalized anasarca, +1 LLE edema. pt on RA, 94% POX. lungs clear, diminished in
bases. IS 1750ml. denies cough or SOB. abdomen s/n, denies n/v. diet tolerated. voids. +BS, pt states had BM 04/11. sternal aquacel in place, chest tube dressing c/d/i. 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 R knee incision FRANCISCO. L knee juan diego in place. PIV. see worklist for
VS, I&O, and assessment.
[2025-04-13] MEDS: PACERONE 200 MG PO (08:30)
[2025-04-13] MEDS: COREG 3.125 MG PO (08:30)
--- NOTE | 2025-04-13 09:24 | PTCARENOTE ---
pt placed back to bed, V wire cut by matlab developer. CT sutures FRANCISCO.
[2025-04-13] MEDS: MIRALAX PO (09:46)
--- NOTE | 2025-04-13 10:06 | W.PN.CARDCBS ---
Addendum entered and electronically signed by Judit Potter MD 04/13/25 10:46:
I saw and examined the patient.
The Director [employer]'s note was reviewed and I agree with the note.
Comment: General: Well developed, well nourished in NAD.
Heart: Non displaced PMI, RRR, no murmurs, No S3, S4, no rubs.
Lungs: Clear to auscultation bilaterally, no wheeze, rhonchi, rubs bilaterally,
Extremities: No clubbing, left leg ecchymosis
Neuro: Grossly nonfocal, awake, alert and oriented x3.
Multivessel CAD s/p CABG x2 JEFFREY to LAD, GSV to OM, MV repair with Rodríguez annuloplasty ring, MAZE, COLEEN clip 04/07/25
Mobitz type I AV block asymptomatic
Atrial fibrillation status post PVI with recurrence and atrial tachycardia currently in sinus rhythm
Recent hip replacement surgery
Continue usual postop care
Mobitz type I asymptomatic noted at rest. Heart rates 80 bpm with exertion but have not been able to pull strips to see if sinus rhythm at that time. Decrease amiodarone to 200 mg daily. Hold carvedilol. Will also run by electrophysiology.
Discussed with CT service. No indication for pacemaker at this time.
Continue anticoagulation Along with 81 mg aspirin
Original Note:
Today's Communication / Plan
-
check repeat EKG
consider holding coreg
follow on tele
continue post op care
Impression / Plan
-
.
PCP: Vincenzo Parra
Primary machining engineer: Malcolm Potter MD
Impression:
Chest pain
NSTEMI
Multivessel CAD s/p CABG x2 JEFFREY to LAD, GSV to OM, MV repair with Rodríguez annuloplasty ring, MAZE, COLEEN clip 04/07/25
Atrial flutter
Atrial tachycardia
Atrial fibrillation
- Status post PVI 09/05/2024
-Noted to have recurrent atypical atrial flutter/atrial tachycardia at office visit 03/16/2025 and is scheduled for repeat ablation and Watchman in May [address] Potter
Frequent bleeding-cuts, scrapes on oral anticoagulation
Right bundle branch block
Left total knee replacement 03/28/2025
Echocardiogram 12/28/2023: Normal LV size and function, LVEF 60 to 65%, moderate to severe MR, mild TR, PAP 35 to 40 mmHg, mild PI, negative bubble study
JOSE 01/15/2024: Normal LV/RV size and function, LVEF 55%, mitral annular dilatation with severe LA dilatation, moderate MR, no COLEEN a thrombus, mild TR
Echo 04/04/2025: EF 55 to 60%, normal regional wall motion, mild concentric LVH, posterior MAC, moderate MR
Cardiac catheterization 04/03/2025: LM. Patent. LAD: Hazy ostial 60% stenosis, 95% mid stenosis just beyond first diagonal followed by additional 60% mid stenosis. Apical 60% stenosis. Diagonal 50% ostial stenosis and 80% mid stenosis. Left
circumflex. Proximal 90% stenosis, long 80% mid stenosis. RCA: Diffuse minor LI up to 30% throughout vessel. PDA and posterior lateral branch are patent. LVG 50 to 55% with anterolateral hypokinesis. +2 MR.
Plan:
-He underwent L TKA 03/28/25, then presented to ER with chest pain 03/31 and ruled in for NSTEMI. Peak troponin 0.068. Cardiac cath 04/03 with MV CAD including hazy stenosis in the proximal LAD with 95% mid LAD stenosis and multisegment high-grade
atherosclerotic disease in the mid circumflex. Preserved LV systolic function with EF 50-55% with anterolateral hypokinesis. There is 2+ mitral regurgitation. MR by echo is felt to be moderate�moderate to severe. JOSE 01/2024 showed moderate MR
-s/p CABG x2 JEFFREY to LAD, GSV to OM, MV repair with Rodríguez annuloplasty ring, MAZE, COLEEN clip 04/07/25
-Post op JOSE EF 45-50% with trivial residual MR
-has been weaned off milrinone 04/08 and dobutamine 04/11
-he has received 6 U PRBCs, 2 plts. hgb 10.2, plts 165K. was on asa, plavix post op due to NSTEMI presentation however now transitioned to asa, eliquis as also with PAF.
-there was concern for rate controlled afib noted on tele however upon further review, appears to be in sinus rhythm with what appears to be long 1st degree av block, asymptomatic. check repeat EKG now. continue amio. likely hold coreg for now.
-nephrology managing hyponatremia. required samsca earlier in stay. Na 131 on 04/13.
-continue diuresis with po lasix 60mg BID. Cr stable at 0.8
-Continue Lipitor for hyperlipidemia
-continue post op care, PT/OT, OOB/IS.
-plan for [facility] upon DC for both post CABG/MV repair and L TKA. based on bed availability, likely in AM
-ortho to remove juan diego while at [facility]
-OP cardiac follow up has been arranged
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
Progress Note - Laundry Agent
Subjective
Date of Service: April 13, 2025
feeling well. no palpitations
Objective
Labs:
04/13/25 03:22
04/13/25 03:22
Labs
Hgb 10.2 g/dL (13.0-18.0) L 04/13/25 03:22
Hct 29.9 % (39.0-52.0) L 04/13/25 03:22
Plt Count 165 10^3/uL (130-400) 04/13/25 03:22
PT 17.6 Sec (11.4-14.6) H 04/08/25 03:07
INR 1.42 04/08/25 03:07
APTT 38.5 Sec (23.4-35.0) H 04/07/25 14:26
Sodium 131 mmol/L (135-145) L 04/13/25 03:22
Potassium 4.5 mmol/L (3.5-5.1) 04/13/25 03:22
BUN 19 mg/dl (9-20) 04/13/25 03:22
Creatinine 0.8 mg/dL (0.7-1.3) 04/13/25 03:22
Glucose 104 mg/dl (70-99) H 04/13/25 03:22
Vital Signs and I&O:
Vital Signs
Temp Pulse Resp BP Pulse Ox
97.6 F 74 18 114/75 94
04/13/25 07:56 04/13/25 09:00 04/13/25 07:56 04/13/25 07:50 04/13/25 08:38
Vital Signs
Temp Pulse Resp BP Pulse Ox
97.6 F 74 18 114/75 94
04/13/25 07:56 04/13/25 09:00 04/13/25 07:56 04/13/25 07:50 04/13/25 08:38
Intake & Output
04/11/25 04/12/25 04/13/25 04/14/25
07:59 07:59 07:59 07:59
Intake Total 1079.9 / 1079.9 340 / 580 800 / 800
Output Total 4205 / 4205 2050 / 2050 2375 / 2375 300 / 300
Balance -3125.1 / -3125.1 -1710 / -1470 -1575 / -1575 -300 / -300
Physical Exam
Physical Exam
GEN: No distress, awake, alert, oriented x3
HEENT: supple, anicteric, mmm, eomi
LUNGS: Few crackles B/L bases, no wheezes
CV: Reg, S1/S2, no murmur
ABD: soft, BS+, NT/ND
EXT: No cyanosis, clubbing. Trace edema of RLE, 1+ edema of LLE with associated ecchymoses
NEURO: Gross non-focal
SKIN: Warm, pink, dry. No rash. Sternotomy dressing c/d/i.
--- NOTE | 2025-04-13 10:40 | PTCARENOTE ---
EKG performed, Dr Judit Potter aware of results. pt report given to Nicolette DALE. pt transferred to IVU w/ all belongings, pt ambulated w/ assist and RW.
--- NOTE | 2025-04-13 11:00 | PTCARENOTE ---
Pt transferred from CVICU to IVU, walked slowly down hallway with CV using walker, tolerating well. PT to chair bedside, HR SR with BBB, occ PAC, and 1st degree heart block noted. Mid chest inc intact with post aquacell drsg, sutures below drsg
intact from CTs post removal. BP stable, Lungs decreased at bases bilat, O2 sat=94-95% on R/A. L knee with juan diego from previous total knee surgery intact, +1 edema noted on knee/lower ext. Pt comfortable, call russo at side.
--- NOTE | 2025-04-13 11:35 | CM ---
Patient transferred to IVU from CVICU, pt. POD# 6.
Met w/ patient at bedside. He reports that he is feeling well. We reviewed DC plan for transfer to [facility].
Bed is available on 04/14.
I will coordinate transfer to [facility] on 04/14, if medically stable.
--- NOTE | 2025-04-13 11:44 | CON.MD ---
Consultation - Medical
-
Chief Complaint:�Debility after CABG x 2
�
History of Present Illness:�80-year-old male with PMH (as below) presented to [facility] on 04/01/2025 with chest pain. EKG without evident ischemia and with nonspecific T wave changes in the lateral leads actually improving from prior.
Found to have elevated troponin consistent with a non-STEMI and started on heparin drip. Cardiac catheterization 04/03 noting multivessel CAD with stenosis in the proximal LAD had 95% mid LAD stenosis and multi segment high-grade atherosclerotic
disease in the mid circumflex. Patient had an episode of unresponsiveness on 04/03/2025 and was given IV fluid. 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 He required 3% saline, salt tabs 1 g twice a day and fluid restriction to 50
ounces a day. Status post CABG x 2, encompass maze procedure, and left atrial appendage closure and mitral valve repair and on 04/07/[address] Osman Stokes.
�
Past Medical History:�BPH, GERD, paroxysmal atrial fibrillation/flutter, HTN, heart failure with preserved EF, moderate to severe mitral regurgitation, basal cell eyelid cancer, tinnitus, colon polyps, actinic keratosis
Procedure History:�Left total knee replacement 03/28/2025, tonsillectomy and adenoidectomy, bilateral inguinal hernia repairs, left shoulder surgery, PVI ablation
Family History:�Mother with ALS
�
Social History:�
Functional Level Premorbidly:�Independent with all activities�
Functional Level Currently:�Max assist toileting, max assist upper and lower extremity self-care, max assist transfers, ambulating 40 feet x 4 with rolling walker min assist
�
Tobacco:�Denies�
Alcohol:�Occasional
Drug use:�Denies�
�
Lives with:�Spouse
24-hour assistance available:�Yes
Number of floors:�2
# steps to enter:�1
# steps to second floor: Full flight
Potential First floor set up:�Yes
Driving:�Yes
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
�
�
Allergies:�
Allergy/AdvReac Type Severity Reaction Status Date / Time
No Known Allergies Allergy Verified 04/01/25 00:13
�
Review of Systems:�
Constitutional: (x) abNormal _fatigue
Eye: (x) Normal _
Ear/Nose/Throat: (x) Normal _
Respiratory: (x) Normal _
Cardiovascular: (x) abNormal _denies chest pain after CABG
Gastrointestinal: (x) Normal _
Genitourinary: (x) Normal _
Musculoskeletal: (x) abNormal _left total knee replacement, left knee pain
Integumentary: (x) Normal _
Neurologic: (x) Normal _
Psychiatric: (x) Normal _
Endocrine: (x) Normal _
Hematologic/Lymphatic: (x) Normal _
Allergic/Immunologic: (x) Normal _
�
Medications:�
Active Current Visit Medication List
Category Date Time Status
0.9% Sodium Chloride 500 ml [Nss] 500 ml Med 04/07/25 13:25 Active
IV CORDIS
Acetaminophen [Tylenol] Med 04/07/25 14:00 Active
1,000 mg PO TID@0600,1400,2200
Acetaminophen [Tylenol] Med 04/07/25 13:25 Active
650 mg PO Q4HPRN PRN
Alprazolam [Xanax] Med 04/10/25 21:52 Active
0.25 mg PO HS PRN
Amiodarone [Pacerone] Med 04/14/25 08:00 Active
200 mg PO DAILY
Apixaban [Eliquis] Med 04/13/25 08:00 Active
5 mg PO BID
Ascorbic Acid [Vitamin C] Med 04/08/25 08:00 Active
500 mg PO DAILY
Aspirin Chewable [Low Strength Aspirin] Med 04/09/25 08:00 Active
81 mg PO DAILY
Atorvastatin [Lipitor] Med 04/03/25 18:00 Active
80 mg PO QPM
Benzocaine/Menthol [Anesthetic Lozenge] Med 04/09/25 11:54 Active
1 lozenge PO Q4HPRN PRN
Bisacodyl [Dulcolax] Med 04/07/25 13:25 Active
10 mg RECTAL DAILYPRN PRN
Carvedilol [Coreg] Med 04/12/25 08:00 Hold
3.125 mg PO BID
Cyclobenzaprine HCl [Flexeril] Med 04/07/25 13:25 Active
5 mg PO Q8HPRN PRN
Docusate W/Senna [Senokot-S] Med 04/07/25 20:00 Active
1 tablet PO Q12
Ferrous Sulfate [Feosol] Med 04/08/25 08:00 Active
325 mg PO DAILY
Flush (0.9% Sodium Chloride) [Flush (Nss)] Med 04/07/25 14:00 Active
See Dose Instructions IV PER PROTOCOL
Furosemide [Lasix] Med 04/12/25 08:00 Active
60 mg PO BID AT 0800,1600
Gabapentin [Neurontin] Med 04/07/25 16:00 Active
100 mg PO TID
HYDROmorphone [Dilaudid] Med 04/07/25 13:25 Active
0.25 mg IV Q3HPRN PRN
Lidocaine [Lidocaine 4% Patch] Med 04/08/25 08:00 Active
1 patch TOPICAL DAILY
Magnesium Hydroxide [Milk of Magnesia] Med 04/07/25 13:25 Active
30 ml PO BIDPRN PRN
Magnesium Oxide Med 04/08/25 08:00 Active
500 mg PO BID
Ondansetron Injectable [Zofran] Med 04/07/25 13:25 Active
4 mg IV Q8HPRN PRN
Oxycodone [Roxicodone] Med 04/07/25 13:25 Active
2.5 mg PO Q4HPRN PRN
Oxycodone [Roxicodone] Med 04/07/25 13:25 Active
5 mg PO Q4HPRN PRN
Pantoprazole [Protonix] Med 04/01/25 08:00 Active
40 mg PO DAILY
Polyethylene Glycol Powder [Miralax] Med 04/02/25 11:00 Active
17 grams PO DAILY
Remove Patch [Remove Lidocaine Patch] Med 04/08/25 20:00 Active
1 patch REMOVE DAILY@1999
Tamsulosin [Flomax] Med 04/08/25 08:00 Active
0.4 mg PO DAILY
�
Vitals:�
Temp Pulse Resp BP Pulse Ox
97.6 F 65 18 114/75 94
04/13/25 07:56 04/13/25 11:06 04/13/25 07:56 04/13/25 07:50 04/13/25 08:38
Height 5 ft 8 in
Actual Weight 89.6 kg
Body Mass Index (BMI) 30.0
�
Physical Exam:�
General Appearance/Observation: Well-developed, well-nourished male in no apparent distress.�
Pain/Comfort Assessment: Left knee painMood/Affect: Appropriate�
�
Integumentary/Operative Site:�Left knee with juan diego intact, no erythema or warmth, no drainage. Sternal incision and drain sites healing well without erythema or warmth, no drainage.
�� Pressure Ulcer Evaluation: absent over heels.�
�
Eyes: Conjunctiva/Lids: normal��� Pupils: pupils equal round and reactive to light and Accommodation
Ears/Nose/Throat: oral mucosa moist, throat clear.������������ Lips/Teeth/Gums: normal
Cardiovascular: Heart: regular, no murmur�
Pulses: dorsalis pedis 2+ bilaterally�
Respiratory: Respiratory Effort/Chest Expansion: normal������ Auscultation: Clear to auscultation bilaterally
Gastrointestinal: abdomen not tender, no distension, normal abdominal bowel sounds�
Genitourinary: No Blancas�
Rectal Exam: Deferred�
Extremities:�Edema: None�Cyanosis: None�Trophic�changes: None
Neurology Exam:
Orientation: Alert, Oriented to self, Time, Place�
Memory: Intact for recent medical concerns
Comprehension: Intact
Two step command: Intact
Cranial Nerves:
�� CNII:�Pupillary light reflex: Intact���Visual Field: Intact
�� CN III, IV, : Extraocular muscles: Intact�
�� CN V:�Facial Sensation�at�Forehead: Intact,�Maxilla: Intact,�Mandible: Intact
�� CN VII:�Facial movement: Symmetric
�� CN VIII:�Hearing: Normal
�� CN IX/X:�Speech & swallow: Normal,�Position of Uvula: Midline
�� CN XI:�Shoulder shrug: Symmetric
�� CN XII:�Tongue protrusion: Midline
Sensory:
�� Light touch: Intact in bilateral upper and lower extremities
�
Reflexes:
�� Biceps: 2+ bilaterally
�� Brachioradialis: 2+ bilaterally
�� Triceps: 2+ bilaterally
�� Patellar: 2+ right, left deferred with surgery
�� Achilles: 2+ bilaterally
�� Babinski: Down going bilaterally
�� Clonus: None
�� Nancy: Negative bilaterally�
Cerebellar: Dysmetria/Ataxia: None�
Musculoskeletal: Motor: (Manual muscle scale 0-5)�
Muscle SA EF WE EE FF FA HF KE DF EHL PF
Right� NT >3 5 >3 5 5 5 5 5 5 5
Left NT >3 5 >3 5 5 4 4 5 5 5
�
Tone: Normal in all extremities�
Range of Motion: Passively within normal limits in all extremities�
�
Lab Results
Laboratory Data
04/13/25 03:22
04/13/25 03:22
PT 17.6 Sec (11.4-14.6) H 04/08/25 03:07
INR 1.42 04/08/25 03:07
APTT 38.5 Sec (23.4-35.0) H 04/07/25 14:26
Total Bilirubin 2.1 mg/dl (0.2-1.3) H 04/04/25 07:23
Direct Bilirubin 0.4 mg/dl (0.0-0.4) 04/04/25 07:23
AST 20 U/L (17-59) 04/04/25 07:23
ALT 22 U/L (0-50) 04/04/25 07:23
Alkaline Phosphatase 58 U/L (38-126) 04/04/25 07:23
Total Protein 5.9 g/dl (6.3-8.2) L 04/04/25 07:23
Albumin 3.5 g/dl (3.5-5.0) 04/04/25 07:23
�
Diagnostic Results:�as per HPI�
�
Assessment
80 y/o M PMH (BPH, GERD, paroxysmal atrial fibrillation/flutter, HTN, heart failure with preserved EF, moderate to severe mitral regurgitation, basal cell eyelid cancer, tinnitus, colon polyps, actinic keratosis) with 04/01/2025 non-STEMI s/p cardiac
cath 04/03 noting multivessel CAD s/p 04/07/2025 CABG x 2, encompass maze procedure, and left atrial appendage closure and mitral valve repair, SIADH 3% saline, salt tabs 1 g twice a day and fluid restriction to 50 ounces a day, recent left total knee
Plan�
PM&R�PT/OT to increase independence with ADLs, improve balance, coordination, endurance, strength, mobility, community reintegration, decreased burden of care on others and family education.�
NSTEMI S/P CABG x 2: Sternal precautions.� aspirin, statin, BP control.� Monitor incision, pain control.�
Status post bilateral TKA 03/28/[address] Lerma: Monitor incision, pain control, incision care per orthopedics, may shower, staple removal postop day 14. Maintain full range of motion.�
- Might benefit from muscle relaxer such as baclofen.
HTN: Carvedilol 3.125 mg twice daily, furosemide 60 mg twice daily, monitor closely�
Coronary artery disease�: Aspirin, statin, beta-maddy�
Atrial fibrillation: Eliquis anticoagulation and rate control with amiodarone, carvedilol.� Had maze procedure and left atrial appendage closure.
Mitral valve repair: Noted�����������������������������������������
Leukocytosis: Downtrending and nearly resolved.
Postoperative anemia: Required multiple transfusions operatively, hemoglobin 10.2 from 10 from 10.4 from 8.2.� Continue to monitor.�
Thrombocytopenia: Resolved.
FEN:
-Hyponatremia: Thought secondary to SIADH status post 3% saline, continue with 48 ounce fluid restriction and monitor, stable in the low 130 range.
Skin: monitor for pressure sores/rashes/lesions.�
Pain: acetaminophen or oxycodone as needed.�
Bowel: Colace and Senna, PRN bisacodyl.�
Bladder: Flomax 0.4 mg daily for BPH, suggest changing this to evening. Time void, PVRs, PRN straight cath.�
GI Prophylaxis: Pantoprazole�
DVT Prophylaxis: Mechanical and Eliquis
Pulmonary: Incentive spirometry�
Obesity: Continue to guidance counselor patient about diet adjustments to control obesity. Body habitus and increased force to move body and extremities causes further difficulty with functional tasks.�
Safety: Continue to reinforce assistance with all transfers.�
Code Status:� Full code
Dispo�(date/plan/equipment needs): Home with family care.� Social history reviewed.�
�
Functional and Medical Goals:�Modified Independent with ADL�s, ambulation, transfers�
Discharge Destination:�Acute inpatient rehabilitation�
Summary of recommendations:
-�Discharge Destination:�Acute inpatient rehabilitation�
BPH: Flomax 0.4 mg daily for BPH, suggest changing this to evening prevent hypotension in the morning.
Bowel: Colace and Senna, PRN bisacodyl.�
NSTEMI S/P CABG x 2: Sternal precautions.� aspirin, statin, BP control.� Monitor incision, pain control.�
Status post bilateral TKA 03/28/[address] Lerma: Monitor incision, pain control, incision care per orthopedics, may shower,, staple removal postop day 14. Maintain full range of motion.�
Hyponatremia: Thought secondary to SIADH status post 3% saline, continue with 48 ounce fluid restriction and monitor, stable in the low 130 range.
�
Thank you for allowing me to care for your patient. Please contact me with any questions or concerns.
Consultation
-
Date/Time Consultation Performed: 04/13/2025
Requesting Provider: Dr. Osman Stokes
Performing Provider: Dr. Edwin Mauricio
Reason for Consultation: Rehab placement
--- NOTE | 2025-04-13 12:18 | PTCARENOTE ---
Bedside Echo done, and then P/T worked with pt walking with walker in hallway. Pt now back to bedside chair, call russo by side. Lower exts elevated.
--- NOTE | 2025-04-13 12:48 | W.PN.NEPH.PH ---
Today's Communication / Plan
-
samsca tonight
Assessment/Plan
-
Assessment
Multivessel coronary disease
Non-ST elevation HI
Atrial fibrillation
Right bundle branch block
Left knee replacement 03/28/2025
Hyponatremia new
Orthostatic hypotension
Plan
s/p CABGx2 and MV repair on 04/07
sodium slightly down to 131 despite lasix
may need samsca tonight
cont FR as wt is up still from baseline EDW which appears to be 86 kg
Bp stable
follow labs
possible rehab tomorrow
-
-
Date of Service: April 13, 2025
CC / HPI / ROS
-
Chief Complaint:
hyponatremia
History of Present Illness:
sodium down to 131
s/p CABG and MV repair on 04/07
Bp stable
wt slow to decrease
Review of Systems:
pain controlled
no sob at rest
no fever
Labs
-
Labs:
WBC 11.5 10^3/uL (4.8-10.8) H 04/13/25 03:22
RBC 3.05 10^6/uL (4.70-6.10) L 04/13/25 03:22
Hgb 10.2 g/dL (13.0-18.0) L 04/13/25 03:22
Hct 29.9 % (39.0-52.0) L 04/13/25 03:22
Plt Count 165 10^3/uL (130-400) 04/13/25 03:22
Sodium 131 mmol/L (135-145) L 04/13/25 03:22
Potassium 4.5 mmol/L (3.5-5.1) 04/13/25 03:22
Chloride 102 mmol/L (98-107) 04/13/25 03:22
Carbon Dioxide 27 mmol/L (22-30) 04/13/25 03:22
BUN 19 mg/dl (9-20) 04/13/25 03:22
Creatinine 0.8 mg/dL (0.7-1.3) 04/13/25 03:22
eGFR > 60.00 04/13/25 03:22
Glucose 104 mg/dl (70-99) H 04/13/25 03:22
Calcium 8.0 mg/dl (8.4-10.2) L 04/13/25 03:22
Fdi-I-Xlddchnbgih Pept 1730 pg/ml 04/01/25 02:54
Albumin 3.5 g/dl (3.5-5.0) 04/04/25 07:23
Physical Exam
-
Vital Signs:
Vital Signs
Temp Pulse Resp BP Pulse Ox
97.7 F 66 18 115/74 95
04/13/25 11:00 04/13/25 12:00 04/13/25 07:56 04/13/25 11:57 04/13/25 12:04
Cardiovascular:: Regular rate and rhythm
Respiratory:: Bilateral: CTA
Lung Excursion:: Normal (decreased BS)
Abdomen:: Nontender and Soft
Extremity Edema:: +2: Left: and None: Right:
Blancas Catheter: No
[2025-04-13] MEDS: NSS IV (13:46)
[2025-04-13] MEDS: SAMSCA 15 MG PO (13:47)
--- NOTE | 2025-04-13 17:51 | PTCARENOTE ---
Pt back to bed, tolerated OOB in chair well for 6 hrs. Drsgs intact. Pt ordering dinner now. Pt remains chest pain free. Plan is for pt to go to [facility] tomorrow.
[2025-04-13] MEDS: LIPITOR 80 MG PO (18:43)
[2025-04-13] MEDS: ROXICODONE 2.5 MG PO (22:04)
[2025-04-13] MEDS: XANAX 0.25 MG PO (22:05)
--- NOTE | 2025-04-13 22:48 | PTCARENOTE ---
Received patient at change of shift. SR with a first degree and a BBB on the monitor, HR in the 70s. Sternal Aquacel dressing with marked drainage. Sutures in lower chest PHYSICIAN ASSISTANT CERTIFIED, intact. L knee sutures and juan diego FRANCISCO, intact. Pt complains of 6/10 L
knee pain, PRN pain medication administered as per order, see MAR. Call russo within reach.
[2025-04-14] VITALS (7 sets, daily range): BP systolic 102–143; BP diastolic 73–99; BMI 29.4
[2025-04-14] MEDS: ROXICODONE 5 MG PO (02:45)
[2025-04-14 03:42] LABS: Hematocrit 30.2 % (39.0-52.0); Hemoglobin 10.4 g/dL (13.0-18.0); Mean Corp Hgb Conc. 34.4 g/dL (33.0-37.0); Mean Corpuscular Hgb 33.2 pg (27.0-31.0); Mean Corpuscular Volume 96.5 fL (80.0-94.0); Mean Platelet Volume 10.9 fL (7.4-10.4); Platelet Count 193 10^3/uL (130-400); Red Blood Cell Count 3.13 10^6/uL (4.70-6.10); Red Cell Dist. Width 17.2 % (11.5-14.5)
--- NOTE | 2025-04-14 03:52 | W.PN.CT ---
Today's Communication / Plan
-
-pod #7
-no issues overnight.
-NSR 70-80's- Currently, on ASA and Eliquis.
-small b/l pleural effusions- follow
-on Lasix 60 po bid (Cr stable 0.9)
-recent L TKR - juan diego to be removed during follow-up at [facility]
-continue PT/OT
-acute rehab placement- to [facility] today
Assessment / Plan
-
Assessment:
-S/P Median sternotomy/ CABG x 2 (JEFFREY to LAD, GSV to OM)/ Endoscopic harvest/prep of RLE GSV/ MV Repair (30mm Rodríguez 5200 Annuloplasty Ring)/ Encompass MAZE procedure/ELAA (50mm AtriClip), by Dr. Stokes, 04/07/24, pod#7
-2V CAD w/ mild NSTEMI
-[place]
-Atrial flutter/tachycardia s/p prior PVI 09/05/24 (on Eliquis @ home)
-LVEF 55-60% preop; 45-50% postop
-Chronic diastolic CHF
-Scheduled for repeat ablation & watchman in May 2025
-RBBB
-Hx of frequent bleeding on oral anticoagulation
-Preoperative anemia (Hgb 7.2)
-Preoperative hyponatremia
-HTN
-HLD
-BPH
-GERD
-S/P L TKA 03/28/2025
-S/P R knee arthroscopy and meniscus repair
-S/P lumbar laminectomy (L4/L5), 10/2024
-S/p Left inguinal herniorrhaphy, 06/2024
-S/P S/p right eyelid surgery, 12/2023
-Acute postop blood loss anemia on preop anemia (received 2u PRBC's intraop and 2u postop)
-Acute intraop coagulopathy/ postop thrombocytopenia (received 1 {5pk) plts intraop and 1 {5pk} plts postop)
-Acute postop atelectasis, small b/l pleural effusions
-Acute intraop pulmonary hypertension
-Acute postop cardiogenic shock
-Acute postop hypovolemia with subsequent hypervolemia
-Acute postop hyponatremia, 127
Subjective
Procedure
S/P Median sternotomy/ CABG x 2 (JEFFREY to LAD, GSV to OM)/ Endoscopic harvest/prep of RLE GSV/ MV Repair (30mm Rodríguez 5200 Annuloplasty Ring)/ Encompass MAZE procedure/ELAA (50mm AtriClip), by Dr. Stokes, 04/07/24
-
Date of Service: April 14, 2025
Objective Data
-
Lab Results
Lab Results
04/14/25 03:21
04/14/25 03:21
PT 17.6 Sec (11.4-14.6) H 04/08/25 03:07
INR 1.42 04/08/25 03:07
APTT 38.5 Sec (23.4-35.0) H 04/07/25 14:26
Vital Signs
Vital Signs
Vital Signs
Temp Pulse Resp BP Pulse Ox
98.1 F 78 18 132/93 97
04/14/25 03:25 04/14/25 05:00 04/14/25 03:25 04/14/25 03:11 04/14/25 03:56
CT Intake/Output/Weight
04/13/25 04/13/25 04/14/25
06:59 18:59 06:59
Intake Total 500 / 500
Output Total 775 / 2375 1750 / 1750
Balance -775 / -1775 -1250 / -1250
SaO2: 97
Physical Exam
-
General: AOx3
Cardiovascular: Regular rate & rhythm
Respiratory: Clear
Sternum: Stable
Incision: Dressing Intact
Extremities: Edema +1
[2025-04-14 04:01] LABS: Blood Urea Nitrogen 19 mg/dl (9-20); Calcium 8.4 mg/dl (8.4-10.2); Carbon Dioxide 30 mmol/L (22-30); Chloride 101 mmol/L (98-107); Estimated Creatinine Clearance 72 ml/min; Glucose 105 mg/dl (70-99); Potassium 4.5 mmol/L (3.5-5.1); Sodium 134 mmol/L (135-145); eGFR > 60.00
[2025-04-14] MEDS: TYLENOL 1000 MG PO ×3 (06:09→21:57)
[2025-04-14] MEDS: LASIX 60 MG PO ×2 (08:56→15:37)
[2025-04-14] MEDS: PROTONIX 40 MG PO (08:56)
[2025-04-14] MEDS: NEURONTIN 100 MG PO ×3 (08:56→21:58)
[2025-04-14] MEDS: VITAMIN C 500 MG PO (08:56)
[2025-04-14] MEDS: FLOMAX 0.4 MG PO (08:56)
[2025-04-14] MEDS: PACERONE 200 MG PO (08:56)
[2025-04-14] MEDS: MAGNESIUM OXIDE 500 MG PO ×2 (08:56→19:48)
[2025-04-14] MEDS: SENOKOT-S 1 TABLET PO ×2 (08:56→19:48)
[2025-04-14] MEDS: FEOSOL 325 MG PO (08:57)
[2025-04-14] MEDS: LOW STRENGTH ASPIRIN 81 MG PO (08:57)
[2025-04-14] MEDS: ELIQUIS 5 MG PO ×2 (08:57→19:48)
[2025-04-14] MEDS: MIRALAX 17 GRAMS PO (08:58)
--- NOTE | 2025-04-14 09:04 | W.PN.CARDCBS ---
Addendum entered and electronically signed by Judit Potter MD 04/14/25 09:39:
I saw and examined the patient.
The Tricot Knitting Machine Operator's note was reviewed and I agree with the note.
His only complaint is knee pain today. He is sitting in the chair. Denies chest pain or palpitations.
I have independently reviewed his labs, vital signs and telemetry. Have spoke with nursing.
Exam: General: Well developed, well nourished in NAD.
Heart: Distant heart sounds, RRR, no murmurs, No S3, S4, no rubs.
Lungs: Decreased breath sounds at the bases
Extremities: No clubbing, cyanosis trace to +1 edema left greater than right with ecchymosis
Neuro: Grossly nonfocal, awake, alert and oriented x3.
Stable from a cardiac point of view. He has multivessel coronary artery disease status post CABG x 2 with mitral valve repair, maze and left atrial appendage clip 04/07/2025.
He has had Mobitz type I which has been asymptomatic on telemetry postop. Currently improving and doing well. Yesterday carvedilol was held. Avoid additional AV lucretia blockers at this time.
He has atrial fibrillation status post pulmonary vein isolation 09/05/2024 with recurrence of atypical atrial flutter/atrial tachycardia 03/16/2025. Given prior increased bruising/bleeding plan initially was for repeat ablation and watchman. At this
time continue amiodarone. Left atrial appendage closed intraoperatively. Intraoperative transesophageal echo report 04/07/2025 clip is well-seated no flow seen through the left atrial appendage remnant. Continue anticoagulation for now.
Follow blood pressure.
Pain control and physical therapy for orthopedic issues along with postcardiac surgery.
He will be going to [facility] which is a great choice.
Original Note:
Today's Communication / Plan
-
continue amiodarone 200mg daily, eliquis 5mg BID
aspirin 81mg daily
lasix 60mg BID
lipitor 80mg QPM
BMP in 1 week
OP cardiac follow up arranged
for DC to [facility]
Impression / Plan
-
PCP: Vincenzo Parra
Primary hoistman: Malcolm Potter MD
Impression:
Chest pain
NSTEMI
Multivessel CAD s/p CABG x2 JEFFREY to LAD, GSV to OM, MV repair with Rodríguez annuloplasty ring, MAZE, COLEEN clip 04/07/25
Atrial flutter
Atrial tachycardia
Atrial fibrillation
- Status post PVI 09/05/2024
-Noted to have recurrent atypical atrial flutter/atrial tachycardia at office visit 03/16/2025 and is scheduled for repeat ablation and Watchman in May [address] Potter
Frequent bleeding-cuts, scrapes on oral anticoagulation
Right bundle branch block
Left total knee replacement 03/28/2025
Echocardiogram 12/28/2023: Normal LV size and function, LVEF 60 to 65%, moderate to severe MR, mild TR, PAP 35 to 40 mmHg, mild PI, negative bubble study
JOSE 01/15/2024: Normal LV/RV size and function, LVEF 55%, mitral annular dilatation with severe LA dilatation, moderate MR, no COLEEN a thrombus, mild TR
Echo 04/04/2025: EF 55 to 60%, normal regional wall motion, mild concentric LVH, posterior MAC, moderate MR
Cardiac catheterization 04/03/2025: LM. Patent. LAD: Hazy ostial 60% stenosis, 95% mid stenosis just beyond first diagonal followed by additional 60% mid stenosis. Apical 60% stenosis. Diagonal 50% ostial stenosis and 80% mid stenosis. Left
circumflex. Proximal 90% stenosis, long 80% mid stenosis. RCA: Diffuse minor LI up to 30% throughout vessel. PDA and posterior lateral branch are patent. LVG 50 to 55% with anterolateral hypokinesis. +2 MR.
Plan:
-He underwent L TKA 03/28/25, then presented to ER with chest pain 03/31 and ruled in for NSTEMI. Peak troponin 0.068. Cardiac cath 5/19 with MV CAD including hazy stenosis in the proximal LAD with 95% mid LAD stenosis and multisegment high-grade
atherosclerotic disease in the mid circumflex. Preserved LV systolic function with EF 50-55% with anterolateral hypokinesis. There is 2+ mitral regurgitation. MR by echo is felt to be moderate�moderate to severe. JOSE 01/2024 showed moderate MR
-s/p CABG x2 JEFFREY to LAD, GSV to OM, MV repair with Rodríguez annuloplasty ring, MAZE, COLEEN clip 04/07/25
-Post op JOSE EF 45-50% with trivial residual MR
-has been weaned off milrinone 04/08 and dobutamine 04/11
-he has received 6 U PRBCs, 2 plts. hgb 10.2, plts 165K. was on asa, plavix post op due to NSTEMI presentation however now transitioned to asa, eliquis as also with PAF.
-main complaint overnight is L knee pain. continue pain mgmt, PT/OT
-remains in SR with long 1st degree av block. remains with some episodes of wenckebach, however overall less since stopping coreg and decreasing amiodarone to 200mg daily 04/13.
-nephrology managing hyponatremia. required samsca earlier in stay. Na 131 on 04/13.
-diuresing well with po lasix 60mg BID. Cr stable at 0.9. repeat BMP in 1 week upon DC
-Continue Lipitor
-continue post op care, PT/OT, OOB/IS.
-plan for DC to [facility] for both post CABG/MV repair and L TKA
-ortho to remove juan diego while at [facility]
-OP cardiac follow up has been arranged
-d/w CT surgery SCRIPT DEVELOPER
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
Subjective
Date of Service: April 14, 2025
Denies significant chest discomfort, shortness of breath. Reports improvement in lower extremity edema. Major complaint overnight was left knee pain
Objective
Labs:
04/14/25 03:21
04/14/25 03:21
Labs
Hgb 10.4 g/dL (13.0-18.0) L 04/14/25 03:21
Hct 30.2 % (39.0-52.0) L 04/14/25 03:21
Plt Count 193 10^3/uL (130-400) 04/14/25 03:21
PT 17.6 Sec (11.4-14.6) H 04/08/25 03:07
INR 1.42 04/08/25 03:07
APTT 38.5 Sec (23.4-35.0) H 04/07/25 14:26
Sodium 134 mmol/L (135-145) L 04/14/25 03:21
Potassium 4.5 mmol/L (3.5-5.1) 04/14/25 03:21
BUN 19 mg/dl (9-20) 04/14/25 03:21
Creatinine 0.9 mg/dL (0.7-1.3) 04/14/25 03:21
Glucose 105 mg/dl (70-99) H 04/14/25 03:21
Vital Signs and I&O:
Vital Signs
Temp Pulse Resp BP Pulse Ox
97.8 F 78 18 132/93 95
04/14/25 08:31 04/14/25 05:00 04/14/25 08:31 04/14/25 03:11 04/14/25 08:31
Vital Signs
Temp Pulse Resp BP Pulse Ox
97.8 F 78 18 132/93 95
04/14/25 08:31 04/14/25 05:00 04/14/25 08:31 04/14/25 03:11 04/14/25 08:31
Intake & Output
04/12/25 04/13/25 04/14/25 04/15/25
07:59 07:59 07:59 07:59
Intake Total 340 / 580 800 / 800 300 / 300
Output Total 2049 / 2049 2375 / 2375 2650 / 2650
Balance -1710 / -1470 -1575 / -1575 -2350 / -2350
Physical Exam
Physical Exam
GEN: No distress, awake, alert, oriented x3
HEENT: supple, anicteric, mmm, eomi
LUNGS: CTA B/L, no wheezes
CV: Reg, S1/S2, no murmur
ABD: soft, BS+, NT/ND
EXT: No cyanosis, clubbing. Trace edema of RLE, 1+ edema of LLE with associated ecchymoses
NEURO: Gross non-focal
SKIN: Warm, pink, dry. No rash. Sternotomy dressing c/d/i.
--- NOTE | 2025-04-14 09:14 | W.DCSUMMARY ---
Addendum entered and electronically signed by YAZ King 04/14/25 16:44:
Discharge was delayed due to [facility] bed availability.
Original Note:
Discharge Summary
Discharge Data
Date of Admission: 04/01/25
Date of Discharge: 04/14/25
-
Pending Results: No
Hospital Course
Primary care physician: Vincenzo Parra
Outpatient customer expert: Malcolm Potter
Inpatient consultants: [facility] Cardiology, nephrology, pulmonary diamond cutter, PT/OT
Procedures:
1. TAVR
Primary Diagnosis:
1. severe aortic stenosis
Secondary Diagnoses:
1. NSTEMI/ multi vessel coronary disease
2. Atrial flutter/tachycardia s/p prior PVI 09/05/24, on Eliquis
3. Chronic RBBB
4. Hx of frequent bleeding on oral anticoagulation
5. L TKA 03/28/2025
6. Acute blood loss on preoperative anemia (Hgb 7.2)
7. Carotid stenosis (R ICA >70%)
8. 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
9. Acute intraop coagulopathy/ postop thrombocytopenia (received 1 {5pk) plts intraop and 1 {5pk} plts postop)
10. Acute postop atelectasis, small b/l pleural effusions
11. Acute intraop pulmonary hypertension
12. Acute postop cardiogenic shock
13. Acute postop hypovolemia with subsequent hypervolemia
14. Post-op Mobitz I
HPI: 80-year-old male with history of atrial fibrillation, status post PVI 09/05/24, atrial tachycardia, atypical atrial flutter, heart failure preserved EF, moderate to severe mitral regurgitation, right bundle branch block, and most
recently left total knee arthroplasty on 03/28/25. He presented to the [facility] ER on 04/01/25 due to substernal chest pain/tightness that developed after he walked up a flight of steps. CT for PE protocol negative for pulmonary embolism. He was found to
have elevated troponins consistent with NSTEMI and was started a heparin infusion.
Hospital course: Heart catheterization revealed MVD and CT surgery was consulted for surgical evaluation. He was seen in consultation by nephrology on 04/06/25 for hyponatremia felt to be due to SIADH and treated with fluid restriction and
hypertonic saline.Patient underwent Mitral Repair (#30mm Rodríguez 5200 Annuloplasty Ring), Encompass MAZE, CABG x 2 (JEFFREY to LAD, GSV to OM), ELAA (#50mm AtriClip) on 04/07/[address] Osman Stokes. Patient received 3 units of PRBCs and 1 platelets
intraoperatively and returned to CVICU on Levophed at 8, dobutamine at 2, milrinone at 0.25, Precedex, and insulin. Patient received an additional 1 for platelet and 1 PRBC postoperatively for hemoglobin of 7.3. Repeat hemoglobin was 9.0. Patient
was extubated at 1820 on the day of surgery. Patient was weaned off Levophed at 04 100 postop day #1. He was weaned off dobutamine by 0900. PT and OT were consulted for his recent left total knee replacement. Patient was weaned off dobutamine
but was restarted due to hypotension and blood mixed venous saturation of 52%. Dobutamine is discontinued on postoperative day #2.. She was diuresed. Again the mixed venous saturation dipped to 49% with a cardiac index of 1.88. Dobutamine was
resumed at 1 mcg. Cardiac input index improved to 2.17. Dobutamine was decreased to 0.5 mcg on postoperative day #3. [place] was removed patient received 1 additional PRBC for hemoglobin of 8.2. Patient was then diuresed with 40 mg of IV Lasix.
Dobutamine was weaned off on postoperative day #4 and right IJ Cordis was discontinued.Orthopedics saw patient and did not remove juan diego in the left knee. Ortho will follow patient at [facility] to remove juan diego. ASA was continued and Eliquis was
initiated on postoperative day #5 due to history of atrial fibrillation. Plavix was discontinued. Bipolar ventricular pacing wire was clipped to skin level on postoperative day #6. Beta-maddy was discontinued due to Mobitz I rhythm. Patient will
be reassessed as outpatient by cardiology for future need of beta-maddy.Repeat TTE reported an improved EF of 65% with MV gradients 10/4mmHg and no MR. Patient continued to be diuresed with Lasix 60mg BID with low dose potassium supplementation.
Weight trending downward 89.6>87.8kg today. Low dose Lisinopril 5mg daily added as BP creeping higher. Stable for discharge to [facility] today. Hb 10.4, Creatinine 0.9
Home medication changes:
DC Toradol
Lasix 20 mg daily changed to 60 mg twice daily
DC Coreg due to Mobitz 1
Nexium changed to Protonix while on Eliquis
DC lisinopril 40 mg, changed to 5 mg daily
DC methenamine
Discharge Plan
-
Patient Disposition: Acute Rehab Facility
Discharge Diagnosis/Procedures: mitral valve repair, CABG x 2, MAZE, left atrial appendage alip
Condition: Good
Diet: Low Cholesterol and Low Sodium
Activity: No strenuous activity
Driving Restrictions: Not until seen by your Dr
Bathing Restrictions: OK to Shower
Other Services: Cardiac Rehab
Specialty Instructions: Weigh Daily- Call MD for wt gain/loss 3 lbs overnight/5 lbs in 1 week
Referrals:
[facility]. Cardiac Rehab [Outside] - 05/23/25 11:00 am
Referral Note: Cardiac Rehab Orientation appointment is on 05/23/25 at 11:00 AM
The Cardiac Rehab gym is located on the first floor of the [facility].
Vincenzo Parra MD [Family Provider, Family Practice] - in four to six weeks
Referral Note: Please make an appointment in four to six weeks.
Rukhsana Bermudez CRNP [Specified Professional Personl, Cardiology] - 05/16/25 9:40 am
Osman Stokes MD [Active, Cardiac Surgery] - 05/02/25 3:00 pm
Prescriptions:
New
ferrous sulfate [FeroSul] 325 mg (65 mg iron) Tablet
325 mg PO DAILY Qty: 0 0RF
aspirin 81 mg Tablet,Chewable
81 mg PO DAILY Qty: 0 0RF
gabapentin 100 mg Capsule
100 mg PO TID Qty: 0 0RF
atorvastatin 80 mg Tablet
80 mg PO QPM Qty: 0 0RF
amiodarone 200 mg Tablet
200 mg PO DAILY Qty: 0 0RF
pantoprazole 40 mg Tablet,Delayed Release (Dr/Ec)
40 mg PO DAILY Qty: 0 0RF
furosemide 20 mg Tablet
60 mg PO BID AT 0800,1600 Qty: 0 0RF
oxycodone 5 mg Tablet
5 mg PO Q4HPRN PRN (Reason: severe pain) Qty: 0 0RF
Chloraseptic Sore Throat 6-10 mg Lozenge
1 roxana PO Q4HPRN PRN (Reason: sore throat) Qty: 0 0RF
potassium chloride 20 mEq Packet
20 meq PO DAILY Qty: 0 0RF
lisinopril 5 mg Tablet
5 mg PO DAILY Qty: 0 0RF
Continued
sildenafil 100 mg Tablet
50 - 100 mg PO DAILY PRN (Reason: ED)
suwtwxszrxpc-qfevjdad-lqcgte Tablet
1 tab PO DAILY
alprazolam 0.25 mg Tablet
0.25 mg PO HS PRN (Reason: anxiety)
Eliquis 5 mg Tablet
5 mg PO BID
acetaminophen 325 mg tablet
650 mg PO Q4HPRN PRN (Reason: mild pain) Qty: 1 0RF
tamsulosin 0.4 mg Capsule
0.4 mg PO DAILY
Discontinued
esomeprazole magnesium [Nexium] 40 MG capsule,delayed release(DR/EC)
20 mg PO DAILY
carvedilol 6.25 mg Tablet
6.25 mg PO BID
furosemide [Lasix] 20 mg Tablet
20 mg PO DAILY
lisinopril 40 mg Tablet
40 mg PO DAILY
methenamine hippurate 1 gram Tablet
1 g PO BID
tramadol 25 mg Tablet
25 mg PO Q6H PRN (Reason: pain)
Rx Instructions:
12.5 to 25 mg
Discharge Orders:
Discharge Patient (As Directed); Ordered 04/14/25
Ordered By: Caroline Contreras
Care Plan Goals
Care Plan Goals:
Problem: Readiness for enhanced knowledge related to diagnosis and treatment plan
Goal: Understand your diagnosis and treatment plan needs, including medications if applicable.
Instructions: Know your diagnosis, underlying causes and treatment plan options, including medications if applicable. Consult with your health care team to learn about your diagnosis and treatment plan, including medications if applicable.
Discharge Date and Time
Print Language: OCCITAN
--- NOTE | 2025-04-14 10:00 | PTCARENOTE ---
Rec'd pt at handoff. AOx3. Tele- SR w/ 1st deg and BBBC. Surgical sites intact. Pt has no complaints of pain this AM sitting in recliner chair. Plan of care reviewed w/ pt and verbalizes understanding. Currently in chair; call karan w/in reach.
[2025-04-14] MEDS: FLEXERIL 5 MG PO (11:31)
[2025-04-14] MEDS: ZESTRIL 5 MG PO (11:31)
[2025-04-14] MEDS: NSS IV (12:04)
--- NOTE | 2025-04-14 12:21 | W.PN.NEPH.PH ---
Today's Communication / Plan
-
Okay for discharge from renal standpoint
Assessment/Plan
-
Assessment
Multivessel coronary disease
Non-ST elevation SD
Atrial fibrillation
Right bundle branch block
Left knee replacement 03/28/2025
Hyponatremia new
Orthostatic hypotension
Plan
s/p CABGx2 and MV repair on 04/07
Sodium 134 responded to Samsca
cont FR as wt is up still from baseline EDW which appears to be 86 kg
Bp stable
follow labs
-
-
Date of Service: April 14, 2025
CC / HPI / ROS
-
Chief Complaint:
hyponatremia
History of Present Illness:
sodium down to 131
s/p CABG and MV repair on 04/07
Bp stable
wt slow to decrease
Review of Systems:
pain controlled
no sob at rest
no fever
Labs
-
Labs:
WBC 13.0 10^3/uL (4.8-10.8) H 04/14/25 03:21
RBC 3.13 10^6/uL (4.70-6.10) L 04/14/25 03:21
Hgb 10.4 g/dL (13.0-18.0) L 04/14/25 03:21
Hct 30.2 % (39.0-52.0) L 04/14/25 03:21
Plt Count 193 10^3/uL (130-400) 04/14/25 03:21
Sodium 134 mmol/L (135-145) L 04/14/25 03:21
Potassium 4.5 mmol/L (3.5-5.1) 04/14/25 03:21
Chloride 101 mmol/L (98-107) 04/14/25 03:21
Carbon Dioxide 30 mmol/L (22-30) 04/14/25 03:21
BUN 19 mg/dl (9-20) 04/14/25 03:21
Creatinine 0.9 mg/dL (0.7-1.3) 04/14/25 03:21
eGFR > 60.00 04/14/25 03:21
Glucose 105 mg/dl (70-99) H 04/14/25 03:21
Calcium 8.4 mg/dl (8.4-10.2) 04/14/25 03:21
Guq-H-Nybwqbversu Pept 1730 pg/ml 04/01/25 02:54
Albumin 3.5 g/dl (3.5-5.0) 04/04/25 07:23
Physical Exam
-
Vital Signs:
Vital Signs
Temp Pulse Resp BP Pulse Ox
97.8 F 99 16 143/92 96
04/14/25 11:28 04/14/25 11:28 04/14/25 11:28 04/14/25 11:28 04/14/25 11:28
Cardiovascular:: Regular rate and rhythm
Respiratory:: Bilateral: CTA
Lung Excursion:: Normal (decreased BS)
Abdomen:: Nontender and Soft
Extremity Edema:: +2: Left: and None: Right:
Blancas Catheter: No
--- NOTE | 2025-04-14 13:24 | CM ---
Addendum entered by LAUREN Breaux 04/14/25 16:26:
[facility] unable to accept today afterall due to a cancelled discharge on their end.
Bed should be available Thursday.
Pt. is aware of this.
CM to follow up on Thursday.
Original Note:
CM following for DC planning needs.
Spoke w/ both patient and spouse.
[facility] @ . All are in agreement.
Bed avail. today.
Plan- Transfer to [facility] today
RN report- [phone]
[2025-04-14] MEDS: LIPITOR 80 MG PO (18:16)
[2025-04-14] MEDS: XANAX 0.25 MG PO (21:57)
[2025-04-14 22:14] LABS: Glucose - Point of Care 114 mg/dl (70-99)
[2025-04-15] VITALS (11 sets, daily range): BP systolic 106–145; BP diastolic 70–91; PULSE 77; O2SAT 94; BMI 29.1
[2025-04-15 04:12] LABS: Blood Urea Nitrogen 20 mg/dl (9-20); Calcium 8.2 mg/dl (8.4-10.2); Carbon Dioxide 29 mmol/L (22-30); Chloride 99 mmol/L (98-107); Estimated Creatinine Clearance 64 ml/min; Glucose 104 mg/dl (70-99); Potassium 4.4 mmol/L (3.5-5.1); Sodium 132 mmol/L (135-145); eGFR > 60.00
--- NOTE | 2025-04-15 04:29 | W.PN.CT ---
Today's Communication / Plan
-
-pod #8
-no issues overnight.
-NSR 70-80's- Currently, on ASA and Eliquis.
-small b/l pleural effusions- follow
-on Lasix 60 po bid (Cr stable 0.9)
-recent L TKR - juan diego to be removed during follow-up at [facility]
-continue PT/OT
-acute rehab placement- to [facility] Thursday pending bed availability
Assessment / Plan
-
Assessment:
-S/P Median sternotomy/ CABG x 2 (JEFFREY to LAD, GSV to OM)/ Endoscopic harvest/prep of RLE GSV/ MV Repair (30mm Rodríguez 5200 Annuloplasty Ring)/ Encompass MAZE procedure/ELAA (50mm AtriClip), by Dr. Stokes, 04/07/24, pod#8
-2V CAD w/ mild NSTEMI
-USA
-Atrial flutter/tachycardia s/p prior PVI 09/05/24 (on Eliquis @ home)
-LVEF 55-60% preop; 45-50% postop
-Chronic diastolic CHF
-Scheduled for repeat ablation & watchman in May 2025
-RBBB
-Hx of frequent bleeding on oral anticoagulation
-Preoperative anemia (Hgb 7.2)
-Preoperative hyponatremia
-HTN
-HLD
-BPH
-GERD
-S/P L TKA 03/28/2025
-S/P R knee arthroscopy and meniscus repair
-S/P lumbar laminectomy (L4/L5), 10/2024
-S/p Left inguinal herniorrhaphy, 06/2024
-S/P S/p right eyelid surgery, 12/2023
-Acute postop blood loss anemia on preop anemia (received 2u PRBC's intraop and 2u postop)
-Acute intraop coagulopathy/ postop thrombocytopenia (received 1 {5pk) plts intraop and 1 {5pk} plts postop)
-Acute postop atelectasis, small b/l pleural effusions
-Acute intraop pulmonary hypertension
-Acute postop cardiogenic shock
-Acute postop hypovolemia with subsequent hypervolemia
-Acute postop hyponatremia, 127
Subjective
Procedure
S/P Median sternotomy/ CABG x 2 (JEFFREY to LAD, GSV to OM)/ Endoscopic harvest/prep of RLE GSV/ MV Repair (30mm Rodríguez 5200 Annuloplasty Ring)/ Encompass MAZE procedure/ELAA (50mm AtriClip), by Dr. Stokes, 04/07/24
-
Date of Service: April 15, 2025
Objective Data
-
Lab Results
04/14/25 03:21
04/15/25 03:30
PT 17.6 Sec (11.4-14.6) H 04/08/25 03:07
INR 1.42 04/08/25 03:07
APTT 38.5 Sec (23.4-35.0) H 04/07/25 14:26
Vital Signs
Vital Signs
Temp Pulse Resp BP Pulse Ox
97.8 F 86 17 102/77 95
04/15/25 03:21 04/14/25 23:00 04/15/25 03:21 04/14/25 23:00 04/15/25 03:21
CT Intake/Output/Weight
04/14/25 04/14/25 04/15/25
06:59 18:59 06:59
Intake Total 800 / 800
Output Total 900 / 2650 900 / 1600 700 / 1600
Balance -900 / -2150 -100 / -800 -700 / -800
SaO2: 95
Physical Exam
-
General: AOx3
Cardiovascular: Regular rate & rhythm
Respiratory: Clear
Sternum: Stable
Incision: Dressing Intact
Extremities: No Edema
[2025-04-15] MEDS: TYLENOL 1000 MG PO ×3 (05:53→22:21)
[2025-04-15] MEDS: LASIX 60 MG PO ×2 (09:36→15:35)
[2025-04-15] MEDS: NEURONTIN 100 MG PO ×3 (09:37→22:22)
[2025-04-15] MEDS: PACERONE 200 MG PO (09:37)
[2025-04-15] MEDS: PROTONIX 40 MG PO (09:38)
[2025-04-15] MEDS: VITAMIN C 500 MG PO (09:38)
[2025-04-15] MEDS: ELIQUIS 5 MG PO ×2 (09:38→19:55)
[2025-04-15] MEDS: SENOKOT-S 1 TABLET PO ×2 (09:38→19:55)
[2025-04-15] MEDS: FEOSOL 325 MG PO (09:38)
[2025-04-15] MEDS: KLOR-CON 20 MEQ PO (09:38)
[2025-04-15] MEDS: LOW STRENGTH ASPIRIN 81 MG PO (09:38)
[2025-04-15] MEDS: ZESTRIL 5 MG PO (09:38)
[2025-04-15] MEDS: MAGNESIUM OXIDE 500 MG PO ×2 (09:38→19:55)
[2025-04-15] MEDS: FLOMAX 0.4 MG PO (09:38)
[2025-04-15] MEDS: MIRALAX 17 GRAMS PO (09:39)
--- NOTE | 2025-04-15 10:24 | W.PN.NEPH.PH ---
Today's Communication / Plan
-
Signed off
Assessment/Plan
-
Assessment
Multivessel coronary disease
Non-ST elevation NH
Atrial fibrillation
Right bundle branch block
Left knee replacement 03/28/2025
Hyponatremia new
Orthostatic hypotension
Plan
s/p CABGx2 and MV repair on 04/07
Sodium 132
responded to Samsca 04/13
cont FR as wt is up still from baseline EDW which appears to be 86 kg
Bp stable
follow labs
I will sign off
-
-
Date of Service: April 15, 2025
CC / HPI / ROS
-
Chief Complaint:
hyponatremia
History of Present Illness:
sodium down to 131
s/p CABG and MV repair on 04/07
Bp stable
wt slow to decrease
Review of Systems:
pain controlled
no sob at rest
no fever
Labs
-
Labs:
WBC 13.0 10^3/uL (4.8-10.8) H 04/14/25 03:21
RBC 3.13 10^6/uL (4.70-6.10) L 04/14/25 03:21
Hgb 10.4 g/dL (13.0-18.0) L 04/14/25 03:21
Hct 30.2 % (39.0-52.0) L 04/14/25 03:21
Plt Count 193 10^3/uL (130-400) 04/14/25 03:21
Sodium 132 mmol/L (135-145) L 04/15/25 03:30
Potassium 4.4 mmol/L (3.5-5.1) 04/15/25 03:30
Chloride 99 mmol/L (98-107) 04/15/25 03:30
Carbon Dioxide 29 mmol/L (22-30) 04/15/25 03:30
BUN 20 mg/dl (9-20) 04/15/25 03:30
Creatinine 0.9 mg/dL (0.7-1.3) 04/15/25 03:30
eGFR > 60.00 04/15/25 03:30
Glucose 104 mg/dl (70-99) H 04/15/25 03:30
Calcium 8.2 mg/dl (8.4-10.2) L 04/15/25 03:30
Bwn-M-Jcrvvnktssv Pept 1730 pg/ml 04/01/25 02:54
Albumin 3.5 g/dl (3.5-5.0) 04/04/25 07:23
Physical Exam
-
Vital Signs:
Vital Signs
Temp Pulse Resp BP Pulse Ox
97.9 F 75 16 114/76 96
04/15/25 08:23 04/15/25 08:21 04/15/25 08:23 04/15/25 08:21 04/15/25 09:26
Cardiovascular:: Regular rate and rhythm
Respiratory:: Bilateral: CTA
Lung Excursion:: Normal (decreased BS)
Abdomen:: Nontender and Soft
Extremity Edema:: +2: Left: and None: Right:
Blancas Catheter: No
--- NOTE | 2025-04-15 10:36 | W.PN.UPDATE ---
Update Note
Progress Note Update
The patient was seen and examined by Orthopedic surgery this morning on rounds. L TKA 03/28/2025 (POD #18) under the direction of Dr. Lerma. S/p CABG x 2, encompass maze procedure, and left atrial appendage closure and mitral valve repair on
04/07/[address] Osman Stokes. Overall, the patient reports that he is doing well this morning and is in good spirits. Planning for acute rehab placement ([facility]) Thursday pending bed availability.
PE: Physical examination of the left knee reveals a well-approximated healing surgical incision with juan diego intact. No drainage, erythema, or incisional dehiscence. Ecchymosis to LLE. Range of motion not overly challenged today, however shy of
terminal extension by approximately 10 degrees to approximately 80 degrees of flexion. Calf is soft nontender to palpation. Able to plantarflex and dorsiflex left ankle. NVI distally.
A&P: 80-year-old male POD #18 L TKA 03/28/[address] Lerma.
- Incision was sterilely prepped with Betadine swabs and skin clips were removed today without complication. Steri-Strips were reapplied.
- Currently on ASA and Eliquis.
- Appreciate all teams involved with the care of this patient.
- PT/OT as medically able.
- Pain control per primary team. Ice/elevation for edema control.
- Please reach out with any additional Orthopedic questions or concerns.
--- NOTE | 2025-04-15 10:39 | PTCARENOTE ---
Ortho in to see pt. L knee juan diego removed and dsg is c/d/i.
[2025-04-15] MEDS: NSS IV (12:29)
[2025-04-15] MEDS: FLEXERIL 5 MG PO ×2 (15:35→22:50)
[2025-04-15] MEDS: LIPITOR 80 MG PO (17:04)
--- NOTE | 2025-04-15 20:49 | PTCARENOTE ---
Rec'd pt at change of shift. Pt denies any pain or discomfort. Pt SR on monitor with 1st degree and BBB, VSS, AAO*3. Pt OOBx1 w rolling walker and staff assistance. Surgical sites intact. Pt updated on plan of care and now resting with call
russo in reach. Plan of care ongoing, see mar and flowchart for full pt care and assessment.
[2025-04-15] MEDS: XANAX 0.25 MG PO (22:22)
[2025-04-15 22:26] LABS: Glucose - Point of Care 104 mg/dl (70-99)
[2025-04-16] VITALS (8 sets, daily range): BP systolic 115–141; BP diastolic 70–99; BMI 28.9
--- NOTE | 2025-04-16 01:25 | PTCARENOTE ---
12 beat non sustained run of vtach noted on TELE monitor. Pt denies cp or palpitations. BP 121/87 and now SR in the 70's. YAZ Garcia notified. Order for mg level with morning labs rec'd. Pt resting with call russo in reach and plan of care
ongoing.
[2025-04-16 04:01] LABS: Blood Urea Nitrogen 22 mg/dl (9-20); Calcium 8.2 mg/dl (8.4-10.2); Carbon Dioxide 29 mmol/L (22-30); Chloride 98 mmol/L (98-107); Estimated Creatinine Clearance 58 ml/min; Glucose 103 mg/dl (70-99); Magnesium 2.2 mg/dl (1.6-2.3); Potassium 4.6 mmol/L (3.5-5.1); Sodium 133 mmol/L (135-145); eGFR > 60.00
--- NOTE | 2025-04-16 05:57 | W.PN.CT ---
Today's Communication / Plan
-
-pod #9
-no issues overnight.
-On ASA and Eliquis.
-small b/l pleural effusions- follow
-on Lasix 60 po bid
-recent L TKR - juan diego to be removed during follow-up at [facility]
-continue PT/OT
-acute rehab placement- to [place] Thursday pending bed availability
Assessment / Plan
-
Assessment:
-S/P Median sternotomy/ CABG x 2 (JEFFREY to LAD, GSV to OM)/ Endoscopic harvest/prep of RLE GSV/ MV Repair (30mm Rodríguez 5200 Annuloplasty Ring)/ Encompass MAZE procedure/ELAA (50mm AtriClip), by Dr. Stokes, 04/07/24, pod#9
-2V CAD w/ mild NSTEMI
-[place]
-Atrial flutter/tachycardia s/p prior PVI 09/05/24 (on Eliquis @ home)
-LVEF 55-60% preop; 45-50% postop
-Chronic diastolic CHF
-Scheduled for repeat ablation & watchman in May 2025
-RBBB
-Hx of frequent bleeding on oral anticoagulation
-Preoperative anemia (Hgb 7.2)
-Preoperative hyponatremia
-HTN
-HLD
-BPH
-GERD
-S/P L TKA 03/28/2025
-S/P R knee arthroscopy and meniscus repair
-S/P lumbar laminectomy (L4/L5), 10/2024
-S/p Left inguinal herniorrhaphy, 06/2024
-S/P S/p right eyelid surgery, 12/2023
-Acute postop blood loss anemia on preop anemia (received 2u PRBC's intraop and 2u postop)
-Acute intraop coagulopathy/ postop thrombocytopenia (received 1 {5pk) plts intraop and 1 {5pk} plts postop)
-Acute postop atelectasis, small b/l pleural effusions
-Acute intraop pulmonary hypertension
-Acute postop cardiogenic shock
-Acute postop hypovolemia with subsequent hypervolemia
-Acute postop hyponatremia, 127
Subjective
Procedure
S/P Median sternotomy/ CABG x 2 (JEFFREY to LAD, GSV to OM)/ Endoscopic harvest/prep of RLE GSV/ MV Repair (30mm Rodríguez 5200 Annuloplasty Ring)/ Encompass MAZE procedure/ELAA (50mm AtriClip), by Dr. Stokes, 04/07/24
-
Date of Service: April 16, 2025
Objective Data
-
Lab Results
04/14/25 03:21
04/16/25 02:30
PT 17.6 Sec (11.4-14.6) H 04/08/25 03:07
INR 1.42 04/08/25 03:07
APTT 38.5 Sec (23.4-35.0) H 04/07/25 14:26
Vital Signs
Vital Signs
Temp Pulse Resp BP Pulse Ox
97.8 F 74 16 131/96 97
04/16/25 02:23 04/16/25 02:23 04/16/25 02:23 04/16/25 02:23 04/16/25 02:23
CT Intake/Output/Weight
04/15/25 04/15/25 04/16/25
06:59 18:59 06:59
Output Total 700 / 1600 700 / 1000 300 / 1000
Balance -700 / -800 -700 / -1000 -300 / -1000
SaO2: 97
Physical Exam
-
General: Awake and Oriented
Cardiovascular: Regular rate & rhythm
Respiratory: Clear
Sternum: Stable
Incision: Clean and Dry
Data Reviewed
-
Lab Results: Results Reviewed
Medications: Active Meds Reviewed
CT Scan: Report Reviewed
ECG: Report Reviewed
[2025-04-16] MEDS: TYLENOL PO ×2 (07:00→14:27)
[2025-04-16] MEDS: FLOMAX 0.4 MG PO (09:21)
[2025-04-16] MEDS: LASIX 60 MG PO ×2 (09:21→15:34)
[2025-04-16] MEDS: VITAMIN C 500 MG PO (09:21)
[2025-04-16] MEDS: ELIQUIS 5 MG PO ×2 (09:21→19:49)
[2025-04-16] MEDS: MAGNESIUM OXIDE 500 MG PO ×2 (09:22→19:49)
[2025-04-16] MEDS: FEOSOL 325 MG PO (09:22)
[2025-04-16] MEDS: LOW STRENGTH ASPIRIN 81 MG PO (09:22)
[2025-04-16] MEDS: ZESTRIL 5 MG PO (09:23)
[2025-04-16] MEDS: KLOR-CON 20 MEQ PO (09:23)
[2025-04-16] MEDS: PROTONIX 40 MG PO (09:23)
[2025-04-16] MEDS: NEURONTIN 100 MG PO ×3 (09:23→22:06)
[2025-04-16] MEDS: PACERONE 200 MG PO (09:23)
[2025-04-16] MEDS: SENOKOT-S PO (09:24)
[2025-04-16] MEDS: MIRALAX PO (09:24)
[2025-04-16] MEDS: SENOKOT-S 1 TABLET PO ×2 (10:34→19:49)
[2025-04-16] MEDS: ROXICODONE 5 MG PO ×2 (10:34→23:20)
[2025-04-16] MEDS: MIRALAX 17 GRAMS PO (10:40)
[2025-04-16] MEDS: NSS IV (11:50)
--- NOTE | 2025-04-16 12:49 | PTCARENOTE ---
Tele- SR w/ 1st deg and BBBC. Pt OOB in chair all morning and walking in room/hallway w/ RN assist and RW. Surgical sites intact. Assessment competed as documented. Pt hopeful to go to [facility]. Currently in chair ; call karan w/in reach.
[2025-04-16] MEDS: TYLENOL 1000 MG PO ×2 (15:33→22:05)
[2025-04-16 17:26] LABS: Glucose - Point of Care 127 mg/dl (70-99)
[2025-04-16] MEDS: LIPITOR 80 MG PO (17:36)
--- NOTE | 2025-04-16 21:04 | PTCARENOTE ---
Rec'd pt at fragoso of shift. PT AAO*3, VSS, and SR with BBB and 1st degree hb av block on TELE monitor. Pt denies any pain or discomfort and updated on plan of care. Pt resting with call russo in reach and plan of care ongoing. See MAR and
flowchart for full pt care and assessment.
[2025-04-16 22:00] LABS: Glucose - Point of Care 109 mg/dl (70-99)
[2025-04-16] MEDS: XANAX 0.25 MG PO (22:06)
--- NOTE | 2025-04-17 02:49 | W.PN.CT ---
Today's Communication / Plan
-
No issues overnight.�
ASA and Eliquis.�
small b/l pleural effusions- continue to monitor�
Diuresis = Lasix 60 po bid �
Recent L TKR - juan diego to be removed during follow-up at [place] (Adi Lerma)�
Continue PT/OT�
Acute rehab placement- to [place] Thursday pending bed availability�
Assessment / Plan
-
Assessment:
-S/P Median sternotomy/ CABG x 2 (JEFFREY to LAD, GSV to OM)/ Endoscopic harvest/prep of RLE GSV/ MV Repair (30mm Rodríguez 5200 Annuloplasty Ring)/ Encompass MAZE procedure/ELAA (50mm AtriClip), by Dr. Stokes, 04/07/24, pod#10
-2V CAD w/ mild NSTEMI
-[place]
-Atrial flutter/tachycardia s/p prior PVI 09/05/24 (on Eliquis @ home)
-LVEF 55-60% preop; 45-50% postop
-Chronic diastolic CHF
-Scheduled for repeat ablation & watchman in May 2025
-RBBB
-Hx of frequent bleeding on oral anticoagulation
-Preoperative anemia (Hgb 7.2)
-Preoperative hyponatremia
-HTN
-HLD
-BPH
-GERD
-S/P L TKA 03/28/2025
-S/P R knee arthroscopy and meniscus repair
-S/P lumbar laminectomy (L4/L5), 10/2024
-S/p Left inguinal herniorrhaphy, 06/2024
-S/P S/p right eyelid surgery, 12/2023
-Acute postop blood loss anemia on preop anemia (received 2u PRBC's intraop and 2u postop)
-Acute intraop coagulopathy/ postop thrombocytopenia (received 1 {5pk) plts intraop and 1 {5pk} plts postop)
-Acute postop atelectasis, small b/l pleural effusions
-Acute intraop pulmonary hypertension
-Acute postop cardiogenic shock
-Acute postop hypovolemia with subsequent hypervolemia
-Acute postop hyponatremia, 127
Subjective
Procedure
S/P Median sternotomy/ CABG x 2 (JEFFREY to LAD, GSV to OM)/ Endoscopic harvest/prep of RLE GSV/ MV Repair (30mm Rodríguez 5200 Annuloplasty Ring)/ Encompass MAZE procedure/ELAA (50mm AtriClip), by Dr. Stokes, 04/07/24
-
Date of Service: April 17, 2025
Objective Data
-
Lab Results
04/14/25 03:21
04/16/25 02:30
PT 17.6 Sec (11.4-14.6) H 04/08/25 03:07
INR 1.42 04/08/25 03:07
APTT 38.5 Sec (23.4-35.0) H 04/07/25 14:26
Vital Signs
Vital Signs
Temp Pulse Resp BP Pulse Ox
98.3 F 78 16 118/75 95
04/16/25 22:04 04/16/25 22:04 04/16/25 22:04 04/16/25 22:04 04/16/25 22:44
CT Intake/Output/Weight
04/16/25 04/16/25 04/17/25
06:59 18:59 06:59
Intake Total 350 / 830 480 / 830
Output Total 300 / 1000 550 / 1250 700 / 1250
Balance -300 / -1000 -200 / -420 -220 / -420
SaO2: 95
[2025-04-17 04:41] VITALS: BP 125/72
[2025-04-17 04:42] VITALS: BP 125/72
[2025-04-17 04:43] VITALS: BMI 29.0
[2025-04-17] MEDS: TYLENOL 1000 MG PO ×2 (04:47→14:03)
[2025-04-17 08:01] VITALS: BP 118/78
[2025-04-17] MEDS: KLOR-CON 20 MEQ PO (08:33)
[2025-04-17] MEDS: MIRALAX PO (08:34)
[2025-04-17] MEDS: LOW STRENGTH ASPIRIN 81 MG PO (08:34)
[2025-04-17] MEDS: VITAMIN C 500 MG PO (08:34)
[2025-04-17] MEDS: SENOKOT-S 1 TABLET PO (08:34)
[2025-04-17] MEDS: NEURONTIN 100 MG PO (08:35)
[2025-04-17] MEDS: LASIX 60 MG PO (08:35)
[2025-04-17] MEDS: PACERONE 200 MG PO (08:35)
[2025-04-17] MEDS: ZESTRIL 5 MG PO (08:35)
[2025-04-17] MEDS: FLOMAX 0.4 MG PO (08:35)
[2025-04-17] MEDS: ELIQUIS 5 MG PO (08:35)
[2025-04-17] MEDS: MAGNESIUM OXIDE 500 MG PO (08:36)
[2025-04-17] MEDS: FEOSOL 325 MG PO (08:36)
[2025-04-17] MEDS: PROTONIX 40 MG PO (08:36)
[2025-04-17] MEDS: FLUSH (NSS) 1 FLUSH IV (08:41)
[2025-04-17 09:03] LABS: Glucose - Point of Care 126 mg/dl (70-99)
[2025-04-17] MEDS: NSS IV (09:59)
--- NOTE | 2025-04-17 10:05 | PTCARENOTE ---
received patient this am, patient wants to go to [place] today, waiting for case management input. monitor shows NSR with BBC, VSS. sternum Acuseal intact, sutures remain in from CT sites, left leg is swollen, sterri strips remain intact. ecchymotic
from knee surgery. patient able to ambulate with walker. presently sitting up in chair eating breakfast.
--- NOTE | 2025-04-17 11:38 | CM ---
spoke with pt in room, and on phone. he has a bed at [facility], he is agreeable to go. he is cleared for transfer. van set up for 4pm.
--- NOTE | 2025-04-17 11:53 | W.PN.CARDCBS ---
Addendum entered and electronically signed by Tremaine Nolan DO 04/17/25 13:56:
I saw and examined the patient.
The Merchandising Execution Manager's note was reviewed and I agree with the note.
Comment:
Plan:
Stable for d/c from cardiac standpoint
[facility] later today
Outpt follow up arranged
Reviewed with family at bedside.
Original Note:
Today's Communication / Plan
-
Going to [facility] today
Cardiology f/u arranged
Impression / Plan
-
PCP: Vincenzo Parra
Primary code number stamper: Malcolm Potter MD
Impression:
Admitted with chest pain 04/01/25
s/p CABG x2 JJ to LAD, GSV to OM, MV repair with Rodríguez annuloplasty ring, MAZE, COLEEN clip 04/07/25
NSTEMI, peak Troponin 0.068
Multivessel CAD s/p CABG x2 JJ to LAD, GSV to OM 04/07/25
s/p MV ring repair for moderate to mod-sev MR 04/07/25
s/p MAZE, COLEEN clip 04/07/25
clip is well-seated, no flow seen through the left atrial appendage remnant by IntraOp JOSE 04/07/2025
Paroxysmal atypical atrial flutter
Recurrent atypical atrial flutter/atrial tachycardia at office visit 03/16/2025 and is scheduled for repeat ablation and Watchman with Dr. Potter in May 2025
Paroxysmal atrial tachycardia
Paroxysmal atrial fibrillation
s/p PVI 09/05/2024
Intermittent Mobitz type I
Chronic Eliquis OAC
Frequent bleeding-cuts, scrapes on OAC
Right bundle branch block
Left total knee replacement 03/28/2025
Echo 12/28/2023: Normal LV size and function, LVEF 60 to 65%, moderate to severe MR, mild TR, PAP 35 to 40 mmHg, mild PI, negative bubble study
JOSE 01/15/2024: Normal LV/RV size and function, LVEF 55%, mitral annular dilatation with severe LA dilatation, moderate MR, no COLEEN a thrombus, mild TR
Echo 04/04/2025: EF 55 to 60%, normal regional wall motion, mild concentric LVH, posterior MAC, moderate MR
Cardiac catheterization 04/03/2025: LM. Patent. LAD: Hazy ostial 60% stenosis, 95% mid stenosis just beyond first diagonal followed by additional 60% mid stenosis. Apical 60% stenosis. Diagonal 50% ostial stenosis and 80% mid stenosis. Left
circumflex. Proximal 90% stenosis, long 80% mid stenosis. RCA: Diffuse minor LI up to 30% throughout vessel. PDA and posterior lateral branch are patent. LVG 50 to 55% with anterolateral hypokinesis. +2 MR.
Plan:
-He underwent L TKA 03/28/25, then presented to ER with chest pain 03/31 and ruled in for NSTEMI. Peak troponin 0.068. Cardiac cath 04/03 with MV CAD including hazy stenosis in the proximal LAD with 95% mid LAD stenosis and multisegment high-grade
atherosclerotic disease in the mid circumflex. Preserved LV systolic function with EF 50-55% with anterolateral hypokinesis. There is 2+ mitral regurgitation. MR by echo is felt to be moderate�moderate to severe. JOSE 01/2024 showed moderate MR
-Patient HD improved following transfusions for 6 units PRBCs and 2 packs platelets this admission
-Due to NSTEMI on admission patient, the patient was on Plavix postop, then transitioned to a regimen of aspirin and his ceekn-kn-huhziszst dose of Eliquis 5 mg BID (age 80, wt 86.4 kg, Cre 1.0)
-LDL 78 and patient was newly started on atorvastatin 80 mg daily this admission
-Patient is not a candidate for cardiac rehab at this time as he will need PT/OT at [facility] before he can start cardiac rehab
-Patient with acute HFpEF and diuresed with Lasix IV this admission. Weight on admission was 192 lbs, weight peaked 205 lbs on 04/10/2025 and is down to 190 pounds on 04/17/2025. Patient was taking Lasix 20 mg daily prior to admission and is now on a
regimen of Lasix 60 mg PO BID.
-Patient was taking Coreg 6.25 mg twice daily on admission, but that was stopped due to intermittent Wenckebach. Patient was also loaded with amiodarone and plan is for 200 mg daily upon discharge
-Eliquis as above. Also as noted above patient had COLEEN clip at time of surgery on 04/07/2025 and by postop JOSE the clip was well-seated with no flow seen in the COLEEN remnant
-Patient followed by nephrology this admission and received Samsca for hyponatremia. Sodium 133 on 04/16/2025
-Cardiology follow-up arranged
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
Subjective
Date of Service: April 17, 2025
He feels well, he knows he is going to [facility] today
Objective
Labs:
04/14/25 03:21
04/16/25 02:30
Labs
Hgb 10.4 g/dL (13.0-18.0) L 04/14/25 03:21
Hct 30.2 % (39.0-52.0) L 04/14/25 03:21
Plt Count 193 10^3/uL (130-400) 04/14/25 03:21
PT 17.6 Sec (11.4-14.6) H 04/08/25 03:07
INR 1.42 04/08/25 03:07
APTT 38.5 Sec (23.4-35.0) H 04/07/25 14:26
Sodium 133 mmol/L (135-145) L 04/16/25 02:30
Potassium 4.6 mmol/L (3.5-5.1) 04/16/25 02:30
BUN 22 mg/dl (9-20) H 04/16/25 02:30
Creatinine 1.0 mg/dL (0.7-1.3) 04/16/25 02:30
Glucose 103 mg/dl (70-99) H 04/16/25 02:30
Vital Signs and I&O:
Vital Signs
Temp Pulse Resp BP Pulse Ox
97.9 F 87 20 118/78 96
04/17/25 08:01 04/17/25 10:00 04/17/25 08:01 04/17/25 08:35 04/17/25 08:30
Vital Signs
Temp Pulse Resp BP Pulse Ox
97.9 F 87 20 118/78 96
04/17/25 08:01 04/17/25 10:00 04/17/25 08:01 04/17/25 08:35 04/17/25 08:30
Intake & Output
04/15/25 04/16/25 04/17/25 04/18/25
06:59 06:59 06:59 06:59
Intake Total 800 / 800 830 / 830
Output Total 1600 / 1600 1000 / 1000 1250 / 1250 850 / 850
Balance -800 / -800 -1000 / -1000 -420 / -420 -850 / -850
Physical Exam
Physical Exam
GEN: AAO x3
HEENT: EOMI
LUNGS: RA
CV: SR on tele
EXT: Trace edema
NEURO: Gross non-focal
[2025-04-17 11:58] VITALS: BP 121/82
--- NOTE | 2025-04-17 12:26 | W.DCSUMMARY ---
Discharge Summary
Discharge Data
Date of Admission: 04/01/25
Date of Discharge: 04/17/25
-
Pending Results: No
Hospital Course
Date of Admission: 04/01/25
Date of Discharge: 04/17/25
-
Pending Results: No
Hospital Course
Primary care physician: Vincenzo Parra
Outpatient ladle cleaner: Malcolm Potter
Inpatient consultants: [facility] Cardiology, nephrology, pulmonary transverse abdominal muscle surgeon, PT/OT
Procedures:
1. TAVR
Primary Diagnosis:
1. severe aortic stenosis
Secondary Diagnoses:
1. NSTEMI/ multi vessel coronary disease
2. Atrial flutter/tachycardia s/p prior PVI 09/05/24, on Eliquis
3. Chronic RBBB
4. Hx of frequent bleeding on oral anticoagulation
5. L TKA 03/28/2025
6. Acute blood loss on chronic preoperative anemia (Hgb 7.2)
7. Carotid stenosis (R ICA >70%)
8. 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
9. Acute intraop coagulopathy/ postop thrombocytopenia (received 1 {5pk) plts intraop and 1 {5pk} plts postop)
10. Acute postop atelectasis, small b/l pleural effusions
11. Acute intraop pulmonary hypertension
12. Acute postop cardiogenic shock
13. Acute postop hypovolemia with subsequent hypervolemia
14. Post-op Mobitz I
15. ambulatory dysfunction s/p L TKR
HPI: 80-year-old male with history of atrial fibrillation, status post PVI 09/05/24, atrial tachycardia, atypical atrial flutter, heart failure preserved EF, moderate to severe mitral regurgitation, right bundle branch block, and most
recently left total knee arthroplasty on 03/28/25. He presented to the [facility] ER on 04/01/25 due to substernal chest pain/tightness that developed after he walked up a flight of steps. CT for PE protocol negative for pulmonary embolism. He was found to
have elevated troponins consistent with NSTEMI and was started a heparin infusion.
Hospital course: Heart catheterization revealed MVD and CT surgery was consulted for surgical evaluation. He was seen in consultation by nephrology on 04/06/25 for hyponatremia felt to be due to SIADH and treated with fluid restriction and
hypertonic saline. Patient underwent Mitral Repair (#30mm Rodríguez 5200 Annuloplasty Ring), [employer]compass MAZE, CABG x 2 (JEFFREY to LAD, GSV to OM), ELAA (#50mm AtriClip) on 04/07/[address] Osman Stokes. Patient received 3 units of PRBCs and 1 platelets
intraoperatively and returned to CVICU on Levophed at 8, dobutamine at 2, milrinone at 0.25, Precedex, and insulin. Patient received an additional 1 for platelet and 1 PRBC postoperatively for hemoglobin of 7.3. Repeat hemoglobin was 9.0. Patient
was extubated at 1820 on the day of surgery. Patient was weaned off Levophed at 0400 postop day #1. He was weaned off dobutamine by 0900. PT and OT were consulted for ambulatory dysfunction s/p recent left total knee replacement. Patient was
weaned off dobutamine but was restarted due to hypotension and blood mixed venous saturation of 52%. Dobutamine is discontinued on postoperative day #2. Patient was diuresed. Again the mixed venous saturation dipped to 49% with a cardiac index of
1.88. Dobutamine was resumed at 1 mcg. Cardiac input index improved to 2.17. Dobutamine was decreased to 0.5 mcg on postoperative day #3. [place] was removed and patient received 1 additional PRBC for hemoglobin of 8.2. Patient was then diuresed
with 40 mg of IV Lasix. Dobutamine was weaned off on postoperative day #4 and right IJ Cordis was discontinued. ASA was continued and Eliquis was initiated on postoperative day #5 due to history of atrial fibrillation. Plavix was discontinued.
Bipolar ventricular pacing wire was clipped to skin level on postoperative day #6. Left knee juan diego removed by ortho on 04/15/25. Beta-maddy was discontinued due to Mobitz I rhythm. Patient will be reassessed as outpatient by cardiology for future
need of beta-maddy. Repeat TTE reported an improved EF of 65% with MV gradients 10/4mmHg and no MR. Patient continued to be diuresed with Lasix 60mg BID with low dose potassium supplementation. Weight trending downward 89.6>87.8kg today. Low dose
Lisinopril 5mg daily added as BP creeping higher. [facility] so remained hospitalized until 04/17/25. Labs stable (Hb 10.4, Creatinine 0.9). Aquacell dressing and chest drain sutures removed.
Home medication changes:
DC Toradol
Lasix 20 mg daily changed to 60 mg twice daily
DC Coreg due to Mobitz 1
Nexium changed to Protonix while on Eliquis
DC lisinopril 40 mg, changed to 5 mg daily
DC methenamine
Discharge Plan
-
Patient Disposition: Acute Rehab Facility
Discharge Diagnosis/Procedures: mitral valve repair, CABG x 2, MAZE, left atrial appendage alip
Condition: Good
Diet: Low Cholesterol and Low Sodium
Activity: No strenuous activity
Driving Restrictions: Not until seen by your Dr
Bathing Restrictions: OK to Shower
Other Services: Cardiac Rehab
Specialty Instructions: Weigh Daily- Call MD for wt gain/loss 3 lbs overnight/5 lbs in 1 week
Referrals:
[facility] [Outside] - 05/23/25 11:00 am
Referral Note: Cardiac Rehab Orientation appointment is on 05/23/25 at 11:00 AM
The Cardiac Rehab gym is located on the first floor of the [facility].Vincenzo Parra MD [Family Provider, Family Practice] - in four to six weeks
Referral Note: Please make an appointment in four to six weeks. Rukhsana Bermudez CRNP [Specified Professional Personl, Cardiology] - 05/16/25 9:40 am
Osman Stokes MD [Active, Cardiac Surgery] - 05/02/25 3:00 pm
Prescriptions:
New
ferrous sulfate [FeroSul] 325 mg (65 mg iron) Tablet
325 mg PO DAILY Qty: 0 0RF
aspirin 81 mg Tablet,Chewable
81 mg PO DAILY Qty: 0 0RF
gabapentin 100 mg Capsule
100 mg PO TID Qty: 0 0RF
atorvastatin 80 mg Tablet
80 mg PO QPM Qty: 0 0RF
amiodarone 200 mg Tablet
200 mg PO DAILY Qty: 0 0RF
pantoprazole 40 mg Tablet,Delayed Release (Dr/Ec)
40 mg PO DAILY Qty: 0 0RF
furosemide 20 mg Tablet
60 mg PO BID AT 0800,1600 Qty: 0 0RF
oxycodone 5 mg Tablet
5 mg PO Q4HPRN PRN (Reason: severe pain) Qty: 0 0RF
Chloraseptic Sore Throat 6-10 mg Lozenge
1 roxana PO Q4HPRN PRN (Reason: sore throat) Qty: 0 0RF
potassium chloride 20 mEq Packet
20 meq PO DAILY Qty: 0 0RF
lisinopril 5 mg Tablet
5 mg PO DAILY Qty: 0 0RF
Continued
sildenafil 100 mg Tablet
50 - 100 mg PO DAILY PRN (Reason: ED)
mzzluzqtuifh-rysybsqf-vctmps Tablet
1 tab PO DAILY
alprazolam 0.25 mg Tablet
0.25 mg PO HS PRN (Reason: anxiety)
Eliquis 5 mg Tablet
5 mg PO BID
acetaminophen 325 mg tablet
650 mg PO Q4HPRN PRN (Reason: mild pain) Qty: 1 0RF
tamsulosin 0.4 mg Capsule
0.4 mg PO DAILY
Discontinued
esomeprazole magnesium [Nexium] 40 MG capsule,delayed release(DR/EC)
20 mg PO DAILY
carvedilol 6.25 mg Tablet
6.25 mg PO BID
furosemide [Lasix] 20 mg Tablet
20 mg PO DAILY
lisinopril 40 mg Tablet
40 mg PO DAILY
methenamine hippurate 1 gram Tablet
1 g PO BID
tramadol 25 mg Tablet
25 mg PO Q6H PRN (Reason: pain)
Rx Instructions:
12.5 to 25 mg
Discharge Orders:
Discharge Patient (As Directed); Ordered 04/14/25
Ordered By: Caroline Contreras
Care Plan Goals
Care Plan Goals:
Problem: Readiness for enhanced knowledge related to diagnosis and treatment plan
Goal: Understand your diagnosis and treatment plan needs, including medications if applicable.
Instructions: Know your diagnosis, underlying causes and treatment plan options, including medications if applicable. Consult with your health care team to learn about your diagnosis and treatment plan, including medications if applicable.
Discharge Date and Time
Print Language: BAHRAINI
Discharge Plan
-
Patient Disposition: Acute Rehab Facility
Discharge Diagnosis/Procedures: mitral valve repair, CABG x 2, MAZE, left atrial appendage alip
Condition: Good
Diet: Low Cholesterol and Low Sodium
Activity: No strenuous activity
Driving Restrictions: Not until seen by your Dr
Bathing Restrictions: OK to Shower
Other Services: Cardiac Rehab
Specialty Instructions: Weigh Daily- Call MD for wt gain/loss 3 lbs overnight/5 lbs in 1 week
Referrals:
[facility] [Other]
[facility] [Outside] - 05/23/25 11:00 am
Referral Note: Cardiac Rehab Orientation appointment is on 05/23/25 at 11:00 AM
The Cardiac Rehab gym is located on the first floor of the [facility].
Vincenzo aPrra MD [Family Provider, Family Practice] - in four to six weeks
Referral Note: Please make an appointment in four to six weeks.
Rukhsana Bermudez CRNP [Specified Professional Personl, Cardiology] - 05/16/25 9:40 am
Osman Stokes MD [Active, Cardiac Surgery] - 05/02/25 3:00 pm
Edd Lerma MD [Active, Orthopedics]
Referral Note: call for post-op visit within 4-6 weeks
Prescriptions:
New
ferrous sulfate [FeroSul] 325 mg (65 mg iron) Tablet
325 mg PO DAILY Qty: 0 0RF
aspirin 81 mg Tablet,Chewable
81 mg PO DAILY Qty: 0 0RF
gabapentin 100 mg Capsule
100 mg PO TID Qty: 0 0RF
atorvastatin 80 mg Tablet
80 mg PO QPM Qty: 0 0RF
amiodarone 200 mg Tablet
200 mg PO DAILY Qty: 0 0RF
pantoprazole 40 mg Tablet,Delayed Release (Dr/Ec)
40 mg PO DAILY Qty: 0 0RF
furosemide 20 mg Tablet
60 mg PO BID AT 0800,1600 Qty: 0 0RF
oxycodone 5 mg Tablet
5 mg PO Q4HPRN PRN (Reason: severe pain) Qty: 0 0RF
Chloraseptic Sore Throat 6-10 mg Lozenge
1 roxana PO Q4HPRN PRN (Reason: sore throat) Qty: 0 0RF
potassium chloride 20 mEq Packet
20 meq PO DAILY Qty: 0 0RF
lisinopril 5 mg Tablet
5 mg PO DAILY Qty: 0 0RF
Continued
sildenafil 100 mg Tablet
50 - 100 mg PO DAILY PRN (Reason: ED)
[id number]-bphljnzc-ipfasj Tablet
1 tab PO DAILY
alprazolam 0.25 mg Tablet
0.25 mg PO HS PRN (Reason: anxiety)
Eliquis 5 mg Tablet
5 mg PO BID
acetaminophen 325 mg tablet
650 mg PO Q4HPRN PRN (Reason: mild pain) Qty: 1 0RF
tamsulosin 0.4 mg Capsule
0.4 mg PO DAILY
Discontinued
esomeprazole magnesium [Nexium] 40 MG capsule,delayed release(DR/EC)
20 mg PO DAILY
carvedilol 6.25 mg Tablet
6.25 mg PO BID
furosemide [Lasix] 20 mg Tablet
20 mg PO DAILY
lisinopril 40 mg Tablet
40 mg PO DAILY
methenamine hippurate 1 gram Tablet
1 g PO BID
tramadol 25 mg Tablet
25 mg PO Q6H PRN (Reason: pain)
Rx Instructions:
12.5 to 25 mg
Discharge Orders:
Discharge Patient (As Directed); Ordered 04/17/25
Ordered By: Caroline Contreras
Care Plan Goals
Care Plan Goals:
Problem: Readiness for enhanced knowledge related to diagnosis and treatment plan
Goal: Understand your diagnosis and treatment plan needs, including medications if applicable.
Instructions: Know your diagnosis, underlying causes and treatment plan options, including medications if applicable. Consult with your health care team to learn about your diagnosis and treatment plan, including medications if applicable.
Discharge Date and Time
Print Language: BAHRAINI
--- NOTE | 2025-04-17 12:50 | PTCARENOTE ---
sternum Acuseal dsg. removed by CVICU nurse and chest tube sutures removed by Caroline ALTAMIRANO.
--- NOTE | 2025-04-17 15:10 | PTCARENOTE ---
patient D/C to [facility] via ambulance. report called to Zuly DALE, . telemetry D/C'd, INT D/C'd, personal belongings packed and sent with patient.
== END 2025-04-17 15:13 | DRG 216 ==
LOC: IVU 06:08
PROVIDERS: Anesthesiology; Clinical Nurse Specialist Acute Care; Hospitalist; Internal Medicine Interventional Cardiology; Nurse Practitioner; Nurse Practitioner Family; Physician Assistant Medical; Specialist; ADMITTING PHYSICIAN Hospitalist; ATTENDING PHYSICIAN Thoracic Surgery (Cardiothoracic Vascular Surgery); CONSULT PHYSICIAN Internal Medicine; CONSULT PHYSICIAN Physical Medicine & Rehabilitation; CONSULT PHYSICIAN Specialist; EMERGENCY PHYSICIAN Emergency Medicine; FAMILY PHYSICIAN Family Medicine; OTHER PHYSICIAN Internal Medicine Cardiovascular Disease
PROC: 4A023N7 Measurement of Cardiac Sampling and Pressure, Left Heart, Percutaneous Approach (ICD-10-PCS; 2025-04-03)
PROC: B2151ZZ Fluoroscopy of Left Heart using Low Osmolar Contrast (ICD-10-PCS; 2025-04-03)
PROC: B2111ZZ Fluoroscopy of Multiple Coronary Arteries using Low Osmolar Contrast (ICD-10-PCS; 2025-04-03)
PROC: 30233N1 Transfusion of Nonautologous Red Blood Cells into Peripheral Vein, Percutaneous Approach (ICD-10-PCS; 2025-04-07)
PROC: 02100ZC Bypass Coronary Artery, One Artery from Thoracic Artery, Open Approach (ICD-10-PCS; 2025-04-07)
PROC: 5A1221Z Performance of Cardiac Output, Continuous (ICD-10-PCS; 2025-04-07)
PROC: 02UG0JZ Supplement Mitral Valve with Synthetic Substitute, Open Approach (ICD-10-PCS; 2025-04-07)
PROC: 06BP4ZZ Excision of Right Saphenous Vein, Percutaneous Endoscopic Approach (ICD-10-PCS; 2025-04-07)
PROC: 02L70CK Occlusion of Left Atrial Appendage with Extraluminal Device, Open Approach (ICD-10-PCS; 2025-04-07)
PROC: 02580ZZ Destruction of Conduction Mechanism, Open Approach (ICD-10-PCS; 2025-04-07)
PROC: 30233R1 Transfusion of Nonautologous Platelets into Peripheral Vein, Percutaneous Approach (ICD-10-PCS; 2025-04-07)
PROC: B24BZZ4 Ultrasonography of Heart with Aorta, Transesophageal (ICD-10-PCS; 2025-04-07)
PROC: 021009W Bypass Coronary Artery, One Artery from Aorta with Autologous Venous Tissue, Open Approach (ICD-10-PCS; 2025-04-07)
DX: I21.4 Non-ST elevation (NSTEMI) myocardial infarction (principal); T81.11XA Postprocedural cardiogenic shock, initial encounter; D62 Acute posthemorrhagic anemia; I48.4 Atypical atrial flutter; I50.32 Chronic diastolic (congestive) heart failure; E22.2 Syndrome of inappropriate secretion of antidiuretic hormone; I47.19 Other supraventricular tachycardia; D68.9 Coagulation defect, unspecified; J98.11 Atelectasis; I11.0 Hypertensive heart disease with heart failure; I48.0 Paroxysmal atrial fibrillation; I95.1 Orthostatic hypotension; I34.0 Nonrheumatic mitral (valve) insufficiency; I27.20 Pulmonary hypertension, unspecified; I35.0 Nonrheumatic aortic (valve) stenosis; N40.0 Benign prostatic hyperplasia without lower urinary tract symptoms; I25.10 Atherosclerotic heart disease of native coronary artery without angina pectoris; K21.9 Gastro-esophageal reflux disease without esophagitis; I45.10 Unspecified right bundle-branch block; I65.21 Occlusion and stenosis of right carotid artery; D69.59 Other secondary thrombocytopenia; E86.1 Hypovolemia; Y83.2 Surgical operation with anastomosis, bypass or graft as the cause of abnormal reaction of the patient, or of later complication, without mention of misadventure at the time of the procedure; Z79.01 Long term (current) use of anticoagulants; Z79.899 Other long term (current) drug therapy; Z96.653 Presence of artificial knee joint, bilateral
CPT/HCPCS: 93308; 70355; 71045; 71046; 71275; 80048; 80053; 80061; 81003; 81015; 82248; 82330; 82533; 82565; 82805; 82810; 82947; 82962; 83036; 83735; 83880; 83935; 84132; 84300; 84302; 84443; 84484; 84520; 85014; 85018; 85025; 85027; 85049; 85610; 85730; 86850; 86900; 86901; 86920; 86922; 93005; 93306; 93312; 93320; 93321; 93325; 93458; 93650; 93880; 94002; 94760; 97110; 97116; 97163; 97164; 97167; 97530; 97535; 99152; 99153; 99285; C1894; J1325; J2260; P9016; P9045; P9073; Q9950; Q9967

== ENCOUNTER → 2025-05-11 10:06 | Outpatient (REF) | payer MEDICARE, OTHER, SELFPAY ==
[2025-05-11 10:59] LABS: % Basophils 0.7 % (0-2); % Immature Granulocytes 0.5 % (0-0.5); % Lymphocytes 16.3 % (20.5-51.1); % Monocytes 9.5 % (1.7-9.3); Absolute Basophils 0.1 10^3/uL (0-0.2); Absolute Eosinophils 0.4 10^3/uL (0-0.7); Absolute Lymphocytes 1.2 10^3/uL (1.2-3.4); Absolute Monocytes 0.7 10^3/uL (0.1-0.6); Absolute Neutrophils 4.9 10^3/uL (1.4-6.5); Hemoglobin 11.7 g/dL (13.0-18.0); Mean Corp Hgb Conc. 34.4 g/dL (33.0-37.0); Mean Corpuscular Hgb 32.9 pg (27.0-31.0); Mean Corpuscular Volume 95.5 fL (80.0-94.0); Mean Platelet Volume 10.9 fL (7.4-10.4); Nucleated Red Blood Cells % 0 % (-); Platelet Count 210 10^3/uL (130-400); Red Blood Cell Count 3.56 10^6/uL (4.70-6.10); Red Cell Dist. Width 16.1 % (11.5-14.5); White Blood Cell Count 7.3 10^3/uL (4.8-10.8)
[2025-05-11 11:47] LABS: ALT (SGPT) 16 U/L (0-50); AST (SGOT) 18 U/L (17-59); Albumin 3.5 g/dl (3.5-5.0); Alkaline Phosphatase 101 U/L (38-126); Blood Urea Nitrogen 12 mg/dl (9-20); Carbon Dioxide 27 mmol/L (22-30); Chloride 97 mmol/L (98-107); Glucose 89 mg/dl (70-99); Potassium 4.3 mmol/L (3.5-5.1); Sodium 131 mmol/L (135-145); Total Bilirubin 0.9 mg/dl (0.2-1.3); Total Protein 6.2 g/dl (6.3-8.2); eGFR > 60.00
== END ==
LOC: REG 10:06
PROVIDERS: ATTENDING PHYSICIAN Family Medicine
DX: I25.10 Atherosclerotic heart disease of native coronary artery without angina pectoris (principal); Z98.890 Other specified postprocedural states; D50.0 Iron deficiency anemia secondary to blood loss (chronic); E22.2 Syndrome of inappropriate secretion of antidiuretic hormone
CPT/HCPCS: 36415; 80053; 85025

== ENCOUNTER 2025-05-11 13:10 | Outpatient (RCR) | payer MEDICARE, OTHER, SELFPAY | END 2025-05-11 23:59 | disposition home or self-care (01) | LOC: RPT 13:10 | PROVIDERS: ATTENDING PHYSICIAN Orthopaedic Surgery; FAMILY PHYSICIAN Family Medicine | DX: Z47.1 Aftercare following joint replacement surgery (principal); Z96.652 Presence of left artificial knee joint; Z73.6 Limitation of activities due to disability | CPT/HCPCS: 97110; 97162 ==

== ENCOUNTER → 2025-05-22 12:13 | Outpatient (REF) | payer MEDICARE, OTHER, SELFPAY ==
[2025-05-22 14:25] LABS: Blood Urea Nitrogen 22 mg/dl (9-20); Calcium 9.2 mg/dl (8.4-10.2); Carbon Dioxide 31 mmol/L (22-30); Chloride 99 mmol/L (98-107); Glucose 81 mg/dl (70-99); Potassium 4.2 mmol/L (3.5-5.1); Sodium 133 mmol/L (135-145); eGFR > 60.00
== END ==
LOC: REG 12:13
PROVIDERS: ATTENDING PHYSICIAN Nurse Practitioner; FAMILY PHYSICIAN Family Medicine
DX: I48.0 Paroxysmal atrial fibrillation (principal); I10 Essential (primary) hypertension
CPT/HCPCS: 36415; 80048

== ENCOUNTER → 2025-05-24 13:11 | Outpatient (REF) | payer MEDICARE, OTHER, SELFPAY ==
[2025-05-24 15:52] LABS: Blood Urea Nitrogen 23 mg/dl (9-20); Calcium 9.0 mg/dl (8.4-10.2); Carbon Dioxide 29 mmol/L (22-30); Chloride 96 mmol/L (98-107); Glucose 87 mg/dl (70-99); Potassium 4.5 mmol/L (3.5-5.1); Sodium 132 mmol/L (135-145); eGFR > 60.00
== END ==
LOC: REG 13:11
PROVIDERS: ATTENDING PHYSICIAN Family Medicine
DX: E87.1 Hypo-osmolality and hyponatremia (principal)
CPT/HCPCS: 36415; 80048

== ENCOUNTER → 2025-06-08 12:15 | Outpatient (REF) | payer MEDICARE, OTHER, SELFPAY ==
[2025-06-08 13:30] LABS: Blood Urea Nitrogen 18 mg/dl (9-20); Calcium 8.8 mg/dl (8.4-10.2); Carbon Dioxide 29 mmol/L (22-30); Chloride 96 mmol/L (98-107); Glucose 96 mg/dl (70-99); Potassium 4.4 mmol/L (3.5-5.1); Sodium 130 mmol/L (135-145); eGFR > 60.00
== END ==
LOC: REG 12:15
PROVIDERS: ATTENDING PHYSICIAN Family Medicine
DX: E87.1 Hypo-osmolality and hyponatremia (principal)
CPT/HCPCS: 36415; 80048

== ENCOUNTER 2025-06-14 11:04 | Outpatient (RCR) | payer MEDICARE, OTHER, SELFPAY | END 2025-06-14 23:59 | disposition home or self-care (01) | LOC: CRHB 11:04 | PROVIDERS: ATTENDING PHYSICIAN Internal Medicine Cardiovascular Disease; FAMILY PHYSICIAN Family Medicine | DX: Z95.1 Presence of aortocoronary bypass graft (principal) | CPT/HCPCS: G0422; G0423 ==

== ENCOUNTER 2025-06-15 11:11 | Outpatient (RCR) | payer MEDICARE, OTHER, SELFPAY | END 2025-06-15 23:59 | disposition home or self-care (01) | LOC: RPT 11:11 | PROVIDERS: ATTENDING PHYSICIAN Orthopaedic Surgery; FAMILY PHYSICIAN Family Medicine | DX: Z47.1 Aftercare following joint replacement surgery (principal); Z73.6 Limitation of activities due to disability; Z96.652 Presence of left artificial knee joint; R26.2 Difficulty in walking, not elsewhere classified; M62.81 Muscle weakness (generalized); R26.89 Other abnormalities of gait and mobility | CPT/HCPCS: 97110; 97530 ==

== ENCOUNTER → 2025-06-26 11:43 | Outpatient (REF) | payer MEDICARE, OTHER, SELFPAY ==
[2025-06-26 13:18] LABS: Blood Urea Nitrogen 17 mg/dl (9-20); Calcium 9.6 mg/dl (8.4-10.2); Carbon Dioxide 28 mmol/L (22-30); Chloride 98 mmol/L (98-107); Glucose 80 mg/dl (70-99); Potassium 5.1 mmol/L (3.5-5.1); Sodium 133 mmol/L (135-145); eGFR > 60.00
== END ==
LOC: REG 11:43
PROVIDERS: ATTENDING PHYSICIAN Family Medicine
DX: E87.1 Hypo-osmolality and hyponatremia (principal)
CPT/HCPCS: 36415; 80048

== ENCOUNTER 2025-07-11 11:43 | Outpatient (RCR) | payer MEDICARE, OTHER, SELFPAY | END 2025-07-11 23:59 | disposition home or self-care (01) | LOC: CRHB 11:43 | PROVIDERS: ATTENDING PHYSICIAN Internal Medicine Cardiovascular Disease; FAMILY PHYSICIAN Family Medicine | DX: I25.10 Atherosclerotic heart disease of native coronary artery without angina pectoris (principal); Z95.1 Presence of aortocoronary bypass graft | CPT/HCPCS: G0422; G0423 ==

== ENCOUNTER → 2025-07-24 09:33 | Outpatient (REF) | payer MEDICARE, OTHER, SELFPAY ==
[2025-07-24 10:50] LABS: Hematocrit 38.6 % (39.0-52.0); Hemoglobin 13.7 g/dL (13.0-18.0); Mean Corp Hgb Conc. 35.5 g/dL (33.0-37.0); Mean Corpuscular Volume 93.5 fL (80.0-94.0); Nucleated Red Blood Cells % 0 % (-); Platelet Count 173 10^3/uL (130-400); Red Cell Dist. Width 13.2 % (11.5-14.5)
[2025-07-24 11:14] LABS: ALT (SGPT) 21 U/L (0-50); AST (SGOT) 23 U/L (17-59); Albumin 3.8 g/dl (3.5-5.0); Alkaline Phosphatase 83 U/L (38-126); Blood Urea Nitrogen 19 mg/dl (9-20); Calcium 9.2 mg/dl (8.4-10.2); Carbon Dioxide 30 mmol/L (22-30); Chloride 96 mmol/L (98-107); Glucose 92 mg/dl (70-99); HDL Cholesterol 46 mg/dl; LDL Cholesterol, Calculated 53 mg/dl; Potassium 4.5 mmol/L (3.5-5.1); Sodium 132 mmol/L (135-145); Total Protein 6.7 g/dl (6.3-8.2); Very Low Density Lipoprotein 17 mg/dl (0-30); eGFR > 60.00
== END ==
LOC: REG 09:33
PROVIDERS: ATTENDING PHYSICIAN Nurse Practitioner; FAMILY PHYSICIAN Family Medicine; REFERRING PHYSICIAN Internal Medicine Cardiovascular Disease
DX: I48.0 Paroxysmal atrial fibrillation (principal); I10 Essential (primary) hypertension; I50.30 Unspecified diastolic (congestive) heart failure; E78.5 Hyperlipidemia, unspecified; E87.1 Hypo-osmolality and hyponatremia; I25.110 Atherosclerotic heart disease of native coronary artery with unstable angina pectoris
CPT/HCPCS: 36415; 80053; 80061; 83880; 84443; 85025

== ENCOUNTER → 2025-08-10 11:26 | Outpatient (REF) | payer MEDICARE, OTHER, SELFPAY ==
[2025-08-10 13:40] LABS: Blood Urea Nitrogen 15 mg/dl (9-20); Calcium 9.1 mg/dl (8.4-10.2); Carbon Dioxide 28 mmol/L (22-30); Chloride 98 mmol/L (98-107); Glucose 79 mg/dl (70-99); Potassium 4.9 mmol/L (3.5-5.1); Sodium 131 mmol/L (135-145); eGFR > 60.00
== END ==
LOC: REG 11:26
PROVIDERS: ATTENDING PHYSICIAN Family Medicine
DX: I10 Essential (primary) hypertension (principal)
CPT/HCPCS: 36415; 80048

== ENCOUNTER 2025-08-15 14:02 | Outpatient (RCR) | payer MEDICARE, OTHER, SELFPAY | END 2025-08-15 23:59 | disposition home or self-care (01) | LOC: CRHB 14:02 | PROVIDERS: ATTENDING PHYSICIAN Internal Medicine Cardiovascular Disease; FAMILY PHYSICIAN Family Medicine | DX: Z95.1 Presence of aortocoronary bypass graft (principal) | CPT/HCPCS: G0422; G0423 ==

== ENCOUNTER → 2025-08-23 12:07 | Outpatient (REF) | payer MEDICARE, OTHER, SELFPAY ==
[2025-08-23 13:48] LABS: Sodium 133 mmol/L (135-145)
== END ==
LOC: REG 12:07
PROVIDERS: ATTENDING PHYSICIAN Family Medicine
DX: E87.1 Hypo-osmolality and hyponatremia (principal)
CPT/HCPCS: 36415; 84295

== ENCOUNTER 2025-09-05 11:58 | Outpatient (RCR) | payer MEDICARE, OTHER, SELFPAY | END 2025-09-05 12:19 | disposition home or self-care (01) | LOC: CRHB 11:58 | PROVIDERS: ATTENDING PHYSICIAN Internal Medicine Cardiovascular Disease; FAMILY PHYSICIAN Family Medicine | DX: Z95.1 Presence of aortocoronary bypass graft (principal) | CPT/HCPCS: G0422; G0423 ==

== ENCOUNTER → 2025-09-27 14:01 | Outpatient (REF) | payer MEDICARE, OTHER, SELFPAY ==
[2025-09-27 15:10] LABS: Blood Urea Nitrogen 17 mg/dl (9-20); Calcium 9.1 mg/dl (8.4-10.2); Carbon Dioxide 31 mmol/L (22-30); Chloride 98 mmol/L (98-107); Glucose 95 mg/dl (70-99); Potassium 4.7 mmol/L (3.5-5.1); Sodium 135 mmol/L (135-145); eGFR > 60.00
== END ==
LOC: REG 14:01
PROVIDERS: ATTENDING PHYSICIAN Family Medicine
DX: I48.91 Unspecified atrial fibrillation (principal); E87.1 Hypo-osmolality and hyponatremia
CPT/HCPCS: 36415; 80048

== ENCOUNTER → 2025-10-23 13:41 | Outpatient (REF) | payer MEDICARE, OTHER, SELFPAY | LOC: RCS 13:41 | PROVIDERS: ATTENDING PHYSICIAN Internal Medicine Cardiovascular Disease; FAMILY PHYSICIAN Thoracic Surgery (Cardiothoracic Vascular Surgery) | DX: I25.110 Atherosclerotic heart disease of native coronary artery with unstable angina pectoris (principal); I50.30 Unspecified diastolic (congestive) heart failure; I34.0 Nonrheumatic mitral (valve) insufficiency | CPT/HCPCS: 93306 ==

== ENCOUNTER → 2025-10-27 10:02 | Outpatient (REF) | payer MEDICARE, OTHER, SELFPAY ==
[2025-10-27 11:48] LABS: Blood Urea Nitrogen 24 mg/dl (9-20); Calcium 9.2 mg/dl (8.4-10.2); Carbon Dioxide 27 mmol/L (22-30); Chloride 99 mmol/L (98-107); Glucose 75 mg/dl (70-99); Potassium 4.6 mmol/L (3.5-5.1); Sodium 132 mmol/L (135-145); eGFR > 60.00
== END ==
LOC: REG 10:02
PROVIDERS: ATTENDING PHYSICIAN Family Medicine
DX: E87.1 Hypo-osmolality and hyponatremia (principal)
CPT/HCPCS: 36415; 80048

== ENCOUNTER → 2025-11-07 13:41 | Outpatient (REF) | payer MEDICARE, OTHER, SELFPAY | LOC: RAD 13:41 | PROVIDERS: ATTENDING PHYSICIAN Internal Medicine Cardiovascular Disease | DX: I65.21 Occlusion and stenosis of right carotid artery (principal) | CPT/HCPCS: 93880 ==